=== PATIENT | female | born 1960 | race Caucasian/White ===

== ENCOUNTER → 2017-08-18 | Emergency (ER) | payer OTHER ==
[~2017-08-18] VITALS: Ht 154.9 cm; Wt 58.5 kg
[~2017-08-18] MED LIST: AMBIEN10 MG PO; CYMBALTA30 MG PO; DILAUDID4 MG PO; MIRALAX17 GM PO; NUCYNTA ER50 MG; PHENERGAN50 MG RC; PROMETHAZINE HC25 M1 PO; REQUIP0.5 MG PO; SYNTHROID100 MCG PO; SYNTHROID112 MCG PO; XANAX1 MG PO
== END ==
LOC: ED 12:41
DX: G43.909 Migraine, unspecified, not intractable, without status migrainosus (principal); Z88.5 Allergy status to narcotic agent; Z88.6 Allergy status to analgesic agent; Z88.8 Allergy status to other drugs, medicaments and biological substances; Z88.7 Allergy status to serum and vaccine; Z79.899 Other long term (current) drug therapy
CPT/HCPCS: 96361; 96374; 96375; 99282; J1170; J2550; J7030

== ENCOUNTER 2019-07-02 06:55 | Day surgery (SDC) | payer OTHER ==
[~2019-07-02] VITALS: Ht 157.5 cm; Wt 59.0 kg
[~2019-07-02 06:55] MED LIST changes: +CALCIUM600 MG PO; +CYCLOBENZAPRINE10 MG PO; +MULTI VITAMIN1 EACH PO; +OSTEO BI-FLEX1 EACH PO; +TRAZODONE HCL50 MG PO; +VITAMIN B122500 MCG PO; +VITAMIN C500 M1 PO
[2019-07-02] MEDS ORDERED: CELECOXIB200 MG PO (08:43)
[2019-07-02] MEDS ORDERED: ASPIRIN EC325 MG PO (08:43)
[2019-07-02] MEDS ORDERED: HYDROMORPHONE HC4 MG PO (08:44)
[2019-07-02] MEDS ORDERED: SENNA LAX8.6 MG PO (08:44)
[2019-07-02] MEDS ORDERED: GABAPENTIN300 MG PO (08:44)
--- NOTE | 2019-07-04 09:16 | OR ---
[facility] [address] [place], [place] [address] Signed DATE OF OPERATION: 07/02/2019 SURGEON: Ankit Cutler MD PREOPERATIVE DIAGNOSIS: Unstable right total knee. POSTOPERATIVE DIAGNOSIS: Unstable right total knee. PROCEDURE PERFORMED: Poly exchange, right total knee. SURGEON: Ankit Cutler MD SEARCH ENGINE MARKETING MANAGER: Yanira Mccloud PA-C. Yanira was present for critical for all portions of procedure. ANESTHESIA: Spinal. BLOOD LOSS: 75 mL. TOURNIQUET TIME: None. IMPLANT: 2 x 19 mm polyethylene. BRIEF HISTORY: Safia is a 59-year-old female, who had a knee replacement about four years ago. She recovered uneventfully and was doing well until the last 6-9 months when she started developing instability in her knee. It felt wobbly and loose. Infection workup was completely negative and the metal showed no evidence of loosening. Risks and benefits of operative poly exchange to tighten up the knee were discussed with her and she elected to proceed. Electronically Signed By: ANKIT CUTLER MD 07/04/19 0916 PATIENT NAME: SAFIA PORTER OPERATIVE REPORT DATE OF : 58 REPORT #: [id number] PHYSICIAN: ANKIT CUTLER MD PCP: SCOTT MARRUFO MD REPORT IS CONFIDENTIAL AND NOT TO BE RELEASED WITHOUT AUTHORIZATION [address] [address] Signed DESCRIPTION OF PROCEDURE: Once consent was obtained, she was taken to the operating room. After adequate anesthesia, she was placed on operating room table with downside pressure points well padded. The right leg was prepped and draped in a standard sterile fashion. Exam under anesthesia did show instability in all four planes. Once the leg was prepped and draped, the prior incision was marked out. She was then incised longitudinally, carried through the skin and subcutaneous tissue. A subvastus approach was then taken through the capsule up to the VMO and then taken obliquely. This was then mobilized laterally. This allowed excellent exposure. All soft tissue around the polyethylene was then removed. The polyethylene was then removed. There was just a little bit of release of the MCL to allow better position of the posteromedial corner of the polyethylene. The polyethylene was removed and all soft tissue on the tibial plate was removed. We then trialed up to a 19, the 19 was found to be quite well fitting with good stability throughout. We then removed the trial and irrigated the knee with a liter of dilute iodine solution followed by scrubbing the metal prostheses parts with hydrogen peroxide soaked sponge. We then irrigated with another liter of normal saline. The final polyethylene was then snapped into position. Knee was stable in all four planes and had range of motion from 0 to about 110 degrees of flexion. The wound was again copiously irrigated and the arthrotomy was closed using #2 Stratafix, subcutaneous tissue with #1 Stratafix, and the skin with lucy. Wound was dressed with a PEDRO wound VAC dressing. We did place an On-Q pump percutaneously into the adductor canal prior to closure. The knee was dressed with ABD, Hoang wrap, and she was taken to the recovery room in satisfactory condition. All sponge, needle, and instrument counts were correct. Ankit Cutlre MD BA/MODL /[id number] Copies: ~ Electronically Signed By: ANKIT CUTLER MD 07/04/19 0916 PATIENT NAME: SAFIA PORTER DEMARCUS OPERATIVE REPORT DATE OF : 58 REPORT #: [id number] PHYSICIAN: ANKIT CUTLER MD PCP: SCOTT MARRUFO MD REPORT IS CONFIDENTIAL AND NOT TO BE RELEASED WITHOUT AUTHORIZATION
== END 2019-07-02 15:50 | disposition home or self-care (01) ==
LOC: DS 06:55
PROVIDERS: Specialist
PROC: 0SRC0J9 Replacement of Right Knee Joint with Synthetic Substitute, Cemented, Open Approach (ICD-10-PCS; 2019-07-02)
PROC: 0SPC0JZ Removal of Synthetic Substitute from Right Knee Joint, Open Approach (ICD-10-PCS; principal; 2019-07-02 07:45)
DX: M25.361 Other instability, right knee (principal); G43.109 Migraine with aura, not intractable, without status migrainosus; G47.00 Insomnia, unspecified; G25.81 Restless legs syndrome; E55.9 Vitamin D deficiency, unspecified; E89.0 Postprocedural hypothyroidism; Z96.651 Presence of right artificial knee joint; Z88.5 Allergy status to narcotic agent; Z88.7 Allergy status to serum and vaccine; Z88.8 Allergy status to other drugs, medicaments and biological substances; Z79.899 Other long term (current) drug therapy; Z87.891 Personal history of nicotine dependence
CPT/HCPCS: 01402; 64447; 76942; 97110; 97161; C1776; J0690; J1100; J1885; J2001; J2250; J2405; J2704; J2795; J7121

== ENCOUNTER 2019-07-30 11:06 | Inpatient (IN) | payer OTHER ==
[~2019-07-30] VITALS: Ht 157.5 cm; Wt 55.3 kg
--- OUTSIDE RECORDS SUMMARY | ~2019-07-30 | XMS | Encounter Summary ---
Demographics + + + | Address | [address] | | | [place] [address] | + + + | Home Phone | | + + + | Preferred Language | Unknown | + + + | Marital Status | | + + + | Jew Affiliation | 1041 | + + + | Race | Unknown | + + + | Ethnic Group | Unknown | + + + Author + + + | Author | [facility] | | | and Jaronana | + + + | Organization | [facility] | | | and Jaronana | + + + | Address | Unknown | + + + | Phone | Unavailable | + + + Support + + + + + | Name | Relationship | Address | Phone | + + + + + | Ashley Smith | ECON | NA | | | | | [place] [address] | | + + + + + | Angel Lu | ECON | [address] | | | | | [place], [place] | | | | | [address] | | + + + + + Care Team Providers + +------+ + | Care Telephone Solicitor Supervisor Name | Role | Phone | + +------+ + PCP | Unavailable | + +------+ + Encounter Details +--------+ + + + + | Date | Type | Department | Care Team | Description | +--------+ + + + + | 12/12/ | Hospital | [facility] | An[facility] | | | 2012 | Encounter | HOSP[facility] EMERGENCY | MD [address] | | | | | CENTER [address] | [facility] | | | | | [address] [place], [place] | [place] [address] | | | | | [address] | [phone] | | | | | [phone] | | | +--------+ + + + + Social History + +-------+ +--------+------+ | Tobacco Use | Types | Packs/Day | Years | Date | | | | | Used | | + +-------+ +--------+------+ | Never Assessed | | | | | + +-------+ +--------+------+ + + + | Sex Assigned at | Date Recorded | | | | + + + | Not on file | | + + + + + + + | Job Start Date | Occupation | Industry | + + + + | Not on file | Not on file | Not on file | + + + + + + + + | Travel History | Travel Start | Travel End | + + + + + + | No recent travel history available. | + + documented as of this encounter Plan of Treatment Not on filedocumented as of this encounter Visit Diagnoses Not on filedocumented in this encounter"
--- OUTSIDE RECORDS SUMMARY | ~2019-07-30 | XMS | Encounter Summary ---
Demographics + + + | Address | [address] | | | [place] [address] | + + + | Home Phone | | + + + | Preferred Language | Unknown | + + + | Marital Status | | + + + | Muslim Affiliation | CAT | + + + | Race | White | + + + | Ethnic Group | Not or | + + + Author + + + | Author | [facility] | + + + | Organization | [facility] | + + + | Address | Unknown | + + + | Phone | Unavailable | + + + Support + + + + + | Name | Relationship | Address | Phone | + + + + + | Angel Lu | ECON | [address] | | | | | [place] | | | | | [address] | | + + + + + Care Team Providers + +------+ + | Care Damage Cutter Name | Role | Phone | + +------+ + | Matthias Blackman DO | PCP | | + +------+ + Encounter Details +--------+ + + + + | Date | Type | Department | Care Team | Description | +--------+ + + + + | 08/03/ | Outside | UNKNOWN DEPARTMENT | Other, Faculty | | | 2011 | Records | [address] [facility] | [phone] | | | | | [address] | | | | | | [place] | | | | | | [address] | | | +--------+ + + + + Social History + +-------+ +--------+------+ | Tobacco Use | Types | Packs/Day | Years | Date | | | | | Used | | + +-------+ +--------+------+ | Never Smoker | | | | | + +-------+ +--------+------+ + + +---------+ + | Alcohol Use | Drinks/Week | oz/Week | Comments | + + +---------+ + | Yes | | 0.0 | occasional | + + +---------+ + + + + | Sex Assigned at [...]
--- OUTSIDE RECORDS SUMMARY | ~2019-07-30 | XMS | Encounter Summary ---
Demographics + + + | Address | [address] | | | [place] [address] | + + + | Home Phone | | + + + | Preferred Language | Unknown | + + + | Marital Status | | + + + | Latter-Day Affiliation | CAT | + + + | Race | White | + + + | Ethnic Group | Not or | + + + Author + + + | Author | [facility] | + + + | Organization | [facility] | + + + | Address | Unknown | + + + | Phone | Unavailable | + + + Support + + + + + | Name | Relationship | Address | Phone | + + + + + | Angel Lu | ECON | [address] | | | | | [place] | | | | | [address] | | + + + + + Care Team Providers + +------+ + | Care Business Development Analyst Name | Role | Phone | + +------+ + | Matthias Blackman DO | PCP | | + +------+ + Reason for Visit +--------+ + | Reason | Comments | +--------+ + | Other | | +--------+ + Encounter Details +--------+ + + + + | Date | Type | Department | Care Team | Description | +--------+ + + + + | 06/22/ | Telephone | Otolaryngology | Laura Pelayo, | | | 2011 | | Endocrinology | [address] | | | | | [facility] at | [facility] | | | | | [address] | [place], [place] | | | | | [address] | [address] | | | | | Mailcode: [id number] | [phone] | | | | | [facility] | | | | | | [facility] [place] | | | | | | [address] | | | | | | [phone] | | | +--------+ + + + [...] Not on filedocumented as of this encounter Procedures + +--------+ + + + | Procedure Name | Priori | Date/Time | Associated Diagnosis | Comments | | | ty | | | | + +--------+ + + + | THYROGLOBULIN LEVEL | Routin | 06/22/2011 | | Results for this | | AND ANTIBODY, SERUM | e | | | procedure are in the | | | | | | results section. | + +--------+ + + + documented in this encounter Results THYROGLOBULIN, SERUM (06/22/2011) + + + + + + | Component | Value | Ref Range | Performed | Pathologist | | | | | At | Signature | + + + + + + | THYROGLOBUL | <20.0Comment: [facility] | <20.0 | NON [facility] | | | IN AB | | | LAB | | | (ANTI-TG) | | | | | + + + + + + | THYROGLOBUL | <0.1Comment: [facility] | 1.3 - 31.8 | NON [facility] | | | IN SERUM | | ng/mL | LAB | | + + + + + + + + | Specimen | + + | Blood - Blood | + + + +---------+ + + | Performing | Address | City/State/Zipcode | Phone Number | | Organization | | | | + +---------+ + + | NON [facility] | | | | + +---------+ + + documented in this encounter Visit Diagnoses Not on filedocumented in this encounter"
--- OUTSIDE RECORDS SUMMARY | ~2019-07-30 | XMS | Encounter Summary ---
Demographics + + + | Address | [address] | | | [place] [address] | + + + | Home Phone | | + + + | Preferred Language | Unknown | + + + | Marital Status | | + + + | Tenriism Affiliation | CAT | + + + | Race | White | + + + | Ethnic Group | Not or | + + + Author + + + | Author | [facility] | + + + | Organization | [facility] | + + + | Address | Unknown | + + + | Phone | Unavailable | + + + Support + + + + + | Name | Relationship | Address | Phone | + + + + + | Angel Lu | ECON | [address] | | | | | [place] | | | | | [address] | | + + + + + Care Team Providers + +------+ + | Care Wrapping Machine Tender Name | Role | Phone | + +------+ + | Matthias Blackman DO | PCP | | + +------+ + Encounter Details +--------+ + + + + | Date | Type | Department | Care Team | Description | +--------+ + + + + | 05/07/ | Telephone | Otolaryngology | Laura Pelayo, | | | 2013 | | Thyroid Services at | [address] | | | | | [address] | | | | | [address] | [place], [place] | | | | | Physician's | [address] | | | | | [address], [address] floor | [phone] | | | | | [place], [place] | | | | | | [address] | | | | | | [phone] | | | +--------+ + + + [...] filedocumented as of this encounter Visit Diagnoses + + | Diagnosis | + + | 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
--- OUTSIDE RECORDS SUMMARY | ~2019-07-30 | XMS | Encounter Summary ---
Demographics + + + | Address | [address] | | | [place] [address] | + + + | Home Phone | | + + + | Preferred Language | Unknown | + + + | Marital Status | | + + + | Rastafarian Affiliation | CAT | + + + | Race | White | + + + | Ethnic Group | Not or | + + + Author + + + | Author | [facility] | + + + | Organization | [facility] | + + + | Address | Unknown | + + + | Phone | Unavailable | + + + Support + + + + + | Name | Relationship | Address | Phone | + + + + + | Angel Lu | ECON | [address] | | | | | [place] | | | | | [address] | | + + + + + Care Team Providers + +------+ + | Care Mailing Jogger Name | Role | Phone | + +------+ + | Matthias Blackman DO | PCP | | + +------+ + Reason for Visit + + + | Reason | Comments | + + + | Appointment | | + + + Encounter Details +--------+ + + + + | Date | Type | Department | Care Team | Description | +--------+ + + + + | 05/21/ | Telephone | Otolaryngology | Laura Pelayo, | Appointment | | 2008 | | Endocrinology | MD [address] | | | | | Thyroid Services at | [facility] | | | | | [address] | [place], [place] | | | | | [address] | [address] | | | | | Mailcode: [id number] | [phone] | | | | | [facility] | | | | | | [place], [place] | | | | | | [address] | | | | | | [phone] | | | +--------+ + + + [...] Not on filedocumented as of this encounter Results THYROGLOBULIN, SERUM (07/25/2008 12:07 PM PDT) + + + + + + | Component | Value | Ref Range | Performed | Pathologist | | | | | At | Signature | + + + + + + | THYROGLOBUL | < 1.0Comment: | <14.5 IU/mL | | | | IN ANTIBODY | Test performed by: | | | | | | [facility] [id number] | | | | | | [facility] | | | | | | [place], [place] | | | | | | [address] | | | | | | Anti-Thyroglobulin Ab | | | | | | Reference Range: | | | | | | Children and Adults<1.0 | | | | | | IU/mL Low levels | | | | | | of Anti-TG Antibodies | | | | | | (<100 IU/mL) may be | | | | | | presentin | | | | | | apparently healthy | | | | | | children and adults. | | | | | | Since it is | | | | | | unclearwhether | | | | | | this is a normal immune | | | | | | response or subclinical | | | | | | thyroiditis,low | | | | | | levels of antibodies | | | | | | should be correlated | | | | | | with the | | | | | | patient'sclinical | | | | | | condition. | | | | + + + + + + | THYROGLOBUL | < 0.5Comment: | ng/mL | | | | IN | TG-ICMA Reference Range: | | | | | (TG-ICMA) | RANGE (ng/mL) | | | | | | MEAN (ng/mL) | | | | | | Prepubertal Children: | | | | | | 2.9-56 | | | | | | 17 | | | | | | Pubertal Children and | | | | | | Adults: 1.3-37 | | | | | | 8.5 | | | | + + + + + + | THYROGLOBUL | Test not indicated. | ng/mL | | | | IN (TG-STEPHANIE) | | | | | + + + + + + | % RECOVERY | Test not indicated. | | | | + + + + + + + + | Specimen | + + | Blood - Blood | + + + + + + + | Performing | Address | City/State/Zipcode | Phone Number | | Organization | | | | + + + + + | [facility] | [address] | [place] [address] | | | PATHOLOGY | [address] | | | + + + + + FREE T4, SERUM (07/25/2008 12:07 PM PDT) + +-------+ + + + | Component | Value | Ref Range | Performed | Pathologist | | | | | At | Signature | + +-------+ + + + | FREE T4, | 1.2 | 0.6 - 1.2 ng/dL | | | | SERUM | | | | | + +-------+ + + + + + | Specimen | + + | Blood - Blood | + + + + + | Narrative | Performed At | + + + | Free T4 Reference Range change effective 07/18/08 | [facility] | | [facility] [place] | DEPARTMENT OF | | [place] [address] | PATHOLOGY | | [place] [address] | | + + + + + + + + | Performing | Address | City/State/Zipcode | Phone Number | | Organization | | | | + + + + + | [facility] DEPARTMENT OF | [address] | [place] [address] | | | PATHOLOGY | [address] | | | + + + + + | [facility] DEPARTMENT OF | [facility] | [place] [address] | | | PATHOLOGY | [address] | | | + + + + + TSH (07/25/2008 12:07 PM PDT) + +-------+ + + + | Component | Value | Ref Range | Performed | Pathologist | | | | | At | Signature | + +-------+ + + + | TSH | 0.55 | 0.34 - 5.60 | | | | | | uIU/ml | | | + +-------+ + + + + + | Specimen | + + | Blood - Blood | + + + + + | Narrative | Performed At | + + + | [facility] | [facility] | | [facility] [address] [facility] | DEPARTMENT OF | | [place] [address] | PATHOLOGY | + + + + + + + + | Performing | Address | City/State/Zipcode | Phone Number | | Organization | | | | + + + + + | [facility] DEPARTMENT OF | [address] [facility] | [place] [address] | | | PATHOLOGY | [address] | | | + + + + + | [facility] DEPARTMENT OF | [address] [facility] | [place] [address] | | | PATHOLOGY | [address] | | | + + + + + US THY CLINIC, NECK THYROID (07/25/2008 12:03 PM PDT) + + + + + + | Component | Value | Ref Range | Performed | Pathologist | | | | | At | Signature | + + + + + + | US THY | Indication: Evaluate for | | | | | CLINIC, | metastatic | | | | | NECK | disease.Comparison: | | | | | THYROID | None.Technique: Real | | | | | | time karimi scale and | | | | | | color Doppler ultrasound | | | | | | wasperformed of the | | | | | | thyroid bed and | | | | | | neck.Findings: The | | | | | | patient is status post | | | | | | thyroidectomy without | | | | | | residualtissue in the | | | | | | surgical bed. Thorough | | | | | | evaluation of the | | | | | | levels Ithrough | | | | | | reveals no | | | | | | adenopathy.Impression: | | | | | | Status post | | | | | | thyroidectomy without | | | | | | evidence for recurrentor | | | | | | metastatic disease.I | | | | | | have personally viewed | | | | | | this procedure/exam and | | | | | | reviewed this | | | | | | report.Author: NATANAEL | | | | | | Santiago JOEReviewer: | | | | | | NATANAEL JOE M.D.STATUS | | | | | | FINAL / Dr. 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
--- OUTSIDE RECORDS SUMMARY | ~2019-07-30 | XMS | Encounter Summary ---
Demographics + + + | Address | [address] | | | [place] [address] | + + + | Home Phone | | + + + | Preferred Language | Unknown | + + + | Marital Status | | + + + | Faith Affiliation | CAT | + + + | Race | White | + + + | Ethnic Group | Not or | + + + Author + + + | Author | [facility] | + + + | Organization | [facility] | + + + | Address | Unknown | + + + | Phone | Unavailable | + + + Support + + + + + | Name | Relationship | Address | Phone | + + + + + | Angel Lu | ECON | [address] | | | | | [place] | | | | | [address] | | + + + + + Care Team Providers + +------+ + | Care Pill Maker Name | Role | Phone | + +------+ + | Matthias Blackman DO | PCP | | + +------+ + Encounter Details +--------+ + + + + | Date | Type | Department | Care Team | Description | +--------+ + + + + | 05/31/ | [facility] | Otolaryngology | Laura Pelayo, | | | 2013 | | Thyroid Services at | MD [address] | | | | | [facility] [address] | | | | | [address] | [place], [place] | | | | | Physician's | [address] | | | | | Steve, [address]nd floor | [phone] | | | | | [place], [place] | | | | | | [address] | | | | | | [phone] | | | +--------+ + + + [...] + +--------+ + + + | THYROGLOBULIN AB, | Routin | 05/30/2013 | | Results for this | | SERUM | e | | | procedure are in the | | | | | | results section. | + +--------+ + + + | THYROGLOBULIN LEVEL | Routin | 05/30/2013 | | Results for this | | AND ANTIBODY, SERUM | e | | | procedure are in the | | | | | | results section. | + +--------+ + + + | FREE T4 | Routin | 05/30/2013 | | Results for this | | | e | | | procedure are in the | | | | | | results section. | + +--------+ + + + | TSH | Routin | 05/30/2013 | | Results for this | | | e | | | procedure are in the | | | | | | results section. | + +--------+ + + + documented in this encounter Results THYROGLOBULIN, SERUM (05/30/2013) + +-------+ + + + | Component | Value | Ref Range | Performed | Pathologist | | | | | At | Signature | + +-------+ + + + | THYROGLOBUL | <0.2 | <55 ng/mL | [facility] | | | IN ([facility]) | | | LAB - | | | | | | [place] | | + +-------+ + + + + + | Specimen | + + | Blood - Blood | + + + + + + + | Performing | Address | City/State/Zipcode | Phone Number | | Organization | | | | + + + + + | [facility] - | [address] | [place], [place] | [phone] | | [place] | | | | + + + + + THYROGLOBULIN AB, SERUM (05/30/2013) + +-------+ + + + | Component | Value | Ref Range | Performed | Pathologist | | | | | At | Signature | + +-------+ + + + | THYROGLOBUL | <20 | <40 IU/mL | [facility] | | | IN ANTIBODY | | | LAB - | | | | | | [place] | | + +-------+ + + + + + | Specimen | + + | Blood - Blood | + + + + + + + | Performing | Address | City/State/Zipcode | Phone Number | | Organization | | | | + + + + + | [facility] - | [address] | [place] | [phone] | | [place] | | | | + + + + + FREE T4 (05/30/2013) + +-------+ + + + | Component | Value | Ref Range | Performed | Pathologist | | | | | At | Signature | + +-------+ + + + | FREE T4 | 1.5 | 0.7 - 1.7 ng/dL | [facility] | | | | | | LAB - | | | | | | [place] | | + +-------+ + + + + + | Specimen | + + | Blood - Blood | + + + + + + + | Performing | Address | City/State/Zipcode | Phone Number | | Organization | | | | + + + + + | [facility] - | [address] | [place] | [phone] | | [place] | | | | + + + + + TSH (05/30/2013) + +-------+ + + + | Component | Value | Ref Range | Performed | Pathologist | | | | | At | Signature | + +-------+ + + + | TSH | 2.69 | 0.270 - 4.20 | [facility] | | | | | uIU/ml | LAB - | | | | | | [place] | | + +-------+ + + + + + | Specimen | + + | Blood - Blood | + + + + + + + | Performing | Address | City/State/Zipcode | Phone Number | | Organization | | | | + + + + + | [facility] - | [address] | [place] | [phone] | | [place] | | | | + + + + + documented in this encounter Visit Diagnoses Not on filedocumented in this encounter"
--- OUTSIDE RECORDS SUMMARY | ~2019-07-30 | XMS | Encounter Summary ---
Demographics + + + | Address | [address] | | | [place] [address] | + + + | Home Phone | | + + + | Preferred Language | Unknown | + + + | Marital Status | | + + + | Christian Affiliation | CAT | + + + | Race | White | + + + | Ethnic Group | Not or | + + + Author + + + | Author | [facility] | + + + | Organization | [facility] | + + + | Address | Unknown | + + + | Phone | Unavailable | + + + Support + + + + + | Name | Relationship | Address | Phone | + + + + + | Angel Lu | ECON | [address] | | | | | [place] | | | | | [address] | | + + + + + Care Team Providers + +------+ + | Care Supervisor Paper Machine Name | Role | Phone | + +------+ + | Matthias Blackman DO | PCP | | + +------+ + Encounter Details +--------+------+ + + + | Date | Type | Department | Care Team | Description | +--------+------+ + + + | 08/06/ | Lab | Laboratory at [facility] | | Papillary carcinoma | | 2016 | | [address] | | of thyroid (HCC) | | | | Loop Physician's | | | | | | Steve, [address] [place] [address] | | | | | | [place], [place] | | | | | | [address] | | | | | | [phone] | | | +--------+------+ + + + Social History + +-------+ [...] + | FREE T4 | Routin | 08/07/2015 | Papillary | Results for this | | | e | 10:42 AM | carcinoma of thyroid | procedure are in the | | | | PDT | ([facility]) | results section. | + +--------+ + + + | TSH | Routin | 08/07/2015 | Papillary | Results for this | | | e | 10:42 AM | carcinoma of thyroid | procedure are in the | | | | PDT | ([facility]) | results section. | + +--------+ + + + documented in this encounter Results FREE T4 (08/07/2015 10:42 AM PDT) + +-------+ + + + | Component | Value | Ref Range | Performed | Pathologist | | | | | At | Signature | + +-------+ + + + | FREE T4 | 1.0 | 0.6 - 1.2 ng/dL | [facility] | | | | | | LABORATORY | | | | | | SERVICES, | | | | | | CORE | | + +-------+ + + + + + | Specimen | + + | Blood - Blood | | (substance) | + + + + + + + | Performing | Address | City/State/Zipcode | Phone Number | | Organization | | | | + + + + + | [facility] | [address] | [place] [address] | | | SERVICES, CORE | [address] | | | + + + + + TSH (08/07/2015 10:42 AM PDT) + +-------+ + + + | Component | Value | Ref Range | Performed | Pathologist | | | | | At | Signature | + +-------+ + + + | TSH | 3.57 | 0.50 - 5.07 | [facility] | | | | | mIU/L | LABORATORY | | | | | | SERVICES, | | | | | | CORE | | + +-------+ + + + + + | Specimen | + + | Blood - Blood | | (substance) | + + + + + | Narrative | Performed At | + + + | TSH reference ranges are influenced by a variety of environmental | [facility] | | influences, age, gender and ethnicity. The supplied reference limits | LABORATORY | | are based on published values utilizing a similar TSH assay, and | SERVICES, CORE | | should be interpreted with caution. | | + + + + + + + + | Performing | Address | City/State/Zipcode | Phone Number | | Organization | | | | + + + + + | [facility] | [address] | [place] [address] | | | [address] | [address] | | | + + + + + documented in this encounter Visit Diagnoses + + | Diagnosis | + + | 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
--- OUTSIDE RECORDS SUMMARY | ~2019-07-30 | XMS | Encounter Summary ---
Demographics + + + | Address | [address] | | | [place] [address] | + + + | Home Phone | | + + + | Preferred Language | Unknown | + + + | Marital Status | | + + + | Taoist Affiliation | CAT | + + + | Race | White | + + + | Ethnic Group | Not or | + + + Author + + + | Author | [facility] | + + + | Organization | [facility] | + + + | Address | Unknown | + + + | Phone | Unavailable | + + + Support + + + + + | Name | Relationship | Address | Phone | + + + + + | Angel Lu | ECON | [address] | | | | | [place] | | | | | [address] | | + + + + + Care Team Providers + +------+ + | Care Research Staff Member Name | Role | Phone | + +------+ + | Matthias Blackman DO | PCP | | + +------+ + Reason for Visit + + + | Reason | Comments | + + + | Follow-up visit | | + + + Office Visit - E/M Services (Routine) +--------+--------+ + + + + | Status | Reason | Specialty | Diagnoses / | Referred By | Referred To | | | | | Procedures | Contact | Contact | +--------+--------+ + + + + | Closed | | Otolaryngolog | Diagnoses | Junaid, | Ent Thyroid | | | | y | Malignant | Andrey Davalos MD | [facility] [address] | | | | | neoplasm of | [address] | | | | | thyroid | [address] | [address] | | | | | gland (HCC) | [address] | Physician's | | | | | | [place], | [address] | | | | | | [place] [address] | floor | | | | | | Phone: | [place], [place] | | | | | | [phone] | [address] | | | | | | Fax: | Phone: | | | | | | [phone] | [phone] | | | | | | | Fax: | | | | | | | [phone] | +--------+--------+ + + + + Encounter Details +--------+---------+ + + + | Date | Type | Department | Care Team | Description | +--------+---------+ + + + | 08/09/ | Office | Otolaryngology | Laura Pelayo, | Papillary carcinoma | | 2014 | Visit | Endocrinology | [address] | of thyroid (HCC) | | | | Thyroid Services at | [facility] [address] | (Primary Dx) | | | | [facility] [address] | [place], [place] | | | | | [address] | [address] | | | | | Mailcode: [id number] | [phone] | | | | | Phys[facility]'s Pavilion | | | | | | [place], [place] | | | | | | [address] | | | | | | [phone] | | | +--------+---------+ + + + Social History + +-------+ [...] + + documented as of this encounter Last Filed Vital Signs + + + + + | Vital Sign | Reading | Time Taken | Comments | + + + + + | Blood Pressure | - | - | | + + + + + | Pulse | - | - | | + + + + + | Temperature | - | - | | + + + + + | Respiratory Rate | - | - | | + + + + + | Oxygen Saturation | - | - | | + + + + + | Inhaled Oxygen | - | - | | | Concentration | | | | + + + + + | Weight | 55.8 kg (123 lb) | 08/09/2013 4:22 PM | | | | | PDT | | + + + + + | Height | 156.2 cm (5' 1.5") | 08/09/2013 4:22 PM | | | | | PDT | | + + + + + | Body Mass Index | 22.86 | 08/09/2013 4:22 PM | | | | | PDT | | + + + + + documented in this encounter Progress Notes Laura Pelayo MD - 08/09/2013 4:30 PM PDTFormatting of this note might be different fro m the original. THYROID TUMOR CLINIC - ENDOCRINOLOGY THYROID CANCER Follow-up Safia Lu is a 53 y.o. female with a history of Papillary Thyroid Carcinoma, follicula r variant here for f/u. Her disease was T3 N0 M0, Stage III who returns to clinic today for follow-up. She is s/p total thyroidectomy on 05/12/06, I-131 ablation with 121.7 mCi on with post-therapy scan showing asymmetric uptake in the thyroid bed, but no distant metast ases, neg Thyrogen-stimulated WBS and Tg evaluation 05/05, negative thyroglobulin and ultraso und evaluations since then. Her current dose of Levothyroxine is 100 mcg a day. Denies symptoms of hyper or hypothyroidism including heat intolerance, cold intolerance, co nstipation, diarrhea, excess sweating, palpitations, tremor. She does relate constipation ( chronic, not as much control with Miralax as it has in past ), and doesn't have the energy t hat she thinks she should, lethargic. She denies any neck masses, but does not occ difficulty swallowing solids. Medications: Current outpatient prescriptions:DULoxetine (CYMBALTA) 30 mg Oral capsule,delayed release(D R/EC), Take 30 mg by mouth once daily., Disp: , Rfl: HYDROmorphone 4 mg Oral Tablet, Take 1 Tab by mouth every three hours as needed for severe pain., Disp: 12 Tab, Rfl: 0 levothyroxine 100 mcg Oral tablet, Take 1 Tab by mouth once daily., Disp: 100 Tab, Rfl: 3 Promethazine HCl 25 mg Oral Tablet, prn migraine, Disp: , Rfl: ropinirole (REQUIP) 1 mg Oral Tablet, take 1 tablet (1 mg) by oral route 3 times per day, D isp: , Rfl: PE: Ht 1.562 m (5' 1.5") | Wt 55.792 kg (123 lb) | BMI 22.87 kg/(m^2) General: Pleasant woman,NAD, AOx3 HEENT: EOMs intact without lid lag, retraction or stare. Neck: supple, no adenopathy, masses or palpable thyroid tissue, no masses. Well-healed thy roidectomy scar. Neuro: No tremor. DTRs 1+ with normal relaxation phase. Strength, gait and mental status are grossly intact. Skin: Warm and of normal consistency, temperature and texture. Laboratory: Component Latest Ref Rng 05/30/2013 TSH 0.270 - 4.20 uIU/ml 2.69 FREE T4, SERUM 0.7 - 1.7 ng/dL 1.5 THYROGLOBULIN ANTIBODY <40 IU/mL <20 THYROGLOBULIN (TG-STEPHANIE) <55 ng/mL <0.2 Radiology: US THY CLINIC, NECK SOFT TISU STUDY:US THY CLINIC NECK SOFT TISSUE 08/09/13 16:14:00 COMPARISON:08/26/2011 INDICATION: Followup thyroid cancer FINDINGS: All cervical levels were evaluated sonographically. The thyroid is surgically absent. No paratracheal nodules are seen. Multiple morphologically normal lateral compartment lymph nodes are present bilaterally. None contain microcalcification or abnormal vascularity. IMPRESSION: No evidence of recurrent or metastatic disease in the neck. Assessment: This is a 53 y.o. female with Papillary Thyroid Carcinoma, follicular variant h ere for f/u. Her disease was T3 N0 M0, Stage III. No evidence of recurrent disease thyroid d isease at this time. History of negative thyrogen stimulated hole body iodine scan in 2007, persistently negative neck ultrasounds, and negative thyroglobulin with neg antithyroglobuli n antibodies. She is clinically euthyroid with a reasonable TSH. Our goal is to have her TS H in the range of 0.2-2.0 with normal Free T4 but she is close enough to that, that we will not change her dose at this time (given previous dose of 112 mcg made her hyperthyroid). Plan: 1. No change in levothyroxine based on thyroid labs in May. 2. Plan continued thryoid cancer surveillance with ultrasensitive unstimulated thyroglobuli n next year, plan next neck ultrasound in 2 years. 3. RTC 1 year for levothyroxine titration and thyroid cancer surveillance.Electronically si gned by Laura Pelayo MD at 08/09/2013 5:40 PM PDTdocumented in this encounter Plan of Treatment Not on filedocumented as of this encounter Visit Diagnoses + + | Diagnosis | + + | Papillary carcinoma of thyroid (HCC) - Primary Malignant neoplasm of thyroid gland | + + documented in this encounter
--- OUTSIDE RECORDS SUMMARY | ~2019-07-30 | XMS | Encounter Summary ---
Demographics + + + | Address | [address] | | | [place] [address] | + + + | Home Phone | | + + + | Preferred Language | Unknown | + + + | Marital Status | | + + + | Adventism Affiliation | CAT | + + + | Race | White | + + + | Ethnic Group | Not or | + + + Author + + + | Author | [facility] | + + + | Organization | [facility] | + + + | Address | Unknown | + + + | Phone | Unavailable | + + + Support + + + + + | Name | Relationship | Address | Phone | + + + + + | Angel Lu | ECON | [address] | | | | | [place] | | | | | [address] | | + + + + + Care Team Providers + +------+ + | Care Fish Smoker Name | Role | Phone | + +------+ + | Matthias Blackman DO | PCP | | + +------+ + Encounter Details +--------+------+ + + + | Date | Type | Department | Care Team | Description | +--------+------+ + + + | 09/14/ | Lab | Laboratory at [facility] | | Papillary Carcinoma | | 2007 | | [address] | | of Thyroid (HCC) | | | | Loop Physician's | | | | | | Steve, [address] [place] [address] | | | | | | [place], [place] | | | | | | [address] | | | | | | [phone] | | | +--------+------+ + + + [...] + | THYROGLOBULIN LEVEL | Routin | 09/15/2007 | Papillary | Results for this | | AND ANTIBODY, SERUM | e | 9:23 AM | Carcinoma of Thyroid | procedure are in the | | | | PDT | ([facility]) | results section. | + +--------+ + + + | TSH | Routin | 09/15/2007 | Papillary | Results for this | | | e | 9:23 AM | Carcinoma of Thyroid | procedure are in the | | | | PDT | ([facility]) | results section. | + +--------+ + + + documented in this encounter Results THYROGLOBULIN, SERUM (09/15/2007 9:23 AM PDT) + + + + + + | Component | Value | Ref Range | Performed | Pathologist | | | | | At | Signature | + + + + + + | THYROGLOBUL | < 1.0Comment: | <14.5 IU/mL | | | | IN ANTIBODY | Test performed by | | | | | | [employer] | | | | | | Anti-Thyroglobulin | | | | | | Ab Reference Range: | | | | | [...] | + + + + + | [facility] | [address] [facility] | [facility], | | | | | [place] [address] | | + + + + + TSH (09/15/2007 9:23 AM PDT) + + + + + + | Component | Value | Ref Range | Performed | Pathologist | | | | | At | Signature | + + + + + + | TSH | 15.00 (H) | 0.34 - 5.60 | | | | | | uIU/ml | | | + + + + + + + + | Specimen | + + | Blood - Blood | + + + + + | Narrative | Performed At | + + + | High TSH (suggests Hypothyroid) | | | Reference range change effective 12/19/06 | | | [facility] | | | [place] [address] [facility] | | | [place] [address] | | + + + + + + + + | Performing | Address | City/State/Zipcode | Phone Number | | Organization | | | | + + + + + | [facility] | [address] | [place] [address] | | | LABORATORY | | | | + + + + + documented in this encounter Visit Diagnoses + + | Diagnosis | + + | 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
--- OUTSIDE RECORDS SUMMARY | ~2019-07-30 | XMS | Encounter Summary ---
Demographics + + + | Address | [address] | | | [place] [address] | + + + | Home Phone | | + + + | Preferred Language | Unknown | + + + | Marital Status | | + + + | Lutheran Affiliation | CAT | + + + | Race | White | + + + | Ethnic Group | Not or | + + + Author + + + | Organization | Unknown | + + + | Address | Unknown | + + + | Phone | Unavailable | + + + Support + + + + + | Name | Relationship | Address | Phone | + + + + + | Angel Lu | ECON | [address] | | | | | [place] | | | | | [address] | | + + + + + Care Team Providers + +------+ + | Care Supervisor Road Administrator Name | Role | Phone | + +------+ + PCP | Unavailable | + +------+ + Encounter Details +--------+ + + + + | Date | Type | Department | Care Team | Description | +--------+ + + + + | 09/19/ | Office | | Note, Outpatient | Progress Note | | 2004 | Visit-Trans | | Clinic | | | | cribed | | | | +--------+ + + + [...] + + documented as of this encounter Progress Notes Interface, Pad Machine Operator In - 09/27/2004 6:38 AM [facility] Date: 09/20/2003 Clinic: CHART NOTE Subjective: Safia Lu returns to the General Neurology Clinic today for followup of migraine headaches. Safia reports that she has not had as many headaches over the past 6 months as previously. She reports a few headaches that have been relieved with Imitrex. She had a severe headache in April 2003 and had to be seen in the Emergency Room at the local hospital. She was treated with Demerol which she has received twice during her stay there that did not significantly help with the headache. She states that usually she receives Valium with the Demerol and on this occasion, apparently, they did not give her Valium. She did not get sleepy on the Demerol but did go home and eventually was able to sleep off the headache. She reports that she did take the Dilaudid 4 mg prior to going to the Emergency Room but that it was ineffective. She has had some new medical problems. 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 She was taking hydrochlorothiazide for many years. She is on potassium replacement, but it has been slow in terms of her hypokalemia subsiding. She continues on atenolol 25 mg daily and nortriptyline 50 mg daily. Physical Examination Vital Signs: Weight 128.7 pounds, blood pressure 100/60, pulse 102 per minute and regular. General Appearance: This is a well-developed, attractive female who is quite pleasant and cooperative. Neurologic: Cranial nerves 2 through 12 are intact. Funduscopic exam is normal. Motor exam: 5/5 strength. Sensory exam: Intact light touch, vibratory, temperature, and proprioception. Cerebellar exam: Excellent coordination of upper extremities. She performs tandem gait without ataxia. Deep tendon reflexes are 1 to 2+ and symmetrical. Toes signs are downgoing. Clinical Impression: Migraine headache disorder. Fairly well controlled with atenolol and nortriptyline. Recommendations: We will add Phenergan 50 mg tablets 1 p.o. q.6h. as needed for nausea to take for more severe headaches along with the Dilaudid. Hopefully, this will allow her to get the sleep, and her headache will subside without going to the Emergency Room. If this does not work, she is to call me, and we will consider other options including changing her prophylactic medication or perhaps changing her acute rescue medications to Stadol Nasal Hoskins. Return appointment in 6 months' time. Glory Quintanilla M.D. / [id number] / [id number] / [id number] / cc: Richard Dee M.D. [address] [place] [id number] signed by Interface, Pad Machine Operator In at 09/27/2004 6:38 AM PDTdocumented in this encounter Plan of Treatment Not on filedocumented as of this encounter Visit Diagnoses Not on filedocumented in this encounter"
--- OUTSIDE RECORDS SUMMARY | ~2019-07-30 | XMS | Encounter Summary ---
Demographics + + + | Address | [address] | | | [place] [address] | + + + | Home Phone | | + + + | Preferred Language | Unknown | + + + | Marital Status | | + + + | Episcopal Affiliation | CAT | + + + | Race | White | + + + | Ethnic Group | Not or | + + + Author + + + | Author | [facility] | + + + | Organization | [facility] | + + + | Address | Unknown | + + + | Phone | Unavailable | + + + Support + + + + + | Name | Relationship | Address | Phone | + + + + + | Angel Lu | ECON | [address] | | | | | [place] | | | | | [address] | | + + + + + Care Team Providers + +------+ + | Care Plastic Welder Name | Role | Phone | + +------+ + | Matthias Blackman DO | PCP | | + +------+ + Encounter Details +--------+ + + + + | Date | Type | Department | Care Team | Description | +--------+ + + + + | 08/16/ | Abstract | Otolaryngology | Laura Pelayo, | | | 2007 | | Thyroid Services at | [address] | | | | | [facility] [address] | | | | | [address] | [place], [place] | | | | | Physician's | [address] | | | | | Steve, [address] floor | [phone] | | | | | [place], [place] | | | | | | [address] | | | | | | [phone] | | | +--------+ + + + [...] | + +--------+ + + + | IODINE, URINE | Routin | 08/11/2007 | | Results for this | | | e | | | procedure are in the | | | | | | results section. | + +--------+ + + + documented in this encounter Results IODINE, URINE (08/11/2007) + +-------+ + + + | Component | Value | Ref Range | Performed | Pathologist | | | | | At | Signature | + +-------+ + + + | IODINE, | 161 | 100 - 460 | NON [facility] | | | URINE | | | LAB | | + +-------+ + + + | IODINE | 92 | 42 - 350 | NON [facility] | | | CONCENTRATI | | | LAB | | | ON | | | | | + +-------+ + + + | URINE | 1750 | mL | NON [facility] | | | VOLUME | | | LAB | | + +-------+ + + + | COLLECTION | 24 | hr | NON [facility] | | | INTERVAL | | | LAB | | + +-------+ + + + + + | Specimen | + + | Urine - Urine | + + + +---------+ + + | Performing | Address | City/State/Zipcode | Phone Number | | Organization | | | | + +---------+ + + | NON [facility] | | | | + +---------+ + + documented in this encounter Visit Diagnoses Not on filedocumented in this encounter"
--- OUTSIDE RECORDS SUMMARY | ~2019-07-30 | XMS | Encounter Summary ---
Demographics + + + | Address | [address] | | | [place] [address] | + + + | Home Phone [...] Author | [facility] | + + + | Organization | [facility] | + + + | Address | Unknown | + + + | Phone | Unavailable | + + + Support + + + + + | Name | Relationship | Address | Phone | + + + + + | Angel Lu | ECON | [address] | | | | | [place] | | | | | [address] | | + + + + + Care Team Providers + +------+ + | Care Qualification Engineer Name | Role | Phone | + +------+ + | Matthias Blackman DO | PCP | | + +------+ + Encounter Details +--------+ + + + + | Date | Type | Department | Care Team | Description | +--------+ + + + + | 09/12/ | Results | Otolaryngology | Laura Pelayo, | | | 2007 | Only | Endocrinology | [address] | | | | | Thyroid Services at | [facility] | | | | | [address] | [place], [place] | | | | | [address] | [address] | | | | | Mailcode: [id number] | [phone] | | | | | [facility] | | | | | | [place], [place] | | | | | | [address] | | | | | | [phone] | | | +--------+ + + + [...] as of this encounter Plan of Treatment + +---------+--------+ + + | Name | Type | Priori | Associated Diagnoses | Date/Time | | | | ty | | | + +---------+--------+ + + | NM ISOTOPE ADMI | Imaging | Routin | | 09/13/2007 11:00 AM | | | | e | | PDT | + +---------+--------+ + + documented as of this encounter Visit Diagnoses Not on filedocumented in this encounter"
--- OUTSIDE RECORDS SUMMARY | ~2019-07-30 | XMS | Encounter Summary ---
Demographics + + + | Address | [address] | | | [place] [address] | + + + | Home Phone | | + + + | Preferred Language | Unknown | + + + | Marital Status | | + + + | Hinduism Affiliation | CAT | + + + | Race | White | + + + | Ethnic Group | Not or | + + + Author + + + | Author | [facility] | + + + | Organization | [facility] | + + + | Address | Unknown | + + + | Phone | Unavailable | + + + Support + + + + + | Name | Relationship | Address | Phone | + + + + + | Angel uL | ECON | [address] | | | | | [place] | | | | | [address] | | + + + + + Care Team Providers + +------+ + | Care Laborer Vineyard Name | Role | Phone | + +------+ + | Matthias Blackman DO | PCP | | + +------+ + Encounter Details +--------+ + + + + | Date | Type | Department | Care Team | Description | +--------+ + + + + | 09/27/ | Telephone | Otolaryngology | Laura Pelayo, | | | 2011 | | Endocrinology | [address] [facility] | | | | | Thyroid Services at | [facility] | | | | | [address] | [place], [place] | | | | | [address] | [address] | | | | | Mailcode: [id number] | [phone] | | | | | [facility] | | | | | | [place], [place] | | | | | | [address] | | | | | | [phone] | | | +--------+ + + + [...]
--- OUTSIDE RECORDS SUMMARY | ~2019-07-30 | XMS | Encounter Summary ---
Demographics + + + | Address | [address] | | | [place] [address] | + + + | Home Phone | | + + + | Preferred Language | Unknown | + + + | Marital Status | | + + + | Buddhist Affiliation | CAT | + + + [...] + | Angel Lu | ECON | [address] | | | | | [place] | | | | | [address] | | + + + + + Care Team Providers + +------+ + | Care Suction Plate Roller Hand Name | Role | Phone | + +------+ + | Matthias Blackman DO | PCP | | + +------+ + Encounter Details +--------+ + + + + | Date | Type | Department | Care Team | Description | +--------+ + + + + | 08/25/ | Hospital | Diagnostic | | | | 2011 | Encounter | Radiology at [facility] | | | | | | [address] | | | | | | [address] [facility] | | | | | | Steve, [address] [place] [address] | | | | | | [place], [place] | | | | | | [address] | | | | | | [phone] | | | +--------+ + + + [...] + + documented as of this encounter Medications at Time of Discharge + + + +---------+ + + | Medication | Sig | Dispensed | Refills | Start | End Date | | | | | | Date | | + + + +---------+ + + | HYDROmorphone 4 mg | Take 1 Tab by mouth | 12 Tab | 0 | 08/21/19 | | | Oral Tablet | every three hours as | | | 11 | | | | needed for severe | | | | | | | pain. | | | | | + + + +---------+ + + | ropinirole | take 1 tablet (1 mg) | | 0 | | | | (REQUIP) 1 mg Oral | by oral route 3 | | | | | | Tablet | times per day | | | | | + + + +---------+ + + documented as of this encounter Plan of Treatment Not on filedocumented as of this encounter Procedures + +--------+ + + + | Procedure Name | Priori | Date/Time | Associated Diagnosis | Comments | | | ty | | | | + +--------+ + + + | US SOFT TISSUE HEAD | Routin | 08/26/2011 | Papillary | Results for this | | & NECK | e | 10:07 AM | carcinoma of thyroid | procedure are in the | | | | PDT | ([facility]) | results section. | + +--------+ + + + documented in this encounter Results US SOFT TISSUE HEAD & NECK (08/26/2011 10:07 AM PDT) + + + + + + | Component | Value | Ref Range | Performed | Pathologist | | | | | At | Signature | + + + + + + | US SOFT | Neck ultrasound | | | | | TISSUE HEAD | findings: The patient | | | | | & NECK | has papillary thyroid | | | | | | cancer. Comparison is | | | | | | made with a previous | | | | | | examination performed | | | | | | July. All | | | | | | cervical levels were | | | | | | evaluated | | | | | | sonographically. The | | | | | | thyroid is surgically | | | | | | absent. No left-sided | | | | | | paratracheal nodulesare | | | | | | seen. Two small | | | | | | morphologically normal | | | | | | appearing lymph nodes | | | | | | areidentified in the | | | | | | right paratracheal | | | | | | region. The larger | | | | | | measures 4 x3 x 4 mm. | | | | | | Neither contains | | | | | | calcification or has | | | | | | abnormalvascularity. | | | | | | Multiple morphologically | | | | | | normal appearing | | | | | | lateral compartment | | | | | | lymphnodes are present | | | | | | bilaterally. None | | | | | | contains calcifications | | | | | | or hasabnormal | | | | | | vascularity. | | | | | | IMPRESSION: 1. No | | | | | | metastatic or recurrent | | | | | | disease is identified. | | | | | | No newabnormality is | | | | | | seen. Attending | | | | | | Radiologists: Dylan Wong | | | | | | Santiago OrtizAuthor: Dylan | | | | | | Marvin Ortiz M.D. I | | | | | | have personally viewed | | | | | | this procedure/exam, | | | | | | reviewed this report,and | | | | | | made changes to it | | | | | | where appropriate. 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
--- OUTSIDE RECORDS SUMMARY | ~2019-07-30 | XMS | Encounter Summary ---
Demographics + + + | Address | [address] | | | [place] [address] | + + + | Home Phone | | + + + | Preferred Language | Unknown | + + + | Marital Status | | + + + | Bahai Affiliation | CAT | + + + | Race | White | + + + | Ethnic Group | Not or | + + + Author + + + | Author | [facility] | + + + | Organization | [facility] | + + + | Address | Unknown | + + + | Phone | Unavailable | + + + Support + + + + + | Name | Relationship | Address | Phone | + + + + + | Angel Lu | ECON | [address] | | | | | [place] | | | | | [address] | | + + + + + Care Team Providers + +------+ + | Care Propeller Engineer Name | Role | Phone | + +------+ + | Matthias Blackman DO | PCP | | + +------+ + Encounter Details +--------+------+ + + + | Date | Type | Department | Care Team | Description | +--------+------+ + + + | 08/25/ | Lab | Laboratory at [facility] | | Papillary carcinoma | | 2011 | | [address] | | of thyroid (HCC) | | | | [address] [facility] | | | | | | Steve, [address] [place] [address] | | | | | | [place], [place] | | | | | | [address] | | | | | | [phone] | | | +--------+------+ + + + [...] + | THYROGLOBULIN LEVEL | Routin | 08/26/2011 | Papillary | Results for this | | AND ANTIBODY, SERUM | e | 10:14 AM | carcinoma of thyroid | procedure are in the | | | | PDT | ([facility]) | results section. | + +--------+ + + + | FREE T4 | Routin | 08/26/2011 | Papillary | Results for this | | | e | 10:14 AM | carcinoma of thyroid | procedure are in the | | | | PDT | ([facility]) | results section. | + +--------+ + + + | TSH | Routin | 08/26/2011 | Papillary | Results for this | | | e | 10:14 AM | carcinoma of thyroid | procedure are in the | | | | PDT | ([facility]) | results section. | + +--------+ + + + documented in this encounter Results THYROGLOBULIN, SERUM (08/26/2011 10:14 AM PDT) + + + + + + | Component | Value | Ref Range | Performed | Pathologist | | | | | At | Signature | + + + + + + | THYROGLOBUL | < 2.0Comment: | <2.0 IU/mL | [facility] | | | IN AB | Test performed by: | | | | | (ANTI-TG) | [facility] [id number] | | | | | | [facility] | | | | | | [place], [place] | | | | | | [address] Low | | | | | | positive Thyroglobulin | | | | | | antibodies are seen | | | | | | in a portion of the | | | | | | asymptomatic | | | | | | populations. | | | | + + + + + + | THYROGLOBUL | < 0.1Comment: | ng/mL | [facility] | | | IN | TG-ICMA Reference [...] + + | THYROGLOBUL | Test not | ng/mL | [facility] | | | IN (TG-STEPHANIE) | indicatedComment: | | | | | | TG-STEPHANIE Reference Range: | | | | | | RANGE (ng/mL) | | | | | | MEAN (ng/mL) | | | | | | Infants (1-12 mos): | | | | | | 12-113 | | | | | | 42 | | | | | | Prepubertal | | | | | | Children/Adults: | | | | | | 5.2-72 | | | | | | 29 Pubertal | | | | | | Children/Adults: | | | | | | <3-39 | | | | | | 16 Effective | | | | | | April 05, 2011, | | | | | | Thyroglobulin (TG-STEPHANIE) | | | | | | assay Antibody | | | | | | will be changing. | | | | | | Although the newly | | | | | | validated Antibody | | | | | | assay correlates | | | | | | closely to the predicate | | | | | | assay, Individual | | | | | | sensitivity to the | | | | | | antibody change may | | | | | | exist And require | | | | | | re-establishing the | | | | | | baseline value. | | | | | | Reference | | | | | | Intervals will remain | | | | | | the same. If you have | | | | | | further, | | | | | | Questions, please | | | | | | contact [facility] | | | | | | Endocrinology | | | | | | Laboratory. | | | | + + + + + + | % RECOVERY | Test not indicated | % | [facility] | | + + + + + + + + | Specimen | + + | Blood - Blood | + + + + + + + | Performing | Address | City/State/Zipcode | Phone Number | | Organization | | | | + + + + + | [facility] | [address] | [facility], | | | | | [place] [address] | | + + + + + FREE T4, SERUM (08/26/2011 10:14 AM PDT) + +-------+ + + + | Component | Value | Ref Range | Performed | Pathologist | | | | | At | Signature | + +-------+ + + + | FREE T4, | 1.1 | 0.6 - 1.2 ng/dL | [facility] | | | SERUM | | | REGIONAL | | | | | | LABORATORY | | + +-------+ + + + + + | Specimen | + + | Blood - Blood | + + + + + | Narrative | Performed At | + + + | [facility] | [facility] | | [place] [address] | REGIONAL | | [place] [address] | LABORATORY | + + + + + + + + | Performing | Address | City/State/Zipcode | Phone Number | | Organization | | | | + + + + + | [facility] | [address] | [place] [address] | | | LABORATORY | | | | + + + + + TSH (08/26/2011 10:14 AM PDT) + + + + + + | Component | Value | Ref Range | Performed | Pathologist | | | | | At | Signature | + + + + + + | TSH | 0.05 (L) | 0.34 - 5.60 | [facility] | | | | | uIU/ml | REGIONAL | | | | | | LABORATORY | | + + + + + + + + | Specimen | + + | Blood - Blood | + + + + + | Narrative | Performed At | + + + | Low TSH (suggests Hyperthyroid) | [facility] | | [facility] [place] | [facility] | | [facility] [place] [address] [facility] | LABORATORY | | [place] [address] | | + + + + + + + + | Performing | Address | City/State/Zipcode | Phone Number | | Organization | | | | + + + + + | [facility] | [address] [facility] | [place] [address] | | | LABORATORY | | | | + + + + + documented in this encounter Visit Diagnoses + + | Diagnosis | + + | 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
--- OUTSIDE RECORDS SUMMARY | ~2019-07-30 | XMS | Encounter Summary ---
Demographics + + + | Address | [address] | | | [place] [address] | + + + | Home Phone | | + + + | Preferred Language | Unknown | + + + | Marital Status | | + + + | Church Affiliation | CAT | + + + | Race | White | + + + | Ethnic Group | Not or | + + + Author + + + | Author | [facility] | + + + | Organization | [facility] | + + + | Address | Unknown | + + + | Phone | Unavailable | + + + Support + + + + + | Name | Relationship | Address | Phone | + + + + + | Angel Lu | ECON | [address] | | | | | [place] | | | | | [address] | | + + + + + Care Team Providers + +------+ + | Care Transfer Iron Operator Name | Role | Phone | + +------+ + | Matthias Blackman DO | PCP | | + +------+ + Encounter Details +--------+ + + + + | Date | Type | Department | Care Team | Description | +--------+ + + + + | 08/07/ | Hospital | Diagnostic | | | | 2009 | Encounter | Radiology at [facility] | | | | | | [address] | | | | | | [address] [facility] | | | | | | Steve, [address] [place] [address] | | | | | | [place], [place] | | | | | | [address] | | | | | | [phone] | | | +--------+ + + + [...] at Time of Discharge + + + +---------+--------+ + | Medication | Sig | Dispensed | Refills | Start | End Date | | | | | | Date | | + + + +---------+--------+ + | ropinirole | take 1 tablet (1 mg) | | 0 | | | | (REQUIP) 1 mg Oral | by oral route 3 | | | | | | Tablet | times per day | | | | | + + + +---------+--------+ + documented as of this encounter Plan of Treatment Not on filedocumented as of this encounter Procedures + +--------+ + + + | Procedure Name | Priori | Date/Time | Associated Diagnosis | Comments | | | ty | | | | + +--------+ + + + | US THY CLINIC, NECK | Routin | 08/07/2009 | Papillary | Results for this | | THYROID | e | 4:11 PM | carcinoma of thyroid | procedure are in the | | | | PDT | (HCC) | results section. | + +--------+ + + + documented in this encounter Results US THY CLINIC, NECK THYROID (08/07/2009 4:11 PM PDT) + + + + + + | Component | Value | Ref Range | Performed | Pathologist | | | | | At | Signature | + + + + + + | US THY | STUDY: Soft tissue neck | | | | | CLINIC, | ultrasound 08/07/2009 | | | | | NECK | INDICATION: History of | | | | | THYROID | stage III capillary | | | | | | thyroid cancer status | | | | | | postsurgery and reactive | | | | | | iodine therapy. | | | | | | COMPARISON: 07/25/2008 | | | | | | FINDINGS: The thyroid is | | | | | | surgically absent. No | | | | | | recurrent/residualsoft | | | | | | tissue or mass is seen | | | | | | in the thyroid bed. | | | | | | There are noconcerning | | | | | | paratracheal nodes. | | | | | | Normal-appearing | | | | | | bilateral cervicallymph | | | | | | nodes are present. The | | | | | | largest right cervical | | | | | | node, level 3,measures | | | | | | 2.0 x 1.3 x 0.5 cm. | | | | | | The largest left node, | | | | | | level 2,measures 1.3 x | | | | | | 1.0 x 0.4 cm. | | | | | | IMPRESSION: Status post | | | | | | thyroidectomy without | | | | | | evidence of recurrent | | | | | | disease. I have | | | | | | personally viewed this | | | | | | procedure/exam and | | | | | | reviewed this report. | | | | | | Author: ROBBY NIELSEN, | | | | | | SantiagoReviewer: Dylan PHAM | | | | | | Santiago CHADWICK STATUS | | | | | | FINAL / Dr. 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
--- OUTSIDE RECORDS SUMMARY | ~2019-07-30 | XMS | Encounter Summary ---
Demographics + + + | Address | [address] | | | [place] [address] | + + + | Home Phone | | + + + | Preferred Language | Unknown | + + + | Marital Status | | + + + | Tenriism Affiliation | CAT | + + + | Race | White | + + + | Ethnic Group | Not or | + + + Author + + + | Author | [facility] | + + + | Organization | [facility] | + + + | Address | Unknown | + + + | Phone | Unavailable | + + + Support + + + + + | Name | Relationship | Address | Phone | + + + + + | Angel Lu | ECON | [address] | | | | | [place] | | | | | [address] | | + + + + + Care Team Providers + +------+ + | Care Wood Patternmaker Apprentice Name | Role | Phone | + +------+ + | Matthias Blackman DO | PCP | | + +------+ + Reason for Visit + + + | Reason | Comments | + + + | Migraine | | + + + Encounter Details +--------+ + + + + | Date | Type | Department | Care Team | Description | +--------+ + + + + | 12/15/ | Emergency | [facility] | Imer Calvin, | | | 2009 | | Department [address] | | | | | | [address] | | | | | | [facility] | | | | | | [place], [place] | | | | | | [address] | | | | | | [phone] | | | +--------+ + + + [...] + + + | Blood Pressure | 106/62 | 12/15/2009 11:30 AM | | | | | PDT | | + + + + + | Pulse | 75 | 12/15/2009 11:30 AM | | | | | PDT | | + + + + + | Temperature | 36.6 C (97.9 F) | 12/15/2009 11:30 AM | | | | | PDT | | + + + + + | Respiratory Rate | 16 | 12/15/2009 11:30 AM | | | | | PDT | | + + + + + | Oxygen Saturation | 98% | 12/15/2009 11:30 AM | | | | | PDT | | + + + + + | Inhaled Oxygen | - | - | | | Concentration | | | | + + + + + | Weight | - | - | | + + + + + | Height | - | - | | + + + + + | Body Mass Index | - | - | | + + + + + documented in this encounter Discharge Instructions Instructions Page, Shantel Dailey MD - 12/15/2009Thank you for coming to the ED today, we are g lad that we were able to relieve your headache pain. We hope your father's condition improve s soon, but if it looks like you may be staying in [place] for an extended period, it may b e worth having a friend mail you your medications from home. Please do not hesitate to retur n to the ED if you have severe pain that is uncontrollable, you lose consciousness, you deve lop any weakness, or for any other symptoms that concern you. Migraine Headache You have a migraine headache. Symptoms of migraines include a throbbing headache, made wors e by activity. Sometimes only one side of the head hurts. Nausea, vomiting and sinus pain or stuffiness is common with migraines. Visual symptoms such as light sensitivity, blind spots , or flashing lights may also occur. Loud noises may make migraine pain worse. Migraine head aches are caused by changes in the size of the blood vessels in the head and neck. Many fact ors may cause this problem including: Emotional stress, lack of sleep, and menstrual periods. Alcohol and some drugs (such as control pills). Diet factors (fasting, caffeine, food preservatives, chocolate). Environmental factors (weather changes, bright lights, odors, smoke). Jarring motions and loud noises may also bring on a migraine. Prevention of migraines in cludes dealing with the trigger factors. Treatment may require medicines for pain, inflammation, and vomiting. Injections for pain a nd IV fluids can be used if the headache is very severe, or if you are vomiting repeatedly. Get plenty of rest over the next 24 hours. Lie down in a quiet, dark place and try to sleep Medicines to prevent the blood vessel changes may be prescribed. For people with frequent migraines, other medicines such as beta blockers and antidepressants may be helpful. Please see your caregiver if you are not better in 1-2 days. seek immediate medical care if: You develop a high fever, repeated vomiting, dehydration, or extreme weakness You develop fainting, worsening headache, confusion, or seizures You develop numbness or weakness of the limbs Document Released: 03/24/2005 [facility] [place] Patient Information 2009 [employer]. documented in this encounter Medications at Time of Discharge [...] + | Diagnosis | + + | Migraine Migraine, unspecified, without mention of intractable migraine without | | mention of status migrainosus | + + documented in this encounter Administered Medications + +--------+ +------+------+------+ | Medication Order | MAR | Action | Dose | Rate | Site | | | Action | Date | | | | + +--------+ +------+------+------+ | HYDROmorphone (aka DILAUDID) | Given | 12/16/19 | 2 mg | | | | injection 2 mg 2 mg, | | 10 1:40 | | | | | intramuscular, ONCE, 1 dose, Mon | | PM PDT | | | | | 12/15/09 at 1330 | | | | | | + +--------+ +------+------+------+ +---+---+ | | | +---+---+ + +-------+ +------+---+---+ | hydromorphone (aka DILAUDID) | Given | 12/16/19 | 4 mg | | | | tablet 4 mg 4 mg, oral, ONCE, 1 | | 10 12:46 | | | | | dose, 12/15/09 at 1230 | | PM PDT | | | | + +-------+ +------+---+---+ +---+---+ | | | +---+---+ + +-------+ +---------+---+---+ | promethazine (aka PHENERGAN) | Given | 12/16/19 | 12.5 mg | | | | injection 12.5 mg 12.5 mg, | | 10 1:40 | | | | | intramuscular, ONCE, 1 dose, Mon | | PM PDT | | | | | 12/15/09 at 1330 | | | | | | + +-------+ +---------+---+---+ +---+---+ | | | +---+---+ + +-------+ +-------+---+---+ | promethazine (aka PHENERGAN) | Given | 12/16/19 | 25 mg | | | | tablet 25 mg 25 mg, oral, ONCE, | | 10 12:46 | | | | | 1 dose, 12/15/09 at 1230 | | PM PDT | | | | + +-------+ +-------+---+---+ +---+---+ | | | +---+---+ documented in this encounter"
--- OUTSIDE RECORDS SUMMARY | ~2019-07-30 | XMS | Clinical Summary ---
Demographics + + + | Address | [address] | | | [place] [address] | + + + | Home Phone | | + + + | Preferred Language | Unknown | + + + | Marital Status | | + + + | Religion Affiliation | 1041 | + + + | Race | Unknown | + + + | Ethnic Group | Unknown | + + + Author + + + | Author | [facility] | | | and Jaronana | + + + | Organization | [facility] | | | and Jaronana | + + + | Address | Unknown | + + + | Phone | Unavailable | + + + Support + + + + + | Name | Relationship | Address | Phone | + + + + + | Ashley Smith | ECON | NA | | | | | [place] [address] | | + + + + + | Angel Lu | ECON | [address] | | | | | [place], [place] | | | | | [address] | | + + + + + Care Team Providers + +------+ + | Care Booth Operator Name | Role | Phone | + +------+ + | Richard Dee | PCP | | | MD | | | + +------+ + Allergies Not on File Medications Not on file Active Problems Not on file Social History + +-------+ +--------+------+ | Tobacco [...] recent travel history available. | + + Last Filed Vital Signs Not on file Plan of Treatment + + + + + | Health Maintenance | Due Date | Last Done | Comments | + + + + + | Vaccine: | | | | | Dtap/Tdap/Td (1 - | 0 | | | | Tdap) | | | | + + + + + | Cervical Cancer | | | | | Screening (Pap) | 9 | | | + + + + + | Vaccine: Zoster (1 | | | | | of 2) | 9 | | | + + + + + | Breast Cancer | | | | | Screening | 4 | | | + + + + + | Vaccine: Influenza | | | | | (Season Ended) | 0 | | | + + + + + Results Not on filefrom Last 3 Months Insurance + +--------+ +--------+ +---------+--------+ | Payer | Benefi | Subscriber | Effect | Phone | Address | Type | | | t Plan | ID | skyla | | | | | | / | | Dates | | | | | | Group | | | | | | + +--------+ +--------+ +---------+--------+ | [employer] | MODA | [id number] | | [phone] | | Medica | | MEDICAID HMO | HEALTH | | 018-Pr | 1 | | id | | | MDCD | | esent | | | | | | [place] | | | | | | + +--------+ +--------+ +---------+--------+ + +--------+ +--------+ + + | Guarantor Name | Accoun | Relation to | Date | Phone | Billing Address | | | t Type | Patient | of | | | | | | | | | | + +--------+ +--------+ + + | Safia Lu | Person | Self [birth year] | [address] | | | al/Fam | | 1959 | [phone] | [place] | | | mathieu | | | 6 (Home) | [address] | | | | | | [phone] | | | | | | | 2 (Work) | | + +--------+ +--------+ + + Advance Directives + + + + + | Type | Date Recorded | Patient | Explanation | | | | Natural Sciences Manager | | + + + + + | Power of | | | | | Pipeline Construction Inspector | | | | + + + + +"
--- OUTSIDE RECORDS SUMMARY | ~2019-07-30 | XMS | Encounter Summary ---
Demographics + + + | Address | [address] | | | [place] [address] | + + + | Home Phone | | + + + | Preferred Language | Unknown | + + + | Marital Status | | + + + | Hinduism Affiliation | CAT | + + + | Race | White | + + + | Ethnic Group | Not or | + + + Author + + + | Author | [facility] | + + + | Organization | [facility] | + + + | Address | Unknown | + + + | Phone | Unavailable | + + + Support + + + + + | Name | Relationship | Address | Phone | + + + + + | Angel Lu | ECON | [address] | | | | | [place] | | | | | [address] | | + + + + + Care Team Providers + +------+ + | Care Medical Referral Coordinator Name | Role | Phone | + +------+ + | Matthias Blackman DO | PCP | | + +------+ + Reason for Visit Benefits Check (Routine) +--------+--------+ + + + + | Status | Reason | Specialty | Diagnoses / | Referred By | Referred To | | | | | Procedures | Contact | Contact | +--------+--------+ + + + + | Closed | | Endocrinology | Diagnoses | Junaid, | Pierce, | | | | Diabetes & | Papillary | Andrey Davalos MD | MD Laura | | | | Metabolism | carcinoma of | [address] | [address] | | | | | thyroid | [address] | [facility] | | | | | ([facility]) | [address] [place], | | | | | | [place], | [place] | | | | | | [place] [address] | [address] | | | | | | Phone: | Phone: | | | | | | [phone] | [phone] | | | | | | Fax: | Fax: | | | | | | [phone] | [phone] | +--------+--------+ + + + + Encounter Details +--------+---------+ + + + | Date | Type | Department | Care Team | Description | +--------+---------+ + + + | 08/08/ | Office | Otolaryngology | Laura Pelayo, | Papillary carcinoma | | 2015 | Visit | Endocrinology | [address] | of thyroid (HCC) | | | | Thyroid Services at | [facility] [address] | (Primary Dx) | | | | [address] | [facility] [place] | | | | | [address] | [address] | | | | | Mailcode: [id number] | [phone] | | | | | [facility] | | | | | | [place], [place] | | | | | | [address] | | | | | | [phone] | | | +--------+---------+ + + + [...] + + + | Blood Pressure | 120/71 | 08/08/2014 2:24 PM | | | | | PDT | | + + + + + | Pulse | 73 | 08/08/2014 2:24 PM | | | | | PDT [...] + + + + | Weight | 54.6 kg (120 lb 6.4 | 08/08/2014 2:24 PM | | | | oz) | PDT | | + + + + + | Height | - | - | | + + + + + | Body Mass Index | 22.38 | 08/09/2013 4:22 PM | | | | | PDT | | + + + + + documented in this encounter Progress Notes Laura Pelayo MD - 08/08/2014 2:27 PM PDTFormatting of this note might be different fro m the original. THYROID TUMOR CLINIC - ENDOCRINOLOGY THYROID CANCER Follow-up Safia Lu is a 54 y.o. female with a history of Papillary [...] heat intolerance, cold intolerance, co nstipation, diarrhea, palpitations, tremor.. Still feeling a little tired. She denies any neck masses, but does not occ difficulty swallowing solids. Medications: Current outpatient prescriptions:HYDROmorphone 4 mg Oral Tablet, Take 1 Tab by mouth every three hours as needed for severe pain., Disp: 12 Tab, Rfl: 0 levothyroxine 100 mcg oral tablet, Take 1 tablet by mouth once daily., Disp: 100 tablet, Rf l: 3 Promethazine HCl 25 mg Oral Tablet, prn migraine, Disp: , Rfl: ropinirole (REQUIP) 1 mg Oral Tablet, take 1 tablet (1 mg) by oral route 3 times per day, D isp: , Rfl: PE: BP 120/71 | Pulse 73 | Wt 54.613 kg (120 lb 6.4 oz) | BMI 22.38 kg/(m^2) General: Pleasant woman,NAD, AOx3 HEENT: EOMs intact without lid lag, retraction or stare. Neck: supple, no adenopathy, masses or palpable thyroid tissue, no masses. Well-healed thy roidectomy scar. Neuro: No tremor. DTRs 1+ with normal relaxation phase. Strength, gait and mental status are grossly intact. Skin: Warm and of normal consistency, temperature and texture. Lab Results Component Value Date FREET4 1.5 07/11/2014 TSH 5.87 07/11/2014 THYROGLOB <0.2 05/30/2013 THYROGLOBAB <20 05/30/2013 Prelim report - 07/11/2014 Tg <0.2 Radiology: US THY CLINIC, NECK SOFT TISU STUDY: THY CLINIC NECK SOFT TISSUE 08/09/13 16:14:00 COMPARISON:08/26/2011 INDICATION: Followup thyroid cancer FINDINGS: All cervical levels were evaluated sonographically. The thyroid is surgically absent. No paratracheal nodules are seen. Multiple morphologically normal lateral compartment lymph nodes are present bilaterally. None contain microcalcification or abnormal vascularity. IMPRESSION: No evidence of recurrent or metastatic disease in the neck. Assessment: This is a 54 y.o. female with Papillary Thyroid Carcinoma, follicular variant h ere for f/u. Her disease was T3 N0 M0, Stage III. No evidence of recurrent disease thyroid d isease at this time. History of negative thyrogen stimulated whole body iodine scan in 2007, persistently negative neck ultrasounds last done 2013, negative neck exam, and negative thy roglobulin with neg antithyroglobulin antibodies this year. Her TSH is elevated, likely related to some compliance issues so we will reassess those tod ay before making any adjustments to her levothyroxine. Our TSH goal is 0.2-2.0 with normal Free T4. Plan: 1. Repeat thyroid function tests today to adjust levothyroxine. 2. Plan continued thryoid cancer surveillance with ultrasensitive unstimulated thyroglobuli n and next neck ultrasound next year. 15 2:45 PM PDTdocumented in this encounter Plan of Treatment Not on filedocumented as of this encounter Results THY CLINIC, NECK SOFT TISU (08/07/2015 10:25 AM PDT) + + + + + + | Component | Value | Ref Range | Performed | Pathologist | | | | | At | Signature | + + + + + + | US THY | EXAM: US NECK SURVEY. | | | | | CLINIC, | HISTORY: Thyroid cancer. | | | | | NECK SOFT | COMPARISON: 08/09/13. | | | | | TISU | TECHNIQUE: Ultrasound | | | | | | evaluation of the neck. | | | | | | FINDINGS:THYROID BED: | | | | | | The thyroid is | | | | | | surgically absent.Right | | | | | | thyroid bed: No | | | | | | nodules.Left thyroid | | | | | | bed: No nodules. NECK: | | | | | | Bilateral cervical lymph | | | | | | nodes throughout levels | | | | | | I through | | | | | | wereevaluated.Right | | | | | | neck: No | | | | | | lymphadenopathy. Within | | | | | | the inferior right level | | | | | | there are 3adjacent | | | | | | morphologically | | | | | | normal-appearing lymph | | | | | | nodes which are similar | | | | | | [id number].Left neck: No | | | | | | lymphadenopathy. | | | | | | IMPRESSION: No evidence | | | | | | of recurrence. Attending | | | | | | Radiologists: LIDYA | | | | | | ANGIE POLOuthor: LIDYA | | | | | | MD MELANI I personally | | | | | | reviewed the images and, | | | | | | if necessary, edited | | | | | | the report. I agreewith | | | | | | the report as now | | | | | | presented. | | | | | | Final/Electronically | | | | | | signed / LIDYA POLO | | | | | | 08/07/2015 10:52 AM | | | | + + + + + + + + | Specimen | + + | | + + + +---------+ + + | Performing | Address | City/State/Zipcode | Phone Number | | Organization | | | | + +---------+ + + | [facility] | | | | | RADIOLOGY | | | | + +---------+ + + FREE T4 (08/08/2014 3:05 PM PDT) + +---------+ + + + | Component | Value | Ref Range | Performed | Pathologist | | | | | At | Signature | + +---------+ + + + | FREE T4 | 1.3 (H) | 0.6 - 1.2 ng/dL | [facility] | | | | | | LABORATORY | | | | | | SERVICES, | | | | | | CORE | | + +---------+ + + + + + | Specimen | + + | Blood - Blood | + + + + + + + | Performing | Address | City/State/Zipcode | Phone Number | | Organization | | | | + + + + + | [facility] | [address] | [place] [address] | | | SERVICES, CORE | [address] | | | + + + + + TSH (08/08/2014 3:05 PM PDT) + +-------+ + + + | Component | Value | Ref Range | Performed | Pathologist | | | | | At | Signature | + +-------+ + + + | TSH | 1.09 | 0.50 - 5.07 | [facility] | [...] | + + + + + | [facility] | [address] | [place] [address] | | | JOSEF, DOREEN | [address] | | | + + + + + documented in this encounter Visit Diagnoses + + | Diagnosis | + + | 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
--- OUTSIDE RECORDS SUMMARY | ~2019-07-30 | XMS | Encounter Summary ---
Demographics + + + | Address | [address] | | | [place] [address] | + + + | Home Phone | | + + + | Preferred Language | Unknown | + + + | Marital Status | | + + + | Mormonism Affiliation | CAT | + + + | Race | White | + + + | Ethnic Group | Not or | + + + Author + + + | Author | [facility] | + + + | Organization | [facility] | + + + | Address | Unknown | + + + | Phone | Unavailable | + + + Support + + + + + | Name | Relationship | Address | Phone | + + + + + | Angel Lu | ECON | [address] | | | | | [place] | | | | | [address] | | + + + + + Care Team Providers + +------+ + | Care Breaker Machine Operator Name | Role | Phone | + +------+ + | Matthias Blackman DO | PCP | | + +------+ + Reason for Visit + + + | Reason | Comments | + + + | Follow-up visit | | + + + Consultation (Routine) +--------+--------+ + + + + | Status | Reason | Specialty | Diagnoses / | Referred By | Referred To | | | | | Procedures | Contact | Contact | +--------+--------+ + + + + | Closed | | Endocrinology | | Junaid, | Pierce, | | | | Diabetes & | | Andrey Davalos MD | MD Laura | | | | Metabolism | | [address] | [address] | | | | | | [address] | [facility] | | | | | | [address] [place], | | | | | | [place], | [place] | | | | | | [place] [address] | [address] | | | | | | Phone: | Phone: | | | | | | [phone] | [phone] | | | | | | Fax: | Fax: | | | | | | [phone] | [phone] | +--------+--------+ + + + + Encounter Details +--------+---------+ + + + | Date | Type | Department | Care Team | Description | +--------+---------+ + + + | 08/25/ | Office | Otolaryngology | Laura Pelayo, | Papillary carcinoma | | 2011 | Visit | Endocrinology | MD [address] | of thyroid (HCC) | | | | Thyroid Services at | [facility] [address] | (Primary Dx) | | | | [address] | [place], [place] | | | | | [address] | [address] | | | | | Mailcode: [id number] | [phone] | | | | | [facility] | | | | | | [place], [place] | | | | | | [address] | | | | | | [phone] | | | +--------+---------+ + + + [...] + + + | Blood Pressure | 115/85 | 08/26/2011 1:46 PM | | | | | PDT | | + + + + + | Pulse | 72 | 08/26/2011 1:46 PM | | | | | PDT [...] + + + + | Weight | 56.9 kg (125 lb 8 | 08/26/2011 1:46 PM | | | | oz) | PDT | | + + + + + | Height | - | - | | + + + + + | Body Mass Index | 23.71 | 08/20/2010 2:41 PM | | | | | PDT | | + + + + + documented in this encounter Progress Notes Laura Pelayo MD - 08/26/2011 1:47 PM PDTTHYROID TUMOR CLINIC - ENDOCRINOLOGY THYROID CANCER Follow-up Safia Lu is a 51 y.o. female with a history of Papillary [...] then. Her current dose of Levothyroxine is 112 mcg a day. She has had particular problems recently with lots of emotional family dynamics; her father and she has been dealing with all of the family's expectations. She states it is hard to tell if she's having any symptoms related to thyroid meds because of everything e lse going on. She complains of some difficulty sleeping but otherwise denies symptoms of hy per or hypothyroidism including heat intolerance, cold intolerance, constipation, diarrhea, excess sweating, palpitations, tremor. She denies other local symptoms including difficulty swallowing, neck pain, pressure sensation in neck and neck stiffness. She denies any new m asses. Additional Medications: Current outpatient prescriptions:DILAUDID 4 MG TAB, take 1 tablet (4mg) by oral route every 4-6 hours as needed, Disp: , Rfl: HYDROmorphone 4 mg Oral Tablet, Take 1 Tab by mouth every three hours as needed for severe pain., Disp: 12 Tab, Rfl: 0 levothyroxine 112 mcg Oral Tablet, Take 1 Tab by mouth once daily., Disp: 30 Tab, Rfl: 12 Polyethylene Glycol 3350 (MIRALAX) 17 g (100%) Oral Powder in Packet, q day, Disp: , Rfl: Promethazine HCl 25 mg Oral Tablet, prn migraine, Disp: , Rfl: ropinirole (REQUIP) 1 mg Oral Tablet, take 1 tablet (1 mg) by oral route 3 times per day, D isp: , Rfl: PE: BP 115/85 | Pulse 72 | Wt 56.926 kg (125 lb 8 oz) General: Pleasant woman, in sunglasses appearing to be in discomfort. HEENT: EOMs intact without lid lag, retraction or stare. Neck: supple, no adenopathy, no palpable thyroid tissue, no masses and well-healed thyroide ctomy scar. Some tenderness to palpation in the left submandibular area. Ext: no tremor on outstretched arms. Neuro: DTRs 1+ with normal relaxation phase. Strength, gait and mental status are grossly intact. Skin: Warm and of normal consistency, temperature and texture. Laboratory: pending Radiology: Neck Ultrasound, 08/26/2011 The patient has papillary thyroid cancer. Comparison is made with a previous examination performed August 20, 2010. All cervical levels were evaluated sonographically. The thyroid is surgically absent. No left-sided paratracheal nodules are seen. Two small morphologically normal appearing lymph nodes are identified in the right paratracheal region. The larger measures 4 x 3 x 4 mm. Neither contains calcification or has abnormal vascularity. Multiple morphologically normal appearing lateral compartment lymph nodes are present bilaterally. None contains calcifications or has abnormal vascularity. IMPRESSION: 1. No metastatic or recurrent disease is identified. No new abnormality is seen. Assessment: This is a 51 y.o. female with Papillary Thyroid Carcinoma, follicular variant h ere for f/u. Her disease was T3 N0 M0, Stage III. No evidence of recurrent disease thyroid d isease at this time. History of negative thyrogen stimulated hole body iodine scan in 2007, persistently negative neck ultrasounds, and negative thyroglobulin. She was very relieved an d pleased to hear these results of BASIA at 5 years, and we can probably continue thyroglobuli n surveillance annually, but neck ultrasound every other year. Plan: *No change to levothyroxine dose at this time, refilled for a year. *Requested and given dilaudid 4 mg, #2 tablets only for tonight; patient states she is driv ing home tomorrow, staying at the [facility]. *Return to clinic in one year with thyroid function studies and unstimulated thyroglobulin, but no ultrasound unless thyroglobulin concerning. documented in this e ncounter Plan of Treatment Not on filedocumented as of this encounter Visit Diagnoses + + | Diagnosis | + + | 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
--- OUTSIDE RECORDS SUMMARY | ~2019-07-30 | XMS | Encounter Summary ---
Demographics + + + | Address | [address] | | | [place] [address] | + + + | Home Phone | | + + + | Preferred Language | Unknown | + + + | Marital Status | | + + + | Jain Affiliation | CAT | + + + | Race | White | + + + | Ethnic Group | Not or | + + + Author + + + | Author | [facility] | + + + | Organization | [facility] | + + + | Address | Unknown | + + + | Phone | Unavailable | + + + Support + + + + + | Name | Relationship | Address | Phone | + + + + + | Angel Lu | ECON | [address] | | | | | [place] | | | | | [address] | | + + + + + Care Team Providers + +------+ + | Care Manager Helpdesk Name | Role | Phone | + +------+ + | Matthias Blackman DO | PCP | | + +------+ + Reason for Visit + + + | Reason | Comments | + + + | Lab Results | | + + + Encounter Details +--------+ + + + + | Date | Type | Department | Care Team | Description | +--------+ + + + + | 07/14/ | Telephone | Otolaryngology | Laura Pelayo, | Lab Results | | 2014 | | Thyroid Services at | MD [address] | | | | | [address] | | | | | [address] | [place], [place] | | | | | Physician's | [address] | | | | | Pavilion, 2nd floor | [phone] | | | | | [place], [place] | | | | | | [address] | | | | | | [phone] | | | +--------+ + + + [...] on filedocumented as of this encounter Results FREE T4 (08/07/2015 10:42 [...] [facility] | [address] | [place] [address] | | | SERVICES, CORE | [address] [...] | + + + + + | [facility] | [address] | [place] [address] | | | SERVICES, CORE | [address] | | | + + + + + THYROGLOBULIN LEVEL AND ANTIBODY, SERUM (08/08/2014 3:05 PM PDT) + + + + + + | Component | Value | Ref Range | Performed | Pathologist | | | | | At | Signature | + + + + + + | THYROGLOBUL | <1.0 | <1.0 IU/mL | [facility] | | | IN AB | | | REFERENCE | | | (ANTI-TG) | | | LAB | | + + + + + + | THYROGLOBUL | <0.1 (L)Comment: | 1.5 - 38.5 | [facility] | | | IN | According to the | ng/mL | REFERENCE | | | (TG-ICMA) | National Academy of | | LAB | | | | Clinical | | | | | | Biochemistry,the | | | | | | reference interval for | | | | | | Thyroglobulin (TG) | | | | | | should berelated to | | | | | | euthyroid patients and | | | | | | not for patients | | | | | | whounderwent | | | | | | thyroidectomy. TG | | | | | | reference intervals for | | | | | | thesepatients depend on | | | | | | the residual mass of the | | | | | | thyroid tissueleft | | | | | | after surgery. | | | | | | Establishing a | | | | | | post-operative | | | | | | baselineis recommended. | | | | | | The assay quantitation | | | | | | limit is 0.1 ng/mL. | | | | + + + + + + + + | Specimen | + + | Blood - Blood | + + + + + | Narrative | Performed At | + + + | Test performed | [facility] | | by:[id number] [place] [address] | REFERENCE LAB | | | | |[place] [address] | | | | | + + + + + + + + | Performing | Address | City/State/Zipcode | Phone Number | | Organization | | | | + + + + + | [facility] | | | | + + + + + | [facility] | see below | | | + + + + + documented in this encounter Visit Diagnoses + + | Diagnosis | + + | 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
--- OUTSIDE RECORDS SUMMARY | ~2019-07-30 | XMS | Encounter Summary ---
Demographics + + + | Address | [address] | | | [place] [address] | + + + | Home Phone | | + + + | Preferred Language | Unknown | + + + | Marital Status | | + + + | Restoration Affiliation | CAT | + + + [...] + | Angel Lu | ECON | [address] | | | | | [place] | | | | | [address] | | + + + + + Care Team Providers + +------+ + | Care Mobile Therapist Name | Role | Phone | + +------+ + | Matthias Blackman DO | PCP | | + +------+ + Reason for Visit + + + | Reason | Comments | + + + | Follow-up encounter | | + + + Encounter Details +--------+---------+ + + + | Date | Type | Department | Care Team | Description | +--------+---------+ + + + | 05/17/ | Office | Otolaryngology | Laura Pelayo, | Papillary Carcinoma | | 2007 | Visit | Endocrinology | [address] | of Thyroid (HCC) | | | | Thyroid Services at | [facility] [address] | (Primary Dx) | | | | [address] | [place], [place] | | | | | [address] | [address] | | | | | Mailcode: [id number] | [phone] | | | | | [facility] | | | | | | [facility] [place] | | | | | | [address] | | | | | | [phone] | | | +--------+---------+ + + + [...] + + + | Blood Pressure | 118/78 | 05/18/2007 9:11 AM | | | | | PDT | | + + + + + | Pulse | 84 | 05/18/2007 9:11 AM | | | | | PDT [...] + + + + | Weight | 63.7 kg (140 lb 8 | 05/18/2007 9:11 AM | | | | oz) | PDT | | + + + + + | Height | - | - | | + + + + + | Body Mass Index | - | - | | + + + + + documented in this encounter Patient Instructions Patient Instructions Laura Pelayo - 05/18/2007 9:46 AM PDTThyroglobulin test today - ch ana for thyroid cancer and for whether you make thyroglobulin antibodies. If the antithyroglobulin antibodies are negative, we can do your 1 year f/u testing with th e Thyrogen injections - Mon and Tues injection, Wed - small dose of I-131, Tue - thyroglobul in blood test and Nuclear Medicine scan. We'll plan the 1 year testing for August and we need to test your urine for iodine - to make sure you have gotten rid of all the iodine from your contrast CT scan. documented in this encounter Progress Notes Laura Pelayo - 05/18/2007 9:43 AM PDTLast lab end February - no change Not feeling good Lump on left side of neck - painful all the time, radiating up jaw - saw , treated as stanislav loadenitis with augmentin, talked with surgeon 1 week ago, CT neck with contrast last week, pain meds Some submandibular swelling - less tenderElectronically signed by Laura Pelayo at 008 9:43 AM PDTdocumented in this encounter Plan of Treatment + +---------+--------+ + + | Name | Type | Priori | Associated Diagnoses | Order Schedule | | | | ty | | | + +---------+--------+ + + | IODINE, URINE | Lab | Routin | Papillary | Ordered: 05/18/2007 | | | | e | Carcinoma of Thyroid | | | | | | (HCC) | | + +---------+--------+ + + | NM THYROID CARCINOMA | Imaging | Routin | Papillary | Ordered: 05/18/2007 | | [facility] | | e | Carcinoma of Thyroid | | | WHOLE BODY | | | (HCC) | | + +---------+--------+ + + documented as of this encounter Procedures + +--------+ + + + | Procedure Name | Priori | Date/Time | Associated Diagnosis | Comments | | | ty | | | | + +--------+ + + + | ORDERS OTHER | | 09/15/2007 | | Results for this | | | | 12:00 AM | | procedure are in the | | | | PDT | | results section. | + +--------+ + + + | ORDERS OTHER | | 05/18/2007 | | Results for this | | | | 12:00 AM | | procedure are in the | | | | PDT | | results section. | + +--------+ + + + | PATHOLOGY | | 05/12/2006 | | Results for this | | | | 12:00 AM | | procedure are in the | | | | PDT | | results section. | + +--------+ + + + documented in this encounter Results ORDERS OTHER (09/15/2007 12:00 AM PDT) + + + | Narrative | Performed At | + + + | | | + + + + + | Procedure Note | + + | Laura Pelayo MD - 09/15/2007 12:00 AM PDT | + + THYROGLOBULIN, SERUM (05/18/2007 10:34 AM PDT) + + + + + + | Component | Value | Ref Range | Performed | Pathologist | | | | | At | Signature | + + + + + + | THYROGLOBUL | < 1.0Comment: | <14.5 IU/mL | | | | IN ANTIBODY | Test performed by | | | | | | [facility] | | | | | | Anti-Thyroglobulin [...] + + | | + + + + + + + | Performing | Address | City/State/Zipcode | Phone Number | | Organization | | | | + + + + + | [facility] | [address] | [place], | | | | | [place] [address] | | + + + + + ORDERS OTHER (05/18/2007 12:00 AM PDT) + + + | Narrative | Performed At | + + + | | | + + + + + | Procedure Note | + + | Laura Pelayo MD - 05/18/2007 12:00 AM PDT | + + PATHOLOGY (05/12/2006 12:00 AM PDT) + + + | Narrative | Performed At | + + + | | | + + + + + | Procedure Note | + + | Laura Pelayo MD - 05/12/2006 12:00 AM PDT | + + documented in this encounter Visit Diagnoses + + | Diagnosis | + + | 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
--- OUTSIDE RECORDS SUMMARY | ~2019-07-30 | XMS | Encounter Summary ---
Demographics + + + | Address | [address] | | | [place] [address] | + + + | Home Phone | | + + + | Preferred Language | Unknown | + + + | Marital Status | | + + + | Gnosticism Affiliation | CAT | + + + | Race | White | + + + | Ethnic Group | Not or | + + + Author + + + | Author | [facility] | + + + | Organization | [facility] | + + + | Address | Unknown | + + + | Phone | Unavailable | + + + Support + + + + + | Name | Relationship | Address | Phone | + + + + + | Angel Lu | ECON | [address] | | | | | [place] | | | | | [address] | | + + + + + Care Team Providers + +------+ + | Care Electrician Crane Maintenance Name | Role | Phone | + +------+ + | Matthias Blackman DO | PCP | | + +------+ + Encounter Details +--------+ + + + + | Date | Type | Department | Care Team | Description | +--------+ + + + + | 09/27/ | Non Destructive Evaluation Manager | Otolaryngology | Laura Pelayo, | | | 2008 | | Endocrinology | [address] [facility] | | | | | Thyroid Services at | [facility] | | | | | [address] | [place], [place] | | | | | [address] | [address] | | | | | Mailcode: [id number] | [phone] | | | | | [facility] | | | | | | [place], [place] | | | | | | [address] | | | | | | [phone] | | | +--------+ + + + [...] + + | TSH | Routin | 09/13/2008 | | Results for this | | | e | 10:47 AM | | procedure are in the | | | | PDT | | results section. | + +--------+ + + + | THYROGLOBULIN AB, | Routin | 09/13/2008 | | Results for this | | SERUM | e | 9:25 AM | | procedure are in the | | | | PDT | | results section. | + +--------+ + + + documented in this encounter Results TSH (09/13/2008 10:47 AM PDT) + + + + + + | Component | Value | Ref Range | Performed | Pathologist | | | | | At | Signature | + + + + + + | TSH | 24.3 (A) | 0.3 - 5.0 | NON [facility] | | | | | uIU/ml | LAB | | + + + + + + + + | Specimen | + + | Blood - Blood | + + + +---------+ + + | Performing | Address | City/State/Zipcode | Phone Number | | Organization | | | | + +---------+ + + | NON [facility] | | | | + +---------+ + + THYROGLOBULIN AB, SERUM (09/13/2008 9:25 AM PDT) + +---------+ + + + | Component | Value | Ref Range | Performed | Pathologist | | | | | At | Signature | + +---------+ + + + | THYROGLOBUL | <1.0 | IU/mL | NON [facility] | | | IN ANTIBODY | | | LAB | | + +---------+ + + + | THYROGLOBUL | 0.2 (A) | 1.0 - 37.0 | NON [facility] | | | IN | | ng/mL | LAB | | | (TG-ICMA) | | | | | + +---------+ + + + + + | Specimen | + + | Blood - Blood | + + + +---------+ + + | Performing | Address | City/State/Zipcode | Phone Number | | Organization | | | | + +---------+ + + | NON [facility] | | | | + +---------+ + + documented in this encounter Visit Diagnoses Not on filedocumented in this encounter"
--- OUTSIDE RECORDS SUMMARY | ~2019-07-30 | XMS | Encounter Summary ---
Demographics + + + | Address | [address] | | | [place] [address] | + + + | Home Phone | | + + + | Preferred Language | Unknown | + + + | Marital Status | | + + + | Baptist Affiliation | CAT | + + + | Race | White | + + + | Ethnic Group | Not or | + + + Author + + + | Author | [facility] | + + + | Organization | [facility] | + + + | Address | Unknown | + + + | Phone | Unavailable | + + + Support + + + + + | Name | Relationship | Address | Phone | + + + + + | Angel Lu | ECON | [address] | | | | | [place] | | | | | [address] | | + + + + + Care Team Providers + +------+ + | Care Antique Furniture Reproducer Name | Role | Phone | + +------+ + | Matthias Blackman DO | PCP | | + +------+ + Encounter Details +--------+------+ + + + | Date | Type | Department | Care Team | Description | +--------+------+ + + + | 07/25/ | Lab | Laboratory at [facility] | | Papillary Carcinoma | | 2008 | | [address] | | of Thyroid (HCC) | | | | [address] [facility] | | | | | | Steve, [address] [place] [address] | | | | | | [place], [place] | | | | | | [address] | | | | | | [phone] | | | +--------+------+ + + + [...] + | THYROGLOBULIN LEVEL | Routin | 07/25/2008 | Papillary | Results for this | | AND ANTIBODY, SERUM | e | 12:07 PM | Carcinoma of Thyroid | procedure are in the | | | | PDT | ([facility]) | results section. | + +--------+ + + + | FREE T4 | Routin | 07/25/2008 | Papillary | Results for this | | | e | 12:07 PM | Carcinoma of Thyroid | procedure are in the | | | | PDT | ([facility]) | results section. | + +--------+ + + + | TSH | Routin | 07/25/2008 | Papillary | Results for this | | | e | 12:07 PM | Carcinoma of Thyroid | procedure are in the | | | | PDT | ([facility]) | results section. | + +--------+ + + + documented in this encounter Results THYROGLOBULIN, SERUM (07/25/2008 12:07 [...] [address] | | | | | | [facility] | | | | | | [place], [place] | | | | | | [address] | | | | | | Anti-Thyroglobulin [...] | + + + + + | [facility] | [address] | [place] [address] | | | PATHOLOGY | [address] [...] change effective 07/18/08 | [facility] | | [facility] | DEPARTMENT OF | | [place] [address] | PATHOLOGY | | [place] [address] | | + + + + + + + + | Performing | Address | City/State/Zipcode | Phone Number | | Organization | | | | + + + + + | [facility] | [address] [facility] | [place] [address] | | | PATHOLOGY | [address] | | | + + + + + | [facility] | [address] [facility] | [place] [address] | | | PATHOLOGY | [address] [...] At | + + + | [facility]) | [facility] | | [facility] [address] | DEPARTMENT | | [place] [address] | PATHOLOGY | + + + + + + + + | Performing | Address | City/State/Zipcode | Phone Number | | Organization | | | | + + + + + | [facility] | [facility] | [place] [address] | | | PATHOLOGY | [address] | | | + + + + + | [facility] DEPARTMENT OF | [address] | [place] [address] | | | PATHOLOGY | [address] | | | + + + + + documented in this encounter Visit Diagnoses + + | Diagnosis | + + | 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
--- OUTSIDE RECORDS SUMMARY | ~2019-07-30 | XMS | Encounter Summary ---
Demographics + + + | Address | [address] | | | [place] [address] | + + + | Home Phone [address] | | | | | [place] | | | | | [address] | | + + + + + Care Team Providers + +------+ + | Care Roadside Mechanic Name | Role | Phone | + +------+ + | Matthias Blackman DO | PCP | | + +------+ + Reason for Visit + + + | Reason | Comments | + + + | Refill Request | | + + + Encounter Details +--------+--------+ + + + | Date | Type | Department | Care Team | Description | +--------+--------+ + + + | 10/24/ | Refill | Otolaryngology | Schuff, Laura, | Refill Request | | 2018 | | Endocrinology | [address] [facility] | | | | | Thyroid Services at | [facility] | | | | | [address] | [place], [place] | | | | | [address] | [address] | | | | | Mailcode: [id number] | [phone] | | | | | [facility] | | | | | | [place], [place] | | | | | | [address] | | | | | | [phone] | | | +--------+--------+ + + + Social History + +-------+ [...]
--- OUTSIDE RECORDS SUMMARY | ~2019-07-30 | XMS | Clinical Summary ---
Demographics + + + | Address | [address] | | | [place] [address] | + + + | Home Phone | | + + + | Preferred Language | Unknown | + + + | Marital Status | Unknown | + + + | Pentecostal Affiliation | Unknown | + + + | Race | Unknown | + + + | Ethnic Group | Unknown | + + + Author + + + | Author | [facility] (Historical as of | | | 10-14-18) | + + + | Organization | [facility] (Historical as of | | | 10-14-18) | + + + | Address | Unknown | + + + | Phone | Unavailable | + + + Support + + +---------+ + | Name | Relationship | Address | Phone | + + +---------+ + | No,Contact | ECON | Unknown | | + + +---------+ + Care Team Providers + +------+ + | Care Rn On Site Name | Role | Phone | + +------+ + | Mike Blackman DO | PP | | + +------+ + Allergies Not on File Current Medications Not on file Active Problems Not [...] on file | | + + + Plan of Treatment Not on file Results Not on filefrom Last 3 Months Insurance +---------+--------+ +------+-------+ + | Payer | Benefi | Subscriber | Type | Phone | Address | | | t Plan | ID | | | | | | / | | | | | | | Group | | | | | +---------+--------+ +------+-------+ + | PREMERA | PREMER | [id number] | | | [address] [address] | | | A BLUE | 2 | | | [place], [place] | | | CARD | | | | [address] | +---------+--------+ +------+-------+ + + +--------+ +--------+ + + | Guarantor Name | Accoun | Relation to | Date | Phone | Billing Address | | | t Type | Patient | of | | | | | | | | | | + +--------+ +--------+ + + | SAFIA LU | Person | Self [birth year] 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
--- OUTSIDE RECORDS SUMMARY | ~2019-07-30 | XMS | Encounter Summary ---
Demographics + + + | Address | [address] | | | [place] [address] | + + + | Home Phone | | + + + | Preferred Language | Unknown | + + + | Marital Status | | + + + | Anglican Affiliation | CAT | + + + [...] + | Angel Lu | ECON | [address] | | | | | [place] | | | | | [address] | | + + + + + Care Team Providers + +------+ + | Care Interior Plant Caretaker Name | Role | Phone | + +------+ + | Matthias lBackman DO | PCP | | + +------+ + Encounter Details +--------+ + + + + | Date | Type | Department | Care Team | Description | +--------+ + + + + | 07/26/ | Telephone | Otolaryngology | Laura Pelayo, | | | 2008 | | Endocrinology | [address] [facility] [address] | | | | | Thyroid Services at | [facility] | | | | | [address] | [place], [place] | | | | | [address] | [address] | | | | | Mailcode: [id number] | [phone] | | | | | [facility] | | | | | | [place], [place] | | | | | | [address] | | | | | | [phone] | | | +--------+ + + + [...]
--- OUTSIDE RECORDS SUMMARY | ~2019-07-30 | XMS | Encounter Summary ---
Demographics + + + | Address | [address] | | | [place] [address] | + + + | Home Phone | | + + + | Preferred Language | Unknown | + + + | Marital Status | | + + + | Jewish Affiliation | CAT | + + + | Race | White | + + + | Ethnic Group | Not or | + + + Author + + + | Author | [facility] | + + + | Organization | [facility] | + + + | Address | Unknown | + + + | Phone | Unavailable | + + + Support + + + + + | Name | Relationship | Address | Phone | + + + + + | Angel Lu | ECON | [address] | | | | | [place] | | | | | [address] | | + + + + + Care Team Providers + +------+ + | Care Radiology Aide Name | Role | Phone | + +------+ + | Matthias Blackman DO | PCP | | + +------+ + Encounter Details +--------+ + + + + | Date | Type | Department | Care Team | Description | +--------+ + + + + | 10/08/ | Gas Mask Inspector | Otolaryngology | Laura Pelayo, | | | 2010 | | Endocrinology | [address] [facility] | | | | | Thyroid Services at | [facility] | | | | | [address] | [place], [place] | | | | | [address] | [address] | | | | | Mailcode: [id number] | [phone] | | | | | [facility] | | | | | | [place], [place] | | | | | | [address] | | | | | | [phone] | | | +--------+ + + + [...] | + +--------+ + + + | VITAMIN D, | Routin | 10/08/2010 | | Results for this | | 25-HYDROXY, SERUM | e | | | procedure are in the | | | | | | results section. | + +--------+ + + + | FREE T4 | Routin | 10/08/2010 | | Results for this | | | e | | | procedure are in the | | | | | | results section. | + +--------+ + + + | PTH, SERUM | Routin | 10/08/2010 | | Results for this | | | e | | | procedure are in the | | | | | | results section. | + +--------+ + + + | TSH | Routin | 10/08/2010 | | Results for this | | | e | | | procedure are in the | | | | | | results section. | + +--------+ + + + | CALCIUM, IONIZED, | Routin | 10/08/2010 | | Results for this | | WHOLE BLOOD | e | | | procedure are in the | | | | | | results section. | + +--------+ + + + | CALCIUM, PLASMA | Routin | 10/08/2010 | | Results for this | | | e | | | procedure are in the | | | | | | results section. | + +--------+ + + + documented in this encounter Results CALCIUM, IONIZED, WHOLE BLOOD (10/08/2010) + + + + + + | Component | Value | Ref Range | Performed | Pathologist | | | | | At | Signature | + + + + + + | CALC ICA, | pendingComment: pH 7.4 | mmol/L | NON [facility] | | | WHOLE BLD | | | LAB | | + + + + + + + + | Specimen | + + | Blood - Blood | + + + +---------+ + + | Performing | Address | City/State/Zipcode | Phone Number | | Organization | | | | + +---------+ + + | NON [facility] | | | | + +---------+ + + CALCIUM, PLASMA (10/08/2010) + + + + + + | Component | Value | Ref Range | Performed | Pathologist | | | | | At | Signature | + + + + + + | CALCIUM, | 9.3Comment: [facility] | 8.4 - 10.2 | NON [facility] | | | SERUM | | mg/dL | LAB | | + + + + + + + + | Specimen | + + | Blood - Blood | + + + +---------+ + + | Performing | Address | City/State/Zipcode | Phone Number | | Organization | | | | + +---------+ + + | NON [facility] | | | | + +---------+ + + PTH, SERUM (10/08/2010) + + + + + + | Component | Value | Ref Range | Performed | Pathologist | | | | | At | Signature | + + + + + + | PTH, SERUM | 21Comment: [facility] | 12 - 65 pg/mL | NON [facility] | | | | | | LAB | | + + + + + + + + | Specimen | + + | Blood - Blood | + + + +---------+ + + | Performing | Address | City/State/Zipcode | Phone Number | | Organization | | | | + +---------+ + + | NON [facility] | | | | + +---------+ + + VITAMIN D, 25-HYDROXY, SERUM (10/08/2010) + + + + + + | Component | Value | Ref Range | Performed | Pathologist | | | | | At | Signature | + + + + + + | VITAMIN D | 38Comment: [facility] | 30 - 100 ng/mL | NON [facility] | | | 25 HYDROXY | | | LAB | | + + + + + + + + | Specimen | + + | Blood - Blood | + + + +---------+ + + | Performing | Address | City/State/Zipcode | Phone Number | | Organization | | | | + +---------+ + + | NON [facility] | | | | + +---------+ + + TSH (10/08/2010) + +---------+ + + + | Component | Value | Ref Range | Performed | Pathologist | | | | | At | Signature | + +---------+ + + + | TSH | pending | uIU/ml | NON [facility] | | | | | | LAB | | + +---------+ + + + + + | Specimen | + + | Blood - Blood | + + + +---------+ + + | Performing | Address | City/State/Zipcode | Phone Number | | Organization | | | | + +---------+ + + | NON [facility] | | | | + +---------+ + + FREE T4, SERUM (10/08/2010) + + + + + + | Component | Value | Ref Range | Performed | Pathologist | | | | | At | Signature | + + + + + + | FREE T4, | 1.63Comment: [facility] | 0.71 - 1.76 | NON [facility] | | | SERUM | | ng/dL | LAB | | + + + [...]
--- OUTSIDE RECORDS SUMMARY | ~2019-07-30 | XMS | Encounter Summary ---
Demographics + + + | Address | [address] | | | [place] [address] | + + + | Home Phone | | + + + | Preferred Language | Unknown | + + + | Marital Status | | + + + | Voodoo Affiliation | CAT | + + + [...] + | Angel Lu | ECON | [address] | | | | | [place] | | | | | [address] | | + + + + + Care Team Providers + +------+ + | Care Forensics Analyst Name | Role | Phone | + +------+ + | Matthias Blackman DO | PCP | | + +------+ + Encounter Details +--------+ + + + + | Date | Type | Department | Care Team | Description | +--------+ + + + + | 08/08/ | Documentati | Otolaryngology | Laura Pelayo, | | | 2012 | on | Endocrinology | [address] [facility] | | | | | Thyroid Services at | [facility] | | | | | [address] | [place], [place] | | | | | [address] | [address] | | | | | Mailcode: [id number] | [phone] | | | | | [facility] | | | | | | [place], [place] | | | | | | [address] | | | | | | [phone] | | | +--------+ + + + [...] + | THYROGLOBULIN AB, | Routin | 08/12/2012 | | Results for this | | SERUM | e | 7:42 AM | | procedure are in the | | | | PDT | | results section. | + +--------+ + + + | THYROGLOBULIN LEVEL | Routin | 08/12/2012 | | Results for this | | AND ANTIBODY, SERUM | e | 7:42 AM | | procedure are in the | | | | PDT | | results section. | + +--------+ + + + | TSH | Routin | 08/08/2012 | | Results for this | | | e | 7:55 AM | | procedure are in the | | | | PDT | | results section. | + +--------+ + + + | FREE T4 | Routin | 08/08/2012 | | Results for this | | | e | | | procedure are in the | | | | | | results section. | + +--------+ + + + documented in this encounter Results THYROGLOBULIN, SERUM (08/12/2012 7:42 AM PDT) + + + + + + | Component | Value | Ref Range | Performed | Pathologist | | | | | At | Signature | + + + + + + | THYROGLOBUL | <0.1Comment: [facility] | 1.5 - 38.5 | NON [facility] | | | IN | | ng/mL | LAB | | | (TG-ICMA) | | | | | + + [...] + +---------+ + + THYROGLOBULIN AB, SERUM (08/12/2012 7:42 AM PDT) + + + + + + | Component | Value | Ref Range | Performed | Pathologist | | | | | At | Signature | + + + + + + | THYROGLOBUL | <1.0Comment: [facility] | <1.0 IU/mL | NON [facility] | | | [...] | | + +---------+ + + TSH (08/08/2012 7:55 AM PDT) + + + + + + | Component | Value | Ref Range | Performed | Pathologist | | | | | At | Signature | + + + + + + | TSH | 0.018 (L) | 0.270 - 4.20 | NON [facility] | | | | [...] + +---------+ + + FREE T4, SERUM (08/08/2012) + + + + + + | Component | Value | Ref Range | Performed | Pathologist | | | | | At | Signature | + + + + + + | FREE T4, | 1.77 (H) | 0.71 - 1.7 | NON [facility] | | | SERUM [...]
--- OUTSIDE RECORDS SUMMARY | ~2019-07-30 | XMS | Encounter Summary ---
Demographics + + + | Address | [address] | | | [place] [address] | + + + | Home Phone | | + + + | Preferred Language | Unknown | + + + | Marital Status | | + + + | Hoahaoism Affiliation | [id number] | + + + | Race | Unknown | + + + | Ethnic Group | Unknown | + + + Author + + + | Author | [facility] | | | and Jaronana | + + + | Organization | [facility] | | | and Jaronana | + + + | Address | Unknown | + + + | Phone | Unavailable | + + + Support + + + + + | Name | Relationship | Address | Phone | + + + + + | Ashley Smith | ECON | NA | | | | | [place] [address] | | + + + + + | Angel Lu | ECON | [address] | | | | | [place], [place] | | | | | [address] | | + + + + + Care Team Providers + +------+ + | Care Seed Mill Superintendent Name | Role | Phone | + +------+ + PCP | Unavailable | + +------+ + Encounter Details +--------+ + + + + | Date | Type | Department | Care Team | Description | +--------+ + + + + | 08/31/ | Hospital | [facility] | Conversion | Pain | | 2013 | Encounter | CONVERSION [address] | Transaction, | | | | | [address] | Provider Unknown | | | | | [place], [place] | [phone] | | | | | [address] | | | | | | [phone] | | | +--------+ + + + [...] | + +--------+ + + + | CT HEAD WO CONTRAST | Routin | 09/14/2010 | | Results for this | | | e | 10:22 AM | | procedure are in the | | | | PDT | | results section. | + +--------+ + + + documented in this encounter Results CT Head wo Contrast (09/14/2010 10:22 AM PDT) + + | Specimen | + + | | + + + + + | Narrative | Performed At | + + + | This is a non-reportable procedure without a radiologist report and | | | is used for image storage only | | + + + + + | Procedure Note | + + | Sina Amador Conversion - 10/20/2018 6:49 PM PDT This is a non-reportable procedure | | without a radiologist report and isused for image storage only | + + documented in this encounter Visit Diagnoses + + | Diagnosis | + + | Pain Generalized pain | + + documented in this encounter"
--- OUTSIDE RECORDS SUMMARY | ~2019-07-30 | XMS | Encounter Summary ---
Demographics + + + | Address | [address] | | | [place] [address] | + + + | Home Phone | | + + + | Preferred Language | Unknown | + + + | Marital Status | | + + + | Anabaptism Affiliation | CAT | + + + | Race | White | + + + | Ethnic Group | Not or | + + + Author + + + | Author | [facility] | + + + | Organization | [facility] | + + + | Address | Unknown | + + + | Phone | Unavailable | + + + Support + + + + + | Name | Relationship | Address | Phone | + + + + + | Angel Lu | ECON | [address] | | | | | [place] | | | | | [address] | | + + + + + Care Team Providers + +------+ + | Care Blood Tester Name | Role | Phone | + +------+ + | Matthias Blackman DO | PCP | | + +------+ + Encounter Details +--------+ + + + + | Date | Type | Department | Care Team | Description | +--------+ + + + + | 08/20/ | Hospital | Diagnostic | | | | 2010 | Encounter | Radiology at [facility] | | | | | | [address] | | | | | | [address] [facility] | | | | | | [place], [address] [place] [address] | | | | | | [place], [place] | | | | | | [address] | | | | | | [phone] | | | +--------+ + + + [...] US SOFT TISSUE HEAD | Routin | 08/20/2010 | Papillary | Results for this | | & NECK | e | 12:46 PM | carcinoma of thyroid | procedure are in the | | | | PDT | (HCC) | results section. | + +--------+ + + + documented in this encounter Results US SOFT TISSUE HEAD & NECK (08/20/2010 12:46 PM PDT) + + + + + + | Component | Value | Ref Range | Performed | Pathologist | | | | | At | Signature | + + + + + + | US SOFT | Neck ultrasound | | | | | TISSUE HEAD | findings: The patient | | | | | & NECK | has thyroid cancer. | | | | | | Comparison is made with | | | | | | a previous examination | | | | | | performed July. | | | | | | All cervical levels were | | | | | | evaluated | | | | | | sonographically. The | | | | | | thyroid is again noted | | | | | | to be surgically absent. | | | | | | No | | | | | | paratrachealnodules are | | | | | | seen. Multiple | | | | | | morphologically normal | | | | | | appearing lateral | | | | | | compartment lymphnodes | | | | | | are present bilaterally. | | | | | | None contains | | | | | | calcification are | | | | | | asabnormal vascularity. 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
--- OUTSIDE RECORDS SUMMARY | ~2019-07-30 | XMS | Encounter Summary ---
Demographics + + + | Address | [address] | | | [place] [address] | + + + | Home Phone | | + + + | Preferred Language | Unknown | + + + | Marital Status | | + + + | Adventist Affiliation | CAT | + + + [...] + | Angel Lu | ECON | [address] | | | | | [place] | | | | | [address] | | + + + + + Care Team Providers + +------+ + | Care Mobile Home Technician Name | Role | Phone | + +------+ + | Matthias Blackman DO | PCP | | + +------+ + Reason for Visit +---------+ + | Reason | Comments | +---------+ + | Fatigue | During appointment yesterday Safia forgot to mention her | | | continual lack of energy and that she is falling asleep all the | | | time. Safia is quite concerned with these problems and is | | | curious if a change in her synthroid would help. Please contact. | | | She is driving home and will be available after 3pm. | +---------+ + Encounter Details +--------+ + + + + | Date | Type | Department | Care Team | Description | +--------+ + + + + | 05/18/ | Telephone | Otolaryngology | Laura Pelayo, | Fatigue (During | | 2007 | | Endocrinology | MD [address] | appointment | | | | Thyroid Services at | [facility] [address] | yesterday Safia | | | | [facility] [address] | [place], [place] | forgot to mention | | | | [address] | [address] | her continual lack | | | | Mailcode: [id number] | [phone] | of energy and that | | | | [facility] | | she is falling | | | | [place], [place] | | asleep all the time. | | | | [address] | | Safia is quite | | | | [phone] | | concerned with these | | | | | | problems and is | | | | | | curious if a change | | | | | | in her synthroid | | | | | | would help. Please | | | | | | contact. She is | | | | | | driving home and | | | | | | will be available | | | | | | after 3pm. ) | +--------+ + + + + Social [...]
--- OUTSIDE RECORDS SUMMARY | ~2019-07-30 | XMS | Encounter Summary ---
Demographics + + + | Address | [address] | | | [place] [address] | + + + | Home Phone | | + + + | Preferred Language | Unknown | + + + | Marital Status | | + + + | Scientology Affiliation | CAT | + + + | Race | White | + + + | Ethnic Group | Not or | + + + Author + + + | Author | [facility] | + + + | Organization | [facility] | + + + | Address | Unknown | + + + | Phone | Unavailable | + + + Support + + + + + | Name | Relationship | Address | Phone | + + + + + | Angel Lu | ECON | [address] | | | | | [place] | | | | | [address] | | + + + + + Care Team Providers + +------+ + | Care Triage Nurse Name | Role | Phone | + +------+ + | Matthias Blackman DO | PCP | | + +------+ + Reason for Visit +--------+ + | Reason | Comments | +--------+ + | Other | | +--------+ + Encounter Details +--------+ + + + + | Date | Type | Department | Care Team | Description | +--------+ + + + + | 09/03/ | Telephone | [facility] | Laura Pelayo, | | | 2015 | | Diabetes Health | [address] | | | | | [facility] | [facility] | | | | | [address] | [place], [place] | | | | | [address] | [address] | | | | | [facility] | [phone] | | | | | Physician's | | | | | | [facility] [place], | | | | | | [place] [address] | | | | | | [phone] | | | +--------+ + + + [...] as of this encounter Plan of Treatment +------+------+--------+ + + | Name | Type | Priori | Associated Diagnoses | Order Schedule | | | | ty | | | +------+------+--------+ + + | TSH | Lab | Routin | Papillary | Ordered: 09/04/2015 | | | | e | carcinoma of thyroid | | | | | | (HCC) | | +------+------+--------+ + + documented as of this encounter Visit Diagnoses + + | Diagnosis | + + | 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
--- OUTSIDE RECORDS SUMMARY | ~2019-07-30 | XMS | Encounter Summary ---
Demographics + + + | Address | [address] | | | [place] [address] | + + + | Home Phone | | + + + | Preferred Language | Unknown | + + + | Marital Status | | + + + | Baptist Affiliation | CAT | + + + | Race | White | + + + | Ethnic Group | Not or | + + + Author + + + | Author | [facility] | + + + | Organization | [facility] | + + + | Address | Unknown | + + + | Phone | Unavailable | + + + Support + + + + + | Name | Relationship | Address | Phone | + + + + + | Angel Lu | ECON | [address] | | | | | [place] | | | | | [address] | | + + + + + Care Team Providers + +------+ + | Care Inorganic Chemical Technician Name | Role | Phone | + +------+ + | Matthias Blackman DO | PCP | | + +------+ + Encounter Details +--------+ + + + + | Date | Type | Department | Care Team | Description | +--------+ + + + + | 08/09/ | Hospital | Diagnostic | | | | 2013 | Encounter | Radiology at [facility] | | | | | | [address] | | | | | | Loop [facility] | | | | | | [place], [address] [place] [address] | | | | | | [place], [place] | | | | | | [address] | | | | | | [phone] | | | +--------+ + + + [...] US THY CLINIC, NECK | Routin | 08/09/2013 | Papillary | Results for this | | SOFT TISU | e | 4:14 PM | carcinoma of thyroid | procedure are in the | | | | PDT | ([facility]) | results section. | + +--------+ + + + documented in this encounter Results US THY CLINIC, NECK SOFT TISU (08/09/2013 4:14 PM PDT) + + + + + + | Component | Value | Ref Range | Performed | Pathologist | | | | | At | Signature | + + + + + + | US THY | STUDY:US THY CLINIC NECK | | | | | CLINIC, | SOFT TISSUE 08/09/13 | | | | | NECK SOFT | 16:14:00 | | | | | TISU | COMPARISON:08/26/2011 | | | | | | INDICATION: Followup | | | | | | thyroid cancer | | | | | | FINDINGS:All cervical | | | | | | levels were evaluated | | | | | | sonographically. The | | | | | | thyroid is surgically | | | | | | absent. No | | | | | | paratracheal nodules are | | | | | | seen. | | | | | | Multiplemorphologicall | | | | | | y normal lateral | | | | | | compartment lymph nodes | | | | | | are present bilaterally. | | | | | | None contain | | | | | | microcalcification or | | | | | | abnormal vascularity. | | | | | | IMPRESSION: No evidence | | | | | | of recurrent or | | | | | | metastatic disease in | | | | | | the neck. Attending | | | | | | Radiologists: DANNY | | | | | | ANGIE MORRISSEYuthor: DANNY | | | | | | MD YUNI I have | | | | | | personally viewed this | | | | | | procedure/exam, reviewed | | | | | | this report, and | | | | | | madechanges to it where | | | | | | appropriate. | | | | | | Final/Electronically | | | | | | signed / DANNY MORRISSEY | | | | | | 08/09/2013 16:24 PM | | | | + + + + + + + + | Specimen | + + | | + + + +---------+ + + | Performing | Address | City/State/Zipcode | Phone Number | | Organization | | | | + +---------+ + + | [facility] DEPARTMENT OF | | | | | RADIOLOGY | | | | + +---------+ + + documented in this encounter Visit Diagnoses + + | Diagnosis | + + | 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
--- OUTSIDE RECORDS SUMMARY | ~2019-07-30 | XMS | Encounter Summary ---
Demographics + + + | Address | [address] | | | [place] [address] | + + + | Home Phone | | + + + | Preferred Language | Unknown | + + + | Marital Status | | + + + | Confucianist Affiliation | CAT | + + + [...] + | Angel Lu | ECON | [address] | | | | | [place] | | | | | [address] | | + + + + + Care Team Providers + +------+ + | Care Manager Molecular Name | Role | Phone | + [...] + + + + | 08/09/ | Telephone | Otolaryngology | Laura Pelayo, | | | 2013 | | Endocrinology | [address] | | | | | Thyroid Services at | [facility] | | | | | [facility] [address] | [place], [place] | | | | | [address] | [address] | | | | | Mailcode: [id number] | [phone] | | | | | [facility] | | | | | | [facility] [place] | | | | | | [address] | | | | | | [phone] | | | +--------+ + + + [...]
--- OUTSIDE RECORDS SUMMARY | ~2019-07-30 | XMS | Encounter Summary ---
Demographics + + + | Address | [address] | | | [place] [address] | + + + | Home Phone | | + + + | Preferred Language | Unknown | + + + | Marital Status | | + + + | Protestant Affiliation | CAT | + + + [...] + | Angel Lu | ECON | [address] | | | | | [place] | | | | | [address] | | + + + + + Care Team Providers + +------+ + | Care Line Mover Name | Role | Phone | + +------+ + | Matthias Blackman DO | PCP | | + +------+ + Reason for Visit + + + | Reason | Comments | + + + | Follow-up visit | | + + + Benefits Check (Routine) +--------+ + + + + + | Status | Reason | Specialty | Diagnoses / | Referred By | Referred To | | | | | Procedures | Contact | Contact | +--------+ + + + + + | Closed | Specialty | Endocrinology | | Junaid, | Pierce, | | | Services | Diabetes & | | Andrey Davalos MD | MD Laura | | | Required | Metabolism | | [address] | | | | | | [address] | Javier Meagan | | | | | | [address] [place], | | | | | | [place], | [place] | | | | | | [place] [address] | [address] | | | | | | Phone: | Phone: | | | | | | [phone] | [phone] | | | | | | Fax: | Fax: | | | | | | [phone] | [phone] | +--------+ + + + + + Encounter Details +--------+---------+ + + + | Date | Type | Department | Care Team | Description | +--------+---------+ + + + | 08/07/ | Office | Otolaryngology | Laura Mckenzie, | Papillary carcinoma | | 2009 | Visit | Endocrinology | [address] | of thyroid (HCC) | | | | Thyroid Services at | [facility] [address] | (Primary Dx) | | | | [facility] [address] | [place], [place] | | | | | [address] | [address] | | | | | Mailcode: [id number] | [phone] | | | | | [facility] | | | | | | [place], [place] | | | | | | [address] | | | | | | [phone] | | | +--------+---------+ + + + [...] + + + | Blood Pressure | 120/80 | 08/07/2009 12:44 PM | | | | | PDT | | + + + + + | Pulse | 79 | 08/07/2009 12:44 PM | | | | | PDT | | + + + + + | Temperature | - | - | | + + + + + | Respiratory Rate | - | - | | + + + + + | Oxygen Saturation | 98% | 08/07/2009 12:44 PM | | | | | PDT | | + + + + + | Inhaled Oxygen | - | - | | | Concentration | | | | + + + + + | Weight | 63.3 kg (139 lb 8 | 08/07/2009 12:44 PM | | | | oz) | PDT | | + + + + + | Height | - | - | | + + + + + | Body Mass Index | - | - | | + + + + + documented in this encounter Progress Notes Laura Mckenzie MD - 09/06/2009 7:48 AM PDTTeaching Services Documentation I saw and evaluated the patient in conjunction with Endocrinology Fellow, Dr. Richard fernandez. Please see note below for the full details of the visit. I agree with history, exam, a ssessment and management plan as detailed there. Safia is doing well and in the middle of h er annual evaluation. She is clinically euthyroid and we will confirm with labs, and NCED. Her evaluation this year is limited to an unstimulated thyroglobulin and neck u/s, and as l goyo as both of those exams are nonconcerning, I will just see her in a year. LAURA MCKENZIE MD, [facility] Medical Safety Director, Endocrinology toeRichard fernandez M D - 08/07/2009 1:36 PM PDT THYROID TUMOR CLINIC - ENDOCRINOLOGY Fellow: Dr. Richard Landeros Attending: Dr. Laura Mckenzie Follow up visit CC: Papillary Thyroid Carcinoma. INTERVAL HISTORY: Safia Lu is a 49 y/o female returning to clinic for follow-up of S tage III papillary thyroid CA. Pt reports interval development of insomnia (initiation and maintenance) and increased appetite / weight (10# over desired). She denies palpitations, t remor, jitteriness, anxiety. She denies skin changes but reports some thinning hair. No co nstipation or frequent stools, no heat or cold intolerance. She is currently taking Levothyroxine 125 mcg daily for thyroid hormone suppression. No rec ent TFTs are resulted. She has not noticed any local symptoms including difficulty swallowing, neck pain, shortne ss of breath, voice changes, pressure sensation in neck, neurologic symptoms and neck stiffn ess. She denies dry mouth and salivary gland tenderness. THYROID CANCER HISTORY: History of Papillary Thyroid Carcinoma, follicular variant here for f/u. Her disease was T3 N0 M0, Stage III s/p total thyroidectomy on 05/12/06, I-131 ablati on with 121.7 mCi on 07/04 with post-therapy scan showing asymmetric uptake in the thyroid be d, but no distant metastases, neg Thyrogen-stimulated WBS and Tg evaluation 05/05. Thyrogen -stimulated Tg level was 0.2 in August 2008. Last imaging was neck u/s in June 2008: negative. ROS: As noted above. A full 13 system ROS was reviewed and is otherwise negative Medication Sig DILAUDID 4 MG TAB take 1 tablet (4mg) by oral route every 4-6 hours as needed ESTRADIOL OR 2.5mg once per day levothyroxine 125 mcg Oral Tablet tablet Take 1 Tab by mouth once daily. Polyethylene Glycol 3350 (MIRALAX) 17 g (100%) Oral Powder in Packet q day Promethazine HCl 25 mg Oral Tablet prn migraine ropinirole (REQUIP) 1 mg Oral Tablet take 1 tablet (1 mg) by oral route 3 times per day ALL: Codeine, Darvocet a500, Demerol and Percodan EXAM: VITALS: BP 120/80 | Pulse 79 | Wt 63.277 kg (139 lb 8 oz) | SpO2 98% GEN: alert and in no acute distress. Pleasant lean female in no acute distress, alert and o riented x 3. HEENT: PERRL, EOMs intact without lid lag, retraction or stare. No scleral icterus. Orophar ynx is clear, mucous membranes are moist, no ulcers noted. NECK: supple and no adenopathy. THYROID: Visual inspection shows no apparent residual thyroid tissue. On palpation, no res idual thyroid tissue, and thyroid region is not tender. No nodules were palpated. LUNGS: Clear to auscultation bilaterally CV: Heart with regular rate and rhythm and Abnormal findings of faint I/ EDSON at base with out radiation. EXT: no tremor on outstretched arms, no long bone tenderness. NEURO: DTRs 2+ with normal relaxation phase. Strength, gait and mental status are grossly intact. SKIN: warm and of normal consistency, temperature and texture. No rashes. LAB DATA: Lab Results Component Value Date TSH 24.3* 09/13/2008 FREE T4 Date Value Range Status 07/25/2008 1.2 0.6-1.2 (ng/dL) Final RADIOLOGY: US THY CLINIC, NECK THYROID 07/25/2008: Findings: The patient is status post thyroidectomy without residual tissue in the surgical bed. Thorough evaluation of the levels I through reveals no adenopathy. Impression: Status post thyroidectomy without evidence for recurrent or metastatic disease. PATHOLOGY: N/A IMPRESSION: This is a 49 y/o female with a history of Papillary Thyroid Carcinoma, Stage III T3 N0 M0. PLAN: > Recheck unstimulated Tg level. > Neck ultrasound this year. > Follow-up in 1 year if above are reassuring. > We will check TFTs and adjust LTx dose as needed. Richard Landeros MD PhD Fellow, Endocrinology Diabetes & Metabolism Pager [phone] signed by Richard Landeros MD at 08/07/2009 1:40 PM PDTdocumen tawnya in this encounter Plan of Treatment Not on filedocumented as of this encounter Results US THY CLINIC, NECK [...] | | | + +---------+ + + THYROGLOBULIN, SERUM (08/07/2009 1:58 PM PDT) + + + + + + | Component | Value | Ref Range | Performed | Pathologist | | | | | At | Signature | + + + + + + | THYROGLOBUL | < 1.0Comment: | <1.0 IU/mL | | | | IN AB | Test performed by: | | | | | (ANTI-TG) | [facility] [id number] | | | | | | [facility] | | | | | | [place], [place] | | | | | | [address] Low | | | | | | positive Thyroglobulin | | | | | | antibodies are seen | | | | | | in a portion of the | | | | | | asymptomatic | | | | | | populations. | | | | + + + + + + | THYROGLOBUL | < 0.1Comment: | ng/mL | | | | IN [...] + + + | [facility] | [address] [facility] | [facility], | | | | | [place] [address] | | + + + + + FREE T4, SERUM (08/07/2009 1:58 PM PDT) + +-------+ + + + | Component | Value | Ref Range | Performed | Pathologist | | | | | At | Signature | + +-------+ + + + | FREE T4, | 1.2 | 0.6 - 1.2 ng/dL | [facility] | | | [facility] | | | REGIONAL | | | | | | LABORATORY | | + +-------+ + + + + + | Specimen | + + | Blood - Blood | + + + + + | Narrative | Performed At | + + + | Free T4 Reference Range change effective 07/16/08 | [facility] | | [facility] | REGIONAL | | [facility] [place] [address] | LABORATORY | | [place] [address] | | + + + + + + + + | Performing | Address | City/State/Zipcode | Phone Number | | Organization | | | | + + + + + | [facility] | [address] | [place] [address] | | | LABORATORY | | | | + + + + + TSH (08/07/2009 1:58 PM PDT) + + + + + + | Component | Value | Ref Range | Performed | Pathologist | | | | | At | Signature | + + + + + + | TSH | 0.06 (L) | 0.34 - 5.60 | [facility] [...] [facility] | | [facility] | REGIONAL | | [place] [address] [facility] | LABORATORY | | [place] [address] | | + + + + + + + + | Performing | Address | City/State/Zipcode | Phone Number | | Organization | | | | + + + + + | [facility] | [address] | [place] [address] | | | LABORATORY | | | | + + + + + documented in this encounter Visit Diagnoses + + | Diagnosis | + + | 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
--- OUTSIDE RECORDS SUMMARY | ~2019-07-30 | XMS | Encounter Summary ---
Demographics + + + | Address | [address] | | | [place] [address] | + + + | Home Phone | | + + + | Preferred Language | Unknown | + + + | Marital Status | | + + + | Jainism Affiliation | CAT | + + + | Race | White | + + + | Ethnic Group | Not or | + + + Author + + + | Author | [facility] | + + + | Organization | [facility] | + + + | Address | Unknown | + + + | Phone | Unavailable | + + + Support + + + + + | Name | Relationship | Address | Phone | + + + + + | Angel Lu | ECON | [address] | | | | | [place] | | | | | [address] | | + + + + + Care Team Providers + +------+ + | Care Mine Manager Name | Role | Phone | + +------+ + | Matthias Blackman DO | PCP | | + +------+ + Encounter Details +--------+ + + + + | Date | Type | Department | Care Team | Description | +--------+ + + + + | 09/12/ | Abstract | Otolaryngology | Laura Pelayo, | | | 2007 | | Thyroid Services at | [address] | | | | | [address] | | | | | [address] | [place], [place] | | | | | Physician's | [address] | | | | | Steve, 2nd floor | [phone] | | | | | [place], [place] | | | | | | [address] | | | | | | [phone] | | | +--------+ + + + [...] documented as of this encounter Progress Notes Lay Cloud Lpn - 09/13/2007 1:[address] [facility] Extra serum will be sent to [facility] for evaluation of Tg w/antibody screen. Patient is having post injection labs done at [facility] signed by Lay Cloud Lpn at 09/13/2007 1:13 PM PDTdocumented in this encounter Plan of Treatment Not on filedocumented as of this encounter Procedures + +--------+ + + + | Procedure Name | Priori | Date/Time | Associated Diagnosis | Comments | | | ty | | | | + +--------+ + + + | THYROGLOBULIN LEVEL | Routin | 09/11/2007 | | Results for this | | AND ANTIBODY, SERUM | e | | | procedure are in the | | | | | | results section. | + +--------+ + + + | FREE T4 | Routin | 09/11/2007 | | Results for this | | | e | | | procedure are in the | | | | | | results section. | + +--------+ + + + | TSH | Routin | 09/11/2007 | | Results for this | | | e | | | procedure are in the | | | | | | results section. | + +--------+ + + + documented in this encounter Results TSH (09/11/2007) + + + + + + | Component | Value | Ref Range | Performed | Pathologist | | | | | At | Signature | + + + + + + | TSH | 0.277 (A) | 0.3 - 5.0 | NON [...] + +---------+ + + FREE T4, SERUM (09/11/2007) + +-------+ + + + | Component | Value | Ref Range | Performed | Pathologist | | | | | At | Signature | + +-------+ + + + | FREE T4, | 1.99 | 0.6 - 2.0 ng/dL | NON [facility] | | | SERUM | | | LAB | | + +-------+ + + + + + | Specimen | + + | Blood - Blood | + + + +---------+ + + | Performing | Address | City/State/Zipcode | Phone Number | | Organization | | | | + +---------+ + + | NON [facility] | | | | + +---------+ + + THYROGLOBULIN, SERUM (09/11/2007) + +-------+ + + + | Component | Value | Ref Range | Performed | Pathologist | | | | | At | Signature | + +-------+ + + + | THYROGLOBUL | <0.9 | <55 ng/mL | NON [facility] | | | IN SERUM | | | LAB | | + +-------+ + + + | THYROGLOBUL | <20 | <40 IU/mL | NON [facility] | | | [...]
--- OUTSIDE RECORDS SUMMARY | ~2019-07-30 | XMS | Encounter Summary ---
Demographics + + + | Address | [address] | | | [place] [address] | + + + | Home Phone [...] + + + | Author | [facility] | + + + | Organization | [facility] | + + + | Address | Unknown | + + + | Phone | Unavailable | + + + Support + + + + + | Name | Relationship | Address | Phone | + + + + + | Angel Lu | ECON | [address] | | | | | [place] | | | | | [address] | | + + + + + Care Team Providers + +------+ + | Care Home Maker Name | Role | Phone | + +------+ + | Matthias Blackman DO | PCP | | + +------+ + Reason for Visit + + + | Reason | Comments | + + + | Follow-up encounter | | + + + Benefits Check (Routine) +--------+--------+ + + + + | Status | Reason | Specialty | Diagnoses / | Referred By | Referred To | | | | | Procedures | Contact | Contact | +--------+--------+ + + + + | Closed | | Endocrinology | Procedures | Junaid, | [place], | | | | Diabetes & | [place] | Andrey Davalos MD | MD Laura | | | | Metabolism | OFFICE/OUTPT | [address] | | | | | | [address] | [address] | | | | | VISIT,[address] | [address] [place], | | | | | [address] | [place], | [place] | | | | | | [place] [address] | [address] | | | | | | Phone: | Phone: | | | | | | [phone] | [phone] | | | | | | Fax: | Fax: | | | | | | [phone] | [phone] | +--------+--------+ + + + + Encounter Details +--------+---------+ + + + | Date | Type | Department | Care Team | Description | +--------+---------+ + + + | 08/19/ | Office | Otolaryngology | Laura Pelayo, | Papillary carcinoma | | 2017 | Visit | Endocrinology | [address] | of thyroid (HCC) | | | | Thyroid Services at | [facility] [address] | (Primary Dx) | | | | [facility] [address] | [place], [place] | | | | | [address] | [address] | | | | | Mailcode: [id number] | [phone] | | | | | Phys[facility]ilion | | | | | | [place], [place] | | | | | | [address] | | | | | | [phone] | | | +--------+---------+ + + + [...] + + + | Blood Pressure | 92/58 | 08/19/2016 1:15 PM | | | | | PDT | | + + + + + | Pulse | 64 | 08/19/2016 1:15 PM | | | | | PDT [...] + + + + | Weight | 60.4 kg (133 lb 1.6 | 08/19/2016 1:15 PM | | | | oz) | PDT | | + + + + + | Height | - | - | | + + + + + | Body Mass Index | 24.74 | 08/09/2013 4:22 PM | | | | | PDT | | + + + + + documented in this encounter Patient Instructions Patient Instructions Laura Pelayo MD - 08/19/2016 1:30 PM PDTEndocrinologists in [facility] ne: Stephany Gaoer documented in this encounter Progress Notes Laura Pelayo MD - 08/19/2016 1:30 PM PDTFormatting of this note might be different fro m the original. THYROID TUMOR CLINIC - ENDOCRINOLOGY THYROID CANCER Follow-up Safia Lu is a 56 y.o. female with a history of Papillary [...] dose of Levothyroxine is 112 mcg a day, increased after a TSH of 3.57 but she d idn't get a repeat TSH level after that. She denies symptoms of hyper or hypothyroidism incl uding heat or cold intolerance, constipation or diarrhea except her usual variability, palpi tations or tremor. She is struggling a bit with weight gain of 15 # over the last year, rep orts is very active during the day and walks, feels like she doesn't eat anything. She denies any neck masses, any difficulty swallowing, or voice changes. She is requesting to change her thyroid cancer care from [place] to [place] because of con cerns with traveling here to [place]. Medications: Current Outpatient Prescriptions: HYDROmorphone 4 mg Oral Tablet, Take 1 Tab by mouth every three hours as needed for severe pain. (Patient taking differently: Take 8 mg by mouth ever y three hours as needed for severe pain.), Disp: 12 Tab, Rfl: 0 levothyroxine 112 mcg oral tablet, Take 1 tablet by mouth once daily., Disp: 90 tablet, Rfl : 3 promethazine 25 mg oral tablet, Take 1 tablet by mouth four times daily as needed for nause a/vomiting., Disp: 4 tablet, Rfl: 0 ropinirole (REQUIP) 1 mg Oral Tablet, take 1 tablet (1 mg) by oral route 3 times per day, D isp: , Rfl: PE: BP 92/58 | Pulse 64 | Wt 60.4 kg (133 lb 1.6 oz) | BMI 24.74 kg/(m^2) General: Pleasant woman, no acute distress, alert and oriented x3 HEENT: EOMs intact, no lid lag, retraction or stare. Neck: Supple, no palpable LAD or masses, no palpable thyroid tissue. Neuro: No tremor, DTRs 1+, normal relaxation phase. Gait and mental status are grossly int act. Skin: Warm, normal consistency, temperature and texture. MSK: Strength grossly normal Lab Results Component Value Date FREET4 1.0 08/07/2015 TSH 3.57 08/07/2015 THYROGLOB <0.1 08/07/2015 THYROGLOBAB <1.0 08/07/2015 Radiology: EXAM: US NECK SURVEY 08/19/2016 HISTORY: Thyroid cancer. COMPARISON: None available. TECHNIQUE: Ultrasound evaluation of the neck. FINDINGS: THYROID BED: The thyroid is surgically absent. Right thyroid bed: Within the inferior aspect of right level , 3 small adjacent morpholog ically normal appearing lymph nodes are identified, similar in appearance to examinations da ting back to 2011. Left thyroid bed: No nodules. NECK: Bilateral cervical lymph nodes throughout levels I through were evaluated. Right neck: No lymphadenopathy. Left neck: No lymphadenopathy. IMPRESSION: No evidence of recurrence Assessment: This is a 56 y.o. female with Papillary Thyroid Carcinoma, follicular variant, T3 N0 M0, Stage III in 2006, now with NCED based on negative neck exam, negative neck ultras ound today and negative thyroglobulin with neg antithyroglobulin antibodies as of last year , pending this visit. We will get a TSH level today to to assess her levothyroxine dose, with TSH goal 0.3-2.0. Plan: 1. Thyroid function tests today to adjust levothyroxine. 2. Thyroglobulin today for thyroid cancer surveillance. 3. Recommend continued thryoid cancer surveillance with ultrasensitive unstimulated thyrogl obulin next year and next neck ultrasound in 2-3 years. 4. I have given Safia some information about endocrinologists in [place] and will facilitat e records transfer there. documented in this encounter Plan of Treatment Not on filedocumented as of this encounter Visit Diagnoses + + | Diagnosis | + + | 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
--- OUTSIDE RECORDS SUMMARY | ~2019-07-30 | XMS | Encounter Summary ---
Demographics + + + | Address | [address] | | | [place] [address] | + + + | Home Phone | | + + + | Preferred Language | Unknown | + + + | Marital Status | | + + + | Anabaptism Affiliation | CAT | + + + | Race | White | + + + | Ethnic Group | Not or | + + + Author + + + | Author | [facility] | + + + | Organization | [facility] | + + + | Address | Unknown | + + + | Phone | Unavailable | + + + Support + + + + + | Name | Relationship | Address | Phone | + + + + + | Angel Lu | ECON | [address] | | | | | [place] | | | | | [address] | | + + + + + Care Team Providers + +------+ + | Care Smoking Pipe Liner Name | Role | Phone | + +------+ + | Matthias Blackman DO | PCP | | + +------+ + Reason for Visit + + + | Reason | Comments | + + + | Lab Results | Tg | + + + Encounter Details +--------+ + + + + | Date | Type | Department | Care Team | Description | +--------+ + + + + | 08/13/ | Telephone | M[facility] | Laura Pelayo, | Lab Results (Tg) | | 2015 | | [facility] | [address] | | | | | [facility] | [address] | | | | | [address] | [place], [place] | | | | | [address] | [address] | | | | | Phys[facility] | [phone] | | | | | Physician's | | | | | | Pavilion [place], | | | | | | [place] [address] | | | | | | [phone] | | | +--------+ + + + [...]
--- OUTSIDE RECORDS SUMMARY | ~2019-07-30 | XMS | Encounter Summary ---
Demographics + + + | Address | [address] | | | [place] [address] | + + + | Home Phone | | + + + | Preferred Language | Unknown | + + + | Marital Status | | + + + | Islam Affiliation | CAT | + + + [...] + | Angel Lu | ECON | [address] | | | | | [place] | | | | | [address] | | + + + + + Care Team Providers + +------+ + | Care Heavy Machinery Assembler Name | Role | Phone | + +------+ + | Matthias Blackman DO | PCP | | + +------+ + Encounter Details +--------+ + + + + | Date | Type | Department | Care Team | Description | +--------+ + + + + | 05/15/ | Supervisor Felting | Otolaryngology | Laura Pelayo, | Papillary carcinoma | | 2013 | | Thyroid Services at | [address] | of thyroid (HCC) | | | | [facility] [address] | [address] | (Primary Dx) | | | | [address] | [place], [place] | | | | | Physician's | [address] | | | | | Pav[address], [address] [place] [address] | [phone] | | | | | [place], [place] | | | | | | [address] | | | | | | [phone] | | | +--------+ + + + [...] of this encounter Plan of Treatment + +------+--------+ + + | Name | Type | Priori | Associated Diagnoses | Order Schedule | | | | ty | | | + +------+--------+ + + | TSH | Lab | Routin | Papillary | Ordered: 05/15/2013 | | | | e | carcinoma of thyroid | | | | | | (HCC) | | + +------+--------+ + + | FREE T4 | Lab | Routin | Papillary | Ordered: 05/15/2013 | | | | e | carcinoma of thyroid | | | | | | (HCC) | | + +------+--------+ + + | THYROGLOBULIN, SERUM | Lab | Routin | Papillary | Ordered: 05/15/2013 | | | | e | carcinoma of thyroid | | | | | | (HCC) | | + +------+--------+ + + documented as of this encounter Visit Diagnoses + + | Diagnosis | + + | 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
--- OUTSIDE RECORDS SUMMARY | ~2019-07-30 | XMS | Encounter Summary ---
Demographics + + + | Address | [address] | | | [place] [address] | + + + | Home Phone | | + + + | Preferred Language | Unknown | + + + | Marital Status | | + + + | Holiness Affiliation | CAT | + + + [...] + | Angel Lu | ECON | [address] | | | | | [place] | | | | | [address] | | + + + + + Care Team Providers + +------+ + | Care Skein Bleacher Name | Role | Phone | + +------+ + | Matthias Blackman DO | PCP | | + +------+ + Encounter Details +--------+ + + + + | Date | Type | Department | Care Team | Description | +--------+ + + + + | 07/25/ | Hospital | Diagnostic | | | | 2008 | Encounter | Radiology at [facility] | | | | | | [address] | | | | | | [address] Physician's | | | | | | Steve, [address] [place] [address] | | | | | | [place], [place] | | | | | | [address] | | | | | | [phone] | | | +--------+ + + + [...] US THY CLINIC, NECK | Routin | 07/25/2008 | Papillary | Results for this | | THYROID | e | 12:03 PM | Carcinoma of Thyroid | procedure are in the | | | | PDT | (HCC) | results section. | + +--------+ + + + documented in this encounter Results US THY CLINIC, NECK THYROID (07/25/2008 12:03 [...] | | + +---------+ + + | [facility]PART[facility] OF | | | | | RADIOLOGY | | | | + +---------+ + + documented in this encounter Visit Diagnoses + + | Diagnosis | + + | 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
--- OUTSIDE RECORDS SUMMARY | ~2019-07-30 | XMS | Encounter Summary ---
Demographics + + + | Address | [address] | | | [place] [address] | + + + | Home Phone | | + + + | Preferred Language | Unknown | + + + | Marital Status | | + + + | Oriental Orthodox Affiliation | CAT | + + + | Race | White | + + + | Ethnic Group | Not or | + + + Author + + + | Author | [facility] | + + + | Organization | [facility] | + + + | Address | Unknown | + + + | Phone | Unavailable | + + + Support + + + + + | Name | Relationship | Address | Phone | + + + + + | Angel Lu | ECON | [address] | | | | | [place] | | | | | [address] | | + + + + + Care Team Providers + +------+ + | Care House Furnishings Supervisor Name | Role | Phone | + +------+ + | Matthias Blackman DO | PCP | | + +------+ + Encounter Details +--------+ + + + + | Date | Type | Department | Care Team | Description | +--------+ + + + + | 08/08/ | Documentati | LAB CORE [address] | Laura Pelayo, | | | 2014 | on | [address] | [address] | | | | | [place], [place] | [address] | | | | | [address] | [place], [place] | | | | | [phone] | [address] | | | | | | [phone] | | | | | | | | +--------+ + + [...]
--- OUTSIDE RECORDS SUMMARY | ~2019-07-30 | XMS | Encounter Summary ---
Demographics + + + | Address | [address] | | | [place] [address] | + + + | Home Phone | | + + + | Preferred Language | Unknown | + + + | Marital Status | | + + + | Orthodox Affiliation | CAT | + + + | Race | White | + + + | Ethnic Group | Not or | + + + Author + + + | Author | [facility] | + + + | Organization | [facility] | + + + | Address | Unknown | + + + | Phone | Unavailable | + + + Support + + + + + | Name | Relationship | Address | Phone | + + + + + | Angel Lu | ECON | [address] | | | | | [place] | | | | | [address] | | + + + + + Care Team Providers + +------+ + | Care Carton Waxing Machine Operator Name | Role | Phone | + +------+ + | Matthias Blackman DO | PCP | | + +------+ + Encounter Details +--------+ + + + + | Date | Type | Department | Care Team | Description | +--------+ + + + + | 09/26/ | Telephone | Otolaryngology | Laura Pelayo, | | | 2007 | | Endocrinology | [address] [facility] | | | | | Thyroid Services at | [facility] | | | | | [address] | [place], [place] | | | | | [address] | [address] | | | | | Mailcode: [id number] | [phone] | | | | | [facility] | | | | | | [place], [place] | | | | | | [address] | | | | | | [phone] | | | +--------+ + + + [...]
--- OUTSIDE RECORDS SUMMARY | ~2019-07-30 | XMS | Encounter Summary ---
Demographics + + + | Address | [address] | | | [place] [address] | + + + | Home Phone | | + + + | Preferred Language | Unknown | + + + | Marital Status | | + + + | Mormonism Affiliation | CAT | + + + | Race | White | + + + | Ethnic Group | Not or | + + + Author + + + | Author | [facility] | + + + | Organization | [facility] | + + + | Address | Unknown | + + + | Phone | Unavailable | + + + Support + + + + + | Name | Relationship | Address | Phone | + + + + + | Angel Lu | ECON | [address] | | | | | [place] | | | | | [address] | | + + + + + Care Team Providers + +------+ + | Care Internet Manager Name | Role | Phone | [...] + + + + | 08/20/ | Emergency | [facility] | Mady George MD | | | 2010 | | Department [address] | | | | | | [address] | | | | | | [facility] | | | | | | [place], [place] | | | | | | [address] | | | | | | [phone] | | | +--------+ + + + [...] + + + | Blood Pressure | 112/67 | 08/20/2010 8:03 PM | | | | | PDT | | + + + + + | Pulse | 92 | 08/20/2010 8:03 PM | | | | | PDT | | + + + + + | Temperature | 36.4 C (97.6 F) | 08/20/2010 3:17 PM | | | | | PDT | | + + + + + | Respiratory Rate | 16 | 08/20/2010 8:03 PM | | | | | PDT | | + + + + + | Oxygen Saturation | 96% | 08/20/2010 8:03 PM | | | | | PDT | | + + + + + | Inhaled Oxygen | - | - | | | Concentration | | | | + + + + + | Weight | 56.7 kg (125 lb) | 08/20/2010 3:17 PM | | | | | PDT | | + + + + + | Height | - | - | | + + + + + | Body Mass Index | 23.62 | 08/20/2010 2:41 PM | | | | | PDT | | + + + + + documented in this encounter Discharge Instructions Instructions Mady George MD - 08/20/2010Migraine Headache, Recurrent A migraine is the most common headache. Recurring migraine headaches usually have at least two of the following symptoms: They occur on one side of the head. They throb or pound (pulsate). They are bad enough to stop you from doing daily activities. You may have one or more of the following symptoms: Feel sick to your stomach. Throw up (vomit). Pain when you hear loud noises or bright lights. HOME CARE Your doctor can help you with medicine and a plan to take your medicine. GET HELP IF: Your medicine does not help. The pain comes back. This migraine is different from past migraines. Get help right away if: You start losing your balance or have trouble walking. You have numbness or weakness in your face, arms or legs. You have trouble talking. Your eyesight changes. You feel lightheaded or pass out. Your muscles are weak. You lose control of your muscles. You get a stiff neck. You develop worse symptoms that are different from your first symptoms. You have an unexplained temperature above 102 F (38.9 C). Make sure you: Understand these instructions. Will watch your condition. Will get help right away if you are not doing well or get worse. Narcotic Pain Medicine You have been prescribed a narcotic for pain relief. These drugs are usually combined with acetaminophen (Tylenol#3, Percocet, Darvocet, Anexsia, Vicodin) or aspirin (Empirin#3, Perc odan, Synalogs-DC) for increased effect. Narcotics act on the central nervous system to red uce pain; they also impair mental alertness and physical abilities. We advise you not to dr ink alcohol, drive a car, or operate dangerous equipment when you are taking theses drugs. You can lessen stomach irritation from your medicine by taking it with meals or a full glas s of water. Common side effects of narcotics are: Nausea and vomiting, heartburn, consitpa tion, dizziness, sleepiness, and mood changes. If you have bothersome side effects or sympt oms of an allergic reaction (itching, hives, rash), stop taking your medicine and call your doctor or the emergency room right away. Please keep your narcotic medicine well out of the reach of children. Document Released: 11/23/2008 Document Re-Released: 03/08/2010 [facility] Patient Information 2011 [email or web address]. documented in this encounter Medications at Time [...] | HYDROmorphone (aka DILAUDID) | Given | 08/21/19 | 1 mg | | | | injection 1 mg 1 mg, | | 11 8:00 | | | | | intravenous, EVERY 10 MINUTES | | PM PDT | | | | | NEEDED, 5 doses, Starting Sue | | | | | | | 08/20/10 at 1944, Until Fri | | | | | | | 08/21/10 at 0333, moderate pain | | | | | | + +--------+ +------+------+------+ +---+---+ | | | +---+---+ + +-------+ +------+---+---+ | HYDROmorphone (aka DILAUDID) | Given | 08/21/19 | 2 mg | | | | injection 2 mg 2 mg, | | 11 7:40 | | | | | intravenous, ONCE, 1 dose, Sue | | PM PDT | | | | | 08/20/10 at 1900 | | | | | | + +-------+ +------+---+---+ +---+---+ | | | +---+---+ + +-------+ + +---+---+ | NaCl 0.9 % IV 1,000 mL, | Given | 08/21/19 | 1,000 mL | | | | intravenous, ONCE, 1 dose, Sue | | 11 7:54 | | | | | 08/20/10 at 2000 | | PM PDT | | | | + +-------+ + +---+---+ +---+---+ | | | +---+---+ + +-------+ +---------+---+---+ | promethazine (aka PHENERGAN) | Given | 08/21/19 | 12.5 mg | | | | injection 12.5 mg 12.5 mg, | | 11 7:40 | | | | | intravenous, ONCE, 1 dose, Sue | | PM PDT | | | | | 08/20/10 at 1900 | | | | | | + +-------+ +---------+---+---+ +---+---+ | | | +---+---+ documented in this encounter"
--- OUTSIDE RECORDS SUMMARY | ~2019-07-30 | XMS | Encounter Summary ---
Demographics + + + | Address | [address] | | | [place] [address] | + + + | Home Phone | | + + + | Preferred Language | Unknown | + + + | Marital Status | | + + + | Restorationist Affiliation | CAT | + + + [...] + | Angel Lu | ECON | [address] | | | | | [place] | | | | | [address] | | + + + + + Care Team Providers + +------+ + | Care Butcher'S Assistant Name | Role | Phone | + +------+ + | Matthias Blackman DO | PCP | | + +------+ + Reason for Visit + + + | Reason | Comments | + + + | Discussion | Pt is out of medication and needs more called in today, she would | | | like the results to her labs and us also. | + + + Encounter Details +--------+ + + + + | Date | Type | Department | Care Team | Description | +--------+ + + + + | 08/25/ | Telephone | Otolaryngology | Laura Pelayo, | Discussion (Pt is | | 2009 | | Thyroid Services at | [address] | out of medication | | | | [facility] [address] | and needs more | | | | [address] | [place], [place] | called in today, she | | | | Physician's | [address] | would like the | | | | [address], [address] floor | [phone] | results to her labs | | | | [place], [place] | | and us also.) | | | | [address] | | | | | | [phone] | | | +--------+ + + + [...]
--- OUTSIDE RECORDS SUMMARY | ~2019-07-30 | XMS | Encounter Summary ---
Demographics + + + | Address | [address] | | | [place] [address] | + + + | Home Phone | | + + + | Preferred Language | Unknown | + + + | Marital Status | | + + + | Christian Affiliation | 1041 | + + + | Race | Unknown | + + + | Ethnic Group | Unknown | + + + Author + + + | Author | [facility] | | | and Jaronana | + + + | Organization | [facility] | | | and Jaronana | + + + | Address | Unknown | + + + | Phone | Unavailable | + + + Support + + + + + | Name | Relationship | Address | Phone | + + + + + | Ashley Smith | ECON | NA | | | | | [place] [address] | | + + + + + | Angel Lu | ECON | [address] | | | | | [place], [place] | | | | | [address] | | + + + + + Care Team Providers + +------+ + | Care Investment Advisor Name | Role | Phone | + +------+ + PCP | Unavailable | + +------+ + Encounter Details +--------+ + + + + | Date | Type | Department | Care Team | Description | +--------+ + + + + | 10/07/ | Hospital | [facility] | | | | 1991 | Encounter | MED CTR XRAY [address] | | | | | | [address] | | | | | | [place] [address] | | | | | | [phone] | | | +--------+ + + + [...]
--- OUTSIDE RECORDS SUMMARY | ~2019-07-30 | XMS | Encounter Summary ---
Demographics + + + | Address | [address] | | | [place] [address] | + + + | Home Phone | | + + + | Preferred Language | Unknown | + + + | Marital Status | | + + + | Pentecostal Affiliation | 1041 | + + + | Race | Unknown | + + + | Ethnic Group | Unknown | + + + Author + + + | Author | [facility] | | | and Jaronana | + + + | Organization | [facility] | | | and Jaronana | + + + | Address | Unknown | + + + | Phone | Unavailable | + + + Support + + + + + | Name | Relationship | Address | Phone | + + + + + | Ashley Smith | ECON | NA | | | | | [place] [address] | | + + + + + | Angel Lu | ECON | [address] | | | | | [place], [place] | | | | | [address] | | + + + + + Care Team Providers + +------+ + | Care Gluing Machine Operator Automatic Name | Role | Phone | + +------+ + PCP | Unavailable | + +------+ + Encounter Details +--------+ + + + + | Date | Type | Department | Care Team | Description | +--------+ + + + + | 07/19/ | Hospital | [facility] | | | | 2006 - | Encounter | MED CTR CANCER | | | | | | CENTER [address] | | | | 07/28/ | | [place] | | | | 2006 | | [address] | | | | | | [phone] | | | +--------+ + + + [...]
--- OUTSIDE RECORDS SUMMARY | ~2019-07-30 | XMS | Encounter Summary ---
Demographics + + + | Address | [address] | | | [place] [address] | + + + | Home Phone | | + + + | Preferred Language | Unknown | + + + | Marital Status | | + + + | Episcopalian Affiliation | CAT | + + + [...] + | Angel Lu | ECON | [address] | | | | | [place] | | | | | [address] | | + + + + + Care Team Providers + +------+ + | Care Agricultural And Forestry Supervisor Name | Role | Phone | + +------+ + | Matthias Blackman DO | PCP | | + +------+ + Encounter Details +--------+ + + + + | Date | Type | Department | Care Team | Description | +--------+ + + + + | 08/09/ | Office | [facility] | Clinic, Neurology | Progress Note | | 2006 | Visit-Trans | | | | | | cribed | | [...] as of this encounter Progress Notes Interface, Early Education Teacher In - 08/14/2005 2:05 AM PDT [id number] [place] [id number] Clinic Date: 08/09/2005 Clinic: Neurology This 45-year-old female was last seen on March 20, 2004, for counseling concerning headache treatment. At that time, she was taking 50 mg of nortriptyline at bedtime, Imitrex injection p.r.n., 4 mg of Dilaudid by mouth for treatment of the acute headache, Phenergan 50 mg every 6 hours as needed for nausea during headache, and Atacand was started as a preventative. Headaches: Headache frequency has increased since last seen. Headaches are occurring multiple times a week, usually, the headache will come on directly after awakening in the morning and within the 15 minutes, she can tell if it is going to be a mild headache, or headaches severe enough to cause her to use her Dilaudid. With the severe headache, she will take a tablet of Flexeril and Dilaudid to go to bed. She was last seen in the ER for treatment of headache in April 2005 where she received an injection of morphine and Vistaril. She has noticed an interesting correlation between working and her headaches, and that she was on a leave of absence in December 2004 and January 2005, and had 1 headache each month, and was away from work for a week recently because of a in the family, and had no headache but will have headaches multiple times a week when she works. In reviewing her headache history, we find that headaches started in the Summer of 1998, she was first seen at [facility] in November 2001, and she has started work in 1999. There are fluorescent lights where she works. She is having sleep difficulties but is taking no medication for it. She believes that she is using 6 to 7 tablets of Dilaudid per week at the most and twice a week at the least, a tablet of Flexeril about once a week and the Phenergan p.r.n. for nausea. She is also taking Lexapro besides the bedtime nortriptyline. She does not smoke. She does take estradiol, estrogen-containing hormones sometimes enhance migraines, so if she needs the estradiol for control of menopausal symptoms, it would be best to give her as pure an estrogen as possible and the least amount necessary to keep the symptoms under control. Episodes of impairment of awareness: Recently, when entertaining visitors in her home, in the evening, she lost awareness 3 times. Her believes it is 1 or 2 times. She had amnesias of 60 to 120 seconds, and became aware of her surroundings when verbally addressed. She had inadequate sleep. Her says that there was no warning to any of these episodes and the patient evidently had no aura. It was noticed that she was having this impairment of consciousness because she did not respond to conversation. She had sunglasses on, so he could not see her eyes but facial expression was not unusual and facial color did not change. No abnormality of breathing and she responded quite quickly. On one occasion, she "muttered" unintelligible 1 or 2 words. Her would have interpreted this as falling asleep. Physical Examination: The patient is alert, rather anxious and tense, appropriately dressed, and behavior was not unusual except for the anxiety, with the weight of 137 pounds, 110/70, and temperature 96. A rather cursory neurological examination was performed and we find that the pupils are equal, no nystagmus, no impairment of eye movement, no gross temporal visual field defect, and no papilledema. No facial asymmetry. No speech defect. No impairment of neck mobility. No hand tremor or nbiidw-ts-uxum unsteadiness. Rebekah's negative. Leg muscle stretch reflexes symmetrical. Plantar responses flexor. Romberg negative. Opinion: Headaches: She has the diagnosis of migraine, and there seems to be some element of correlation between frequency of headaches and her working. Fluorescent lights may play a part, I suppose even viewing of the computer screen may play a part. Continued use of the Dilaudid would be unacceptable at a frequency of 6 to 7 dosages per week as we could get into a medication-rebound headache syndrome, and certainly the Dilaudid could be habituating. One strategy would be to use as little estrogen as is possible to keep her comfortable from the standpoint of menopause symptoms. Another strategy would be to attempt to improve the sleep difficulty. Episodes of impaired awareness: This could be interpreted as complex partial seizures, although there is no behavior of that nature. It would be worthwhile obtaining an EEG and an enhanced MRI. 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 I have asked her not to drive until we can clarify the situation. Use of the headache preventative topiramate may function as an effective preventative and one would start at 25 mg per day for 1 week and increase by 25 mg every 7 days until a dosage of 100 mg a day is attained or until there are unacceptable side effects. Most common side effect is decreased mental capability. I have asked her to keep a diary of her headaches, and marking down when each headache start each day, how long it lasts, and medication used so that we have a better measure of frequency and medication intake. Juan Camacho M.D. BENIGNO / [id number] / [id number] / [id number] / [id number] documented i n this encounter Plan of Treatment Not on filedocumented as of this encounter Visit Diagnoses Not on filedocumented in this encounter
--- OUTSIDE RECORDS SUMMARY | ~2019-07-30 | XMS | Encounter Summary ---
Demographics + + + | Address | [address] | | | [place] [address] | + + + | Home Phone | | + + + | Preferred Language | Unknown | + + + | Marital Status | | + + + | Restorationism Affiliation | CAT | + + + | Race | White | + + + | Ethnic Group | Not or | + + + Author + + + | Author | [facility] | + + + | Organization | [facility] | + + + | Address | Unknown | + + + | Phone | Unavailable | + + + Support + + + + + | Name | Relationship | Address | Phone | + + + + + | Angel Lu | ECON | [address] | | | | | [place] | | | | | [address] | | + + + + + Care Team Providers + +------+ + | Care Cartridge Feeder Name | Role | Phone | + +------+ + | Matthias Blackman DO | PCP | | + +------+ + Encounter Details +--------+------+ + + + | Date | Type | Department | Care Team | Description | +--------+------+ + + + | 08/19/ | Lab | Laboratory at [facility] | | Papillary carcinoma | | 2017 | | [address] | | of thyroid (HCC) | | | | [address] [facility] | | | | | | Steve, [address] [place] [address] | | | | | | [place], [place] | | | | | | [address] | | | | | | [phone] | | | +--------+------+ + + + [...] + | THYROGLOBULIN LEVEL | Routin | 08/19/2016 | Papillary | Results for this | | AND ANTIBODY, SERUM | e | 2:11 PM | carcinoma of thyroid | procedure are in the | | | | PDT | ([facility]) | results section. | + +--------+ + + + | FREE T4 | Routin | 08/19/2016 | Papillary | Results for this | | | e | 2:11 PM | carcinoma of thyroid | procedure are in the | | | | PDT | ([facility]) | results section. | + +--------+ + + + | TSH | Routin | 08/19/2016 | Papillary | Results for this | | | e | 2:11 PM | carcinoma of thyroid | procedure are in the | | | | PDT | ([facility]) | results section. | + +--------+ + + + documented in this encounter Results THYROGLOBULIN LEVEL AND ANTIBODY, SERUM (08/19/2016 2:11 PM PDT) + + + + + [...] At | + + + | | [facility] | | Test performed by: | REFERENCE LAB | | [facility] | | | [address] | | | [place] [address] | | | | | + + [...] + + + + + FREE T4 (08/19/2016 2:11 PM PDT) + +---------+ + + + [...] [facility] | [address] | [place] [address] | | | SERVICES, CORE | [address] | | | + + + + + TSH (08/19/2016 2:11 PM PDT) + +-------+ + + + | Component | Value | Ref Range | Performed | Pathologist | | | | | At | Signature | + +-------+ + + + | TSH | 1.50 | 0.50 - 5.07 | [facility] | [...] | + + + + + | [facility] | [address] | [place] [address] | | | DOREEN BAHENA | [address] | | | + + + + + documented in this encounter Visit Diagnoses + + | Diagnosis | + + | 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
--- OUTSIDE RECORDS SUMMARY | ~2019-07-30 | XMS | Encounter Summary ---
Demographics + + + | Address | [address] | | | [place] [address] | + + + | Home Phone | | + + + | Preferred Language | Unknown | + + + | Marital Status | | + + + | Latter Day Affiliation | CAT | + + + [...] + | Angel Lu | ECON | [address] | | | | | [place] | | | | | [address] | | + + + + + Care Team Providers + +------+ + | Care Office Aide Name | Role | Phone | + +------+ + | Matthias Blackman DO | PCP | | + +------+ + Encounter Details +--------+ + + + + | Date | Type | Department | Care Team | Description | +--------+ + + + + | 08/06/ | Telephone | Otolaryngology | Laura Pelayo, | | | 2008 | | Endocrinology | [address] [facility] | | | | | Thyroid Services at | [facility] | | | | | [facility] [address] | [place], [place] | | | | | [address] | [address] | | | | | Mailcode: [id number] | [phone] | | | | | [facility] | | | | | | [place], [place] | | | | | | [address] | | | | | | [phone] | | | +--------+ + + + [...]
--- OUTSIDE RECORDS SUMMARY | ~2019-07-30 | XMS | Encounter Summary ---
Demographics + + + | Address | [address] | | | [place] [address] | + + + | Home Phone | | + + + | Preferred Language | Unknown | + + + | Marital Status | | + + + | Evangelical Affiliation | CAT | + + + [...] + | Angel Lu | ECON | [address] | | | | | [place] | | | | | [address] | | + + + + + Care Team Providers + +------+ + | Care Marine Photographer Name | Role | Phone | + +------+ + | Matthias Blackman DO | PCP | | + +------+ + Encounter Details +--------+ + + + + | Date | Type | Department | Care Team | Description | +--------+ + + + + | 04/27/ | Floor Inspector | Otolaryngology | Laura Pelayo, | Papillary carcinoma | | 2011 | | Endocrinology | [address] | of thyroid (HCC) | | | | Thyroid Services at | [address] | (Primary Dx) | | | | [facility] [address] | [place], [place] | | | | | [address] | [address] | | | | | Mailcode: [id number] | [phone] | | | | | [facility] [address] | | | | | | [place], [place] | | | | | | [address] | | | | | | [phone] | | | +--------+ + + + [...] as of this encounter Results THYROGLOBULIN, SERUM (08/26/2011 10:14 [...] [address] | | | | | | [facility] | | | | | | [place], [place] | | | | | | [address] [address] | | | | | | [...] + + + | [facility] | [address] [facility], | | | | | [place] [address] | | + + + + + [...] + + | [facility] | [facility] | | [place] [address] [facility] | REGIONAL | | [place] [address] | LABORATORY | + + + + + + + + | Performing | Address | City/State/Zipcode | Phone Number | | Organization | | | | + + + + + | [facility] | [address] | [place] [address] | | | LABORATORY | | | [...] | [facility] | [facility] | | [facility] [place] [address] [facility] | LABORATORY | | [place] [address] | | + + + + + + + + | Performing | Address | City/State/Zipcode | Phone Number | | Organization | | | | + + + + + | [facility] | [address] [facility] [address] | [place] [address] | | | LABORATORY | | | | + + + + + US SOFT TISSUE HEAD & NECK (08/26/2011 [...] | | + +---------+ + + | [facility] | | | | | RADIOLOGY | | | | + +---------+ + + documented in this encounter Visit Diagnoses + + | Diagnosis | + + | 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
--- OUTSIDE RECORDS SUMMARY | ~2019-07-30 | XMS | Encounter Summary ---
Demographics + + + | Address | [address] | | | [place] [address] | + + + | Home Phone | | + + + | Preferred Language | Unknown | + + + | Marital Status | | + + + | Samaritan Affiliation | CAT | + + + [...] [place] | | | | | [address] | | + + + + + Care Team Providers + +------+ + | Care Aircraft Mechanic Electrical And Radio Name | Role | Phone | + +------+ + | Miguel AMatthias abreu DO | PCP | | + +------+ + Encounter Details +--------+ + + + + | Date | Type | Department | Care Team | Description | +--------+ + + + + | 05/11/ | Office | | Note, Outpatient | Progress Note | | 2002 | Visit-Trans | | Clinic | | [...] as of this encounter Progress Notes Interface, Trademark Attorney In - 09/10/2005 1:01 AM PDTCLINIC DATE: 05/11/2002 REFERRING PHYSICIAN: Parra M.D. [address] [place] [address] SUBJECTIVE: Safia Lu returns to the General Neurology Clinic for followup of migraine headache disorder. When last seen in January 2002, she seemed to be doing relatively well taking nortriptyline 25 mg at bedtime daily and utilizing injectable Imitrex for management of her headaches which were occurring about twice a month. In February 2002, she reports that she had 3 headache episodes, one of them requiring a treatment in the Emergency Room setting. She has not specifically reported any headaches in March 2002 or this month. She continues on nortriptyline but only 25 mg at bedtime daily. If she takes more than that, she notes that she will be unable to sleep. She has had no other changes in her general medical condition. She has recently returned from a vacation in [place] and is feeling quite rested, but does note increased stress with returning to her job. PHYSICAL EXAMINATION VITAL SIGNS: Blood pressure is 112/70, pulse is 96 per minute and regular, and weight is 126 pounds. GENERAL APPEARANCE: This is a well-developed, attractive middle-aged female who is quite pleasant and cooperative. NEUROLOGIC: Cranial nerves 2 through 12 are intact. Motor exam: Strength is 5/5. Normal fine motor movements. Deep tendon reflexes are trace to 1+. CLINICAL IMPRESSION: Migraine headache disorder. RECOMMENDATIONS: A trial of atenolol 50 mg tablets, 1-1/2 tablet p.o. daily. Continue nortriptyline 25 mg at bedtime daily. Continue to utilize Imitrex injectable 6 mg for recurring migraine episodes. Follow up appointment in 2 months' time. Glory Quintanilla M.D. / SHANON [id number] / [id number] / [id number] / Tdocumented in this encounter Plan of Treatment Not on filedocumented as of this encounter Visit Diagnoses Not on filedocumented in this encounter"
--- OUTSIDE RECORDS SUMMARY | ~2019-07-30 | XMS | Encounter Summary ---
Demographics + + + | Address | [address] | | | [place] [address] | + + + | Home Phone [...] + | Angel Lu | ECON | [address] | | | | | [place] | | | | | [address] | | + + + + + Care Team Providers + +------+ + | Care Stevedore Dock Name | Role | Phone | + +------+ + | Matthias Blackman DO | PCP | | + +------+ + Encounter Details +--------+ + + + + | Date | Type | Department | Care Team | Description | +--------+ + + + + | 08/20/ | [facility] | Otolaryngology | Laura Pelayo, | | | 2017 | | Endocrinology | [address] [facility] | | | | | Thyroid Services at | [facility] | | | | | [facility] [address] | [place], [place] | | | | | [address] | [address] | | | | | Mailcode: [id number] | [phone] | | | | | [facility] | | | | | | [place], [place] | | | | | | [address] | | | | | | [phone] | | | +--------+ + + + [...]
--- OUTSIDE RECORDS SUMMARY | ~2019-07-30 | XMS | Encounter Summary ---
Demographics + + + | Address | [address] | | | [place] [address] | + + + | Home Phone [...] + | Angel Lu | ECON | [address] | | | | | [place] | | | | | [address] | | + + + + + Care Team Providers + +------+ + | Care Wire Photo Operator News Name | Role | Phone | + +------+ + | Matthias Blackman DO | PCP | | + +------+ + Encounter Details +--------+ + + + + | Date | Type | Department | Care Team | Description | +--------+ + + + + | 08/01/ | Telephone | Otolaryngology | Laura Pelayo, | | | 2008 | | Endocrinology | [address] [facility] | | | | | Thyroid Services at | [facility] | | | | | [facility] [address] | [place], [place] | | | | | [address] | [address] | | | | | Mailcode: [id number] | [phone] | | | | | [facility] | | | | | | [place], [place] | | | | | | [address] | | | | | | [phone] | | | +--------+ + + + [...]
--- OUTSIDE RECORDS SUMMARY | ~2019-07-30 | XMS | Encounter Summary ---
Demographics + + + | Address | [address] | | | [place] [address] | + + + | Home Phone | | + + + | Preferred Language | Unknown | + + + | Marital Status | | + + + | Pentecostal Affiliation | CAT | + + + | Race | White | + + + | Ethnic Group | Not or | + + + Author + + + | Author | [facility] | + + + | Organization | [facility] | + + + | Address | Unknown | + + + | Phone | Unavailable | + + + Support + + + + + | Name | Relationship | Address | Phone | + + + + + | Angel Lu | ECON | [address] | | | | | [place] | | | | | [address] | | + + + + + Care Team Providers + +------+ + | Care Plate Finisher Name | Role | Phone | + +------+ + | Matthias Blackman DO | PCP | | + +------+ + Encounter Details +--------+ + + + + | Date | Type | Department | Care Team | Description | +--------+ + + + + | 09/03/ | Telephone | Otolaryngology | Laura Pelayo, | | | 2010 | | Endocrinology | [address] [facility] | | | | | Thyroid Services at | [facility] | | | | | [facility] [address] | [place], [place] | | | | | [address] | [address] | | | | | Mailcode: [id number] | [phone] | | | | | [facility] | | | | | | [place], [place] | | | | | | [address] | | | | | | [phone] | | | +--------+ + + + [...]
--- OUTSIDE RECORDS SUMMARY | ~2019-07-30 | XMS | Encounter Summary ---
Demographics + + + | Address | [address] | | | [place] [address] | + + + | Home Phone | | + + + | Preferred Language | Unknown | + + + | Marital Status | | + + + | Orthodox Affiliation | 1041 | + + + | Race | Unknown | + + + | Ethnic Group | Unknown | + + + Author + + + | Author | [facility] | | | and Jaronana | + + + | Organization | [facility] | | | and [place] | + + + | Address | Unknown | + + + | Phone | Unavailable | + + + Support + + + + + | Name | Relationship | Address | Phone | + + + + + | Ashley Smith | ECON | NA | | | | | [place] [address] | | + + + + + | Angel Lu | ECON | [address] | | | | | [place], [place] | | | | | [address] | | + + + + + Care Team Providers + +------+ + | Care Chief Operating Officer Name | Role | Phone | + +------+ + PCP | Unavailable | + +------+ + Encounter Details +--------+ + + + + | Date | Type | Department | Care Team | Description | +--------+ + + + + | 09/23/ | Hospital | [facility] | CarlosAdrián | | | 2012 | Encounter | [facility] | [address] | | | | | CENTER [address] [place], [place] | | | | | [place] | [address] | | | | | [address] | | | | | | [phone] | | | +--------+ + + + [...]
--- OUTSIDE RECORDS SUMMARY | ~2019-07-30 | XMS | Encounter Summary ---
Demographics + + + | Address | [address] | | | [place] [address] | + + + | Home Phone | | + + + | Preferred Language | Unknown | + + + | Marital Status | | + + + | Mu-Ism Affiliation | CAT | + + + | Race | White | + + + | Ethnic Group | Not or | + + + Author + + + | Author | [facility] | + + + | Organization | [facility] | + + + | Address | Unknown | + + + | Phone | Unavailable | + + + Support + + + + + | Name | Relationship | Address | Phone | + + + + + | Angel Lu | ECON | [address] | | | | | [place] | | | | | [address] | | + + + + + Care Team Providers + +------+ + | Care Awning Craftsman Name | Role | Phone | + +------+ + | Matthias Blackman DO | PCP | | + +------+ + Encounter Details +--------+ + + + + | Date | Type | Department | Care Team | Description | +--------+ + + + + | 08/04/ | Abstract | Neurology Aging & | Brad Camacho | | | 2005 | [facility] | MD Juan [address] | | | | | [address] | [address] | | | | | Loop Mailcode: | [place] [address] | | | | | [id number] Outpatient | [phone] | | | | | Clinic Building | | | | | | [place], [place] | | | | | | [address] | | | | | | [phone] | | | +--------+ + + + [...]
--- OUTSIDE RECORDS SUMMARY | ~2019-07-30 | XMS | Encounter Summary ---
Demographics + + + | Address | [address] | | | [place] [address] | + + + | Home Phone [...] + | Angel Lu | ECON | [address] | | | | | [place] | | | | | [address] | | + + + + + Care Team Providers + +------+ + | Care Hydrate Thickener Operator Name | Role | Phone | + +------+ + | Matthias Blackman DO | PCP | | + +------+ + Encounter Details +--------+------+ + + + | Date | Type | Department | Care Team | Description | +--------+------+ + + + | 08/21/ | Lab | Laboratory at [facility] | | Papillary carcinoma | | 2010 | | [address] | | of thyroid (HCC) | | | | Loop [facility] | | | | | | Steve, [address] [place] [address] | | | | | | [place], [place] | | | | | | [address] | | | | | | [phone] | | | +--------+------+ + + + [...] + | THYROGLOBULIN LEVEL | Routin | 08/21/2010 | Papillary | Results for this | | AND ANTIBODY, SERUM | e | 11:44 AM | carcinoma of thyroid | procedure are in the | | | | PDT | ([facility]) | results section. | + +--------+ + + + | FREE T4 | Routin | 08/21/2010 | Papillary | Results for this | | | e | 11:44 AM | carcinoma of thyroid | procedure are in the | | | | PDT | ([facility]) | results section. | + +--------+ + + + | TSH | Routin | 08/21/2010 | Papillary | Results for this | | | e | 11:44 AM | carcinoma of thyroid | procedure are in the | | | | PDT | ([facility]) | results section. | + +--------+ + + + | CALCIUM, IONIZED, | Routin | 08/21/2010 | Papillary | Results for this | | WHOLE BLOOD | e | 11:44 AM | carcinoma of thyroid | procedure are in the | | | | PDT | (HCC) | results section. | + +--------+ + + + documented in this encounter Results TSH (08/21/2010 11:44 AM PDT) + + + + + + | Component | Value | Ref Range | Performed | Pathologist | | | | | At | Signature | + + + + + + | TSH | 0.02 (L) | 0.34 - 5.60 | [facility] [...] [facility]) [facility] | REGIONAL | | [place] [address] [facility] | LABORATORY | | [place] [address] | | + + + + + + + + | Performing | Address | City/State/Zipcode | Phone Number | | Organization | | | | + + + + + | [facility] | [address] | [place] [address] | | | LABORATORY | | | | + + + + + CALCIUM, IONIZED, WHOLE BLOOD (08/21/2010 11:44 AM PDT) + + + + + + | Component | Value | Ref Range | Performed | Pathologist | | | | | At | Signature | + + + + + + | FAHEEM ICA, | 1.15 | 1.14 - 1.32 | [facility] | | | WHOLE BLD | | mmol/L | DEPARTMENT | | | | | | OF | | | | | | PATHOLOGY | | + + + + + + | PH, WHOLE | 7.34 | | [facility] | | | BLOOD | | | DEPARTMENT | | | | | | OF | | | | | | PATHOLOGY | | + + + + + + | CALC ICA, | 1.11 (L) | 1.14 - 1.28 | [facility] | | | WHOLE BLD | | mmol/L | DEPARTMENT | | | | | | OF | | | | | | PATHOLOGY | | + + + + + + + + | Specimen | + + | Blood - Blood | + + + + + | Narrative | Performed At | + + + | Ionized Calcium, Whole Blood | [facility] | | | DEPARTMENT OF | | | PATHOLOGY | + + + + + + + + | Performing | Address | City/State/Zipcode | Phone Number | | Organization | | | | + + + + + | [facility] | [address] | [place] [address] | | | PATHOLOGY | [address] | | | + + + + + THYROGLOBULIN, SERUM (08/21/2010 11:44 AM PDT) + + + + + [...] [id number] | | | | | | [facility] | | | | | | [place], [place] | | | | | | [address] Low | | | | | | [...] | Test not indicated. | ng/mL | [facility] | | | IN ([facility]PHANIE) | | | | | + + + + + + | % RECOVERY | Test not indicated. | % | [facility] | | + + + + + + + + | Specimen | + + | Blood - Blood | + + + + + + + | Performing | Address | City/State/Zipcode | Phone Number | | Organization | | | | + + + + + | [facility] | [address] [facility] | [facility], | | | | | [place] [address] | | + + + + + FREE T4, SERUM (08/21/2010 11:44 AM PDT) + +---------+ + + + | Component | Value | Ref Range | Performed | Pathologist | | | | | At | Signature | + +---------+ + + + | FREE T4, | 1.5 (H) | 0.6 - 1.2 ng/dL | [facility] | | | SERUM | | | REGIONAL | | | | | | LABORATORY | | + +---------+ + + + + + | Specimen | + + | Blood - Blood | + + + + + | Narrative | Performed At | + + + | [facility] | [facility] | | [facility] [place] [address] | REGIONAL | | [place] [address] | LABORATORY | + + + + + + + + | Performing | Address | City/State/Zipcode | Phone Number | | Organization | | | | + + + + + | [facility] | [address] | [place] [address] | | | LABORATORY | | | | + + + + + documented in this encounter Visit Diagnoses + + | Diagnosis | + + | 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
--- OUTSIDE RECORDS SUMMARY | ~2019-07-30 | XMS | Encounter Summary ---
Demographics + + + | Address | [address] | | | [place] [address] | + + + | Home Phone | | + + + | Preferred Language | Unknown | + + + | Marital Status | | + + + | Congregation Affiliation | CAT | + + + [...] + | Angel Lu | ECON | [address] | | | | | [place] | | | | | [address] | | + + + + + Care Team Providers + +------+ + | Care Title Coordinator Name | Role | Phone | [...] | +--------+ + + + + | 08/15/ | Telephone | Otolaryngology | Laura Pelayo, | Lab Results | | 2012 | | Endocrinology | MD [address] [facility] | | | | | Thyroid Services at | [facility] | | | | | [facility] [address] | [place], [place] | | | | | [address] | [address] | | | | | Mailcode: [id number] | [phone] | | | | | [facility] | | | | | | [place], [place] | | | | | | [address] | | | | | | [phone] | | | +--------+ + + + [...]
--- OUTSIDE RECORDS SUMMARY | ~2019-07-30 | XMS | Encounter Summary ---
Demographics + + + | Address | [address] | | | [place] [address] | + + + | Home Phone [...] + | Angel Lu | ECON | [address] | | | | | [place] | | | | | [address] | | + + + + + Care Team Providers + +------+ + | Care Image Scientist Name | Role | Phone | + +------+ + | Matthias Blackman DO | PCP | | + +------+ + Encounter Details +--------+ + + + + | Date | Type | Department | Care Team | Description | +--------+ + + + + | 05/20/ | Documentati | Otolaryngology | Laura Pelayo, | | | 2017 | on | Endocrinology | [address] [facility] | | | | | Thyroid Services at | [facility] | | | | | [facility] [address] | [place], [place] | | | | | [address] | [address] | | | | | Mailcode: [id number] | [phone] | | | | | [facility] | | | | | | [place], [place] | | | | | | [address] | | | | | | [phone] | | | +--------+ + + + [...] on filedocumented as of this encounter Results SOFT TISSUE HEAD & NECK (08/19/2016 12:04 PM PDT) + + | Specimen | + + | | + + + + + | Narrative | Performed At | + + + | EXAM: US NECK SURVEY. HISTORY: Thyroid cancer. COMPARISON: | [facility] | | None available. TECHNIQUE: Ultrasound evaluation of the neck. | RADIOLOGY VOICE | | FINDINGS: THYROID BED: The thyroid is surgically absent. Right | RECOGNITION | | thyroid bed: Within the inferior aspect of right level , 3 small | | | adjacent morphologically normal appearing lymph nodes are identified, | | | similar in appearance to examinations dating back to 2011. Left | | | thyroid bed: No nodules. NECK: Bilateral cervical lymph nodes | | | throughout levels I through were evaluated. Right neck: No | | | lymphadenopathy. Left neck: No lymphadenopathy. IMPRESSION: | | | No evidence of recurrence I have personally reviewed the | | | images and, if necessary, edited the report. I agree with the report | | | as now presented. | | + + + + + | Procedure Note | + + | Service Account, Radiant Res In Interface - 08/19/2016 12:14 PM PDT EXAM: US NECK | | SURVEY.HISTORY: Thyroid cancer.COMPARISON: None available.TECHNIQUE: Ultrasound | | evaluation of the neck.FINDINGS:THYROID BED: The thyroid is surgically absent. Right | | thyroid bed: Within the inferior aspect of right level , 3 small adjacent | | morphologically normal appearing lymph nodes are identified, similar in appearance to | | examinations dating back to 2011.Left thyroid bed: No nodules.NECK: Bilateral cervical | | lymph nodes throughout levels I through were evaluated.Right neck: No | | lymphadenopathy. Left neck: No lymphadenopathy. IMPRESSION:No evidence of recurrenceI | | have personally reviewed the images and, if necessary, edited the report. I agree with | | the report as now presented. | |Right thyroid bed: Within the inferior aspect of right level , 3 small adjacent morpholog ically normal appearing lymph nodes are identified, similar in appearance to examinations da ting back to 2011. | |Left thyroid bed: No nodules. | | | |NECK: Bilateral cervical lymph nodes throughout levels I through were evaluated. | |Right neck: No lymphadenopathy. | |Left neck: No lymphadenopathy. | | | |IMPRESSION: | | | |No evidence of recurrence | | | | | |I have personally reviewed the images and, if necessary, edited the report. I agree with t he report as now presented. 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
--- OUTSIDE RECORDS SUMMARY | ~2019-07-30 | XMS | Encounter Summary ---
Demographics + + + | Address | [address] | | | [place] [address] | + + + | Home Phone | | + + + | Preferred Language | Unknown | + + + | Marital Status | | + + + | Baptism Affiliation | CAT | + + + [...] [place] | | | | | [address] | | + + + + + Care Team Providers + +------+ + | Care Bingo Floater Name | Role | Phone | + +------+ + | Miguel AMatthias abreu DO | PCP | | + +------+ + Encounter Details +--------+ + + + + | Date | Type | Department | Care Team | Description | +--------+ + + + + | 09/07/ | Office | | Note, Outpatient | [...] as of this encounter Progress Notes Interface, Bulk Driver In - 08/27/2005 3:04 AM PDTCLINIC DATE: 09/07/2002 SUBJECTIVE: Safia Lu returns today for followup of migraine headache disorder. She is quite sad and tearful today, having lost her sister in a drowning incident when a boat overturned in [facility] last month. She reports that she has not had any headaches over the past five weeks since the of her sister but prior to that time has been having a migraine headache occurring about every 4 to 6 weeks. Her headaches are quite responsive to injectable Imitrex. She has not had to go to the Emergency Room for any additional treatment. She continues on atenolol but is taking only 12.5 mg daily. She reports that she has felt quite fatigued on this medication. She also continues on nortriptyline 25 mg at bedtime which she thought at one point helped her with sleep, but now she is experiencing increasing sleeping difficulties. She occasionally takes a Fiorinal for management of her headaches when they appear to be mild. PHYSICAL EXAMINATION VITAL SIGNS: Weight 124.1 pounds, blood pressure 90/58, and pulse 76 per minute. GENERAL APPEARANCE: This is a well-developed and well-nourished female who appears quite sad and tearful. HEENT: PERRLA: Funduscopic exam reveals well-demarcated discs and normal-appearing vessels. NECK: Supple. NEUROLOGIC: Cranial nerves 2 through 12 are intact. Motor: She demonstrates good symmetric strength. Sensory: Intact to light touch. Deep tendon reflexes 1+ to 2+ and symmetrical. CLINICAL IMPRESSION 1. Migraine headache disorder. 2. Situational depression in that she is grieving for the loss of her sister. RECOMMENDATIONS: I have asked her to stop atenolol and the nortriptyline. She was prescribed some Ativan by me several weeks ago and can utilize one-half to one full tablet of a 1-mg tablet at bedtime as needed for sleep. I suggested that she initiate antidepressant therapy with Lexapro 10 mg daily. Return appointment in 1 month's time for followup. She is to continue to utilize Fiorinal or injectable Imitrex for reoccurring headaches. Glory Quintanilla M.D. / [id number] / [id number] / [id number] / C: 09/19/2002 HALIMA cc: Richard Dee M.D. P[address]ar[address] [place], [place] [id number] signed by Interface, Bulk Driver In at 08/27/2005 3:0 4 AM PDTdocumented in this encounter Plan of Treatment Not on filedocumented as of this encounter Visit Diagnoses Not on filedocumented in this encounter"
--- OUTSIDE RECORDS SUMMARY | ~2019-07-30 | XMS | Encounter Summary ---
Demographics + + + | Address | [address] | | | [place] [address] | + + + | Home Phone | | + + + | Preferred Language | Unknown | + + + | Marital Status | | + + + | Judaism Affiliation | CAT | + + + | Race | White | + + + | Ethnic Group | Not or | + + + Author + + + | Author | [facility] | + + + | Organization | [facility] | + + + | Address | Unknown | + + + | Phone | Unavailable | + + + Support + + + + + | Name | Relationship | Address | Phone | + + + + + | Angel Lu | ECON | [address] | | | | | [place] | | | | | [address] | | + + + + + Care Team Providers + +------+ + | Care Hand Turner Name | Role | Phone | + +------+ + | Matthias Blackman DO | PCP | | + +------+ + Encounter Details +--------+ + + + + | Date | Type | Department | Care Team | Description | +--------+ + + + + | 08/06/ | Hospital | Diagnostic | | | | 2015 | Encounter | Radiology at [facility] | | | | | | [address] | | | | | | Loop Physician[address] | | | | | | Steve, [address] [place] [address] | | | | | | [place], [place] | | | | | | [address] | | | | | | [phone] | | | +--------+ + + + [...] + + + +---------+ + + | promethazine 25 mg | Take 1 tablet by | 4 | 0 | 08/07/19 | | | oral tablet | mouth four times | tablet | | 16 | | | | daily as needed for | | | | | | | nausea/vomiting. | | | | | + + [...] | + +--------+ + + + | THY CLINIC, NECK | Routin | 08/07/2015 | Papillary | Results for this | | SOFT TISU | e | 10:25 AM | carcinoma of thyroid | procedure are in the | | | | PDT | ([facility]) | results section. 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
--- OUTSIDE RECORDS SUMMARY | ~2019-07-30 | XMS | Encounter Summary ---
Demographics + + + | Address | [address] | | | [place] [address] | + + + | Home Phone [...] [place] | | | | | [address] | | + + + + + Care Team Providers + +------+ + | Care Center Hole Reamer Name | Role | Phone | + +------+ + | Matthias Blackman DO | PCP | | + +------+ + Reason for Visit +--------+ + | Reason | Comments | +--------+ + | Other | there was a note stating that pt is was going to have nuclear | | | injection at the location, wanted to know if pt was to have it | | | done there. | +--------+ + Encounter Details +--------+ + + + + | Date | Type | Department | Care Team | Description | +--------+ + + + + | 09/03/ | Telephone | Otolaryngology | Laura Pelayo, | Other (there was a | | 2007 | | Thyroid Services at | [address] | note stating that pt | | | | [facility] [address] | is was going to | | | | [address] | [place], [place] | have nuclear | | | | Physician's | [address] | injection at the | | | | [place], [facility] floor | [phone] | location, wanted to | | | | [facility] [place] | | know if pt was to | | | | [address] | | have it done there.) | | | | [phone] | | | +--------+ + + + [...]
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
--- OUTSIDE RECORDS SUMMARY | ~2019-07-30 | XMS | Encounter Summary ---
Demographics + + + | Address | [address] | | | [place] [address] | + + + | Home Phone | | + + + | Preferred Language | Unknown | + + + | Marital Status | | + + + | Jehovah'S Witness Affiliation | CAT | + + + [...] + | Angel Lu | ECON | [address] | | | | | [place] | | | | | [address] | | + + + + + Care Team Providers + +------+ + | Care Sword Swallower Name | Role | Phone | + [...] Description | +--------+--------+ + + + | 08/26/ | Refill | Otolaryngology | Schuff, Laura, | Refill Request | | 2010 | | Endocrinology | MD [address] [facility] | | | | | Thyroid Services at | [facility] | | | | | [address] | [place], [place] | | | | | [address] | [address] | | | | | Mailcode: [id number] | [phone] | | | | | [facility] | | | | | | [place], [place] | | | | | | [address] | | | | | | [phone] | | | +--------+--------+ + + + [...]
--- OUTSIDE RECORDS SUMMARY | ~2019-07-30 | XMS | Encounter Summary ---
Demographics + + + | Address | [address] | | | [place] [address] | + + + | Home Phone [...] + | Angel Lu | ECON | [address] | | | | | [place] | | | | | [address] | | + + + + + Care Team Providers + +------+ + | Care Dock Guard Name | Role | Phone | + +------+ + | Matthias Blackman DO | PCP | | + +------+ + Reason for Visit + + + | Reason | Comments | + + + | Lab Results | LT4 no change | + + + Encounter Details +--------+ + + + + | Date | Type | Department | Care Team | Description | +--------+ + + + + | 05/31/ | Telephone | Otolaryngology | Laura Pelayo, | Lab Results (LT4 no | | 2013 | | Endocrinology | MD [address] | change) | | | | Thyroid Services at | [facility] | | | | | [address] | [place], [place] | | | | | [address] | [address] | | | | | Mailcode: [id number] | [phone] | | | | | [facility] | | | | | | [place], [place] | | | | | | [address] | | | | | | [phone] | | | +--------+ + + + [...]
--- OUTSIDE RECORDS SUMMARY | ~2019-07-30 | XMS | Encounter Summary ---
Demographics + + + | Address | [address] | | | [place] [address] | + + + | Home Phone | | + + + | Preferred Language | Unknown | + + + | Marital Status | | + + + | Congregation Affiliation | CAT | + + + | Race | White | + + + | Ethnic Group | Not or | + + + Author + + + | Author | [facility] | + + + | Organization | [facility] | + + + | Address | Unknown | + + + | Phone | Unavailable | + + + Support + + + + + | Name | Relationship | Address | Phone | + + + + + | Angel Lu | ECON | [address] | | | | | [place] | | | | | [address] | | + + + + + Care Team Providers + +------+ + | Care Net Applications Developer Name | Role | Phone | + [...] Description | +--------+--------+ + + + | 08/22/ | Refill | [facility] | Laura Pelayo, | Refill Request | | 2009 | | [facility] | [address] [facility] | | | | | [facility] | [facility] | | | | | [address] | [place], [place] | | | | | [address] | [address] | | | | | [facility] | [phone] | | | | | [address], | | | | | | [place] [address] | | | | | | [phone] | | | +--------+--------+ + + + [...]
--- OUTSIDE RECORDS SUMMARY | ~2019-07-30 | XMS | Encounter Summary ---
Demographics + + + | Address | [address] | | | [place] [address] | + + + | Home Phone | | + + + | Preferred Language | Unknown | + + + | Marital Status | | + + + | Christianity Affiliation | CAT | + + + | Race | White | + + + | Ethnic Group | Not or | + + + Author + + + | Author | [facility] | + + + | Organization | [facility] | + + + | Address | Unknown | + + + | Phone | Unavailable | + + + Support + + + + + | Name | Relationship | Address | Phone | + + + + + | Angel Lu | ECON | [address] | | | | | [place] | | | | | [address] | | + + + + + Care Team Providers + +------+ + | Care Recovery Assistant Name | Role | Phone | [...] | | | | [address] [place], | | | | | | [place], | [place] | | | | | | [place] [address] | [address] | | | | | | Phone: | Phone: | | | | | | [phone] | [phone] | | | | | | Fax: | Fax: | | | | | | [phone] | [phone] | +--------+ + + + + + Encounter Details +--------+---------+ + + + | Date | Type | Department | Care Team | Description | +--------+---------+ + + + | 07/25/ | Office | Otolaryngology | Laura Pelayo, | Papillary Carcinoma | | 2009 | Visit | Endocrinology | [address] | of Thyroid (HCC) | | | | Thyroid Services at | [facility] [address] | (Primary Dx) | | | | [address] | [place], [place] | | | | | [address] | [address] | | | | | Mailcode: [id number] | [phone] | | | | | [facility] | | | | | | [place], [place] | | | | | | [address] | | | | | | [phone] | | | +--------+---------+ + + + [...] + + + | Blood Pressure | 118/66 | 07/25/2008 1:13 PM | | | | | PDT | | + + + + + | Pulse | 71 | 07/25/2008 1:13 PM | | | | | PDT | | + + + + + | Temperature | - | - | | + + + + + | Respiratory Rate | - | - | | + + + + + | Oxygen Saturation | 98% | 07/25/2008 1:13 PM | | | | | PDT | | + + + + + | Inhaled Oxygen | - | - | | | Concentration | | | | + + + + + | Weight | 57.6 kg (127 lb) | 07/25/2008 1:13 PM | | | | | PDT | | + + + + + | Height | - | - | | + + + + + | Body Mass Index | - | - | | + + + + + documented in this encounter Progress Notes Mariza Daniels Rn - 08/07/2008 4:14 PM PDTAddended by: MARIZA DANIELS RN on: 08/07/2008 4:14 PM Modules accepted: Laura Gr MD - 07/25/2008 1:31 PM PDTFormattin g of this note might be different from the original. THYROID TUMOR CLINIC - ENDOCRINOLOGY THYROID CANCER New Patient Safia Lu is a 48 y.o. female with a history of Papillary Thyroid Carcinoma, follicula r variant here for f/u. Her disease was T3 N0 M0, Stage III s/p total thyroidectomy on 05/12, I-131 ablation with 121.7 mCi on 07/04 with post-therapy scan showing asymmetric uptake in the thyroid bed, but no distant metastases, neg Thyrogen-stimulated WBS and Tg evaluation 05/05. Her current dose of levothyroxine is 125 mcg. She is doing better on this and feels like h er energy is about up to normal for her. She denies symptoms of hyper or hypothyroidism inc luding no palpitataions difficulty sleeping, heat or cold intolerance. She denies any local neck symptoms, though had some tenderness during her u/s evaluation today. Current outpatient prescriptions: DILAUDID 4 MG TAB, take 1 tablet (4mg) by oral route ever y 4-6 hours as needed, Disp: , Rfl: ESTRADIOL OR, 2.5mg once per day, Disp: , Rfl: levothyroxine 125 mcg Oral Tablet tablet, Take 1 Tab by mouth once daily., Disp: 90, Rfl: 3 Polyethylene Glycol 3350 (MIRALAX) 17 g (100%) Oral Powder in Packet, q day, Disp: , Rfl: Promethazine HCl 25 mg Oral Tablet, prn migraine, Disp: , Rfl: ropinirole (REQUIP) 1 mg Oral Tablet, take 1 tablet (1 mg) by oral route 3 times per day, D isp: , Rfl: Allergies Allergen Reactions Codeine Faintness/Dizzy and Nausea/Vomiting Darvocet A500 (propoxyphene N-acetaminophen) Faintness/Dizzy, Hives and Nausea/Vomiting Demerol (meperidine (pf)) Percodan (oxycodone-aspirin) PE: BP 118/66 | Pulse 71 | Wt 57.607 kg (127 lb) | SpO2 98% General: alert and in no acute distress. HEENT: EOMs intact without lid lag, retraction or stare. Neck: supple, no adenopathy, no palpable thyroid tissue, no masses and well-healed thyroide ctomy scar. Ext: no tremor on outstretched arms. Neuro: DTRs 2+ with normal relaxation phase. Strength, gait and mental status are grossly intact. Skin: warm and of normal consistency, temperature and texture. Laboratory: Thyroid function tests pending, Tg pending Neck u/s: 07/25/2008 12:[address] [facility] DEPARTMENT OF RADIOLOGY US THY CLINIC, NECK THYROID: Indication: Evaluate for metastatic disease. Comparison: None. Technique: Real time karimi scale and color Doppler ultrasound was performed of the thyroid bed and neck. Findings: The patient is status post thyroidectomy without residual tissue in the surgical bed. Thorough evaluation of the levels I through reveals no adenopathy. Impression: Status post thyroidectomy without evidence for recurrent or metastatic disease. Assessment: This is a 48 y.o. female with Papillary Thyroid Carcinoma, T3 N0 M0, Stage III, s/p thyroidectomy 05/12/06, I-131 ablation with 121.7 mCi 07/04 with post-therapy scan showin g asymmetric uptake in the thyroid bed, but no distant metastases, f/u evaluation last year reassuring. I discussed this with her as well as her current u/s result from today. I recc another Thyrogen-stimulated thyroglobulin this year, then discussed with her that if that i s also reassuring, we can switch to just an unstimulated thyroglobulin next year. She was a greeable with this plan. Plan: TFTs today - to titrate levothyroxine if needed. Refilled levothyroxine 125 mcg. Arrange thyrogen-stimulated thyroglobulin. Pt has requested this be done in [place] at Diann Quiroga's office (nurse: Mouna) and we will see about arranging a Thyrogen injection on day s 1 and 2 and thyroglobulin lab on day 5. Schedule reviewed with pt and importance of the d ay 5 thyroglobulin emphasized. She does not need special diet or to discontinue her levothy roxine for this evaluation. RTC 1 year. documented in this encounter Plan of Treatment Not on filedocumented as of this encounter Procedures + +--------+ + + + | Procedure Name | Priori | Date/Time | Associated Diagnosis | Comments | | | ty | | | | + +--------+ + + + | LAB REPORTS | | 09/13/2008 | | Results for this | | | | 12:00 AM | | procedure are in the | | | | PDT | | results section. | + +--------+ + + + | RADIOLOGY | | 09/13/2008 | | Results for this | | | | 12:00 AM | | procedure are in the | | | | PDT | | results section. | + +--------+ + + + documented in this encounter Results LAB REPORTS (09/13/2008 12:00 AM PDT) + + + | Narrative | Performed At | + + + | | | + + + + + | Procedure Note | + + | Other, Faculty - 09/13/2008 12:00 AM PDT | | | + + RADIOLOGY (09/13/2008 12:00 AM PDT) + + + | Narrative | Performed At | + + + | | | + + + + + | Procedure Note | + + | Blanca Munoz - 09/13/2008 12:00 AM PDT | | | + + documented in this encounter Visit Diagnoses + + | Diagnosis | + + | 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
--- OUTSIDE RECORDS SUMMARY | ~2019-07-30 | XMS | Encounter Summary ---
Demographics + + + | Address | [address] | | | [place] [address] | + + + | Home Phone | | + + + | Preferred Language | Unknown | + + + | Marital Status | | + + + | Voodoo Affiliation | CAT | + + + | Race | White | + + + | Ethnic Group | Not or | + + + Author + + + | Author | [facility] | + + + | Organization | [facility] | + + + | Address | Unknown | + + + | Phone | Unavailable | + + + Support + + + + + | Name | Relationship | Address | Phone | + + + + + | Angel Lu | ECON | [address] | | | | | [place] | | | | | [address] | | + + + + + Care Team Providers + +------+ + | Care Psychology Technician Name | Role | Phone | + +------+ + | Matthias Blackman DO | PCP | | + +------+ + Encounter Details +--------+ + + + + | Date | Type | Department | Care Team | Description | +--------+ + + + + | 09/11/ | Telephone | Otolaryngology | Laura Pelayo, | | | 2007 | | Endocrinology | [address] [facility] | | | | | Thyroid Services at | [facility] | | | | | [address] | [place], [place] | | | | | [address] | [address] | | | | | Mailcode: [id number] | [phone] | | | | | [facility] | | | | | | [place], [place] | | | | | | [address] | | | | | | [phone] | | | +--------+ + + + [...]
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
--- OUTSIDE RECORDS SUMMARY | ~2019-07-30 | XMS | Encounter Summary ---
Demographics + + + | Address | [address] | | | [place] [address] | + + + | Home Phone | | + + + | Preferred Language | Unknown | + + + | Marital Status | | + + + | Mandaen Affiliation | CAT | + + + [...] + | Angel Lu | ECON | [address] | | | | | [place] | | | | | [address] | | + + + + + Care Team Providers + +------+ + | Care Scaler Name | Role | Phone | + [...] | Metabolism | | [address] | | | | | | [address] | Javier Meagan | | | | | | [address] [place], | | | | | | [place], | [place] | | | | | | [place] [address] | [address] | | | | | | Phone: | Phone: | | | | | | [phone] | [phone] | | | | | | Fax: | Fax: | | | | | | [phone] | [phone] | +--------+ + + + + + Encounter Details +--------+---------+ + + + | Date | Type | Department | Care Team | Description | +--------+---------+ + + + | 08/20/ | Office | Otolaryngology | Laura Mckenzie, | Papillary carcinoma | | 2010 | Visit | Endocrinology | [address] | of thyroid (HCC) | | | | Thyroid Services at | [facility] [address] | (Primary Dx) | | | | [address] | [place], [place] | | | | | [address] | [address] | | | | | Mailcode: [id number] | [phone] | | | | | [facility] | | | | | | [place], [place] | | | | | | [address] | | | | | | [phone] | | | +--------+---------+ + + + Social History + +-------+ +--------+------+ | Tobacco Use | Types | Packs/Day | Years | Date | | | | | Used | | + +-------+ +--------+------+ | Never Smoker | | | | | + +-------+ +--------+------+ + + | Tobacco Cessation: Counseling Given: No | + + + + +---------+ + | Alcohol Use [...] + + + | Blood Pressure | 113/75 | 08/20/2010 2:41 PM | | | | | PDT | | + + + + + | Pulse | 74 | 08/20/2010 2:41 PM | | | [...] + + + + | Weight | 57.2 kg (126 lb) | 08/20/2010 2:41 PM | | | | | PDT | | + + + + + | Height | 154.9 cm (5' 1") | 08/20/2010 2:41 PM | | | | | PDT | | + + + + + | Body Mass Index | 23.81 | 08/20/2010 2:41 PM | | | | | PDT | | + + + + + documented in this encounter Progress Notes Laura Mckenzie MD - 09/03/2010 4:11 PM PDTEndocrinology Attending Teaching Services Documentation I saw and evaluated the patient in conjunction with Endocrinology Fellow, Dr. Zoey whittaker. Please see note below for the full details of the visit. I agree with history, exam, as sessment and management plan as detailed there. Safia overall is doing well (although very symptomatic from a headache right now). Her neck ultrasound for thyroid cancer surveillance is unremarkable and her thyroglobulin is negative as well. Her thyroid function tests show her dose is just a little high and we will be making some adjustment to this. We will see her in a year. LAURA MCKENZIE MD, [facility] Ribbon Cleaner, Endocrinology Zoey Hoover MD - 08/20/2010 2:57 PM PDT THYROID TUMOR CLINIC - ENDOCRINOLOGY THYROID CANCER Follow-up Safia Lu is a 50 y.o. female with a history of Papillary [...] ases, neg Thyrogen-stimulated WBS and Tg evaluation 05/05. She presents today with a migrain e headache which she has had since yesterday. It is consistent with prior migraine headaches and did not respond to oral pain therapy. Usually in this situation she has required ED randall luation and IV therapy. She has been doing well, with the exception of today and yesterday since our last visit 12 months ago. Her current dose of Levothyroxine is 125 mcg a day. Additional Medications: DILAUDID 4 MG TAB, take 1 tablet (4mg) by oral route every 4-6 hours as needed HYDROmorphone 4 mg Oral Tablet, Take 1 Tab by mouth every three hours as needed for severe pain. Polyethylene Glycol 3350 (MIRALAX) 17 g (100%) Oral Powder in Packet, q day Promethazine HCl 25 mg Oral Tablet, prn migraine ropinirole (REQUIP) 1 mg Oral Tablet, take 1 tablet (1 mg) by oral route 3 times per day She complains of fatigue and difficulty sleeping but otherwise denies symptoms of hyper or hypothyroidism including heat intolerance, cold intolerance, constipation, diarrhea, excess sweating, palpitations, tremor and frequent BM's. Fatigue and poor sleep related to non-med ical stresses. She reports numbness in fingers on right hand and feet but denies tingling and muscle cramp ing. She denies other local symptoms including difficulty swallowing, neck pain, shortness of b reath, voice changes, pressure sensation in neck and neck stiffness. PE: BP 113/75 | Pulse 74 | Ht 1.549 m (5' 1") | Wt 57.153 kg (126 lb) | BMI 23.81 kg/(m^2) General: tearful. HEENT: EOMs intact without lid lag, retraction or stare. Neck: supple, no adenopathy, no palpable thyroid tissue, no masses and well-healed thyroide ctomy scar. She noted some tenderness to palpation in the left submandibular area. Lungs: Clear to auscultation, bilaterally. CV: RRR no murmur, gallops or rubs Ext: no tremor on outstretched arms, no long bone tenderness. Neuro: DTRs 1+ with normal relaxation phase. Strength, gait and mental status are grossly intact. Skin: warm and of normal consistency, temperature and texture. Laboratory: Component Latest Ref Rng 08/07/2009 1:58 PM THYROGLOBULIN AB (ANTI-TG) <1.0 < 1.0 THYROGLOBULIN (TG-ICMA) ng/mL < 0.1 TSH 0.34 - 5.60 uIU/ml 0.06 (L) FREE T4, SERUM 0.6 - 1.2 ng/dL 1.2 Radiology: 08/20/10 The thyroid is again noted to be surgically absent. No paratracheal nodules are seen. Multiple morphologically normal appearing lateral compartment lymph nodes are present bilaterally. None contains calcification are as abnormal vascularity. IMPRESSION: 1. No metastatic or recurrent disease is identified. No new abnormality is seen. Assessment: This is a 50 y.o. female with Papillary Thyroid Carcinoma, follicular variant h ere for f/u. Her disease was T3 N0 M0, Stage III. No evidence of recurrent disease thyroid d isease at this time. History of negative thyrogen stimulated hole body iodine scan in 2007, persistently negative neck ultrasounds, and negative thyroglobulin. Plan: *No change to levothyroxine dose at this time, however will reassess when she is able to ge t repeat labs. Due to presence of severe migraine, patient will go to the ED after this appo intment. She can get her labs done either in the ED or she can come back tomorrow once she i s feeling better. *Return to clinic in one year with repeat US neck, repeat thyroid function studies and repe at unstimulated thyroglobulin . This patient was seen and discussed with Dr. Mckenzie who agreed with the assessment and plan . documented in this e ncounter Plan of Treatment Not on filedocumented as of this encounter Results CALCIUM, IONIZED, WHOLE BLOOD (08/21/2010 11:44 AM [...] + + + + + | [facility] DEPARTMENT OF | [address] | [place] [address] | | | PATHOLOGY | [address] | | | + + + + + documented in this encounter Visit Diagnoses + + | Diagnosis | + + | Papillary carcinoma of thyroid (HCC) - Primary Malignant neoplasm of thyroid gland | + + documented in this encounter
--- OUTSIDE RECORDS SUMMARY | ~2019-07-30 | XMS | Encounter Summary ---
Demographics + + + | Address | [address] | | | [place] [address] | + + + | Home Phone | | + + + | Preferred Language | Unknown | + + + | Marital Status | | + + + | Nondenominational Affiliation | CAT | + + + [...] + | Angel Lu | ECON | [address] | | | | | [place] | | | | | [address] | | + + + + + Care Team Providers + +------+ + | Care Pet Handler Name | Role | Phone | + +------+ + | Matthias Blackman DO | PCP | | + +------+ + Reason for Visit + + + | Reason | Comments | + + + | Lab Results | Request Tg results. Also ask for a copy and Dr. Pelayo's note to | | | be faxed to Dr. Quiroga, fax number [phone]. | + + + Encounter Details +--------+ + + + + | Date | Type | Department | Care Team | Description | +--------+ + + + + | 06/05/ | Telephone | Otolaryngology | Laura Pelayo, | Lab Results (Request | | 2007 | | Endocrinology | MD [address] | Tg results. Also | | | | Thyroid Services at | [facility] | ask for a copy and | | | | [address] | [place], [place] | Dr. Pelayo's note to | | | | [address] | [address] | be faxed to | | | | Mailcode: [id number] | [phone] | Junaid, fax number | | | | [facility] | | [phone].) | | | | [place], [place] | | | | | | [address] | | | | | | [phone] | | | +--------+ + + + [...]
--- OUTSIDE RECORDS SUMMARY | ~2019-07-30 | XMS | Encounter Summary ---
Demographics + + + | Address | [address] | | | [place] [address] | + + + | Home Phone [...] + | Angel Lu | ECON | [address] | | | | | [place] | | | | | [address] | | + + + + + Care Team Providers + +------+ + | Care Histotechnologist Name | Role | Phone | + +------+ + | Matthias Blackman DO | PCP | | + +------+ + Encounter Details +--------+ + + + + | Date | Type | Department | Care Team | Description | +--------+ + + + + | 09/16/ | Bobbin Cleaner | Otolaryngology | Laura Pelayo, | | | 2008 | | Endocrinology | [address] [facility] | | | | | Thyroid Services at | [facility] | | | | | [address] | [place], [place] | | | | | [address] | [address] | | | | | Mailcode: [id number] | [phone] | | | | | [facility] | | | | | | [place], [place] | | | | | | [address] | | | | | | [phone] | | | +--------+ + + + [...] for this | | | e | 9:25 AM | | procedure are in the | | | | PDT | | results section. | + +--------+ + + + documented in this encounter Results TSH (09/13/2008 9:25 AM PDT) + + + + + [...]
--- OUTSIDE RECORDS SUMMARY | ~2019-07-30 | XMS | Encounter Summary ---
Demographics + + + | Address | [address] | | | [place] [address] | + + + | Home Phone [...] + + + | Author | [facility] | + + + | Organization | [facility] | + + + | Address | Unknown | + + + | Phone | Unavailable | + + + Support + + + + + | Name | Relationship | Address | Phone | + + + + + | Angel Lu | ECON | [address] | | | | | [place] | | | | | [address] | | + + + + + Care Team Providers + +------+ + | Care Crtt Name | Role | Phone | + +------+ + | Matthias Blackman DO | PCP | | + +------+ + Encounter Details +--------+------+ + + + | Date | Type | Department | Care Team | Description | +--------+------+ + + + | 08/07/ | Lab | Laboratory at [facility] | | Papillary carcinoma | | 2009 | | [address] | | of thyroid (HCC) | | | | [address] [facility] | | | | | | [address], [address] [place] [address] | | | | | | [place], [place] | | | | | | [address] | | | | | | [phone] | | | +--------+------+ + + + [...] + | THYROGLOBULIN LEVEL | Routin | 08/07/2009 | Papillary | Results for this | | AND ANTIBODY, SERUM | e | 1:58 PM | carcinoma of thyroid | procedure are in the | | | | PDT | ([facility]) | results section. | + +--------+ + + + | FREE T4 | Routin | 08/07/2009 | Papillary | Results for this | | | e | 1:58 PM | carcinoma of thyroid | procedure are in the | | | | PDT | ([facility]) | results section. | + +--------+ + + + | TSH | Routin | 08/07/2009 | Papillary | Results for this | | | e | 1:58 PM | carcinoma of thyroid | procedure are in the | | | | PDT | ([facility]) | results section. | + +--------+ + + + documented in this encounter Results THYROGLOBULIN, SERUM (08/07/2009 1:58 PM PDT) + [...] [address] | | | | | | [facility] | | | | | | [place], [place] | | | | | | [address] [address] | | | | | | [...] + + + | [facility] | [address] | [facility], | | | | | [place] [address] | | + + + + + [...] effective 07/16/08 | [facility] | | [facility] | REGIONAL | | [place] [address] | LABORATORY | | [place] [address] | | + + + + + + + + | Performing | Address | City/State/Zipcode | Phone Number | | Organization | | | | + + + + + | [facility] | [address] | [place] [address] | | | LABORATORY | | | [...] Mae | REGIONAL | | [place] [address] | LABORATORY | | [place] [address] | | + + + + + + + + | Performing | Address | City/State/Zipcode | Phone Number | | Organization | | | | + + + + + | [facility] | [address] | [place] [address] | | | LABORATORY | | | | + + + + + documented in this encounter Visit Diagnoses + + | Diagnosis | + + | 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
--- OUTSIDE RECORDS SUMMARY | ~2019-07-30 | XMS | Encounter Summary ---
Demographics + + + | Address | [address] | | | [place] [address] | + + + | Home Phone | | + + + | Preferred Language | Unknown | + + + | Marital Status | | + + + | Temple Affiliation | CAT | + + + [...] + | Angel Lu | ECON | [address] | | | | | [place] | | | | | [address] | | + + + + + Care Team Providers + +------+ + | Care Woodwinds Teacher Name | Role | Phone | + +------+ + | Matthias Blackman DO | PCP | | + +------+ + Reason for Visit +--------+ + | Reason | Comments | +--------+ + | Other | | +--------+ + Encounter Details +--------+ + + + + | Date | Type | Department | Care Team | Description | +--------+ + + + + | 05/16/ | Telephone | Otolaryngology | Laura Pelayo, | | | 2012 | | Endocrinology | [address] | | | | | Thyroid Services at | [facility] | | | | | [address] | [place], [place] | | | | | [address] | [address] | | | | | Mailcode: [id number] | [phone] | | | | | [facility] | | | | | | [facility] [place] | | | | | | [address] | | | | | | [phone] | | | +--------+ + + + [...] + | Diagnosis | + + | Malignant neoplasm of thyroid gland (HCC) - Primary Malignant neoplasm of thyroid | | gland | + + documented in this encounter"
--- OUTSIDE RECORDS SUMMARY | ~2019-07-30 | XMS | Encounter Summary ---
Demographics + + + | Address | [address] | | | [place] [address] | + + + | Home Phone | | + + + | Preferred Language | Unknown | + + + | Marital Status | | + + + | Religion Affiliation | CAT | + + + [...] + | Angel Lu | ECON | [address] | | | | | [place] | | | | | [address] | | + + + + + Care Team Providers + +------+ + | Care Baster Hand Name | Role | Phone | + +------+ + | Matthias Blackman DO | PCP | | + +------+ + Encounter Details +--------+ + + + + | Date | Type | Department | Care Team | Description | +--------+ + + + + | 07/27/ | Documentati | Otolaryngology | Laura Pelayo, | | | 2007 | on | Thyroid Services at | MD [address] | | | | | [address] | [address] | | | | | [address] | [place], [place] | | | | | [facility]ician[facility] | [address] | | | | | [address], [address] floor | [phone] | | | | | [place], [place] | | | | | | [address] | | | | | | [phone] | | | +--------+ + + + [...]
--- OUTSIDE RECORDS SUMMARY | ~2019-07-30 | XMS | Encounter Summary ---
Demographics + + + | Address | [address] | | | [place] [address] | + + + | Home Phone | | + + + | Preferred Language | Unknown | + + + | Marital Status | | + + + | Uatsdin Affiliation | CAT | + + + [...] + | Angel Lu | ECON | [address] | | | | | [place] | | | | | [address] | | + + + + + Care Team Providers + +------+ + | Care Scientific Editor Name | Role | Phone | + +------+ + | Matthias Blackman DO | PCP | | + +------+ + Encounter Details +--------+ + + + + | Date | Type | Department | Care Team | Description | +--------+ + + + + | 06/22/ | Retail Sales Associate Bilingual | Otolaryngology | Laura Pelayo, | | | 2011 | | Endocrinology | [address] [facility] | | | | | Thyroid Services at | [facility] | | | | | [address] | [place], [place] | | | | | [address] | [address] | | | | | Mailcode: [id number] | [phone] | | | | | [facility] | | | | | | [place], [place] | | | | | | [address] | | | | | | [phone] | | | +--------+ + + + [...] + | FREE T4 | Routin | 06/22/2011 | | Results for this | | | e | | | procedure are in the | | | | | | results section. | + +--------+ + + + | TSH | Routin | 06/22/2011 | | Results for this | | | e | | | procedure are in the | | | | | | results section. | + +--------+ + + + documented in this encounter Results FREE T4, SERUM (06/22/2011) + + + + + + | Component | Value | Ref Range | Performed | Pathologist | | | | | At | Signature | + + + + + + | FREE T4, | 1.69Comment: [facility] | 0.71 - 1.70 | NON [facility] | | | SERUM [...] | | + +---------+ + + TSH (06/22/2011) + + + + + + | Component | Value | Ref Range | Performed | Pathologist | | | | | At | Signature | + + + + + + | TSH | 0.083 (A)Comment: | 0.270 - 4.20 | NON [facility] | | | | [facility] | uIU/ml | LAB | | + + + + + + + + | Specimen | + + | Blood - Blood | + + + +---------+ + + | Performing | Address | City/State/Zipcode | Phone Number | | Organization | | | | + +---------+ + + | [facility] | | | | + +---------+ + + documented in this encounter Visit Diagnoses Not on filedocumented in this encounter"
--- OUTSIDE RECORDS SUMMARY | ~2019-07-30 | XMS | Encounter Summary ---
Demographics + + + | Address | [address] | | | [place] [address] | + + + | Home Phone | | + + + | Preferred Language | Unknown | + + + | Marital Status | | + + + | Cheondoism Affiliation | CAT | + + + [...] [place] | | | | | [address] | | + + + + + Care Team Providers + +------+ + | Care Assistant Floor Covering Printer Name | Role | Phone | + +------+ + | Matthias Blackman DO | PCP | | + +------+ + Encounter Details +--------+ + + + + | Date | Type | Department | Care Team | Description | +--------+ + + + + | 08/16/ | Telephone | Otolaryngology | Laura Pelayo, | | | 2007 | | Endocrinology | [address] [facility] | | | | | Thyroid Services at | [facility] | | | | | [address] | [place], [place] | | | | | [address] | [address] | | | | | Mailcode: [id number] | [phone] | | | | | [facility] | | | | | | [place], [place] | | | | | | [address] | | | | | | [phone] | | | +--------+ + + + [...]
--- OUTSIDE RECORDS SUMMARY | ~2019-07-30 | XMS | Encounter Summary ---
Demographics + + + | Address | [address] | | | [place] [address] | + + + | Home Phone | | + + + | Preferred Language | Unknown | + + + | Marital Status | | + + + | Druze Affiliation | CAT | + + + [...] + | Angel Lu | ECON | [address] | | | | | [place] | | | | | [address] | | + + + + + Care Team Providers + +------+ + | Care Hogshead Wrecker Name | Role | Phone | + +------+ + | Matthias Blackman DO | PCP | | + +------+ + Encounter Details +--------+ + + + + | Date | Type | Department | Care Team | Description | +--------+ + + + + | 10/16/ | Floor Tiling Professional | Otolaryngology | Laura Pelayo, | | | 2010 | | Endocrinology | [address] [facility] | | | | | Thyroid Services at | [facility] | | | | | [address] | [place], [place] | | | | | [address] | [address] | | | | | Mailcode: [id number] | [phone] | | | | | [facility] | | | | | | [place], [place] | | | | | | [address] | | | | | | [phone] | | | +--------+ + + + [...] + + + | CALC ICA, | 1.32 (A)Comment: | 1.11 - 1.30 | NON [facility] | | | WHOLE BLD | [facility] | mmol/L | LAB | | + + + + + + + + | Specimen | + + | Blood - Blood | + + + +---------+ + + | Performing | Address | City/State/Zipcode | Phone Number | | Organization | | | | + +---------+ + + | NON [facility] LAB | | | | + +---------+ + + TSH (10/08/2010) + + + + + + | Component | Value | Ref Range | Performed | Pathologist | | | | | At | Signature | + + + + + + | TSH | 0.011 (A)Comment: | 0.3 - 5.0 | NON [facility] | | | | [facility] | uIU/ml | LAB | | + [...]
--- OUTSIDE RECORDS SUMMARY | ~2019-07-30 | XMS | Encounter Summary ---
Demographics + + + | Address | [address] | | | [place] [address] | + + + | Home Phone | | + + + | Preferred Language | Unknown | + + + | Marital Status | | + + + | Samaritan Affiliation | CAT | + + + | Race | White | + + + | Ethnic Group | Not or | + + + Author + + + | Author | [facility] | + + + | Organization | [facility] | + + + | Address | Unknown | + + + | Phone | Unavailable | + + + Support + + + + + | Name | Relationship | Address | Phone | + + + + + | Angel Lu | ECON | [address] | | | | | [place] | | | | | [address] | | + + + + + Care Team Providers + +------+ + | Care Chro Name | Role | Phone | + +------+ + | Matthias Blackman DO | PCP | | + +------+ + Reason for Visit +--------+ + | Reason | Comments | +--------+ + | Other | Ext lab orders | +--------+ + Encounter Details +--------+ + + + + | Date | Type | Department | Care Team | Description | +--------+ + + + + | 06/24/ | Telephone | Otolaryngology | Pierce Laura, | Other (Ext lab | | 2015 | | Thyroid Services at | MD [address] | orders) | | | | [address] [address] | | | | | [address] | [place], [place] | | | | | Physician's | [address] | | | | | Pavilion, 2nd floor | [phone] | | | | | [place], [place] | | | | | | [address] | | | | | | [phone] | | | +--------+ + + + [...] Lab | Routin | Papillary | Ordered: 06/25/2014 | | | | e | carcinoma of thyroid | | | | | | (HCC) | | + +------+--------+ + + | FREE T4 | Lab | Routin | Papillary | Ordered: 06/25/2014 | | | | e | carcinoma of thyroid | | | | | | (HCC) | | + +------+--------+ + + | THYROGLOBULIN LEVEL | Lab | Routin | Papillary | Ordered: 06/25/2014 | | AND ANTIBODY, SERUM | | e | carcinoma of thyroid | | | | | | (HCC) | | + +------+--------+ + + documented as of this encounter Visit Diagnoses + + | Diagnosis | + + | 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
--- OUTSIDE RECORDS SUMMARY | ~2019-07-30 | XMS | Encounter Summary ---
Demographics + + + | Address | [address] | | | [place] [address] | + + + | Home Phone | | + + + | Preferred Language | Unknown | + + + | Marital Status | | + + + | Yazidi Affiliation | CAT | + + + [...] + | Angel Lu | ECON | [address] | | | | | [place] | | | | | [address] | | + + + + + Care Team Providers + +------+ + | Care Collet Maker Name | Role | Phone | + +------+ + | Matthias Blackman DO | PCP | | + +------+ + Encounter Details +--------+ + + + + | Date | Type | Department | Care Team | Description | +--------+ + + + + | 07/15/ | Documentati | Otolaryngology | Laura Pelayo, | | | 2016 | on | Thyroid Services at | MD [address] | | | | | [address] [address] | | | | | [address] | [place], [place] | | | | | Physician's | [address] | | | | | Steve, 2nd floor | [phone] | | | | | [place], [place] | | | | | | [address] | | | | | | [phone] | | | +--------+ + + + [...]
--- OUTSIDE RECORDS SUMMARY | ~2019-07-30 | XMS | Encounter Summary ---
Demographics + + + | Address | [address] | | | [place] [address] | + + + | Home Phone | | + + + | Preferred Language | Unknown | + + + | Marital Status | | + + + | Druze Affiliation | [id number] | + + + | Race | Unknown | + + + | Ethnic Group | Unknown | + + + Author + + + | Author | [facility] | | | and [place] | + + + | Organization | [facility] | | | and [place] | + + + | Address | Unknown | + + + | Phone | Unavailable | + + + Support + + + + + | Name | Relationship | Address | Phone | + + + + + | Ashley Smith | ECON | NA | | | | | [place] [address] | | + + + + + | Angel Lu | ECON | [address] | | | | | [place], [place] | | | | | [address] | | + + + + + Care Team Providers + +------+ + | Care Board Worker Name | Role | Phone | + +------+ + PCP | Unavailable | + +------+ + Encounter Details +--------+ + + + + | Date | Type | Department | Care Team | Description | +--------+ + + + + | 06/22/ | Hospital | [facility] | Myrna Miller | | | 2012 | Encounter | [facility] | MD [address] | | | | | CENTER [address] | [facility], | | | | | [place] | [place] [address] | | | | | [address] | [phone] | | | | | [phone] | | | +--------+ + + + [...] | + +--------+ + + + | CBC WITH | Routin | 06/22/2012 | | Results for this | | DIFFERENTIAL | e | 2:49 PM | | procedure are in the | | | | PDT | | results section. | + +--------+ + + + | MAGNESIUM | Routin | 06/22/2012 | | Results for this | | | e | 2:49 PM | | procedure are in the | | | | PDT | | results section. | + +--------+ + + + | COMPREHENSIVE | Routin | 06/22/2012 | | Results for this | | METABOLIC PANEL | e | 2:49 PM | | procedure are in the | | | | PDT | | results section. | + +--------+ + + + documented in this encounter Results CBC with Differential (06/22/2012 2:49 PM PDT) + + + + + + | Component | Value | Ref Range | Performed | Pathologist | | | | | At | Signature | + + + + + + | MANUAL | NO | | [facility] | | [facility] | [facility] | [facility] | | | [facility] ? | | | [facility] | | | | | | C[facility] - | | | | | | LABORATORY | | + + + + + + | WBC | 8.5 | 4.0 - 11.0 K/uL | [facility] | | | | | | [facility] | | | | | | MEDICAL | | | | | | CENTER - | | | | | | LABORATORY | | + + + + + + | RBC | 4.17 | 3.70 - 5.20 | [facility] | | | | | M/uL | [facility] | | | | | | MEDICAL | | | | | | CENTER - | | | | | | LABORATORY | | + + + + + + | Hemoglobin | 12.0 | 11.5 - 16.0 | [facility] | | | | | gm/dL | [facility] | | | | | | MEDICAL | | | | | | CENTER - | | | | | | LABORATORY | | + + + + + + | Hematocrit | 38.0 | 34.0 - 47.0 % | [facility] | | | | | | [facility] | | | | | | MEDICAL | | | | | | CENTER - | | | | | | LABORATORY | | + + + + + + | MCV | 91.1 | 83.0 - 101.0 fL | [facility] | | | | | | [facility] | | | | | | MEDICAL | | | | | | CENTER - | | | | | | LABORATORY | | + + + + + + | MCH | 28.9 | 28.0 - 35.0 pg | [facility] | | | | | | [facility] | | | | | | MEDICAL | | | | | | CENTER - | | | | | | LABORATORY | | + + + + + + | MCHC | 31.7 (L) | 32.0 - 36.0 | [facility] | | | | | g/dL | [facility] | | | | | | MEDICAL | | | | | | CENTER - | | | | | | LABORATORY | | + + + + + + | RDW-CV | 14.0 | <15.0 % | [facility] | | | | | | [facility] | | | | | | MEDICAL | | | | | | CENTER - | | | | | | LABORATORY | | + + + + + + | Platelet | 315 | 140 - 440 K/uL | [facility] | | | Count | | | [facility] | | | | | | MEDICAL | | | | | | CENTER - | | | | | | LABORATORY | | + + + + + + | % | 55.8 | 45 - 75 % | [facility] | | | Neutrophils | | | [facility] | | | | | | MEDICAL | | | | | | CENTER - | | | | | | LABORATORY | | + + + + + + | % | 30.9 | 20 - 45 % | [facility] | | | Lymphocytes | | | [facility] | | | | | | MEDICAL | | | | | | CENTER - | | | | | | LABORATORY | | + + + + + + | % Monocytes | 8.1 | 4 - 12 % | [facility] | | | | | | [facility] | | | | | | MEDICAL | | | | | | CENTER - | | | | | | LABORATORY | | + + + + + + | % | 4.6 | 0 - 5 % | [facility] | | | Eosinophils | | | [facility] | | | | | | MEDICAL | | | | | | CENTER - | | | | | | LABORATORY | | + + + + + + | % Basophils | 0.6 | 0 - 1 % | [facility] | | | | | | [facility] | | | | | | MEDICAL | | | | | | CENTER - | | | | | | LABORATORY | | + + + + + + | Absolute | 4.8 | 1.5 - 6.6 K/uL | [facility] | | | Neutrophils | | | [facility] | | | | | | MEDICAL | | | | | | CENTER - | | | | | | LABORATORY | | + + + + + + | Absolute | 2.6 | 0.6 - 3.2 K/uL | [facility] | | | Lymphocytes | | | [facility] | | | | | | MEDICAL | | | | | | CENTER - | | | | | | LABORATORY | | + + + + + + | Absolute | 0.7 | 0.0 - 1.0 K/uL | [facility] | | | Monocytes | | | [facility] | | | | | | MEDICAL | | | | | | CENTER - | | | | | | LABORATORY | | + + + + + + | Absolute | 0.4 | 0.0 - 0.4 K/uL | [facility] | | | Eosinophils | | | [facility] | | | | | | MEDICAL | | | | | | CENTER - | | | | | | LABORATORY | | + + + + + + | Absolute | 0.0 | 0.0 - 0.1 K/uL | [facility] | | | Tanya | | | [facility] | | | | | | MEDICAL | | | | | | CENTER - | | | | | | LABORATORY | | + + + + + + + + | Specimen | + + | | + + + + + + + | Performing | Address | City/State/Zipcode | Phone Number | | Organization | | | | + + + + + | [facility] | [address] | [place] | [phone] | | [facility] | | [address] | | | - LABORATORY | | | | + + + + + | [facility] | [address] | [place] | | | [facility] | | [address], [facility] | | | - LABORATORY | | | | + + + + + Comprehensive Metabolic Panel (06/22/2012 2:49 PM PDT) + + + + + + | Component | Value | Ref Range | Performed | Pathologist | | | | | At | Signature | + + + + + + | Glucose | 95 | 70 - 109 mg/dL | [facility] | | | | | | [facility] | | | | | | MEDICAL | | | | | | CENTER - | | | | | | LABORATORY | | + + + + + + | Calcium | 8.8 | 8.3 - 10.5 | [facility] | | | | | mg/dL | [facility] | | | | | | MEDICAL | | | | | | CENTER - | | | | | | LABORATORY | | + + + + + + | Alkaline | 64 | 40 - 110 IU/L | [facility] | | | Phosphatase | | | [facility] | | | | | | MEDICAL | | | | | | CENTER - | | | | | | LABORATORY | | + + + + + + | AST | 19 | 10 - 42 IU/L | [facility] | | | | | | [facility] | | | | | | MEDICAL | | | | | | CENTER - | | | | | | LABORATORY | | + + + + + + | ALT | 14 | 6 - 45 IU/L | [facility] | | | | | | [facility] | | | | | | MEDICAL | | | | | | CENTER - | | | | | | LABORATORY | | + + + + + + | Bilirubin | 0.6 | 0.2 - 1.0 mg/dL | [facility] | | | Total | | | [facility] | | | | | | MEDICAL | | | | | | CENTER - | | | | | | LABORATORY | | + + + + + + | Total | 5.7 (L) | 6.0 - 7.8 gm/dL | [facility] | | | Protein | | | [facility] | | | | | | MEDICAL | | | | | | CENTER - | | | | | | LABORATORY | | + + + + + + | Albumin | 3.2 | 3.2 - 5.0 gm/dL | [facility] | | | | | | [facility] | | | | | | MEDICAL | | | | | | CENTER - | | | | | | LABORATORY | | + + + + + + | BUN | 12 | 7 - 18 mg/dL | [facility] | | | | | | [facility] | | | | | | MEDICAL | | | | | | CENTER - | | | | | | LABORATORY | | + + + + + + | Creatinine | 0.69 | 0.60 - 1.30 | [facility] | | | | | mg/dL | [facility] | | | | | | MEDICAL | | | | | | CENTER - | | | | | | LABORATORY | | + + + + + + | Estimated | >60Comment: For | >60 mL/min/A | [facility] | | | GFR | -Americans, | | [facility] | | | | please multiply the | | MEDICAL | | | | result by 1.210 | | CENTER - | | | | This is an estimated | | LABORATORY | | | | GFR and is based on a | | | | | | standard adult | | | | | | body mass (A=1.73m2) and | | | | | | serum creatinine | | | | + + + + + + | BUN/Creatin | 17.4 | 12 - 20 | [facility] | | | ine Ratio | | | [facility] | | | | | | MEDICAL | | | | | | CENTER - | | | | | | LABORATORY | | + + + + + + | Na | 140 | 136 - 149 mEq/L | [facility] | | | | | | [facility] | | | | | | MEDICAL | | | | | | CENTER - | | | | | | LABORATORY | | + + + + + + | K | 3.3 (L) | 3.5 - 5.1 mEq/l | [facility] | | | | | | [facility] | | | | | | MEDICAL | | | | | | CENTER - | | | | | | LABORATORY | | + + + + + + | Cl | 105 | 98 - 109 mEq/l | [facility] | | | | | | [facility] | | | | | | MEDICAL | | | | | | CENTER - | | | | | | LABORATORY | | + + + + + + | CO2 | 28 | 24 - 31 mEq/L | [facility] | | | | | | [facility] | | | | | | MEDICAL | | | | | | CENTER - | | | | | | LABORATORY | | + + + + + + | Anion Gap | 10.3 | 6.0 - 17.0 | [facility] | | | | | | [facility] | | | | | | MEDICAL | | | | | | CENTER - | | | | | | LABORATORY | | + + + + + + + + | Specimen | + + | | + + + + + + + | Performing | Address | City/State/Zipcode | Phone Number | | Organization | | | | + + + + + | [facility] | [address] | [place] | [phone] | | [facility] | | [address] | | | - LABORATORY | | | | + + + + + | [facility] | [address] | [place], [place] | | | [facility] | | [address], [facility] | | | - LABORATORY | | | | + + + + + Magnesium (06/22/2012 2:49 PM PDT) + +-------+ + + + | Component | Value | Ref Range | Performed | Pathologist | | | | | At | Signature | + +-------+ + + + | Magnesium | 1.8 | 1.8 - 2.5 mg/dL | [facility] | | | | | | [facility] | | | | | | MEDICAL | | | | | | CENTER - | | | | | | LABORATORY | | + +-------+ + + + + + | Specimen | + + | | + + + + + + + | Performing | Address | City/State/Zipcode | Phone Number | | Organization | | | | + + + + + | [facility] | [address] | [place] | [phone] | | [facility] | | [address] | | | - LABORATORY | | | | + + + + + | [facility] | [address] | [place] | | | [facility] | | [address], [facility] | | | - LABORATORY | | | | + + + + + documented in this encounter Visit Diagnoses Not on filedocumented in this encounter"
--- OUTSIDE RECORDS SUMMARY | ~2019-07-30 | XMS | Encounter Summary ---
Demographics + + + | Address | [address] | | | [place] [address] | + + + | Home Phone [...] + + + | Author | [facility] | + + + | Organization | [facility] | + + + | Address | Unknown | + + + | Phone | Unavailable | + + + Support + + + + + | Name | Relationship | Address | Phone | + + + + + | Angel Lu | ECON | [address] | | | | | [place] | | | | | [address] | | + + + + + Care Team Providers + +------+ + | Care Melter Clerk Name | Role | Phone | + +------+ + | Matthias Blackman DO | PCP | | + +------+ + Encounter Details +--------+ + + + + | Date | Type | Department | Care Team | Description | +--------+ + + + + | 03/20/ | Ancillary | Registration [id number] | Brad Camacho | | | 2004 | Registratio | [address] | [address] | | | | n | Kaveh Mailcode: [id number] | [address], | | | | | [place], [place] | [place] [address] | | | | | [address] | | | | | | [phone] | | | +--------+ + + + [...] | + +--------+ + + + | DIFFERENTIAL | Routin | 03/20/2004 | | Results for this | | | e | 2:07 PM | | procedure are in the | | | | PST | | results section. | + +--------+ + + + | CBC, WITH | Routin | 03/20/2004 | | Results for this | | DIFFERENTIAL | e | 2:07 PM | | procedure are in the | | | | PST | | results section. | + +--------+ + + + | COMPLETE METABOLIC | Routin | 03/20/2004 | | Results for this | | SET | e | 2:07 PM | | procedure are in the | | (NA,K,CL,CO2,BUN,CRE | | PST | | results section. | | AT,GLUC,CA,AST,ALT,B | | | | | | FLORIN TOTAL,ALK | | | | | | PHOS,ALB,PROT TOTAL) | | | | | + +--------+ + + + | SEDIMENTATION RATE | Routin | 03/20/2004 | | Results for this | | | e | 2:07 PM | | procedure are in the | | | | PST | | results section. | + +--------+ + + + documented in this encounter Results DIFFERENTIAL (03/20/2004 2:07 PM PST) + +---------+ + + + | Component | Value | Ref Range | Performed | Pathologist | | | | | At | Signature | + +---------+ + + + | NEUTROPHIL | 50 | 50 - 70 % | [facility] | | | % | | | DEPARTMENT | | | | | | OF | | | | | | PATHOLOGY | | + +---------+ + + + | LYMPHOCYTE | 35 | 18 - 42 % | [facility] | | | % | | | DEPARTMENT | | | | | | OF | | | | | | PATHOLOGY | | + +---------+ + + + | MONOCYTE % | 9 (H) | 2 - 8 % | [facility] | | | | | | DEPARTMENT | | | | | | OF | | | | | | PATHOLOGY | | + +---------+ + + + | EOS % | 5 (H) | 1 - 3 % | [facility] | | | | | | DEPARTMENT | | | | | | OF | | | | | | PATHOLOGY | | + +---------+ + + + | BASO % | 1 | <3 % | [facility] | | | | | | DEPARTMENT | | | | | | OF | | | | | | PATHOLOGY | | + +---------+ + + + | NEUTROPHIL | 4.3 | 1.8 - 7.7 K/cu | [facility] | | | # | | mm | DEPARTMENT | | | | | | OF | | | | | | PATHOLOGY | | + +---------+ + + + | LYMPHOCYTE | 3.0 | 1.0 - 4.8 K/cu | [facility] | | | # | | mm | DEPARTMENT | | | | | | OF | | | | | | PATHOLOGY | | + +---------+ + + + | MONOCYTE # | 0.8 (H) | 0.1 - 0.6 K/cu | [facility] | | | | | mm | DEPARTMENT | | | | | | OF | | | | | | PATHOLOGY | | + +---------+ + + + | EOS # | 0.4 | <0.6 K/cu mm | [facility] | | | | | | DEPARTMENT | | | | | | OF | | | | | | PATHOLOGY | | + +---------+ + + + | BASO # | 0.1 | <0.3 | [facility] | | | | | | DEPARTMENT | | | | | | OF | | | | | | PATHOLOGY | | + +---------+ + + + + + | Specimen | + + | | + + + + + + + | Performing | Address | City/State/Zipcode | Phone Number | | Organization | | | | + + + + + | [facility] | [address] | [place] [address] | | | PATHOLOGY | [address] | | | + + + + + | [facility] | [address] | [place] [address] | | | PATHOLOGY | [address] | | | + + + + + CBC, WITH DIFFERENTIAL (03/20/2004 2:07 PM PST) + +-------+ + + + | Component | Value | Ref Range | Performed | Pathologist | | | | | At | Signature | + +-------+ + + + | WHITE CELL | 8.5 | 4.4 - 11.0 K/cu | [facility] | | | COUNT | | mm | DEPARTMENT | | | | | | OF | | | | | | PATHOLOGY | | + +-------+ + + + | RED CELL | 4.58 | 3.65 - 5.10 | [facility] | | | COUNT | | M/cu mm | DEPARTMENT | | | | | | OF | | | | | | PATHOLOGY | | + +-------+ + + + | HEMOGLOBIN | 14.2 | 11.4 - 15.0 | [facility] | | | | | g/dL | DEPARTMENT | | | | | | OF | | | | | | PATHOLOGY | | + +-------+ + + + | HEMATOCRIT | 42.1 | 33.0 - 44.6 % | [facility] | | | | | | DEPARTMENT | | | | | | OF | | | | | | PATHOLOGY | | + +-------+ + + + | MCV | 91.9 | 80.0 - 96.0 fL | [facility] | | | | | | DEPARTMENT | | | | | | OF | | | | | | PATHOLOGY | | + +-------+ + + + | MCHC | 33.7 | 33.4 - 35.5 | [facility] | | | | | g/dL | DEPARTMENT | | | | | | OF | | | | | | PATHOLOGY | | + +-------+ + + + | PLATELET | 304 | 150 - 400 K/cu | [facility] | | | COUNT | | mm | DEPARTMENT | | | | | | OF | | | | | | PATHOLOGY | | + +-------+ + + + + + | Specimen | + + | | + + + + + + + | Performing | Address | City/State/Zipcode | Phone Number | | Organization | | | | + + + + + | [facility] | [address] | [place] [address] | | | PATHOLOGY | [address] | | | + + + + + | [facility] DE[facility]MENT [facility] | [address] | [place] [address] | | | PATHOLOGY | [address] | | | + + + + + SEDIMENTATION RATE (03/20/2004 2:07 PM PST) + +-------+ + + + | Component | Value | Ref Range | Performed | Pathologist | | | | | At | Signature | + +-------+ + + + | SEDIMENTATI | 3 | <21 mm/hr | [facility] | | | ON RATE | | | DEPARTMENT | | | | | | OF | | | | | | PATHOLOGY | | + +-------+ + + + + + | Specimen | + + | | + + + + + + + | Performing | Address | City/State/Zipcode | Phone Number | | Organization | | | | + + + + + | [facility] | [address] | [place] [address] | | | PATHOLOGY | [address] | | | + + + + + | [facility] | [address] | [place] [address] | | | PATHOLOGY | [address] | | | + + + + + COMP METABOLIC SET (03/20/2004 2:07 PM PST) + +---------+ + + + | Component | Value | Ref Range | Performed | Pathologist | | | | | At | Signature | + +---------+ + + + | GLUCOSE, | 100 | 65 - 110 mg/dL | [facility] | | | PLASMA | | | DEPARTMENT | | | (LAB) | | | OF | | | | | | PATHOLOGY | | + +---------+ + + + | BUN, PLASMA | 13 | 6 - 20 mg/dL | [facility] | | | (LAB) | | | DEPARTMENT | | | | | | OF | | | | | | PATHOLOGY | | + +---------+ + + + | CREATININE | 0.7 | 0.6 - 1.1 mg/dL | [facility] | | | PLASMA | | | DEPARTMENT | | | (LAB) | | | OF | | | | | | PATHOLOGY | | + +---------+ + + + | TOTAL | 6.8 | 6.1 - 7.9 g/dL | [facility] | | | PROTEIN, | | | DEPARTMENT | | | PLASMA | | | OF | | | (LAB) | | | PATHOLOGY | | + +---------+ + + + | ALBUMIN, | 3.8 | 3.5 - 4.7 g/dL | [facility] | | | PLASMA | | | DEPARTMENT | | | (LAB) | | | OF | | | | | | PATHOLOGY | | + +---------+ + + + | CALCIUM, | 10.2 | 8.5 - 10.5 | [facility] | | | PLASMA | | mg/dL | DEPARTMENT | | | (LAB) | | | OF | | | | | | PATHOLOGY | | + +---------+ + + + | BILIRUBIN | 0.5 | 0.3 - 1.2 mg/dL | [facility] | | | TOTAL | | | DEPARTMENT | | | | | | OF | | | | | | PATHOLOGY | | + +---------+ + + + | ALK PHOS | 51 | 42 - 98 U/L | [facility] | | | | | | DEPARTMENT | | | | | | OF | | | | | | PATHOLOGY | | + +---------+ + + + | AST(SGOT) | 26 | 15 - 41 U/L | [facility] | | | | | | DEPARTMENT | | | | | | OF | | | | | | PATHOLOGY | | + +---------+ + + + | SODIUM, | 139 | 136 - 145 | [facility] | | | PLASMA | | mmol/L | DEPARTMENT | | | (LAB) | | | OF | | | | | | PATHOLOGY | | + +---------+ + + + | POTASSIUM, | 2.5 (*) | 3.5 - 5.1 | [facility] | | | PLASMA | | mmol/L | DEPARTMENT | | | (LAB) | | | OF | | | | | | PATHOLOGY | | + +---------+ + + + | CHLORIDE, | 94 (L) | 98 - 107 mmol/L | [facility] | | | PLASMA | | | DEPARTMENT | | | (LAB) | | | OF | | | | | | PATHOLOGY | | + +---------+ + + + | TOTAL CO2, | 35 (H) | 23 - 29 mmol/L | [facility] | | | PLASMA | | | DEPARTMENT | | | (LAB) | | | OF | | | | | | PATHOLOGY | | + +---------+ + + + | ALT (SGPT) | 22 | 13 - 48 U/L | [facility] | | | | | | DEPARTMENT | | | | | | OF | | | | | | PATHOLOGY | | + +---------+ + + + + + | Specimen | + + | | + + + + + | Narrative | Performed At | + + + | potassium phoned Readback. Free Text changed 03/22/04 01:10: | [facility] | | previously reported as: potassium [email or web address] | DEPARTMENT OF | | | PATHOLOGY | + + + + + + + + | Performing | Address | City/State/Zipcode | Phone Number | | Organization | | | | + + + + + | [facility] DEPARTMENT OF | [address] | [place] [address] | | | PATHOLOGY | [address] | | | + + + + + | [facility] DEPARTMENT [facility] | [address] | [place] [address] | | | PATHOLOGY | [address] | | | + + + + + documented in this encounter Visit Diagnoses Not on filedocumented in this encounter"
--- OUTSIDE RECORDS SUMMARY | ~2019-07-30 | XMS | Encounter Summary ---
Demographics + + + | Address | [address] | | | [place] [address] | + + + | Home Phone | | + + + | Preferred Language | Unknown | + + + | Marital Status | | + + + | Denominational Affiliation | CAT | + + + | Race | White | + + + | Ethnic Group | Not or | + + + Author + + + | Author | [facility] | + + + | Organization | [facility] | + + + | Address | Unknown | + + + | Phone | Unavailable | + + + Support + + + + + | Name | Relationship | Address | Phone | + + + + + | Angel Lu | ECON | [address] | | | | | [place] | | | | | [address] | | + + + + + Care Team Providers + +------+ + | Care Milker Machine Name | Role | Phone | + +------+ + | Matthias Blackman DO | PCP | | + +------+ + Encounter Details +--------+ + + + + | Date | Type | Department | Care Team | Description | +--------+ + + + + | 08/21/ | Telephone | Otolaryngology | Laura Pelayo, | | | 2008 | | Adult General | [address] | | | | | Services at [facility] | [address] | | | | | [address] | [place], [place] | | | | | [facility] | [address] | | | | | [address], [address] floor | [phone] | | | | | [place], [place] | | | | | | [address] | | | | | | [phone] | | | +--------+ + + + [...]
--- OUTSIDE RECORDS SUMMARY | ~2019-07-30 | XMS | Encounter Summary ---
Demographics + + + | Address | [address] | | | [place] [address] | + + + | Home Phone [...] + | Angel Lu | ECON | [address] | | | | | [place] | | | | | [address] | | + + + + + Care Team Providers + +------+ + | Care Linen Clerk Name | Role | Phone | [...] 2017 | on | Endocrinology | [address] [facility] | | | | | Thyroid Services at | [facility] | | | | | [address] | [place], [place] | | | | | [address] | [address] | | | | | Mailcode: [id number] | [phone] | | | | | [facility] | | | | | | [place], [place] | | | | | | [address] | | | | | | [phone] | | | +--------+ + + + [...] on filedocumented as of this encounter Results THYROGLOBULIN LEVEL AND ANTIBODY, [...] | | [facility] | | | [address] [facility] | | | [place] [address] | | | | | + + [...] [facility] | [address] | [place] [address] | | | SERVICES, CORE | PARK [...] | + + + + + | [facility] | [address] | [place] [address] | | | [address] | [address] | | | + + + + + documented in this encounter Visit Diagnoses + + | Diagnosis | + + | 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
--- OUTSIDE RECORDS SUMMARY | ~2019-07-30 | XMS | Encounter Summary ---
Demographics + + + | Address | [address] | | | [place] [address] | + + + | Home Phone | | + + + | Preferred Language | Unknown | + + + | Marital Status | | + + + | Taoism Affiliation | CAT | + + + [...] + | Angel Lu | ECON | [address] | | | | | [place] | | | | | [address] | | + + + + + Care Team Providers + +------+ + | Care Chair Frame Builder Name | Role | Phone | + +------+ + | Matthias Blackman DO | PCP | | + +------+ + Encounter Details +--------+ + + + + | Date | Type | Department | Care Team | Description | +--------+ + + + + | 10/20/ | Office | Otolaryngology | Laura Pelayo, | | | 2006 | Visit-Scann | Endocrinology | [address] [facility] | | | | ed | Thyroid Services at | [facility] | | | | | [address] | [place], [place] | | | | | [address] | [address] | | | | | Mailcode: [id number] | [phone] | | | | | [facility] | | | | | | [place], [place] | | | | | | [address] | | | | | | [phone] | | | +--------+ + + + [...]
--- OUTSIDE RECORDS SUMMARY | ~2019-07-30 | XMS | Encounter Summary ---
Demographics + + + | Address | [address] | | | [place] [address] | + + + | Home Phone [...] + | Angel Lu | ECON | [address] | | | | | [place] | | | | | [address] | | + + + + + Care Team Providers + +------+ + | Care Terrazzo Layer Helper Name | Role | Phone | + +------+ + | Matthias Blackman DO | PCP | | + +------+ + Encounter Details +--------+ + + + + | Date | Type | Department | Care Team | Description | +--------+ + + + + | 09/20/ | Car Ferry Master | Otolaryngology | Donna Neff MD | | | 2008 | | Thyroid Services at | [address] | | | | | [address] | [place], | | | | | [address] | [place] [address] | | | | | Physician's | [phone] | | | | | Steve, [address]nd floor | | | | | | [place], [place] | | | | | | [address] | | | | | | [phone] | | | +--------+ + + + [...] for this | | | e | 9:46 AM | | procedure are in the | | | | PDT | | results section. | + +--------+ + + + documented in this encounter Results TSH (09/13/2008 9:46 AM PDT) + + + + + [...]
--- OUTSIDE RECORDS SUMMARY | ~2019-07-30 | XMS | Encounter Summary ---
Demographics + + + | Address | [address] | | | [place] [address] | + + + | Home Phone | | + + + | Preferred Language | Unknown | + + + | Marital Status | | + + + | Zoroastrianism Affiliation | CAT | + + + | Race | White | + + + | Ethnic Group | Not or | + + + Author + + + | Author | [facility] | + + + | Organization | [facility] | + + + | Address | Unknown | + + + | Phone | Unavailable | + + + Support + + + + + | Name | Relationship | Address | Phone | + + + + + | Angel Lu | ECON | [address] | | | | | [place] | | | | | [address] | | + + + + + Care Team Providers + +------+ + | Care Forest Management Teacher Name | Role | Phone | [...] | | | | Diabetes & | Malignant | Andrey Davalos MD | MD Laura | | | | Metabolism | neoplasm of | [address] | [address] | | | | | thyroid | [address] | [facility] | | | | | gland | [address] [place], | | | | | Procedures | [place], | [place] | | | | | [place] | [place] [address] | [address] | | | | | OFFICE/OUTPT | Phone: | Phone: | | | | | | [phone] | [phone] | | | | | VISIT,RAMONITA SANDOVAL | Fax: | Fax: | | | | | VL IV | [phone] | [phone] | +--------+--------+ + + + + Encounter Details +--------+---------+ + + + | Date | Type | Department | Care Team | Description | +--------+---------+ + + + | 08/06/ | Office | Otolaryngology | Laura Pelayo, | Papillary carcinoma | | 2016 | Visit | Endocrinology | [address] | of thyroid (HCC) | | | | Thyroid Services at | [facility] [address] | (Primary Dx) | | | | [address] | [place], [place] | | | | | [address] | [address] | | | | | Mailcode: [id number] | [phone] | | | | | [facility] | | | | | | [place], [place] | | | | | | [address] | | | | | | [phone] | | | +--------+---------+ + + + [...] + + + | Blood Pressure | 122/80 | 08/07/2015 10:56 AM | | | | | PDT | | + + + + + | Pulse | 80 | 08/07/2015 10:56 AM | | | | | PDT [...] + + + + | Weight | 54 kg (119 lb) | 08/07/2015 10:56 AM | | | | | PDT | | + + + + + | Height | - | - | | + + + + + | Body Mass Index | 22.12 | 08/09/2013 4:22 PM | | | | | PDT | | + + + + + documented in this encounter Progress Notes Laura Pelayo MD - 08/07/2015 10:59 AM PDTFormatting of this note might be different fro m the original. THYROID TUMOR CLINIC - ENDOCRINOLOGY THYROID CANCER Follow-up Safia Lu is a 55 y.o. female with a history of Papillary Thyroid Carcinoma, follicula r variant here for f/u. Her disease was T3 N0 M0, Stage III who returns to clinic today for follow-up. She is s/p total thyroidectomy on 05/12/06, I-131 ablation with 121.7 mCi on 7 with post-therapy scan showing asymmetric uptake in the thyroid bed, but no distant metast ases, neg Thyrogen-stimulated WBS and Tg evaluation 05/05, negative thyroglobulin and ultraso und evaluations since then. Her current dose of Levothyroxine is 100 mcg a day. She denies symptoms of hyper or hypothy roidism including heat or cold intolerance, constipation or diarrhea, palpitations or tremor . She feels like she is generally doing well, but has an 8/10 headache now and forgot her m edications. Having those headaches about once a week. She denies any neck masses or difficulty swallowing. Medications: Current outpatient prescriptions: HYDROmorphone 4 mg Oral Tablet, Take 1 Tab by mouth every three hours as needed for severe pain. (Patient taking differently: Take 8 mg by mouth ever y three hours as needed for severe pain.), Disp: 12 Tab, Rfl: 0 levothyroxine 100 mcg oral tablet, Take 1 tablet by mouth once daily., Disp: 100 tablet, Rf l: 3 Promethazine HCl 25 mg Oral Tablet, prn migraine, Disp: , Rfl: ropinirole (REQUIP) 1 mg Oral Tablet, take 1 tablet (1 mg) by oral route 3 times per day, D isp: , Rfl: PE: BP 122/80 | Pulse 80 | Wt 53.978 kg (119 lb) | BMI 22.12 kg/(m^2) General: Pleasant woman, no acute distress, alert and oriented x3 HEENT: EOMs intact, no lid lag, retraction or stare. Neck: supple, no LAD/masses, no palpable thyroid tissue. Neuro: No tremor, DTRs 1+, normal relaxation phase. Gait and mental status grossly intact. Skin: Warm and of normal consistency, temperature and texture. MSK: Strength grossly normal Lab Results Component Value Date FREET4 1.0 08/07/2015 TSH 3.57 08/07/2015 THYROGLOB <0.1 08/08/2014 THYROGLOBAB <1.0 08/08/2014 Radiology: Lab Results Component Value Date USTHY 08/07/2015 EXAM: US NECK SURVEY. HISTORY: Thyroid cancer. COMPARISON: 08/09/13. TECHNIQUE: Ultrasound evaluation of the neck. FINDINGS: THYROID BED: The thyroid is surgically absent. Right thyroid bed: No nodules. Left thyroid bed: No nodules. NECK: Bilateral cervical lymph nodes throughout levels I through were evaluated. Right neck: No lymphadenopathy. Within the inferior right level there are 3 adjacent morphologically normal-appearing lymph nodes which are similar to 2012. Left neck: No lymphadenopathy. IMPRESSION: No evidence of recurrence. Attending Radiologists: LIDYA POLO MD Author: LIDYA POLO MD I personally reviewed the images and, if necessary, edited the report. I agree with the report as now presented. Final/Electronically signed / LIDYA POLO 08/07/2015 10:52 AM Assessment: This is a 55 y.o. female with Papillary Thyroid Carcinoma, follicular variant, T3 N0 M0, Stage III in 2006, now with NCED based on negative neck exam, and negative thyrogl obulin with neg antithyroglobulin antibodies as of last year, pending this visit. Her TSH is elevated, without any compliance issues, so we will increase her levothyroxine t o 112 mcg, with TSH goal 0.2-2.0 with normal Free T4. Plan: 1. Thyroid function tests today to adjust levothyroxine; increase levothyroxine to 112 mcg daily. 2. Thyroglobulin today for thyroid cancer surveillance. 3. Plan continued thryoid cancer surveillance with ultrasensitive unstimulated thyroglobuli n next year and next neck ultrasound in 2-3 years. Laura Painting MD - 08/07/2015 10:59 AM PDT THYROID TUMOR CLINIC - ENDOCRINOLOGY THYROID CANCER Follow-up Safia Lu is a 55 y.o. female with a history of Papillary [...] intolerance, cold intolerance, co nstipation, diarrhea, palpitations, tremor. She feels like she is generally doing well, but has an 8/10 headache now and forgot her medications. She denies any neck masses or difficulty swallowing. Medications: Current outpatient prescriptions: HYDROmorphone 4 mg Oral Tablet, Take 1 Tab by mouth every three hours as needed for severe pain. (Patient taking differently: Take 8 mg by mouth ever y three hours as needed for severe pain.), Disp: 12 Tab, Rfl: 0 levothyroxine 100 mcg oral tablet, Take 1 tablet by mouth once daily., Disp: 100 tablet, Rf l: 3 Promethazine HCl 25 mg Oral Tablet, prn migraine, Disp: , Rfl: ropinirole (REQUIP) 1 mg Oral Tablet, take 1 tablet (1 mg) by oral route 3 times per day, D isp: , Rfl: PE: BP 122/80 | Pulse 80 | Wt 53.978 kg (119 lb) | BMI 22.12 kg/(m^2) General: Pleasant woman,NAD, AOx3 HEENT: EOMs intact without lid lag, retraction or stare. Neck: supple, no adenopathy, masses or palpable thyroid tissue, no masses. Well-healed thy roidectomy scar. Neuro: No tremor. DTRs 1+ with normal relaxation phase. Strength, gait and mental status are grossly intact. Skin: Warm and of normal consistency, temperature and texture. Lab Results Component Value Date FREET4 1.0 08/07/2015 TSH 3.57 08/07/2015 THYROGLOB <0.1 08/08/2014 THYROGLOBAB <1.0 08/08/2014 Prelim report - 07/11/2014 Tg <0.2 Radiology: [...] in the neck. Assessment: This is a 55 y.o. female with Papillary Thyroid Carcinoma, follicular [...] n and next neck ultrasound next year. 16 11:58 PM PDTdocumented in this encounter Plan of Treatment Not on filedocumented as of this encounter Results THYROGLOBULIN LEVEL AND ANTIBODY, SERUM (08/07/2015 11:38 AM PDT) + + + + + [...] | Test performed | [facility] | | by:[id number] [place] [address] | REFERENCE LAB | | | | |[place] [address] | | | | | + + [...]
--- OUTSIDE RECORDS SUMMARY | ~2019-07-30 | XMS | Encounter Summary ---
Demographics + + + | Address | [address] | | | [place] [address] | + + + | Home Phone | | + + + | Preferred Language | Unknown | + + + | Marital Status | | + + + | Sikh Affiliation | CAT | + + + | Race | White | + + + | Ethnic Group | Not or | + + + Author + + + | Author | [facility] | + + + | Organization | [facility] | + + + | Address | Unknown | + + + | Phone | Unavailable | + + + Support + + + + + | Name | Relationship | Address | Phone | + + + + + | Angel Lu | ECON | [address] | | | | | [place] | | | | | [address] | | + + + + + Care Team Providers + +------+ + | Care Director Talent Name | Role | Phone | + [...] | | | | | | Steve, [address] [place] [address] | | | | | | [place], [place] | | | | | | [address] | | | | | | [phone] | | | +--------+------+ + + + [...] + | THYROGLOBULIN LEVEL | Routin | 08/07/2015 | Papillary | Results for this | | AND ANTIBODY, SERUM | e | 11:38 AM | carcinoma of thyroid | procedure [...] | Test performed | [facility] | | by:[id number] [place] [address] | REFERENCE LAB | | | | |[place] [address] | | | | | + + [...]
--- OUTSIDE RECORDS SUMMARY | ~2019-07-30 | XMS | Encounter Summary ---
Demographics + + + | Address | [address] | | | [place] [address] | + + + | Home Phone | | + + + | Preferred Language | Unknown | + + + | Marital Status | | + + + | Cheondoism Affiliation | CAT | + + + | Race | White | + + + | Ethnic Group | Not or | + + + Author + + + | Author | [facility] | + + + | Organization | [facility] | + + + | Address | Unknown | + + + | Phone | Unavailable | + + + Support + + + + + | Name | Relationship | Address | Phone | + + + + + | Angel Lu | ECON | [address] | | | | | [place] | | | | | [address] | | + + + + + Care Team Providers + +------+ + | Care Fabricating Machine Operator Name | Role | Phone | + +------+ + | Matthias Blackman DO | PCP | | + +------+ + Encounter Details +--------+ + + + + | Date | Type | Department | Care Team | Description | +--------+ + + + + | 08/06/ | Pharmacy | Outpatient Retail | | | | 2015 | Visit | [facility] | | | | | | [address] | | | | | | [place], [place] | | | | | | [address] | | | | | | [phone] | | | +--------+ + + + [...]
--- OUTSIDE RECORDS SUMMARY | ~2019-07-30 | XMS | Encounter Summary ---
Demographics + + + | Address | [address] | | | [place] [address] | + + + | Home Phone | | + + + | Preferred Language | Unknown | + + + | Marital Status | | + + + | Uatsdin Affiliation | 1041 | + + + | Race | Unknown | + + + | Ethnic Group | Unknown | + + + Author + + + | Author | [facility] | | | and [place] | + + + | Organization | [facility] | | | and [place] | + + + | Address | Unknown | + + + | Phone | Unavailable | + + + Support + + + + + | Name | Relationship | Address | Phone | + + + + + | Ashley Smith | ECON | [place] | | | | | [place] [address] | | + + + + + | Angel Lu | ECON | [address] | | | | | [place], [place] | | | | | [address] | | + + + + + Care Team Providers + +------+ + | Care Etl Analyst Name | Role | Phone | + +------+ + PCP | Unavailable | + +------+ + Encounter Details +--------+ + + + + | Date | Type | Department | Care Team | Description | +--------+ + + + + | 06/23/ | Hospital | [facility] | | | | 2006 - | Encounter | [facility] | | | | | CENTER [address] | | | | 06/27/ | | [place] | | | | 2006 | | [address] | | | | | | [phone] | | | +--------+ + + + [...]
--- OUTSIDE RECORDS SUMMARY | ~2019-07-30 | XMS | Encounter Summary ---
Demographics + + + | Address | [address] | | | [place] [address] | + + + | Home Phone [...] + + + | Author | [facility] | + + + | Organization | [facility] | + + + | Address | Unknown | + + + | Phone | Unavailable | + + + Support + + + + + | Name | Relationship | Address | Phone | + + + + + | Angel Lu | ECON | [address] | | | | | [place] | | | | | [address] | | + + + + + Care Team Providers + +------+ + | Care Skiver Machine Name | Role | Phone | + +------+ + | Matthias Blackman DO | PCP | | + +------+ + Encounter Details +--------+ + + + + | Date | Type | Department | Care Team | Description | +--------+ + + + + | 04/26/ | Telephone | Otolaryngology | Laura Pelayo, | | | 2017 | | Thyroid Services at | [address] | | | | | [address] | | | | | [address] | [place], [place] | | | | | Physician's | [address] | | | | | Steve, 2nd floor | [phone] | | | | | [place], [place] | | | | | | [address] | | | | | | [phone] | | | +--------+ + + + [...]
--- OUTSIDE RECORDS SUMMARY | ~2019-07-30 | XMS | Encounter Summary ---
Demographics + + + | Address | [address] | | | [place] [address] | + + + | Home Phone [...] [place] | | | | | [address] | | + + + + + Care Team Providers + +------+ + | Care Automotive Buyer Name | Role | Phone | + +------+ + | Matthias Blackman DO | PCP | | + +------+ + Encounter Details +--------+ + + + + | Date | Type | Department | Care Team | Description | +--------+ + + + + | 09/10/ | Telephone | Otolaryngology | Laura Pelayo, | | | 2015 | | Thyroid Services at | [address] | | | | | [address] | | | | | [address] | [place], [place] | | | | | Physician's | [address] | | | | | Steve, [address]nd floor | [phone] | | | | | [place], [place] | | | | | | [address] | | | | | | [phone] | | | +--------+ + + + [...]
--- OUTSIDE RECORDS SUMMARY | ~2019-07-30 | XMS | Encounter Summary ---
Demographics + + + | Address | [address] | | | [place] [address] | + + + | Home Phone | | + + + | Preferred Language | Unknown | + + + | Marital Status | | + + + | Episcopalian Affiliation | CAT | + + + | Race | White | + + + | Ethnic Group | Not or | + + + Author + + + | Author | [facility] | + + + | Organization | [facility] | + + + | Address | Unknown | + + + | Phone | Unavailable | + + + Support + + + + + | Name | Relationship | Address | Phone | + + + + + | Angel Lu | ECON | [address] | | | | | [place] | | | | | [address] | | + + + + + Care Team Providers + +------+ + | Care Human Resource Manager Name | Role | Phone | + +------+ + | Matthias Blackman DO | PCP | | + +------+ + Encounter Details +--------+ + + + + | Date | Type | Department | Care Team | Description | +--------+ + + + + | 05/19/ | Foiling Machine Adjuster | Otolaryngology | Laura Pelayo, | Papillary carcinoma | | 2010 | | Endocrinology | [address] | of thyroid (HCC) | | | | Thyroid Services at | [facility] [address] | (Primary Dx) | | | | [address] | [place], [place] | | | | | [address] | [address] | | | | | Mailcode: [id number] | [phone] | | | | | Physician's Steve | | | | | | [place], [place] | | | | | | [address] | | | | | | [phone] | | | +--------+ + + + [...] as of this encounter Results THYROGLOBULIN, SERUM (08/21/2010 11:44 AM PDT) + [...] [address] | | | | | | [facility] | | | | | | [place], [place] | | | | | | [address] [address] | | | | | | [...] + + + | [facility] | [address] | [facility], | | | | | [place] [address] | | + + + + + [...] Mae | [facility] | | [place] [address] | REGIONAL | | [place] [address] | LABORATORY | + + + + + + + + | Performing | Address | City/State/Zipcode | Phone Number | | Organization | | | | + + + + + | [facility] | [address] | [place] [address] | | | LABORATORY | | | | + + + + + TSH (08/21/2010 11:44 AM PDT) + + [...] (suggests Hyperthyroid) | [facility] | | [facility] | REGIONAL | | [place] [address] | LABORATORY | | [place] [address] | | + + + + + + + + | Performing | Address | City/State/Zipcode | Phone Number | | Organization | | | | + + + + + | [facility] | [address] | [place] [address] | | | LABORATORY | | | | + + + + + US SOFT TISSUE HEAD & NECK (08/20/2010 [...]
--- OUTSIDE RECORDS SUMMARY | ~2019-07-30 | XMS | Encounter Summary ---
Demographics + + + | Address | [address] | | | [place] [address] | + + + | Home Phone [...] + | Angel Lu | ECON | [address] | | | | | [place] | | | | | [address] | | + + + + + Care Team Providers + +------+ + | Care Air Crew Member Name | Role | Phone | [...] | +--------+ + + + + | 10/22/ | Telephone | Otolaryngology | Laura Pelayo, | | | 2010 | | Endocrinology | [address] | | | | | Thyroid Services at | [facility] | | | | | [address] | [place], [place] | | | | | [address] | [address] | | | | | Mailcode: [id number] | [phone] | | | | | [facility] | | | | | | [facility] [place] | | | | | | [address] | | | | | | [phone] | | | +--------+ + + + [...]
--- OUTSIDE RECORDS SUMMARY | ~2019-07-30 | XMS | Encounter Summary ---
Demographics + + + | Address | [address] | | | [place] [address] | + + + | Home Phone | | + + + | Preferred Language | Unknown | + + + | Marital Status | | + + + | Hindu Affiliation | CAT | + + + [...] + | Angel Lu | ECON | [address] | | | | | [place] | | | | | [address] | | + + + + + Care Team Providers + +------+ + | Care Adobe Maker Name | Role | Phone | + +------+ + PCP | Unavailable | + +------+ + Encounter Details +--------+ + + + + | Date | Type | Department | Care Team | Description | +--------+ + + + + | 03/29/ | Office | | Note, Outpatient | [...] as of this encounter Progress Notes Interface, Conciliator In - 09/26/2004 6:32 PM PDTClinic Date: 03/29/2003 Clinic: Neurology Subjective: Safia Lu returns today for followup of migraine headache disorder. She was last seen in early November 2002 reporting that she was having migraine headaches every 4 to 6 weeks that were usually responsive to injectable Imitrex or Fioricet. However, on 2 occasions, she had had to seek Emergency Room treatment for parenteral narcotics and antiemetics. Since she was last seen, she continues to have headaches. The headaches occur about every 3 to 4 weeks and since she stopped eating red meat, the headaches are less severe both in intensity and duration. On one occasion in December 2002, however she developed a severe headache that was not responsive either to injectable Imitrex or her Fiorinal. She had to be seen in the Emergency Room setting. Another severe headache episode occurred, and she contacted her primary care physician, Dr. Dee, trying to avoid going to the Emergency Room and was prescribed Dilaudid 4-mg tablet which she took. The Dilaudid allowed her to sleep and the headaches subsided. Physical Examination Vital Signs: Weight 126.2 pounds, blood pressure 114/64, and pulse 72 per minute and regular. General Appearance: This is a well-developed, attractive, 43-year-old female who is quite pleasant and cooperative. Neurologic: Cranial nerves 2 through 12 are intact. Motor: Strength 5/5. Sensory: Intact appreciation of light touch and proprioceptive sensations. Cerebellar: Excellent coordination of upper extremities. Deep tendon reflexes are 2+ and symmetrical. Toe signs are downgoing. Clinical Impression: Migraine headache disorder occurring approximately once a month, usually alleviated by Imitrex injectable and Fioricet but at times requiring Emergency Room treatment. Recommendations: Continue nortriptyline 50 mg at bedtime daily and atenolol 50-mg tablets one-half tablet daily. Continue Imitrex injectable 6 mg at the onset of migraine. If the migraine is not relieved by the Imitrex injection, she may try her Fioricet or take one 4-mg Dilaudid tablet to avoid going into the Emergency Room. Return appointment in 6 months' time. Glory Quintanilla M.D. / SHANON [id number] / [id number] / [id number] / cc: Richard Dee M.D. [address] [place] [id number] signed by Interface, Conciliator In at 09/26/2004 6:3 2 PM PDTdocumented in this encounter Plan of Treatment Not on filedocumented as of this encounter Visit Diagnoses Not on filedocumented in this encounter"
--- OUTSIDE RECORDS SUMMARY | ~2019-07-30 | XMS | Encounter Summary ---
Demographics + + + | Address | [address] | | | [place] [address] | + + + | Home Phone [...] + | Angel Lu | ECON | [address] | | | | | [place] | | | | | [address] | | + + + + + Care Team Providers + +------+ + | Care Microfiche Camera Operator Name | Role | Phone | + +------+ + | Matthias Blackman DO | PCP | | + +------+ + Reason for Visit + + + | Reason | Comments | + + + | New patient | | | consultation | | + + + | Migraine | | + + + Encounter Details +--------+---------+ + + + | Date | Type | Department | Care Team | Description | +--------+---------+ + + + | 12/14/ | Office | Comprehensive | Mouna Perry, | Migraine (Primary | | 2005 | Visit | Neurology [address] | MD | Dx) | | | | [address] | | | | | | Mailcode: [id number] | | | | | | Outpatient Clinic | | | | | | Building [place], | | | | | | [place] [address] | | | | | | [phone] | | | +--------+---------+ + + + [...] + + + | Blood Pressure | 80/50 | 12/14/2005 8:36 AM | | | | | PDT | | + + + + + | Pulse | 76 | 12/14/2005 8:36 AM | | | | | PDT [...] + + + + | Weight | 64.4 kg (142 lb) | 12/14/2005 8:36 AM | | | | | PDT | | + + + + + | Height | - | - | | + + + + + | Body Mass Index | - | - | | + + + + + documented in this encounter Patient Instructions Patient Instructions 12/14/2005 9:00 AM PDT 1. Taper off of the Lexapro, to 1 tablet every other day for 2 weeks then stop. 2. Taper off Topamax to 25 mg per day for 1 week then stop. 3. Start Neurontin 100 mg at night for 3 days, then increase to 200 mg at night for 3 days then up to 300 mg at night. After 1 month, increase to 300 mg morning and night. 4. Stop the Nortriptiline. 5. Follow up in 6 weeks. Can email me before then if needed. documented in this encounter Progress Notes Mouna Perry - 12/14/2005 9:50 AM PDTFormatting of this note might be different from t myles original. Clinic Date: 12/14/2005 Clinic: General Neurology Clinic Safia Lu is a 45 y.o. female who was last seen by Dr. Camacho August 17 for migraines . She is new to me, so her history is reviewed in detail. She started having headaches 6 years ago when she started a new job. 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 She describes her headaches as oc curing 1-2 times per week and lasting 1 day to a day and a half. They consist of burning at the crown of the head and then there is a vice like pain at the crown. The head feels hot inside and outside to the touch. There is photo and phono phobia and nausea. When they sta rt, she takes Flexeril, Dilaudid and Promethazine. If the headache is still there after a da y and a half, she will go to the ER. She is typically taking 4-8 Dilaudids per week. She has tried Imitrex and Maxalt abortively which haven't helped. She was on low doses of Atacand and Atenolol at different times which were stopped for reasons she cannot recall. S he was put on Topamax a month ago and is on 50 mg in the a.m. with no obvious change. She h as been on low dose Nortriptyline (25 mg) for a long time with no obvious benefit. When she increased it to 50 mg, her restless legs got worse. She has never been on Neurontin or a C alcium endy. On review of systems, she has depression and fatigue. Past Medical History: HYPOKALEMIA MIGRAINE Current outpatient prescriptions: ESTRADIOL OR 2.5mg once per day LEXAPRO 10 MG TAB take 1 tablet (10mg) by oral route once daily NORTRIPTYLINE 25 MG CAP 1 tab per day FLEXERIL OR prn for migraines, unsure of how many mgs DILAUDID 4 MG TAB take 1 tablet (4mg) by oral route every 4-6 hours as needed NEURONTIN 100 MG CAP take 1-2 capsules (100-200mg) by oral route at night NEURONTIN 300 MG CAP take 1 capsule (300mg) by oral route 1-2 times per day as directed Allergies: Codeine, Darvocet A500 Family History: no headaches in her parents or sibs. 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 She is no apparent physical stress. She has no s peech or language problems. Cardiac: Regular rate and rhythm. Lungs: Clear. Skin: Normal. Neurologic: Cranial Nerve 2: Pupils are equally reactive to light. Visual rodriguez are intact . Cranial nerves 3, 4, and 6: Extraocular muscles are normal. Cranial nerve 5: Sensation is intact to V1 through V3. Cranial nerve 7: Face is symmetric. Cranial nerve 10: Normal palate movement. Cranial nerve 12: Normal tongue movement. On motor examination,she has 5/5 strength bilaterally in the deltoid, interossei, iliopsoa s, dorsiflexion. Reflexes are 2+ symmetrically throughout except the ankles, which are 1+. Sensory exam is intact throughout to light touch, temperature, vibration. Cerebellar testing shows normal qxmssm-ge-lpye. On gait testing, she has a normal casual gait, but has decreased right arm swing. She is ab le to walk on her heels and toes in tandem. She has a negative Romberg. Ancillary Studies: Basename Value Date/Time ESR 3 03/20/2004 per records, outside MRI showed venous angioma, but otherwise normal. Impression: Safia is a 45 y.o. female with a 6 year history of migraines. they appear to b e related to stress, and there may be an element of rebound, given her frequent Dilaudid use . She is currently underdosed on all of ehr medicines. Plan: She will taper off of the Topamax, Nortriptyline and Lexapro as they are not doing a nything for her. I have started her on a low dose of Neurontin 100 mg which she will taper up to 300 mg po B ID over the next 6 weeks. This will hopefully help her migraines and restless legs, but reagan l not help with depression. At this point, I recommend counseling for the depression, and her PCP can arrange this. I will see her again in 6 weeks, but she can email me before then if needed. 45 mintues were spent with the patient, and more than half of that time was spent in [place]. documented in this e ncounter Plan of Treatment Not on filedocumented as of this encounter Visit Diagnoses + + | Diagnosis | + + | Migraine - Primary Migraine, unspecified, without mention of intractable migraine | | without mention of status migrainosus | + + documented in this encounter"
--- OUTSIDE RECORDS SUMMARY | ~2019-07-30 | XMS | Encounter Summary ---
Demographics + + + | Address | [address] | | | [place] [address] | + + + | Home Phone | | + + + | Preferred Language | Unknown | + + + | Marital Status | | + + + | Caodaism Affiliation | CAT | + + + [...] + | Angel Lu | ECON | [address] | | | | | [place] | | | | | [address] | | + + + + + Care Team Providers + +------+ + | Care Health Information Director Name | Role | Phone | + +------+ + PCP | Unavailable | + +------+ + Encounter Details +--------+ + + + + | Date | Type | Department | Care Team | Description | +--------+ + + + + | 03/20/ | Office | [facility] | Clinic, Neurology | Progress Note | | 2005 | Visit-Trans | | | | | [...] as of this encounter Progress Notes Interface, Senior Infrastructure Engineer In - 09/27/2004 12:40 AM PDT [id number] [facility] Date: 03/20/2004 Clinic: Neurology The patient was last seen last summer because of headache situation. At that time, she was using nortriptyline 50 mg at bedtime and 25 mg of atenolol daily as headache prophylactics, 4 mg of Dilaudid as "bail-out" medications. She discontinued the atenolol after that because of morning drowsiness, and about one month later, she noticed an increase in frequency of headaches, during the last 2 months, there has been a marked increase. Headache frequency has been between 15 and 20 days, but in the last 4 weeks, she has had 5 headaches. Aches will come on at any time of day without predisposing cause, first symptom is a sensation of heat and dull pain in the very top of the cranium, the scalp tends to hurt, and moving hair on the scalp is unpleasant, and in one hour or less she will develop a pounding in the head, which reaches greatest severity in 2 hours, without lateralization, and when this happens she tries to "write it out," continues with her work, and usually ends up leaving her work and going home cold and lying down in the bedroom with an ice pack over her head with lights off and the least noise possible. She would use Imitrex at work, and this may be effective within 45 to 60 minutes, but if the headache is still present, within an hour after the Imitrex, she takes a Dilaudid and oral Phenergan (50 mg?). She has also started having visual aura, "stars in all visual field," lasting about 2 minutes, but the headache starts first. She has not used the emergency room since August 2003. She has not menstruated since 1986 and takes 2.5 mg of estradiol daily. She says her serum potassium is alright now. Besides the increased frequency of headaches, she has over the last 1 or 2 months "not felt good," meaning that she has energy and neck pain. Physical Examination: A cursory exam was performed today, and we find her weight of 131 pounds, blood pressure of 100/70, pulse 88 (regular). There is some tenderness at the origin of the sternocleidomastoid muscles at the origin on the skull, left greater than the right, no nystagmus or papilledema, no impairment of neck mobility, no cervical chain lymphadenopathy, no pronator "drift," converter operator equal, muscle stretch reflexes in the arms and legs are symmetrical, plantar responses reflexive, Romberg is negative, tandem gait is normal. Opinion: It appears as if the discontinuation of the atenolol may have been somewhat responsible for increased frequency of the migraine. We are not at all sure why she "has not been feeling well." To this end, we will obtain a CBC, chem screen, today to see if such might show an alternate cause to her "not feeling well." In place of atenolol, discontinued because of drowsiness, we will start Atacand, at 8 mg per day, and this can gradually be increased to 24 mg per day, depending upon possible side effects, and response of the headaches. In the meantime, we will have her keep a calendar of her headache situation so that we get a very definite idea as to frequency. A few hours after the above, it became evident that serum potassium level was 2.5, the patient was not at home, so her physician was called and assessed of the situation, and a voice mail was left to notify the patient that she should communicate with her attending physician as soon as she receives the voice mail, phone call. The Atacand is somewhat of a different chemical family than the atenolol, and we would want to take in the consideration of its possible effects on persistent potassium in conjunction with the any other antihypertensive medications she is taking that might be responsible for her current hypokalemia, and I plan to assess the patient of this consideration. Juan Camacho M.D. CC / [id number] / [id number] / [id number] / [id number] cc: Mike Blackman M.D. [address] [place] [address] documented i n this encounter Plan of Treatment Not on filedocumented as of this encounter Visit Diagnoses Not on filedocumented in this encounter
--- OUTSIDE RECORDS SUMMARY | ~2019-07-30 | XMS | Encounter Summary ---
Demographics + + + | Address | [address] | | | [place] [address] | + + + | Home Phone | | + + + | Preferred Language | Unknown | + + + | Marital Status | | + + + | Rastafari Affiliation | CAT | + + + [...] [place] | | | | | [address] | | + + + + + Care Team Providers + +------+ + | Care Type Casting Machine Operator Name | Role | Phone | + +------+ + | Matthias Blackman DO | PCP | | + +------+ + Encounter Details +--------+ + + + + | Date | Type | Department | Care Team | Description | +--------+ + + + + | 05/17/ | Orders Only | Otolaryngology | Laura Pelayo, | Papillary Carcinoma | | 2007 | | Endocrinology | [address] | of Thyroid (HCC) | | | | Thyroid Services at | [facility] [address] | (Primary Dx) | | | | [facility] [address] | [place], [place] | | | | | [address] | [address] | | | | | Mailcode: [id number] | [phone] | | | | | Physician's Steve | | | | | | [place], [place] | | | | | | [address] | | | | | | [phone] | | | +--------+ + + + [...] | | + +------+--------+ + + | [facility] | Lab | Routin | Papillary | Ordered: 05/18/2007 | | VPUNCT | | e | Carcinoma of Thyroid | | | | | | (HCC) | | + +------+--------+ + + documented as of this encounter Procedures + +--------+ + + + | Procedure Name | Priori | Date/Time | Associated Diagnosis | Comments | | | ty | | | | + +--------+ + + + | THYROGLOBULIN LEVEL | Routin | 05/18/2007 | Papillary | Results for this | | AND ANTIBODY, SERUM | e | 10:34 AM | Carcinoma of Thyroid | procedure are in the | | | | PDT | (HCC) | results section. | + +--------+ + + + documented in this encounter Results THYROGLOBULIN, SERUM (05/18/2007 10:34 AM PDT) + + + + + + | Component | Value | Ref Range | Performed | Pathologist | | | | | At | Signature | + + + + + + | THYROGLOBUL | < 1.0Comment: | <14.5 IU/mL | | | | IN ANTIBODY | Test performed by | | | | | | [facility]. | | | | | | Anti-Thyroglobulin [...] + + + | [facility] | [address] | [facility], | | | | | [place] [address] | | + + + + + documented in this encounter Visit Diagnoses + + | Diagnosis | + + | 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
--- OUTSIDE RECORDS SUMMARY | ~2019-07-30 | XMS | Encounter Summary ---
Demographics + + + | Address | [address] | | | [place] [address] | + + + | Home Phone | | + + + | Preferred Language | Unknown | + + + | Marital Status | | + + + | Orthodoxy Affiliation | CAT | + + + [...] [place] | | | | | [address] | | + + + + + Care Team Providers + +------+ + | Care Battery Builder Name | Role | Phone | + +------+ + | Miguel AMatthias abreu DO | PCP | | + +------+ + Encounter Details +--------+ + + + + | Date | Type | Department | Care Team | Description | +--------+ + + + + | 02/02/ | Office | | Note, Outpatient | Progress Note | | 2001 | Visit-Trans | | Clinic | | [...] as of this encounter Progress Notes Interface, Field Services Manager In - 09/01/2005 1:09 AM PDTCLINIC DATE: 02/02/2002 SUBJECTIVE: Safia Lu returns today for followup of migraine headache disorder. Since being seen in the latter part of November 2001, Mrs. Lu reports that she has had 2 episodes of migraines. One of the headaches was relieved rather promptly with the use of the Maxalt, the other headache occurring this week did not respond to the Maxalt, and she had to be treated in the Emergency Room with narcotic analgesics and antiemetics. When she was seen in consultation in November 2001, it was recommended that she initiate prophylactic treatment with nortriptyline increasing up to 50 mg at bedtime daily. She started on a 25 mg tablet and noted definite improvement in her sleep pattern but was unable to increase it up to 50 mg at bedtime daily as the medication seemed to keep her awake. She has continued on 25 mg of nortriptyline at bedtime daily. PHYSICAL EXAMINATION VITAL SIGNS: Weight is 126 pounds, blood pressure is 108/74, and pulse 68 per minute and regular. GENERAL APPEARANCE: This is a well-developed, well-nourished female who is pleasant and cooperative. NEUROLOGIC: Within normal limits including cranial nerves 2 through 12, motor examination, sensation, and deep tendon reflexes. NECK: Supple. CLINICAL IMPRESSION: Migraine headache disorder. RECOMMENDATIONS: Will attempt to increase nortriptyline prescription to 50 mg at bedtime daily over the next several months. She is provided with 10-mg tablet prescription and will increase to 35 mg at bedtime and eventually try to get it up to 50 mg at bedtime daily. Will place on Imitrex injectable 6 mg for treatment of her current migraine episodes and discontinue Maxalt. Return appointment in 3 months' time. Glory Quintanilla M.D. CHRISTOPHER / SHANON [id number] / [id number] / [id number] / C: 02/16/2002 [facility] C: 02/28/2002 AM cc: Richard Dee M.D. [address] [facility], [place] [id number] signed by Interface, Field Services Manager In at 09/01/2005 1:0 9 AM PDTdocumented in this encounter Plan of Treatment Not on filedocumented as of this encounter Visit Diagnoses Not on filedocumented in this encounter"
--- OUTSIDE RECORDS SUMMARY | ~2019-07-30 | XMS | Encounter Summary ---
Demographics + + + | Address | [address] | | | [place] [address] | + + + | Home Phone [...] | + + + + + | Agnel Lu | ECON | [address] | | | | | [place] | | | | | [address] | | + + + + + Care Team Providers + +------+ + | Care Lining Folder Name | Role | Phone | + [...] | thyroid | [address] | [facility] | | | | | gland (HCC) | [address] [place], | | | | | | [place], | [place] | | | | | | [place] [address] | [address] | | | | | | Phone: | Phone: | | | | | | [phone] | [phone] | | | | | | Fax: | Fax: | | | | | | [phone] | [phone] | +--------+--------+ + + + + Encounter Details +--------+---------+ + + + | Date | Type | Department | Care Team | Description | +--------+---------+ + + + | 09/07/ | Office | Otolaryngology | Laura Mckenzie, | Papillary carcinoma | | 2012 | Visit | Endocrinology | MD Riki Wheat | of thyroid (HCC) | | | | Thyroid Services at | [facility] [address] | (Primary Dx) | | | | [address] | [place], [place] | | | | | [address] | [address] | | | | | Mailcode: [id number] | [phone] | | | | | Physician's [facility] | | | | | | [place], [place] | | | | | | [address] | | | | | | [phone] | | | +--------+---------+ + + + [...] + + + | Blood Pressure | 120/74 | 09/07/2012 2:08 PM | | | | | PDT | | + + + + + | Pulse | 84 | 09/07/2012 2:08 PM | | | | | PDT [...] + + + + | Weight | 58.1 kg (128 lb) | 09/07/2012 2:08 PM | | | | | PDT | | + + + + + | Height | - | - | | + + + + + | Body Mass Index | 24.19 | 08/20/2010 2:41 PM | | | | | PDT | | + + + + + documented in this encounter Progress Notes Laura Mckenzie MD - 09/07/2012 2:33 PM PDTEndocrinology Attending Teaching Services Documentation I saw and evaluated the patient in conjunction with Endocrinology Fellow, Dr. Dotson. Ple ase see note below for the full details of the visit. I agree with history, exam, assessmen t and management plan as detailed there. Safia is doing well; her thyroid function tests sh ow her dose of levothyroxine is a bit too high despite not having any hyperthyroid symptoms and we suggest reducing her dose of levothyroxine to 100 mcg daily and repeat thyroid functi on tests in 6 weeks. Her thyroid cancer surveillance showed a neg neck ultrasound a year ag o and neg ultrasensitive thyroglobulin last month; we will repeat a neck ultrasound again in a year and thyroglobulin at that time as well. LAURA MCKENZIE MD, [facility] Optometric Aide, Endocrinology Hernandez Ji M D - 09/07/2012 2:26 PM PDTTHYROID TUMOR CLINIC - ENDOCRINOLOGY THYROID CANCER Follow-up Safia Lu is a 52 y.o. female with a history of Papillary [...] of Levothyroxine is 112 mcg a day. Denies symptoms of hyper or hypothyroidism including heat intolerance, cold intolerance, co nstipation, diarrhea, excess sweating, palpitations, tremor. She denies other local symptom s including difficulty swallowing, neck pain, pressure sensation in neck and neck stiffness. She denies any new masses. Her headaches are better controlled and is now on cymbalta. Additional Medications: Current outpatient prescriptions:DULoxetine (CYMBALTA) 30 mg Oral capsule,delayed release(D R/EC), Take 30 mg by mouth once daily., Disp: , Rfl: HYDROmorphone 4 mg Oral Tablet, Take 1 Tab by mouth every three hours as needed for severe pain., Disp: 12 Tab, Rfl: 0 levothyroxine 112 mcg Oral Tablet, Take 1 Tab by mouth once daily., Disp: 30 Tab, Rfl: 12 Promethazine HCl 25 mg Oral Tablet, prn migraine, Disp: , Rfl: ropinirole (REQUIP) 1 mg Oral Tablet, take 1 tablet (1 mg) by oral route 3 times per day, D isp: , Rfl: PE: BP 120/74 | Pulse 84 | Wt 58.06 kg (128 lb) | BMI 24.2 kg/(m^2) General: Pleasant woman, in sunglasses appearing to [...] of normal consistency, temperature and texture. Laboratory: 07/2011 tsh : 0.018 Free t4: 1.7 h thyroglobulin <0.1 thyroglobulin ab<1.0 Radiology: Neck Ultrasound, 08/26/2011 The patient has [...] abnormality is seen. Assessment: This is a 52 y.o. female with Papillary Thyroid Carcinoma, follicular variant h ere for f/u. Her disease was T3 N0 M0, Stage III. No evidence of recurrent disease thyroid d isease at this time. History of negative thyrogen stimulated hole body iodine scan in 2007, persistently negative neck ultrasounds, and negative thyroglobulin. She is clinically euthyr oid however her tsh is suppressed with an elevated free t4. Our goal is to have her tsh in the range of 0.2-2.0 with normal free t4. We explained this to the patient and she agreed to lower her levothyroxine level. Plan: -Decrease levothyroxine to 100mcg daily, refilled for a year. -Will check ultrasound of neck prior to visit in . *Return to clinic in one year with thyroid function studies and unstimulated thyroglobulin The patient was seen and discussed with Dr Mckenzie who agrees with the assessment and plan. documented in this encounter Plan of Treatment + +------+--------+ + + | Name | Type | Priori | Associated Diagnoses | Order Schedule | | | | ty | | | + +------+--------+ + + | TSH | Lab | Routin | Papillary | Ordered: 09/07/2012 | | | | e | carcinoma of thyroid | | | | | | (HCC) | | + +------+--------+ + + | FREE T4, SERUM | Lab | Routin | Papillary | Ordered: 09/07/2012 | | | | e | carcinoma of thyroid | | | | | | (HCC) | | + +------+--------+ + + documented as of this encounter Results US THY [...]
--- OUTSIDE RECORDS SUMMARY | ~2019-07-30 | XMS | Encounter Summary ---
Demographics + + + | Address | [address] | | | [place] [address] | + + + | Home Phone [...] + | Angel Lu | ECON | [address] | | | | | [place] | | | | | [address] | | + + + + + Care Team Providers + +------+ + | Care Four Slide Machine Setter Name | Role | Phone | + +------+ + | Matthias Blackman DO | PCP | | + +------+ + Reason for Visit + + + | Reason | Comments | + + + | Nausea and vomiting | | + + + Encounter Details +--------+ + + + + | Date | Type | Department | Care Team | Description | +--------+ + + + + | 12/27/ | Telephone | Comprehensive | Mouna Perry, | Nausea and vomiting | | 2005 | | Neurology [address] | | | | | | [place] | | | | | | Mailcode: [id number] | | | | | | Outpatient Clinic | | | | | | Building [place], | | | | | | [place] [address] | | | | | | [phone] | | | +--------+ + + + [...]
--- OUTSIDE RECORDS SUMMARY | ~2019-07-30 | XMS | Encounter Summary ---
Demographics + + + | Address | [address] | | | [place] [address] | + + + | Home Phone | | + + + | Preferred Language | Unknown | + + + | Marital Status | | + + + | [employer] Affiliation | CAT | + + + [...] + | Angel Lu | ECON | [address] | | | | | [place] | | | | | [address] | | + + + + + Care Team Providers + +------+ + | Care Bioinformatics Engineer Name | Role | Phone | + +------+ + | Matthias Blackman DO | PCP | | + +------+ + Encounter Details +--------+ + + + + | Date | Type | Department | Care Team | Description | +--------+ + + + + | 09/13/ | Telephone | Otolaryngology | Laura Pelayo, | | | 2007 | | Endocrinology | [address] [facility] | | | | | Thyroid Services at | [facility] | | | | | [address] | [place], [place] | | | | | [address] | [address] | | | | | Mailcode: [id number] | [phone] | | | | | [facility] | | | | | | [place], [place] | | | | | | [address] | | | | | | [phone] | | | +--------+ + + + [...]
--- OUTSIDE RECORDS SUMMARY | ~2019-07-30 | XMS | Clinical Summary ---
Demographics + + + | Address | [address] | | | [place] [address] | + + + | Home Phone | | + + + | Preferred Language | Unknown | + + + | Marital Status | | + + + | Islam Affiliation | CAT | + + + | Race | White | + + + | Ethnic Group | Not or | + + + Author + + + | Author | [facility] | + + + | Organization | [facility] | + + + | Address | Unknown | + + + | Phone | Unavailable | + + + Support + + + + + | Name | Relationship | Address | Phone | + + + + + | Angel Lu | ECON | [address] | | | | | [place] | | | | | [address] | | + + + + + Care Team Providers + +------+ + | Care Bowling Ball Patcher Name | Role | Phone | + +------+ + | Matthias Blackman DO | PCP | | + +------+ + Source Comments VAISHNAVI is fully live on both [facility] and [facility] Allergies + + + + + + | Active Allergy | Reactions | Severity | Noted | Comments | | | | | Date | | + + + + + + | Acetaminophen | | | 12/16/19 | | | | | | 10 | | + + + + + + | Antihistamines - | | Medium | 08/26/19 | Pt states | | Alkylamine | | | 12 | inability to sleep | | | | | | for days on med | + + + + + + | Codeine | Faintness/Dizzy, | | 12/15/19 | | | | Nausea/Vomiting | | 06 | | + + + + + + | Propoxyphene | Faintness/Dizzy, | | 12/15/19 | | | N-Acetaminophen | Hives, | | 06 | | | | Nausea/Vomiting | | | | + + + + + + | Meperidine (Pf) | | | 10/21/19 | | | | | | 07 | | + + + + + + | Oxycodone-Aspirin | | | 10/21/19 | | | | | | 07 | | + + + + + + Medications + + + +---------+------+------+-------+ | Medication | Sig | Dispensed | Refills | Star | End | Statu | | | | | | t | Date | s | | | | | | Date | | | + + + +---------+------+------+-------+ | ropinirole | take 1 tablet (1 mg) | | 0 | | | Activ | | (REQUIP) 1 mg Oral | by oral route 3 | | | | | e | | Tablet | times per day | | | | | | + + + +---------+------+------+-------+ | HYDROmorphone 4 mg | Take 1 Tab by mouth | 12 Tab | 0 | 06/2 | | Activ | | Oral Tablet | every three hours as | | | 3/20 | | e | | | needed for severe | | | 11 | | | | | pain. | | | | | | + + + +---------+------+------+-------+ +---+ + | | Additional | | | InformationPatient | | | taking differently: | | | 8 mg oral EVERY 3 | | | HOURS NEEDED, | | | severe pain, | | | Reported on 08/07/2015 | | | 10:57 AM | +---+ + + + +--------+---+------+---+-------+ | promethazine 25 mg | Take 1 tablet by | 4 | 0 | 06/0 | | Activ | | oral tablet | mouth four times | tablet | | 11/17 | | e | | | daily as needed for | | | 16 | | | | | nausea/vomiting. | | | | | | + + +--------+---+------+---+-------+ | LEVOTHYROXINE 112 | TAKE ONE TABLET BY | 90 | 0 | 08/2 | | Activ | | mcg oral tablet | MOUTH EVERY DAY | tablet | | 20 | | e | | | | | | 18 | | | + + +--------+---+------+---+-------+ Active Problems + + + | Problem | Noted Date | + + + | Papillary carcinoma of thyroid | 10/20/2006 | + + + | Hypokalemia 276.8 | | + + + + + | Overview: <PROVIDER>C C KIMBERLEY | + + Family History + + +------+ + | Medical History | Relation | Name | Comments | + + +------+ + | Hypertension | Brother | | | + + +------+ + + +------+ + + | Relation | Name | Status | Comments | + +------+ + + | Brother | | | | + +------+ + + | Sister | | | | + +------+ + + Social History + +-------+ +--------+------+ [...] | + + Last Filed Vital Signs + + + [...] | | + + + + + Plan of Treatment + + + + + | Health Maintenance | Due Date | Last Done | Comments | + + + + + | Influenza (Flu) | | | | | vaccination (#1) | 9 | | | + + + + + | Pneumococcal | Aged Out | | No longer eligible | | vaccination | | | based on patient's | | | | | age to complete this | | | | | topic | + + + + + Results Not on filefrom Last 3 Months Insurance + +--------+ +--------+ + +------+ | Payer | Benefi | Subscriber | Effect | Phone | Address | Type | | | t Plan | ID | skyla | | | | | | / | | Dates | | | | | | Group | | | | | | + +--------+ +--------+ + +------+ | [employer] | BRIDGE | [phone] | Effect | [phone] | [address] | PPO | | | SPAN | | skyla | [address] | [address] | | | | EXCHAN | | for | | [place], | | | | [place] | | all | | [place] | | | | | | dates | | [address] | | + +--------+ +--------+ + +------+ + +--------+ +--------+ + + | Guarantor [...] | | al/Fam | | 1959 | [phone] | [place] | | | mathieu | | | 5 (Home) | [phone] | + +--------+ +--------+ + + Advance Directives + + + + + | Type | Date Recorded | Patient | Explanation | | | | Internal Grinder Set Up Operator | | + + + + + | Advance | | | | | Directives and | | | | | Living Will | | | | + + + + + | Power of | | | | | Foreclosure Clerk | | | | + + + + +
--- OUTSIDE RECORDS SUMMARY | ~2019-07-30 | XMS | Encounter Summary ---
Demographics + + + | Address | [address] | | | [place] [address] | + + + | Home Phone [...] [place] | | | | | [address] | | + + + + + Care Team Providers + +------+ + | Care Cage Cashier Name | Role | Phone | + +------+ + | Matthias Blackman DO | PCP | | + +------+ + Encounter Details +--------+ + + + + | Date | Type | Department | Care Team | Description | +--------+ + + + + | 08/24/ | Telephone | Otolaryngology | Laura Pelayo, | | | 2010 | | Endocrinology | [address] [facility] | | | | | Thyroid Services at | [facility] | | | | | [address] | [place], [place] | | | | | [address] | [address] | | | | | Mailcode: [id number] | [phone] | | | | | [facility] | | | | | | [place], [place] | | | | | | [address] | | | | | | [phone] | | | +--------+ + + + [...] Lab | Routin | Papillary | Ordered: 08/24/2010 | | | | e | carcinoma of thyroid | | | | | | (HCC) | | + +------+--------+ + + | FREE T4, SERUM | Lab | Routin | Papillary | Ordered: 08/24/2010 | | | | e | carcinoma of thyroid | | | | | | (HCC) | | + +------+--------+ + + documented as of this encounter Visit Diagnoses + + | Diagnosis | + + | 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
--- OUTSIDE RECORDS SUMMARY | ~2019-07-30 | XMS | Encounter Summary ---
Demographics + + + | Address | [address] | | | [place] [address] | + + + | Home Phone | | + + + | Preferred Language | Unknown | + + + | Marital Status | | + + + | Alevism Affiliation | CAT | + + + [...] + | Angel Lu | ECON | [address] | | | | | [place] | | | | | [address] | | + + + + + Care Team Providers + +------+ + | Care Home Attendant Name | Role | Phone | + +------+ + | Matthias Blackman DO | PCP | | + +------+ + Reason for Visit + + + | Reason | Comments | + + + | New patient | | | consultation | | + + + Benefits Check [...] | | [address] | [address] | | | | | | [address] | [address] | | | | | | [address] [place], | | | | | | [place], | [place] | | | | | | [place] [address] | [address] | | | | | | Phone: | Phone: | | | | | | [phone] | [phone] | | | | | | Fax: | Fax: | | | | | | [phone] | [phone] | +--------+ + + + + + Encounter Details +--------+---------+ + + + | Date | Type | Department | Care Team | Description | +--------+---------+ + + + | 10/20/ | Office | Otolaryngology | Laura Pelayo, | Papillary Carcinoma | | 2006 | Visit | Endocrinology | [address] | of Thyroid (HCC) | | | | Thyroid Services at | [facility] [address] | (Primary Dx) | | | | [address] | [place], [place] | | | | | [address] | [address] | | | | | Mailcode: [id number] | [phone] | | | | | [facility] | | | | | | [place], [place] | | | | | | [address] | | | | | | [phone] | | | +--------+---------+ + + + [...] + + + | Blood Pressure | 104/68 | 10/20/2006 2:50 PM | | | | | PDT | | + + + + + | Pulse | 88 | 10/20/2006 2:50 PM | | | | | PDT [...] + + + + | Weight | 59 kg (130 lb) | 10/20/2006 2:50 PM | | | | | PDT | | + + + + + | Height | - | - | | + + + + + | Body Mass Index | - | - | | + + + + + documented in this encounter Patient Instructions Patient Instructions Schuff, Laura - 10/20/2006 3:32 PM PDTCytomel 25 mcg 1 tablet twice a day for 2 weeks, then 1 tablet in Am, 1/2 tablet in PM for 1 week, then 1 tablet in AM for 1 week, then stop Labs in 6 weeks: Free T4, TSH documented in this encounter Progress Notes Laura Pelayo - 10/21/2006 12:19 AM PDTFormatting of this note might be different from th e original. THYROID TUMOR CLINIC - ENDOCRINOLOGY THYROID CANCER New Patient Safia Lu is a 46 y.o. female with a history of Papillary Thyroid Carcinoma, follicula r variant who is referred by Dr. Matthias Blackman for evaluation and management of papillary thyroid cancer. Pt was diagnosed with Papillary Thyroid Carcinoma, T3 N0 M0, Stage III in 2006. She underwent total thyroidectomy on 05/12/06. She had I-131 ablation with 121.7 mCi on 07/04 with post-therapy scan showing asymmetric uptake in the thyroid bed, but no dis tant metastases. There is no history of radiation exposure and no family history of thyroid cancer. Her current dose of Cytomel is 25 mcg twice a day. She complains of trouble getting back t o normal after her surgery and I-131 treatment. She has lost 20# in the last month, has not had return of her appetite and trouble with her energy, cindy in the evenings. She has had w orse migraine headaches and aching all over. She denies palpitations or tremors, constipati on but has had some diarrhea. She has noted a hard lump under her left jaw, but denies dry mouth or eye complaints. She denies any local neck symptoms. Current outpatient prescriptions : Promethazine HCl 25 mg Oral Tablet, prn migraine, Disp: , Rfl: Polyethylene Glycol 3350 (MIRALAX) 17 g (100%) Oral Powder in Packet, q day, Disp: , Rfl: Liothyronine Sodium (CYTOMEL) 50 mcg Oral Tablet, take 1 tablet (50 mcg) by oral route once daily, Disp: , Rfl: CALCIUM + D OR, 3 tabs q day, Disp: , Rfl: Levothyroxine Sodium 137 mcg Oral Tablet, 1 po once daily, Disp: 100, Rfl: 3 ESTRADIOL OR, 2.5mg once per day, Disp: , Rfl: FLEXERIL OR, prn for migraines, unsure of how many mgs, Disp: , Rfl: DILAUDID 4 MG TAB, take 1 tablet (4mg) by oral route every 4-6 hours as needed, Disp: , Rfl : Allergies Allergen Reactions Codeine Faintness/Dizzy and Nausea/Vomiting Darvocet A500 (propoxyphene N-acetaminophen) Faintness/Dizzy, Hives and Nausea/Vomiting Demerol (meperidine (pf)) Percodan (oxycodone-aspirin) Past Medical History Diagnosis Date Hypokalemia Migraine Restless Leg Syndrome Depressed Irritable Bowel Syndrome Closed Fracture of Sacrum and Coccyx without Spinal Cord Injury Closed Fracture Nose History Social History Marital Status: Occupational History Works at [employer] Tobacco Use: Never Alcohol Use: Ccasional Review of systems: per questionnaire in scanned chart PE: BP 104/68 | Pulse 88 | Wt 58.968 kg (130 lbs) General: alert and in no acute distress. HEENT: EOMs intact without lid lag, retraction or stare. Moderate 1.5 cm tender left subma ndibular gland. No parotid enlargement or tenderness bilaterally Neck: supple, no adenopathy, no palpable thyroid tissue, no masses and well-healed thyroide ctomy scar. Ext: no tremor on outstretched arms. Neuro: DTRs 2+ with normal relaxation phase. Strength, gait and mental status are grossly intact. Skin: warm and of normal consistency, temperature and texture. Laboratory: 09/14/06: Free T4 <0.3 Total T3 423 (nl - 215) TSH 0.026 TgAB neg Assessment: This is a 46 y.o. female with Papillary Thyroid Carcinoma, T3 N0 M0, Stage III, s/p thyroidectomy 05/12/06, I-131 ablation with 121.7 mCi 07/04 with post-therapy scan showin g asymmetric uptake in the thyroid bed, but no distant metastases. She is currently on cyto stephie rather than levothyroxine for thyroid hormone replacement and this may be contributing t o some of her symptoms, in particular, her weight loss and her poor appetite, and possibly e vening fatigue. In addition, hyperthyroid patients often have worse headaches, so this may be contributing to her increased migraines, although I cautioned her that the only way to de termine this is to normalize her thyroid function with levothyroxine and see what happens to the pattern of her headaches. To achieve this, I have recommended that she start levothyro xine 137 mcg and taper her cytomel over the next 4 weeks. She will need thyroid function te sts done in 6 weeks to assure this is the correct dose for her and I have given her a lab sl ip to have this done. With regard to f/u on her thyroid cancer, I recommended to her that at one year after her i nitial I-131 scan we repeat an I-131 scan and thyroglobulin. We discussed doing this with t hyroid hormone withdrawal vs. Thyrogen injections and I think she would be a candidate for t he latter given her negative antithyroglobulin antibodies and relatively limited disease. I will see her in 6 mos for continued levothyroxine titration, clinical evaluation and to sudhakar n this 1 year f/u evaluation. Plan: Start levothyroxine 137 mcg once daily Taper cytomel over the next 4 weeks RTC 6 mos. documented in this encoun ter Plan of Treatment + +------+--------+ + + | Name | Type | Priori | Associated Diagnoses | Order Schedule | | | | ty | | | + +------+--------+ + + | FREE T4, SERUM | Lab | Routin | Papillary | Ordered: 10/20/2006 | | | | e | Carcinoma of Thyroid | | | | | | (HCC) | | + +------+--------+ + + | TSH-THYROID STIM | Lab | Routin | Papillary | Ordered: 10/20/2006 | | HORMONE | | e | Carcinoma of Thyroid | | | | | | (HCC) | | + +------+--------+ + + documented as of this encounter Visit Diagnoses + + | Diagnosis | + + | 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
--- OUTSIDE RECORDS SUMMARY | ~2019-07-30 | XMS | Encounter Summary ---
Demographics + + + | Address | [address] | | | [place] [address] | + + + | Home Phone | | + + + | Preferred Language | Unknown | + + + | Marital Status | | + + + | Shinto Affiliation | CAT | + + + | Race | White | + + + | Ethnic Group | Not or | + + + Author + + + | Author | [facility] | + + + | Organization | [facility] | + + + | Address | Unknown | + + + | Phone | Unavailable | + + + Support + + + + + | Name | Relationship | Address | Phone | + + + + + | Angel Lu | ECON | [address] | | | | | [place] | | | | | [address] | | + + + + + Care Team Providers + +------+ + | Care Financial Administrative Assistant Name | Role | Phone | + +------+ + | Matthias Blackman DO | PCP | | + +------+ + Encounter Details +--------+------+ + + + | Date | Type | Department | Care Team | Description | +--------+------+ + + + | 08/08/ | Lab | Laboratory at [facility] | | Papillary carcinoma | | 2015 | | [address] | | of thyroid (HCC) | | | | [address] [facility] | | | | | | [place], [address] [place] [address] | | | | | | [place], [place] | | | | | | [address] | | | | | | [phone] | | | +--------+------+ + + + [...] + | THYROGLOBULIN LEVEL | Routin | 08/08/2014 | Papillary | Results for this | | AND ANTIBODY, SERUM | e | 3:05 PM | carcinoma of thyroid | procedure are in the | | | | PDT | ([facility]) | results section. | + +--------+ + + + | FREE T4 | Routin | 08/08/2014 | Papillary | Results for this | | | e | 3:05 PM | carcinoma of thyroid | procedure are in the | | | | PDT | ([facility]) | results section. | + +--------+ + + + | TSH | Routin | 08/08/2014 | Papillary | Results for this | | | e | 3:05 PM | carcinoma of thyroid | procedure are in the | | | | PDT | ([facility]) | results section. | + +--------+ + + + documented in this encounter Results FREE T4 (08/08/2014 3:05 PM PDT) + [...] + + | [facility] | [address] | [place] [address] | | | SERVICES, CORE | PARK [...] [facility] | [address] | [place] [address] | | | SERVICES, CORE | PARK [...] | Test performed | [facility] | | by:[id number] [place] [address] | REFERENCE LAB | | | | |[place] [address] | | | | | + + [...]
--- OUTSIDE RECORDS SUMMARY | ~2019-07-30 | XMS | Encounter Summary ---
Demographics + + + | Address | [address] | | | [place] [address] | + + + | Home Phone [...] + | Angel Lu | ECON | [address] | | | | | [place] | | | | | [address] | | + + + + + Care Team Providers + +------+ + | Care Filter Tip Catcher Name | Role | Phone | + +------+ + | Matthias Blackman DO | PCP | | + +------+ + Reason for Visit +--------+ + | Reason | Comments | +--------+ + | Other | Pt received letter a couple weeks ago about scheduling tests. She | | | wants to know if the tests will be in August and if she can have | | | them done at [facility] in [place]? She can be reached at | | | [phone] [facility] or [phone] home. Thank you. | +--------+ + Encounter Details +--------+ + + + + | Date | Type | Department | Care Team | Description | +--------+ + + + + | 07/09/ | Telephone | Otolaryngology | Laura Pelayo, | Other (Pt received | | 2007 | | Thyroid Services at | [facility] [address] | letter a couple | | | | [facility] [address] | weeks ago about | | | | [address] | [place], [place] | scheduling tests. | | | | Physician's | [address] | She wants to know if | | | | [address], [address] floor | [phone] | the tests will be | | | | [place], [place] | | in August and if she | | | | [address] | | can have them done | | | | [phone] | | at [facility] in | | | | | | [place]? She can | | | | | | be reached at | | | | | | [phone] [facility] or | | | | | | [phone] [place]. | | | | | | Thank you. ) | +--------+ + + + + [...] | + +--------+ + + + | NM THYROID CARCINOMA | Routin | 09/15/2007 | Papillary | Results for this | | METASTASES IMAGING | e | 9:52 AM | Carcinoma of Thyroid | procedure are in the | | WHOLE BODY | | PDT | (HCC) | results section. | + +--------+ + + + documented in this encounter Results NM THYROID CARCINOMA METASTASES IMAGING WHOLE BODY (09/15/2007 9:52 AM PDT) + + + + + + | Component | Value | Ref Range | Performed | Pathologist | | | | | At | Signature | + + + + + + | NM THYROID | Clinical history:History | | | | | CA METS IMG | of papillary thyroid | | | | | WH BDY | carcinoma, surgery and | | | | | | treatment outsidein | | | | | | 2006, please | | | | | | evaluateComparison:NoneS | | | | | | tudy:Thyrogen stimulated | | | | | | pole body iodine scan | | | | | | of 09/15/07Findings:The | | | | | | patient received | | | | | | Thyrogen injections on | | | | | | 09/10 and 09/11 at | | | | | | [facility] , and | | | | | | received a dose | | | | | | reported as 4 mCi on | | | | | | 09/12.Anterior and | | | | | | posterior imaging of the | | | | | | head neck chest abdomen | | | | | | pelvisand proximal | | | | | | thighs shows no uptake | | | | | | in the neck, | | | | | | questionable faintuptake | | | | | | in the mediastinum, | | | | | | and usual physiologic | | | | | | uptake seen in | | | | | | thestomach along the | | | | | | course of the bowel and | | | | | | in the | | | | | | bladder.IMPRESSION:1. | | | | | | Faint and questionable | | | | | | uptake in the | | | | | | mediastinum, not | | | | | | convincing.2. | | | | | | Otherwise no candidate | | | | | | for unusual iodine | | | | | | localization.END OF | | | | | | IMPRESSION:I have | | | | | | personally viewed this | | | | | | procedure/exam and | | | | | | reviewed this | | | | | | report.STATUS FINAL / | | | | | | Dr. LUIS Reyez | | | | + + + [...] | + +---------+ + + THYROGLOBULIN, SERUM (09/15/2007 9:23 AM PDT) + + + + + + | Component | Value | Ref Range | Performed | Pathologist | | | | | At | Signature | + + + + + + | THYROGLOBUL | < 1.0Comment: | <14.5 IU/mL | | | | IN ANTIBODY | Test performed by | | | | | | [facility]. | | | | | | Anti-Thyroglobulin [...] + + + | [facility] | [address] | [facility], | | | | | [place] [address] | | + + + + + [...] change effective 12/19/06 | | | [facility] | | | [place] [address] | | | [place] [address] | | + + + + + + + + | Performing | Address | City/State/Zipcode | Phone Number | | Organization | | | | + + + + + | [facility] | [address] | [place] [address] | | | LABORATORY | | | | + + + + + documented in this encounter Visit Diagnoses + + | Diagnosis | + + | 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
--- OUTSIDE RECORDS SUMMARY | ~2019-07-30 | XMS | Encounter Summary ---
Demographics + + + | Address | [address] | | | [place] [address] | + + + | Home Phone | | + + + | Preferred Language | Unknown | + + + | Marital Status | | + + + | Gnosticism Affiliation | CAT | + + + | Race | White | + + + | Ethnic Group | Not or | + + + Author + + + | Author | [facility] | + + + | Organization | [facility] | + + + | Address | Unknown | + + + | Phone | Unavailable | + + + Support + + + + + | Name | Relationship | Address | Phone | + + + + + | Angel Lu | ECON | [address] | | | | | [place] | | | | | [address] | | + + + + + Care Team Providers + +------+ + | Care Barytes Grinder Name | Role | Phone | + +------+ + | Matthias Blackman DO | PCP | | + +------+ + Encounter Details +--------+ + + + + | Date | Type | Department | Care Team | Description | +--------+ + + + + | 10/10/ | Telephone | Otolaryngology | Laura Pelayo, | | | 2008 | | Endocrinology | [address] [facility] | | | | | Thyroid Services at | [facility] | | | | | [address] [address] | [place], [place] | | | | | [address] | [address] | | | | | Mailcode: [id number] | [phone] | | | | | [facility] | | | | | | [place], [place] | | | | | | [address] | | | | | | [phone] | | | +--------+ + + + [...]
--- OUTSIDE RECORDS SUMMARY | ~2019-07-30 | XMS | Encounter Summary ---
Demographics + + + | Address | [address] | | | [place] [address] | + + + | Home Phone | | + + + | Preferred Language | Unknown | + + + | Marital Status | | + + + | Mosque Affiliation | CAT | + + + | Race | White | + + + | Ethnic Group | Not or | + + + Author + + + | Author | [facility] | + + + | Organization | [facility] | + + + | Address | Unknown | + + + | Phone | Unavailable | + + + Support + + + + + | Name | Relationship | Address | Phone | + + + + + | Angel Lu | ECON | [address] | | | | | [place] | | | | | [address] | | + + + + + Care Team Providers + +------+ + | Care Brown Sourer Name | Role | Phone | + +------+ + | Matthias Blackman DO | PCP | | + +------+ + Encounter Details +--------+ + + + + | Date | Type | Department | Care Team | Description | +--------+ + + + + | 07/12/ | Merchandising Assistant | Otolaryngology | Laura Pelayo, | | | 2014 | | Thyroid Services at | MD [address] | | | | | [facility] [address] | | | | | [address] | [place], [place] | | | | | Physician's | [phone] | | | | | [address], [address]nd floor | [phone] | | | | | [place], [place] | | | | | | [address] | | | | | | [phone] | | | +--------+ + + + [...] + | FREE T4 | Routin | 07/11/2014 | | Results for this | | | e | | | procedure are in the | | | | | | results section. | + +--------+ + + + | TSH | Routin | 07/11/2014 | | Results for this | | | e | | | procedure are in the | | | | | | results section. | + +--------+ + + + documented in this encounter Results FREE T4 (07/11/2014) + +-------+ + + + | Component | Value | Ref Range | Performed | Pathologist | | | | | At | Signature | + +-------+ + + + | FREE T4 | 1.5 | 0.7 - 1.7 ng/dL | [facility] | | | | | | [facility] | | | | | | [place] | | + +-------+ + + + + + | Specimen | + + | Blood - Blood | + + + + + + + | Performing | Address | City/State/Zipcode | Phone Number | | Organization | | | | + + + + + | [facility] | [address] | [place] [address] | [phone] | | [facility] | | | | + + + + + TSH (07/11/2014) + + + + + + | Component | Value | Ref Range | Performed | Pathologist | | | | | At | Signature | + + + + + + | TSH | 5.87 (A) | 0.270 - 4.20 | [facility] | | | | | uIU/ml | [facility] | | | | | | [place] | | + + + + + + + + | Specimen | + + | Blood - Blood | + + + + + + + | Performing | Address | City/State/Zipcode | Phone Number | | Organization | | | | + + + + + | [facility] | [address] | [place] [address] | [phone] | | [facility] | | | | + + + + + documented in this encounter Visit Diagnoses Not on filedocumented in this encounter"
--- OUTSIDE RECORDS SUMMARY | ~2019-07-30 | XMS | Encounter Summary ---
Demographics + + + | Address | [address] | | | [place] [address] | + + + | Home Phone [...] + + + | Author | [facility] | + + + | Organization | [facility] | + + + | Address | Unknown | + + + | Phone | Unavailable | + + + Support + + + + + | Name | Relationship | Address | Phone | + + + + + | Angel Lu | ECON | [address] | | | | | [place] | | | | | [address] | | + + + + + Care Team Providers + +------+ + | Care General Office Worker Name | Role | Phone | + +------+ + | Matthias Blackman DO | PCP | | + +------+ + Encounter Details +--------+ + + + + | Date | Type | Department | Care Team | Description | +--------+ + + + + | 08/19/ | Hospital | Diagnostic | Laura Pelayo, | | | 2017 | Encounter | Radiology at [facility] | [address] | | | | | [address] | [address] | | | | | Loop Physician's | [place], [place] | | | | | [address], [address] Floor | [address] | | | | | [place], [place] | [phone] | | | | | [address] | | | | | | [phone] | | | +--------+ + + + [...] US SOFT TISSUE HEAD | Routin | 08/19/2016 | Papillary thyroid | Results for this | | & NECK | e | 12:04 PM | carcinoma (HCC) | procedure are in the | | | | PDT | | results section. | + +--------+ + + + documented in this encounter Results US SOFT TISSUE HEAD & NECK (08/19/2016 12:04 [...] identified, similar in appearance to examinations da addieg back to 2011. | |Left thyroid bed: [...] + + | Papillary thyroid carcinoma (HCC) Malignant neoplasm of thyroid gland | + + documented in this encounter"
--- OUTSIDE RECORDS SUMMARY | ~2019-07-30 | XMS | Encounter Summary ---
Demographics + + + | Address | [address] | | | [place] [address] | + + + | Home Phone | | + + + | Preferred Language | Unknown | + + + | Marital Status | | + + + | Restorationism Affiliation | CAT | + + + | Race | White | + + + | Ethnic Group | Not or | + + + Author + + + | Author | [facility] | + + + | Organization | [facility] | + + + | Address | Unknown | + + + | Phone | Unavailable | + + + Support + + + + + | Name | Relationship | Address | Phone | + + + + + | Angel Lu | ECON | [address] | | | | | [place] | | | | | [address] | | + + + + + Care Team Providers + +------+ + | Care Carpenter Bridge Name | Role | Phone | + [...] + + + + | 08/07/ | Telephone | Otolaryngology | Laura Pelayo, | Other | | 2007 | | Thyroid Services at | [address] | | | | | [facility] [address] | | | | | [address] | [facility] [place] | | | | | Physician's | [phone] | | | | | Pavilion, 2nd floor | [phone] | | | | | [place], [place] | | | | | | [address] | | | | | | [phone] | | | +--------+ + + + [...]
[~2019-07-30 11:06] MED LIST changes: +ASPIRIN EC325 MG PO; +CELECOXIB200 MG PO; -CYCLOBENZAPRINE10 MG PO; +CYCLOBENZAPRINE5 MG PO; +GABAPENTIN300 MG PO; +HYDROMORPHONE HC4 MG PO; -REQUIP0.5 MG PO; +REQUIP3 MG PO; +SENNA LAX8.6 MG PO; +VITAMIN C1000 MG PO; -VITAMIN C500 M1 PO
[2019-07-30] MEDS ORDERED: VITAMIN D350 MC3 PO (11:51)
--- NOTE | 2019-07-30 18:56 | NUR ---
07/30/191855 Hannah Chan 184: PT BROUGHT TO PACU, DROWSY. SHE QUCIKLY WAKES UP AND IS CONVERSATIONAL. SHE REPORTS NO PAIN, BUT IS COLD.
--- NOTE | 2019-07-30 19:30 | NUR ---
pt ARRIVES TO MEDICAL FLOOR VIA STRETCHER WITH CRYSTAL FLYNN. REPORT RECEIVED. CALL TO ADMITTING TO TRANSFER pt TO MEDICAL FLOOR. ORIENTATION TO ROOM PROVIDED. pt ON RA, DENIES NAUSEA. REQUESTING TO EAT.
--- NOTE | 2019-07-30 19:51 | NUR ---
07/30/191950 Hannah Chan 184: PT BROUGHT TO PACU DROWSY. HE QUICKLY WAKES UP AND IS CONVERSTATIONAL. SHE REPORTS NO PAIN, BUT IS COLD. RAMONITA 1855: DR. FABIAN IS AT THE BEDSIDE TO TALK WITH PATIENT. RAMONITA 1858: PT IS SIPPING ON WATER RAMONITA 1914: PT STILL DENYING PAIN. HAVING DIFFICULTY OBTAINING AN ACCURATE O2 SAT, HER EXTREMITIES ARE COLD. SWITCHED TO EAR PROBE WITHOUT MUCH IMPROVEMENT. MED/SURG CALLED AND NOTIFIED WILL BE BRINGING THE PATIENT DOWN.
--- NOTE | 2019-07-30 20:03 | NUR ---
SPOKE WITH TELEPHARMACY AND THEN THE PT REGARDING IBUPROFEN LISTED AN ALLERGY\ADVERSE REACTION. PT STATED THAT SHE HAS HAD ASA AND CELEBREX BEFORE AND DID NOT HAVE A PROBLEM BUT WOULD REFUSE TO TAKE TORADOL AT ALL. IBUPROFEN APPERENTLY GIVES HER RESTLESS LEGS AND TORADOL DOES THE SAME THING. SUPERVISOR MENDINGCRYSTAL PUENTES STATED SHE WOULD DC THE TORADOL.
--- NOTE | 2019-07-30 20:12 | NUR ---
pt ASSESSMENT COMPLETE. RESTING IN BED AWAKE, EATING FRUIT, CHEESE. pt DENIES NAUSEA. DENIES ANY PAIN. CAP REFILL < 3 BLE, DULL SENSATION IN RIGHT LOWER EXTREMITY. PEDRO DRESSING FLASHING GREEN LIGHT, AMARJIT WRAP IN PLACE, NO DRAINAGE NOTED ON DRESSING. CALL LIGHT IN REACH.
--- NOTE | 2019-07-30 20:52 | NUR ---
PHONE CALL TO , NOTIFIED OF pt REPORTED ALLERGIES TO KETOROLAC, TELEPHONE ORDER TO DC MEDICATION REPEATED BACK. OKAY TO USE ICE PACKS TONIGHT, TO BRING IN CRYO CUFF FOR MORNING. POST OP VSS. pt RATES PAIN 7/10 IN RIGHT KNEE, REQUESTING PRN MEDICATION "ITS STARTING TO FEEL PAINFUL". CRYSTAL PUENTES IN ROOM.
--- NOTE | 2019-07-30 21:20 | NUR ---
POST OP VSS. pt RESTING IN BED, PRN PAIN MEDICATION ADMINISTERED FOR 7/10 PAIN IN RIGHT KNEE. ICE PACKS IN PLACE. PRN NAUSEA MEDICATION ADMINISTERED REQUESTED. PICC LINE WITH GOOD BLOOD RETURN. CALL LIGHT IN REACH.
--- NOTE | 2019-07-30 22:05 | NUR ---
IN ROOM TO REASSESS PAIN, pt REPORTS PAIN "ABOUT THE SAME" RESTING IN BED, DROWSY. ICE PACKS IN PLACE. ICE WATER PROVIDED.
--- NOTE | 2019-07-30 22:36 | NUR ---
PT POST VS COMPLETED. PT MOSTLY SLEEPY. PICC R HEP LOCKED. DENIES FURTHER NEEDS,
--- NOTE | 2019-07-30 23:35 | NUR ---
CALL LIGHT ANSWERED. pt ASSISTED TO BEDPAN WITH ELIZABETH HOLGUIN, 400 ML VOID. ATT[address]DS IN PLACE. pt STATES "NOW I SHOULD BE ABLE TO GET SOME REAL SLEEP". NO C/O PAIN. FRESH ICE PACKS IN PLACE. CALL LIGHT IN REACH. SCD ON LEFT LEG.
--- NOTE | 2019-07-31 02:15 | NUR ---
pt ASSESSMENT COMPLETE. pt UP TO RESTROOM, SBA WITH FWW. CSM INTACT BUE, BLE. NO DRAINAGE NOTED ON AMARJIT WRAP. PEDRO FLASHING GREEN LIGHT. RATES PAIN 8/10 IN RIGHT KNEE, PRN PO MEDICATION ADMINISTERED. pt AMBULATING IN HALLWAY, SBA, TOLERATED WELL. RESTING IN BED, SCD ON, ICE PACKS IN PLACE. CALL LIGHT IN REACH.
--- NOTE | 2019-07-31 06:21 | NUR ---
pt AWAKENS TO RN ENTERING ROOM. SBA WITH FWW TO RESTROOM FOR 1000 ML VOID, GAIT STEADY. ORAL CARE COMPLETE. BREAKFAST ORDER TAKEN BY RN. VSS. pt C/O 10/07 PAIN, 8 MG PO DILAUDID ADMINISTERED REQUESTED, pt STATES "I DON'T THINK THE ONE PILL IS GOING TO CUT IT". NEW ICE PACKS IN PLACE ON RIGHT KNEE. SCD ON. CALL LIGHT IN REACH. ICE WATER PROVIDED.
--- NOTE | 2019-07-31 06:31 | NUR ---
pt RESTED WELL THIS SHIFT. CSM INTACT BLE. PAIN CONTROLLED WITH SCHEDULED AND PRN PAIN MEDICATIONS. PEDRO DRESSING IN PLACE, CDI, FLASHING GREEN LIGHT, ON Q PUMP IN PLACE. SCD ON LEFT LEG. VSS. TOLERATING REGULAR DIET. VOIDING QS. UP AMBULATING IN HALLWAY SBA WITH FWW, GAIT STEADY. PICC LINE SL WNL.
--- NOTE | 2019-07-31 07:15 | NUR ---
REPORT RECEIVED FROM CRYSTAL MORRELL. PT RESTING IN BED. PT REPORTS 09/06 PAIN AND REQUESTS MEDICAITON. NO ADDITIONAL REQUESTS OR COMPLAINTS. CALL MARISSA RICO.
--- NOTE | 2019-07-31 07:50 | NUR ---
PATIENT RESTING IN BED. RN AND STUDENT RN IN ROOM. CALL LIGHT WITHIN REACH.
--- NOTE | 2019-07-31 08:08 | NUR ---
MORNING ASSESSMENT AND MEDICATION DUE. PT RESTING IN BED. NO JUANITO HOSE IN PLACE SCD'S NOT ON. PAIN MEDICATION GIVEN. ASSESSMENT DONE. DRESSING C/D/I WITH GREEN LIGHT FLASHING ON PEDRO CANISTER. ON-Q PUNMP NOTED TO BE SET AT 8. PT REPORTS SHE TURNED UP HER ON-Q PUMP FROM 6 TO 8 "BECAUSE IT HURTS." ON-Q PUMP RETURNED TO SETTING OF 6 PER MD ORDER. EDUCATION DONE WITH PT. CMS INTACT. PT AMUBULATES TO CHAIR WITH SBA. JUANITO HOSE APPLIED, PT REPORTS INCREASED PAIN WITH AMBULATION AND JUANITO HOSE APPLICATION. PICC LINE SHOWS GOOD BLOOD RETURN. SALINE LOCKED AT THIS TIME. PT EATING BREAKFAST, NO ADDITIOANL REQUESTS OR COMPLAINTS AT THIS TIME. CALL LIGHT WITHIN REACH.
--- NOTE | 2019-07-31 08:30 | NUR ---
NOTIFIED OF CULTURE GROWTH FEW GRAM POSITIVE BACILLI
--- NOTE | 2019-07-31 10:12 | NUR ---
PATIENT USING THE BATHROOM. STUDENT RN IN ROOM. PATIENT BACKS TO CHAIR. PATIENT USES WALKER. VITAL SIGNS OBTAINED BY STUDENT RN. VITAL SIGNS AND I&O DONE. CALL LIGHT WITHIN REACH. NO OTHER NEEDS AT THIS TIME
--- NOTE | 2019-07-31 10:42 | NUR ---
MEDICATION DUE. THIS RN TO ROOM TO CHECK ON PT. EDUCATION DONE REGARDING VANCOMYCIN AND PICC LINES. PT VERVALIZES UNDERSTANDING AND STATES HER QUESTIONS HAVE BEEN ANSWERED. MEDICATION STARTED. PT REPORTS 9/10 PAIN IN RIGHT KNEE AFTER WALK (1 LAP IN ZHONG). PT BACK TO BED TO REST. SEE MAR FOR MEDICATION GIVEN. CRYO CUFF FILLED WITH ICE AND STARTED. SCD'S IN PLACE. JUANITO HOSE IN PLACE. NO ADDITIONAL REQUESTS OR COMPLAINTS. CALL LIGHT WITHIN REACH.
--- NOTE | 2019-07-31 11:14 | OR ---
[facility] [address], [place] [address] Signed DATE OF OPERATION: 07/30/2019 SURGEON: Ankit Cutler MD PREOPERATIVE DIAGNOSIS: Infected total knee arthroplasty, right. POSTOPERATIVE DIAGNOSIS: Subcutaneous infection, right knee. PROCEDURE PERFORMED: Irrigation and debridement of skin and subcutaneous tissue and deep muscle with polyethylene exchange, right total knee. SWITCHBOARD INSTALLER: Yanira Mccloud PA-C, Yanira was present and critical for all portions of procedure. ANESTHESIA: Spinal. ESTIMATED BLOOD LOSS: 100 mL. TOURNIQUET: No tourniquet. IMPLANTS: A 19 mm #2 poly was exchanged. BRIEF HISTORY: Safia is a 59-year-old female, who started feeling sick and having acute knee pain this weekend. She presented to PT today with a swollen sore knee and was sent to my office. We were in surgery all day, however, my nurse looked at her and called me, and we had her come over here for examination. Her knee did show marked swelling and soft tissue edema with redness. Her white blood cell count was 19,000 on serum check. We then admitted her directly to the hospital for I and D and poly exchange immediately. Risks, benefits, and alternatives were discussed with her. Preoperatively, we did place a PICC line for long-term IV antibiotics. Electronically Signed By: ANKIT CUTLER MD 07/31/19 0801 Electronically Signed By: ANKIT CUTLER MD 08/01/19 0754 PATIENT NAME: SAFIA PORTER DEMARCUS OPERATIVE REPORT DATE OF : 58 REPORT #: [id number] PHYSICIAN: ANKIT CUTLER MD PCP: SCOTT MARRUFO MD REPORT IS CONFIDENTIAL AND NOT TO BE RELEASED WITHOUT AUTHORIZATION [facility] [address], [place] [address] Signed DESCRIPTION OF PROCEDURE: Once consent was obtained, she was taken to the operating room. After adequate anesthesia, the leg was prepped and draped in a standard sterile fashion. The knee was aspirated, however, the knee had no significant fluid in it. Subcutaneous tissue showed about 40 mL of turbid purulent material. This was aspirated, sent for synovial fluid sample and cultures. The incision was then incised longitudinally, carried through the subcutaneous tissue. Again, more fluid was encountered in the subcutaneous space. No holes or rents were noted in the closure of the fascia. It was completely watertight. We did wash out the subcutaneous tissue quite well and then made a subvastus approach to the knee, opening it up all the way. It was completely dry inside. We did release the medial side a little bit and flexed her knee and removed the polyethylene. Her knee and the subcutaneous tissue were then washed out with 3 L of antibiotic irrigation followed by 2 L of normal saline. The metal components in the posterior aspect of the knee were then scrubbed using hydrogen peroxide soaked sponges. The soft tissue was then debrided sharply throughout the inside of the knee as well as the subcutaneous tissue to create a good bleeding bed. Once this was accomplished, the new polyethylene was selected and was snapped into position. The knee was stable at the end of this. On-Q pump was then placed percutaneously into the adductor canal. The arthrotomy was then closed using 0 PDS in interrupted fashion. Subcutaneous tissue was closed in interrupted fashion with 2-0 Monocryl. Skin was closed with lucy. The wound was dressed with a PEDRO wound VAC dressing and Hoang wrap. She tolerated the procedure well. All sponge, needle, and instrument counts were correct. Ankit Cutler MD BA/ARIANNEL /[id number] Copies: ~ Electronically Signed By: ANKIT CUTLER MD 07/31/19 0801 Electronically Signed By: ANKIT CUTLER MD 08/01/19 0754 PATIENT NAME: SAFIA PORTER DEMARCUS OPERATIVE REPORT DATE OF : 58 REPORT #: [id number] PHYSICIAN: ANKIT CUTLER MD PCP: SCOTT MARRUFO MD REPORT IS CONFIDENTIAL AND NOT TO BE RELEASED WITHOUT AUTHORIZATION
--- NOTE | 2019-07-31 11:29 | NUR ---
DR FABIAN REQUESTED PS' BE ALLOWED TO COME FOR VISIT. HE BELIEVES THIS IS IN THE BEST INTEREST OF PT.DIRECT ADMIT FROM HIS OFFICE, CONNECTED WITH CRYSTAL MCCLENDON, BOILER INSPECTOR BECKY AND DR JOHNSON. ALL AGREED UNDER CIRCUMSTANCES THAT PTS' COULD COME FOR A VISIT WITH PROPER SCREENING AND MASKING. I WILL CONTINUE TO FOLLOW
[2019-07-31] MEDS ORDERED: RESTORIL15 MG PO (11:32)
[2019-07-31] MEDS ORDERED: PROMETHAZINE HC25 M1 PO (11:36)
[2019-07-31] MEDS ORDERED: GERI-KOT8.6 MG PO (11:37)
--- NOTE | 2019-07-31 11:45 | NUR ---
Spoke with Carmen. She lives in [place] with her spouse. Discussed Dr. Cutler would like her to have IV therapy when culture established with . Discussed HH. Pt states she does not want IV therapy through HH as she will not be homebound. She also does not want any PT as she wishes to contintue with her OP therapy. Informed I will let Dr. Cutler know. Discussed other options of OP IV therapy and PT OP therapy at the [facility]. Discussed she may need to come to the hospital bid, depending on antibiotic. She states she doesn't care.
--- NOTE | 2019-07-31 12:19 | NUR ---
NOON ASSESSMENT DUE. PT RESTING IN BED TALKING TO PHARAMCIST FOR MEDICATION REVEIW. ASSESSMENT DONE. PT REPORTS 8/10 PAIN AND DOES NOT FEEL PAIN IS WELL CONTROL. EXTENSIVE EDUCATION DONE WITH PT REGARDING PAIN CONTROL MEASURES AND OPTIONS, WILL CALL DR. FABIAN FOR FOLLOW UP. DRESSING C/D/I WITH NO DRAINAGE NOTED. GREEN LIGHT FLASHING ON PERDO CANISTER. ON-Q PUMP SET AT 6. CMS INTACT. LUNG SOUNDS CLEAR. CRYO CUFF, SCD'S, JUANITO HOSE ALL IN PLACE. LUNCH ORDER PLACED FOR PATIENT. NO ADDTIONAL REQUESTS OR COMPLAINTS AT THIS TIME. CALL LIGHT WITHIN REACH.
--- NOTE | 2019-07-31 12:47 | NUR ---
DR. FABIAN CALLED AND UPDATED REGARDING PTS PAIN, SHOWER, ON-Q PUMP AND GENERAL CONDITION. NEW ORDERS GIVE, REPEAT BACK USED OVER PHONE TO CONFIRM ORDERS. PT UPDATED ON PLAN OF CARE. PT STATES HER QUESTIONS HAVE BEEN ANSWERED.
--- NOTE | 2019-07-31 12:52 | NUR ---
MED REC COMPLETE
--- NOTE | 2019-07-31 13:20 | NUR ---
THIS RN TO ROOM TO CHECK ON PT AND UPDATE PT REGARDING PLAN OF CARE. PT TEARFUL. PT STATES "I'VE KNOW SO MANY PEOPLE WHO HAVE OF THIS. IT'S JUST THE LACK OF CONTROL." PT REPORTS USING 2-4 TABLETS OF DILAUDID AND "SOME PHENEGRAN" FOR MIGRAN HEADACHES. PT CONTINUES TO REPORT 8/10 PAIN. NEW MEDICATION GIVEN. PT UPDATED ON PLAN OF CARE. THERAPUTIC COMMUNICATION DONE. PT UPDATED REGARDING SHOWER AND NEW MEDICATIONS. PT CALMS, TEA ORDERED PER PT PREFERENCE. PT UP TO RESTROOM WITH SBA, VOIDS WITHOUT ISSUE, BACK TO BED. SCD'S AND CRYO CUFF IN PLACE. CALL LIGHT WITHIN REACH.
--- NOTE | 2019-07-31 16:40 | NUR ---
AFTERNOON ASSESSMENT DUE. THIS RN TO BESIDE. PT TALKING ON PHONE WITH WHO STATES "YOU SHOULD TELL THEM YOUR THOUGHTS. THEY HAVE LIABILITY UP TO THEIR NECKS AND IF THEY DON'T LISTEN TO YOU WE'LL GET THEM." PT HANGS UP PHONE AND TELLS THIS RN THAT SHE IS CONCERNED ABOUT THE INFECTION AND DOES NOT WANT HOME HEALTH INVOLVED. PT WOULD PREFERE TO COME INTO HOSPITAL FOR ABX TREATMENTS. PT REPORTS 7/10 PAIN, SEE MAR FOR MEDICATION GIVEN. ASSESSMENT DONE. DRESSING SHOWS SMALL PINPOINT SPOT OF SHADOWING, OTHERWISE C/D/I. GREEN LIGHT FLASHING ON PEDRO CANISTER. ON-Q PUMP REMAINS SET AT 8. CMS INTACT. PT UP TO AMBULTE X3 LAPS IN ZHONG. PT REQUESTS TO SHOWER. PICC LINE COVERED. SHOWER SUPPLIES PROVIDED. ON-Q AND PEDRO CANISTER COVERED. PT SHOWERING, WHILE SITTING IN SHOWER CHAIR. PT. DEMONSTRATES USE OF CALL LIGHT. CALL LIGHT WITHIN REACH.
--- NOTE | 2019-07-31 18:09 | NUR ---
PATIENT SITTING UP ON THE EDGE OF THE BED TAKING HER DINNER. VITAL SIGNS AND I&O DONE. CALL LIGHT WITHIN REACH. ICE WATER GIVEN. NO OTHER NEEDS AT THIS TIME
--- NOTE | 2019-07-31 18:32 | NUR ---
THIS RN TO ROOM TO CHECK ON PT. PT FINISHED WITH SHOWER AND WITH DINNER. PT UP AND AMBULATING IN ROOM TALKING ON PHONE. PT BACK TO BED. SCD'S, JUANITO HOSE AND CRYO CUFF REAPPLIED. DRESSING C/D/I. GREEN LIGHT FLASHING ON PEDRO CANISTER. PT STATES "I NEED THAT ZOFRAN BECAUSE I'VE BEEN TAKING THE PAIN MEDICATION." PT STATES "THE PAIN IS SO MUCH BETTER" AND THEN RATES PAIN OF 7/10. EDUCATION REGARDING PAIN SCORE DONE WITH PT. PT STATES "WELL I GUESS IT'S NOT BETTER" AND CONTINUES TO RATE PAIN OF 7/10. PT ASSISTED WITH ORAL CARE PER PREFERENCE. NO ADDITIONAL REQUESTS OR COMPLAINTS. CALL LIGHT WITHIN REACH. BED RAILS UP.
--- NOTE | 2019-07-31 18:53 | NUR ---
PT HERE POST OP DAY 1 AFTER RIGHT KNEE REPAIR AND FOR IV ABX. PICC LINE IN PLACE WITH GOOD BLOOD RETURN, HEPARIN LOCKED AT THIS TIME. PT UP TO AMBULATE X2 WITH SBA, FWW. PT STEADY ON FEET. PHYSICAL THERAPY THIS SHIFT. PT TOELRATING REGULAR DIET WITH GOOD APPTITIE. REQUESTS PO ZOFRAN WITH PAIN MEDICATION. PRN PAIN MEDICAITON DOSAGE INCREASED FOR 7-9/10 PAIN, GIVEN FREQUENTLY. PEDRO DRESSING TO RIGHT KNEE C/D/I WITH SMALL PIN POINT DRAINGE. GREEN LIGHT FLASHING ON CANISTER. ON-Q PUMP INCREASED TO 8. CRYO CUFF, JUANITO HOSE, AND SDC'D PLACED. SHOWER THIS SHIFT. PT VOIDING QUANTITY SUFFICENT. PT USES CALL LIGHT APPROPRIATLY.
--- NOTE | 2019-07-31 19:30 | NUR ---
BEDSIDE REPORT RECEIVED FROM CRYSTAL PEREZ. pt AWAKE, EMBROIDERING. PICC LINE HEPP LOCKED. pt HAS NO C/O PAIN AT THIS TIME. CALL LIGHT IN REACH. NO REQUESTS AT THIS TIME.
--- NOTE | 2019-07-31 21:30 | NUR ---
pt ASSESSMENT COMPLETE. AMARJIT WRAP AND GAUZE DAMP, REPLACED pt STATES WET FROM SHOWER. pt SLEEPING WHEN RN ENTERS ROOM AND AWAKENS EASILY, RATES PAIN 8/10. PRN PAIN MEDICATION ADMINISTERED. PEDRO DRESSING WITH SCANT SS DRAINAGE IN PLACE, FLASHING GREEN LIGHT, ON Q PUMP TO 8 ML/HR. DENIES TOILETING NEEDS. CRYO CUFF REFILLED WITH ICE IN PLACE, JUANITO NESS, SCDS ON. PICC LINE W GOOD BLOOD RETURN, IV ANTIBIOTIC INFUSING WNL. CALL LIGHT IN REACH.
--- NOTE | 2019-07-31 23:00 | NUR ---
PICC LINE HL BY AIRCRAFT TIME CLERKCRYSTAL HERR, IV ANTIBIOTIC COMPLETE. CALL LIGHT IN REACH.
--- NOTE | 2019-08-01 02:05 | NUR ---
pt SLEEPING, AWAKENS TO VOICE. RATES PAIN 8/10 IN RIGHT KNEE. PRN PAIN AND NAUSEA MEDICATION ADMINISTERED. CSM INTACT. DRAINAGE UNCHANGED ON DRESSING FROM START OF SHIFT. CRYO CUFF REFILLED WITH ICE. SBA TO RESTROOM FOR VOID AND BACK TO BED. SCDS ON. CALL LIGHT IN REACH.
--- NOTE | 2019-08-01 02:20 | NUR ---
CALL LIGHT ANSWERED, pt ASKING RN TO ASSESS KNEE pt TOUCHED A PART AND HAD A LOT OF PAIN. NO REDNESS, SWELLING, OR CHANGE IN DRAINAGE NOTED FROM KNEE. CRYO CUFF ADJUSTED. pt RESTING IN BED, NO ADDITIONAL REQUESTS. CALL LIGHT IN REACH.
--- NOTE | 2019-08-01 05:34 | NUR ---
pt CONTINUES TO RATE PAIN 8/10 THROUGHOUT SHIFT WHEN ASSESSED, PRN DILAUDID PO ADMINSITERED THROUGHOUT SHIFT. pt STATING SHE WAS ABLE TO GET GOOD REST THIS SHIFT, APPEARED TO SLEEP WELL. SCANT AMT SS DRAINAGE ON PEDRO DRESSING UNCHANGED THROUGHOUT SHIFT, FLASHING GREEN LIGHT, ON-Q PUMP TO 8 ML/HR. CRYO CUFF WITH ICE IN PLACE, SCDS ON. AMBULATING WELL W FWW, SBA. VOIDING QS.
--- NOTE | 2019-08-01 06:04 | NUR ---
pt SLEEPING, SNORING, AWAKENS TO VOICE. RATES PAIN 8/10 UPON WAKENING "IT'S BETTER THAN IT WAS AT 2 AM." PRN PAIN MEDICATION ADMINISTERED. pt OUT OF BED, AMBULATING INDEPENDENTLY IN HALLWAY WITH FWW.
--- NOTE | 2019-08-01 07:39 | NUR ---
REPORT RECIEVED FROM CRYSTAL MORRELL. PT RESTING IN BED WORKING ON [employer] WORK. PT REPORTS "SEVERE PAIN" LAST NIGHT AT 0200. PT NOW REPORTS 8/10 PAIN AND "FEELING REALLY WORRIED." PT TEARFUL. THERAPUTIC COMMUNICATION DONE. NO ADDITIONAL REQUESTS OR COMPLAINTS AT THIS TIME. CALL LIGHT WITHIN REACH.
--- NOTE | 2019-08-01 08:32 | NUR ---
MORNING ASSESSMENT AND MEDICATION DUE. PT RESTING IN BED. PT REPORTS 7/10 PAIN, MEDICATION GIVEN RECENTLY. ASSESSMENT DONE. CMS INTACT, DRESSING SHOWS QUARTER SIZE AMOUNT OF DRAINAGE ON PROXIMAL AND DISTAL END OF DRESSING. GREEN LIGHT FLASHING ON PEDRO CANISTER. ON-Q PUMP SET AT 8. PT VERBALIZES AGAIN 10/10 PAIN EPISODE LAST NIGTH AT 0200 WHEN "I COULDN'T MOVE MY KNEE." PT REPORTS AT THIS TIME THAT PARTICULAR PAIN HAS RESOLVED. PT CONTINUES TO BE EMOTIONAL AND TEARFUL AT TIME. 1PA UP TO CHAIR. CRYO CUFF IN PLACE, ICE REFILLED. MEDICATION GIVEN. MD TO BEDSIDE FOR ROUNDS. BREAKFAST ARRIVED. PICC LINE ASSESSED, WNL BRISK BLOOD RETURN NOTED. SALINE LOCKED AT THIS TIME. NO ADDITIONAL REQUESTS OR COMPLAINTS. CALL LIGHT WITHIN REACH.
--- NOTE | 2019-08-01 10:07 | NUR ---
ABX DUE. PT VISITING WITH AND PREPARING FOR PHYSICAL THERAPY. PICC LINE ASSESED, WNL BRISK BLOOD RETURN NOTED. ABX STARTED (SEE MAR). PT UP TO AMBULATE WITH PHYSICAL THERAPY. REPORTS 8/10 PAIN AND REQUESTS ZOFRAN WITH HER PAIN MEDICATIONS. SEE MAR FOR MEDICATION GIVEN. NO ADDTIONAL REQUESTS OR COMPLAINTS. PT TELLING STORIES TO PHYSICAL THERAPIST AND LAUGHING WITH JOKES. PT UP TO AMBULATE IN HALLS WITH PHYSICAL THERAPIST.
--- NOTE | 2019-08-01 10:52 | NUR ---
Pt Status to IP as continues awaiting cultures and results for IV antibiotics.
--- NOTE | 2019-08-01 11:33 | NUR ---
PUMP ALARMING, INFUSION AND FLUSH COMPLETE. PICC LINE ASSESSED, WNL. BRISK BLOOD RETURN NOTED. EMAR STATES TO GIVE 5MG HEPARIN FOR FLUSH, THIS RN NOTES THAT THIS IS NOT PROTOCOL. PHARMACY CALLED. ORDER FIXED. PICC LINE FLUSHED AND HEPARIN LOCKED PER PROTOCOL. PT UP TO SHOWER. PICC LINE COVERED. PT STEADY ON FEET AND SITTING IN SHOWER CHAIR. NO ADDITIONAL REQUESTS OR COMLAINTS. STUDENT RN AT BEDSIDE FOR SHOWER.CALL LIGHT WITHIN REACH.
--- NOTE | 2019-08-01 12:34 | NUR ---
NOON ASSESSMENT DUE. PT FINISHED WITH SHOWER. PT WALKING AROUND IN ROOM. STEADY ON FEET. PT REPORTS 8/10 PAIN. PT BACK TO CHAIR TO REST. ASSESSMENT DONE. CMS INTACT. PEDRO DRESSING SHOWS NO NEW DRAINGE, SAME QUARTER SIZE DRAINGES AT PROXIMAL AND DISTAL ENDS OF DRESSING REAMIN. GREEN LIGHT FLASHING ON PEDRO CANISTER. ON-Q PUMP REMAINS SET AT 8. ABD PADS AND AMARJIT WRAP REAPPLIED OVER DRESSING. CRYO CUFF AND SCD'A APPLIED. LUNG SOUNDS CLEAR. PT ATTEMPTS TO HAVE BOWEL MOVEMENT SMALL BOWEL MOVEMENT NOTED. . LUNCH ORDERED. NO ADDITIONAL REQUESTS OR COMPLAINTS. PT REMAINS UP TO CHAIR AT THIS TIME. CALL LIGHT WITHIN REACH.
--- NOTE | 2019-08-01 13:00 | NUR ---
Spoke with Safia, she is sitting up in chair. States she is ok, fair pain control. She again states understanding and wants to dc to home with OP therapy and OP IV antibiotics, even if she has to return to the hospital multiple times per day. She again is stating she has to be able to see her mom and set up her meds. She states she is just very concerned about her mom with covid regulations. She denies any further needs. States will take good care of her.
--- NOTE | 2019-08-01 14:30 | NUR ---
THIS RN TO ROOM TO CHECK ON PT. PT RESTING IN CHAIR WITH EYES CLOSED. RESPIRATIONS EVEN AND UNLABORED. CRYO CUFF IN PLACE. PT ALLOWED TO REST. CALL LIGHT WITHIN REACH.
--- NOTE | 2019-08-01 15:42 | NUR ---
PT CALL LIGHT ON. PT REPORTS 7/10 PAIN IN RIGHT KNEE AND WOULD LIKE PAIN MEICATION. SEE MAR FOR MEDICATION GIVEN. PT REQUESTS TO GET BACK TO BED. ASSESSMENT DONE. CMS INTACT. DRESSING SHOWS NO NEW DRAINGE, QUARTER SIZE RED SHADOWING REMAINS AT DISTAL AND PROXIMAL ENDS OF DRESSING. GREEN LIGHT FLASHING ON PEDRO CANISTER. ON-Q PUMP REMAINS SET AT 8. LUNG SOUNDS CLEAR. PT TRANSFERES SELF BACK TO BED WITH SBA. CYRO CUFF, SCD'S, JUANITO HOSE IN PLACE. WARM BLANKET PROVIDED. WATER REFILLED. ICE TO CRYO CUFF REFILLED. PT WATCHING TV AND WORKING ON CROSS [employer]. NO ADDITIONAL REQUESTS OR COMPLAINTS AT THIS TIME. CALL LIGHT WITHIN REACH.
--- NOTE | 2019-08-01 17:15 | NUR ---
THIS RN TO ROOM TO CHECK ON PT. PT TALKING ON PHONE AND EATING DINNER. PT REPORST PAIN IS "MUCH BETTER." RATES PAIN AT 7/10. CRYO CUFF, SCD'S IN PLACE. NO ADDITIONAL REQUESTS OR COMPLAINTS AT THIS TIME.
--- NOTE | 2019-08-01 17:39 | NUR ---
PT HERE FOR INFECTED RIGHT TKA. UP TO AMBULATE WITH PHYSICAL THERAPY AND THIS RN THIS SHIFT. TOLERATING REGULAR DIET WITH GOOD APPITITE. NO NAUSEA THIS SHIFT. PRN ZOFRAN GIVEN PER PT REQUST RELATED TO DILAUDID. PRN DILAUDID GIVEN FOR 7/10 PAIN. IV ABX GIVEN THROUGH PICC LINE. PICC LINE WNL WITH BRISK BLOOD RETURN NOTED. LEFT KNEE PEDRO DRESSING SHOWS QUARTER SIZED SHADOWING TO DISTAL AND PROXIMAL ENDS. GREEN LIGHT FLASHING ON PEDRO DRESSING THIS SHIFT. ON-Q PUMP SET AT 8. SHOWER THIS SHIFT. SCD'S, JUANITO HOSE, AND CRYO CUFF IN PLACE. PT VOIDING QUANTITIY SUFFICIENT. PT USES CALL LIGHT APPROPRIATLY.
--- NOTE | 2019-08-01 18:10 | NUR ---
THIS RN TO ROOM TO CHECK ON PT. 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 PT DENIES REQUESTS OR COMPLAINTS. CALL LIGHT WITHIN REACH.
--- NOTE | 2019-08-01 18:10 | NUR ---
PATIENT RESTING IN BED, EYES CLOSED. VITALS AND I&OS DONE AND CHARTED. PATIENT IND INTO BATHROOM AND BACK, CALL LIGHT IN REACH. NO OTHER NEEDS AT THIS TIME.
--- NOTE | 2019-08-01 19:20 | NUR ---
SHIFT REPORT RECEIVED FROM DEMETRIORHUMA PEREZ AT BEDSIDE. PT AWAKE AND RESTING IN BED, CYRO CUFF IN PLACE TO RIGHT KNEE. PEDRO DRESSING INTACT, GREEN LIGHT FLASHING, ONQ PUMP TO 8MLS/HR. TWO QUARTER SIZED SHADOWING NOTED. WILL MONITOR. PT REQUESTING PAIN AND NAUSEA MEDS WITH EVENING MEDS. SCD'S AND JUANITO HOSE IN PLACE. BOARD UPDATED, NO FURTHER NEEDS OR CONCERNS. CALL LIGHT IN REACH.
--- NOTE | 2019-08-01 20:16 | NUR ---
VITALS AND I&OS DONE AND CHARTED. CRYO REFILLED. FRESH ICE WATER GIVEN. BEDSIDE TABLE AND CALL LIGHT IN REACH.
--- NOTE | 2019-08-01 20:30 | NUR ---
ASSESSMENT COMPLETE, SCHEDULED MEDS GIVEN (SEE MAR) ALONG WITH PRN PO DILAUDID. PT REPORTING 8 TO 8 1/2 OUT OF TEN PAIN IN RIGHT KNEE. NO CAHNGE TO PEDRO DRESSING, GREEN OKAY LIGHT FLASHING, ONQ PUMP REMAINS AT 8MLS/HR. CYRO CUFF TO RIGHT KNEE AND BILATERAL JUANITO HOSE AND SCD'S ALSO IN PLACE. PT UP SBA WITH FWW AND COMPLETING NIGHTTIME ROUTINE. NO FURTHER NEEDS.
--- NOTE | 2019-08-01 21:09 | NUR ---
IV VANCO INFUSING, BLOOD RETURN NOTED TO PICC LINE. DRESSING INTACT. PT AMBULATED IN HALLWAY SBA WITH USE OF IV POLE WITH THIS RN, TOLERATED WELL. REPORTS PAIN HAS IMPROVED AND RATES PAIN 7 TO 7.5 OUT OF TEN. RESTING IN BED WITH CYRO CUFF AND SCD'S AND JUANITO HOSE IN PLACE. CALL LIGHT IN REACH.
--- NOTE | 2019-08-01 21:41 | NUR ---
PT REQUESTED SHE BE WEIGHED. I HELPED HER TO DO THAT. SHE THEN ASKED IF I COULD GET HER SOME CHAMOMILE TEA WITH HONEY. WE HAVE NONE STOCKED HERE ON THE FLOOR OR IN CCU. CALLED B2B SALES MANAGER AND ASKED IF SHE COULD FIND ANY IN THE KITCHEN.
--- NOTE | 2019-08-01 21:51 | NUR ---
GOT HER A CUP OF HOT WATER, HER TEA AND THREE PACKS OF HONEY. PT NEEDS NOTHING MORE AT THIS TIME.
--- NOTE | 2019-08-01 22:29 | NUR ---
VITALS AND I&OS DONE AND CHARTED. HELPED PT FROM HER CHAIR INTO HER BED WITH HER FWW. BEDSIDE TABLE AND CALL LIGHT IN REACH.
--- NOTE | 2019-08-01 22:30 | NUR ---
BED ALARM SET.
--- NOTE | 2019-08-02 00:30 | NUR ---
PT RESTING IN BED WITH EYES CLOSED. RR EVEN AND UNLABORED, NO DISTRESS OR SIGNS OF PAIN NOTED. CALL LIGHT IN REACH.
--- NOTE | 2019-08-02 01:29 | NUR ---
HELPED PT GET UP TO GO TO THE BATHROOM. JUST STOOD BY SHE WENT BACK TO BED. FILLED CRYO WITH ICE. SCD'S PUT BACK ON. BEDSIDE TABLE AND CALL LIGHT IN REACH. PT NEEDS NOTHING MORE AT THIS TIME.
--- NOTE | 2019-08-02 02:06 | NUR ---
PT UP TO VOID, REPORTING RESTLESS LEGS, PT AMBULATED IN HALLWAY AND TOLERATED WELL. PT THEN REPORTING 9/10 PAIN, PRN DILDAUDID ADMINISTERED (SEE EMAR). NO NEW SHADOWING NOTED TO DRESSING, GREEN OKAY LIGHT FLSHING AND 8MLS/HR REMAINS TO ON Q PUMP. PT DENIES FURTHER NEEDS, CALL LIGHT IN REACH.
--- NOTE | 2019-08-02 03:54 | NUR ---
PT RESTING QUIETLY IN BED, RESPIRATIONS EVEN AND UNLABORED. NO DISTRESS OR SIGNS OF PAIN NOTED. PT APPEARS COMFORTABLE AT THIS TIME, WILL MONITOR. CALL LIGHT IN REACH.
--- NOTE | 2019-08-02 05:45 | NUR ---
PT HAD A GOOD NIGHT, PAIN CONTROLLED WITH PRN PAIN MEDICATION. VSS, SBP TRENDING IN 90S. PT AMBULATED X2 IN HALLWAY THIS SHIFT, USES CALL LIGHT APPROPERIATELY. NO CHANGES TO PEDRO DRESSING , GREEN OKAY LIGHT FLASHING, ON Q PUMP SET TO 8MLS/HR. PICC LINE DRESSING INTACT, BLOOD RETURN AND FLUSHED AND HEP LOCKED PER POLICY.
--- NOTE | 2019-08-02 06:45 | NUR ---
VITALS AND I&OS DONE AND CHARTED. EMPTIED GARBAGES. FILLED CRYO . BEDSIDE TABLE AND CALL LIGHT IN REACH. PT NEEDS NOTHING MORE AT THIS TIME.
--- NOTE | 2019-08-02 06:49 | NUR ---
SCHEDULED THYROID GIVEN (SEE EMAR). PT ASSISTED UP TO BATHROOM FOR POSSIBLE BM. FWW OFFERED, PT DECLINED AND STATES, "I'M FINE". PT INSTRUCTED TO PULL CORD WHEN READY, PT VERBALIZED UNDERSTANDING. NO ADDITIOANL NEEDS, CALL LIGHT IN REACH.
--- NOTE | 2019-08-02 07:00 | NUR ---
STOOD BY PT WENT BACK TO BED WITH NO PROBLEMS. CRYO PUT BACK ON AND TURNED ON.
--- NOTE | 2019-08-02 07:21 | NUR ---
REPORT RECEIVED FROM CRYSTAL JACINTO. PT DOING CROSS STITCH IN BED. JUANITO HOSE OFF PER PT REQUEST. PT AGREES TO REPLACE JUANITO HOSE "AFTER MY SHOWER." PT REPORTS 8/10 PAIN IN RIGHT KNEE THAT IS "REALLY ACHING ON THE INSIDE." PAIN CONTROL EDUCATION DONE WITH PT. SEE MAR FOR MEDICATION GIVEN. NO ADDITIONAL REQUESTS OR COMPLAINTS AT THIS TIME. CALL LIGHT WITHIN REACH.
--- NOTE | 2019-08-02 07:30 | NUR ---
Spoke with Dr. Cutler. He plans to dc pt home today. Would like her to fu with OP IV therapy x 6 weeks and resume OP PT therapy at the [facility]. Orders completed by Dr. Cutler.
--- NOTE | 2019-08-02 08:03 | NUR ---
PATIENT AWAKE IN BED. TRANSFERRED TO CHAIR SBA TO EAT BREAKFAST. PATIENT WANTS TO SHOWER AFTER BREAKFAST. I WILL CHECK BACK SOON. CALL LIGHT IN REACH.
--- NOTE | 2019-08-02 08:17 | NUR ---
MORNING ASSESSMENT AND MEDICATIONS DUE. SBA FWW UP TO CHAIR. PT REPORTS 8/10 PAIN AND STATES "MY PAIN HAS ONLY BEEN DOWN TO A 7 A FEW TIMES." PT DECLINES CRYO CUFF, JUANITO HOSE AND SCD'S AT THIS TIME. CMS INTACT. NO NEW SHADOWING NOTED ON DRESSING. GREEN LIGHT FLASHING ON PEDRO CANISTER. ON-Q PUMP SET AT 8. LUNG SOUNDS CLEAR. BOWEL TONES HEARD. PT REPORTS BOWEL MOVEMENT THIS MORNING. PT EATING BREAKFAST AND REPORTS SHE WOULD LIKE TO SHOWER BEFORE GOING HOME. SUPPLIES PROVIDED. PICC LINE ASSESSED, WNL. BRISK BLOOD RETURN NOTED. ABX INFUSION STARTED. CALL LIGHT WITHIN REACH. NO ADDITIONAL REQUESTS OR COMPLAINTS AT THIS TIME.
--- NOTE | 2019-08-02 08:40 | NUR ---
Spoke with Safia. She plans on dc today. Discussed IV therapy through [facility] OP. Let her know I will set up appt for tomorrow and also send her chart to OP PT to resume PT. She states she doesn't need an appt with DS as she will go in when she wants. Informed they will need to have her on a schedule, so I will go ahead and schedule for tomorrow and she can work out a schedule after tomorrow. She agrees.
[2019-08-02] MEDS ORDERED: CEFTRIAXONE2 G1 IV (09:12)
[2019-08-02] MEDS ORDERED: BACTRIM DS TAB1 EACH PO (09:35)
--- NOTE | 2019-08-02 09:37 | NUR ---
PUMP ALARMING, INFUSION AND FLUSH COMPLETE. PICC LINE ASSESSED, WNL, BRISK BLOOD RETURN NOTED. PICC LINE FLUSHED AND HEPARIN LOCKED PER PROTOCOL. ALCOHOL CAP APPLIED. PHARMACIST TO BEDSIDE TO REVIEW MEDICATIONS WITH PT. PT VERBALIZES UNDERSTANDING OF MEDICATIONS AND STATES HER QUESTIONS HAVE BEEN ANSWERED. PICC LINE COVERED FOR PT TO SHOWER. PT UP TO SHOWER WITH SBA. PT INDEPENDANT WITH SHOWER, STEADY ON FEET. CALL LIGHT WITHIN REACH. NO ADDITIONAL REQUESTS OR COMPLAINTS AT THIS TIME.
--- NOTE | 2019-08-02 10:00 | NUR ---
Called and spoke with Gris at for OP IV therapy. Pt scheduled for tomorrow at 9 am. Chart faxed with H&P, progress notes, orders, PT/OT notes, and face sheet. Chart was then faxed to OP PT with note to inform, pt will have IV therapy daily at 9 am for 6 weeks.
--- NOTE | 2019-08-02 10:30 | NUR ---
PT FINISHED WITH SHOWER. BELONGINS PACKED IN BAGS. CRYO CUFF EMPTIED, TAPE AND DRESSING SUPPLIED SENT WITH PT. FRESH SLEVES PROVIDED FOR PICC LINE SECURMENT. VITALS TAKEN. DISCHARGE INSTRUCTIONS REVEIWED WITH PT. PT VERBALIZES UNDERSTANDING OF INSTRUCTIONS, MEDICATIONS AND FOLLOW UP APPOINTMENTS. PT CONTINUES TO REPORTS 8/10 PAIN. EDUCATION FOR PAIN CONTROL PROVIDED. DRESSING C/D/I WITH NO CHANGES TO SHADOWING NOTED. ABD PADS AND AMARJIT WARP IN PLACE. PT DECLINES JUANITO HOSE, JUANITO HOSE SENT HOME WITH PT. PT TRANSFERES SELF TO WHEELCHAIR. NO ADDITIONAL REQUESTS OR CONCERNS. PT WHEELED FROM MED/SURG WITH BELONGS. PICC LINE SECURED WITH SLEVE, DRESSING C/D/I, ALCOHOL CAP IN PLACE.
== END 2019-08-02 10:35 | disposition home or self-care (01) | DRG 487 ==
LOC: OPS 11:06 → OPV-DS 11:06 → DS 11:07 → EDSTATUS 14:15 → MS 20:25 → OPS 20:26 → MS 20:27
PROVIDERS: ADMIT Specialist
PROC: 0SUV09Z Supplement Right Knee Joint, Tibial Surface with Liner, Open Approach (ICD-10-PCS; 2019-07-30)
PROC: 0SPC09Z Removal of Liner from Right Knee Joint, Open Approach (ICD-10-PCS; principal; 2019-07-30 12:00)
DX: T84.53XA Infection and inflammatory reaction due to internal right knee prosthesis, initial encounter (principal); I10 Essential (primary) hypertension; F41.9 Anxiety disorder, unspecified; B96.20 Unspecified Escherichia coli [E. coli] as the cause of diseases classified elsewhere; Z20.828 Contact with and (suspected) exposure to other viral communicable diseases; Z96.652 Presence of left artificial knee joint; Z88.6 Allergy status to analgesic agent; Z88.5 Allergy status to narcotic agent; Z88.7 Allergy status to serum and vaccine; Z88.8 Allergy status to other drugs, medicaments and biological substances
CPT/HCPCS: 01402; 36415; 36569; 71045; 80053; 82945; 83605; 85025; 85651; 85810; 86140; 86431; 89051; 89060; 96365; 96366; 96375; 96376; 97110; 97161; C1751; C1776; G0378; J0690; J0696; J1100; J2001; J2250; J2405; J2704; J3010; J3370; J7060; J7121; U0002

== ENCOUNTER 2019-09-17 09:45 | Day surgery (SDC) | payer OTHER ==
[~2019-09-17] VITALS: Ht 154.9 cm; Wt 55.2 kg
--- NOTE | ~2019-09-17 | OR ---
[facility] [address] [place] [place] [address] Draft DATE OF OPERATION: 09/17/2019 SURGEON: Ankit Cutler MD PREOPERATIVE DIAGNOSIS: Wound dehiscence, right knee. POSTOPERATIVE DIAGNOSIS: Wound dehiscence, right knee. PROCEDURE PERFORMED: Wound revision of right knee. BALL MACHINE OPERATOR: DIXON ANESTHESIA: General. BLOOD LOSS: Minimal. BRIEF HISTORY: Safia is a 59-year-old female, had a revision of her knee replacement with subsequent wound infection. The wound healed uneventfully with the exception of a 1 cm area in the midportion, which opened up. Risks and benefits of operative treatment were discussed with her. She elected to proceed. DESCRIPTION OF PROCEDURE: Once consent was obtained, she was taken to the operating room after adequate anesthesia. She was placed on operating room table, all downside pressure points were well padded. The right leg was prepped and draped in a standard sterile fashion. The little area of wound opening was not infected and the underlying bursa was completely normal. The open area was then marked out with an ellipse and using a sharp 15 blade knife, we were able to elipse a small skin portion with good bleeding. The wound was then copiously irrigated with antibiotic solution and closed using 2-0 nylon in a horizontal mattress . The wound was then cleansed and dressed with Acticoat dressing and an Hoang wrap. She tolerated the procedure well. All sponge, needle, and instrument counts were correct. PATIENT NAME: SAFIA PORTER OPERATIVE REPORT DATE OF : 58 REPORT #: [id number] PHYSICIAN: ANKIT CUTLER MD PCP: SCOTT MARRUFO MD REPORT IS CONFIDENTIAL AND NOT TO BE RELEASED WITHOUT AUTHORIZATION [address] [place], [place] [address] Draft Ankit Cutler MD BA/GUILLE /[id number] Copies: ~ PATIENT NAME: SAFIA PORTER OPERATIVE REPORT DATE OF : 58 REPORT #: [id number] PHYSICIAN: ANKIT CUTLER MD PCP: SCOTT MARRUFO MD REPORT IS CONFIDENTIAL AND NOT TO BE RELEASED WITHOUT AUTHORIZATION
[~2019-09-17 09:45] MED LIST changes: +BACTRIM DS TAB1 EACH PO; +CEFTRIAXONE2 G1 IV; +GERI-KOT8.6 MG PO; +RESTORIL15 MG PO; +VITAMIN D350 MC3 PO
--- NOTE | 2019-09-17 11:37 | NUR ---
09/17/19 1137 Nella Cortés 1041 PT ARRIVED IN PACU WIDE AWAKE C/O OXYGEN MASK HURTING FACE. O2 REMOVED. 1050 R KNEE ELEVATED AND ICE PLACED. C/O 8/10 R KNEE PAIN. 1101 FENTANYL 50MCG GIVEN IVP. 1105 SIPPING ON WATER. 1111 PAIN DOWN TO 6/10. FENTANYL 50MCG GIVEN IVP. 1125 TO DS. PT TALKING ON CELL PHONE TO SPOUSE. NO C/O'S.
--- NOTE | 2019-09-17 11:39 | NUR ---
1125- PT RETURNS FROM PACU TO ROOM 4 IN DS. PT AWAKE AN ORIENTED. PT VERBALIZES BURNING PAIN AT INCISION SITE AND DISCUSSED LOCAL ANESTHESIA EFFECTS. PT AGREEABLE AND DISCUSSES GETTING PAIN PRESCRIPTION FROM PHARMACY. PT PROVIDED WITH WATER AND PUDDING AND DENIES NAUSEA. CALL LIGHT WITHIN REACH
--- NOTE | 2019-09-17 12:20 | NUR ---
PATIENT UP AMBULATING IN ROOM, PATIENT REPORTS PAIN 4/10 ON PAIN SCALE. PLANS TO TAKE PAIN MEDICATION WHEN GETS HOME. REPORTS READY TO DISCHARGE, VSS. DRESSING HAS NO NEW SHADOWING. PROVIDED DISCHARGE INSTRUCTION, ANSWERED QUESTIONS AND CONCERNS. PATIENT HAS ESTABLISHED FOLLOWUP APPOINTMENT. PROVIDED WHEEL CHAIR RIDE TO FRONT, PATIENT TRANSFERED INTO TRUCK, TOLERATED ACTIVITY WELL.
== END 2019-09-17 12:20 | disposition home or self-care (01) ==
LOC: DS 09:45
PROVIDERS: Specialist
PROC: 3E10X8Z Irrigation of Skin and Mucous Membranes using Irrigating Substance (ICD-10-PCS; principal; 2019-09-17 11:45)
DX: T81.32XA Disruption of internal operation (surgical) wound, not elsewhere classified, initial encounter (principal); E03.9 Hypothyroidism, unspecified; F41.9 Anxiety disorder, unspecified; Z79.899 Other long term (current) drug therapy; Z88.5 Allergy status to narcotic agent; Z88.6 Allergy status to analgesic agent; Z88.8 Allergy status to other drugs, medicaments and biological substances; Z96.651 Presence of right artificial knee joint
CPT/HCPCS: 00400; J0690; J2001; J2405; J2704; J3010; J7121

== ENCOUNTER 2019-12-24 06:20 | Emergency (ER) | payer OTHER ==
[~2019-12-24] VITALS: Ht 154.9 cm; Wt 56.7 kg
--- OUTSIDE RECORDS SUMMARY | 2019-12-24 06:22 | XMS ---
PreManage Notification: JD PORTER Security Medical Insurance Biller Events No recent Security Events currently on file CRITERIA MET - Group Notification CARE PROVIDERS There are no care providers on record at this time. Allen has no Care Guidelines for this patient. Care History Substance Use/Overdose 04/27/2017 [facility] Pain/Opioid Agreement: *USE CAUTION WHEN PRESCRIBING NARCOTICS. *AVOID NARCOTICS AT DISCHARGE. PATIENT IS UNDER A PAIN CONTRACT WITH PCP DR CARL HAWK . These are guidelines and the provider should exercise clinical judgment when providing care. E.D. VISIT COUNT (12 MO.) 1 [facility] TOTAL 1 NOTE: Visits indicate total known visits. ED/C VISIT TRACKING (12 MO.) 12/24/2019 06:21 [facility] TYPE: Emergency COMPLAINT: - RIGHT KNEE PAIN INPATIENT VISIT TRACKING (12 MO.) 08/01/2019 10:51 [facility] TYPE: Medical Surgical COMPLAINT: - ABSCESS LEFT KNEE DIAGNOSES: - Allergy status to serum and vaccine status - Infection and inflammatory reaction due to internal left knee - Presence of left artificial knee joint - Infection and inflammatory reaction due to internal right kne - Presence of left artificial knee joint - Anxiety disorder, unspecified - Allergy status to analgesic agent status - Allergy status to other drugs, medicaments and biological sub - Unspecified Escherichia coli [E. coli] as the cause of diseas - Allergy status to narcotic agent status - Contact with and (suspected) exposure to other viral communic - Allergy status to other drugs, medicaments and biological sub - Essential (primary) hypertension - Allergy status to analgesic agent status - Unspecified Escherichia coli [E. coli] as the cause of diseas - Allergy status to narcotic agent status - Anxiety disorder, unspecified - Allergy status to serum and vaccine status - Contact with and (suspected) exposure to other viral communic - Essential (primary) hypertension [email or web address]
[2019-12-24] MEDS ORDERED: ZINC30 MG PO (06:43)
[2019-12-24] MEDS ORDERED: BACTRIM DS TAB1 EACH PO ×2 (07:19→07:30)
[2019-12-24] MEDS ORDERED: DILAUDID4 MG PO (08:43)
== END 2019-12-24 08:51 | disposition home or self-care (01) ==
LOC: ED 06:20
DX: M70.41 Prepatellar bursitis, right knee (principal); G43.909 Migraine, unspecified, not intractable, without status migrainosus; Z88.8 Allergy status to other drugs, medicaments and biological substances; Z88.5 Allergy status to narcotic agent; Z79.899 Other long term (current) drug therapy
CPT/HCPCS: 80053; 85025; 96365; 99283-25; J0696

== ENCOUNTER 2020-08-28 11:48 | Day surgery (SDC) | payer OTHER ==
[~2020-08-28] VITALS: Ht 154.9 cm; Wt 56.8 kg
[~2020-08-28 11:48] MED LIST changes: +ZINC30 MG PO
[2020-08-28] MEDS ORDERED: MIRAPEX0.25 MG PO (12:05)
--- NOTE | 2020-08-28 12:55 | NUR ---
THIS RN TO ROOM TO UPDATE PT ON PLAN OF CARE. PT REPORTS 10/[address] RUST CONSULTED. ORDERS GIVEN FOR 0.5-1.0 IV DILAUDID Q30PRN FOR HEADACHE PAIN. REPEAT BACK PERFORMED. ORDERS ENTERED. MEDICAITON GIVEN. PT DENIES ADDITIONAL REQUESTS OR COMPLAINTS. BED RAILS UP. CALL LIGHT WITHIN REACH.
--- NOTE | 2020-08-28 14:08 | NUR ---
THIS RN TO ROOM TO CHECK ON PT. PT REPORTS 7/10 HEADACHE PAIN. PT REQUESTS ADDITIONAL PAIN MEDICATION (SEE MAR FOR MEDICAITON GIVEN). PT RESTING ON RIGHT SIDE. NO ADDITIONAL REQUESTS OR COMPLAINTS. CALL LIGHT WITHIN REACH. BED RAILS UP.
--- NOTE | 2020-08-28 14:30 | NUR ---
SONIYA INK GRINDER TO ROOM TO TAKE PT BACK FOR PROCEEDURE. REPORT GIVEN. PT REPRTS 08/07 HEADACHE AT THIS TIME. PT DENIES ADDITIONAL QUESTIONS OR REQUESTS. PT TAKE TO PROCEEDURE BY CRYSTAL BYRNES.
--- NOTE | 2020-08-28 15:19 | NUR ---
08/28/20 1519 Lisa Bloom 1514 PATIENT ARRIVES TO PACU AWAKE AND TALKING WITH STAFF. PATIENT ASLEEP WHEN NOT STIMULATED. RESP EVEN AND UNLABORED, OXYGEN TURNED OFF ON ARRIVAL TO PACU. ROOM AIR SATS >92%.
--- NOTE | 2020-08-29 09:44 | OR ---
[facility] [address] [place], [place] [address] Signed DATE OF OPERATION: 08/28/2020 SURGEON: Van Rust MD PREOPERATIVE DIAGNOSIS: Surveillance colonoscopy. POSTOPERATIVE DIAGNOSIS: Normal colon to cecum. PROCEDURE: Total colonoscopy to cecum. ANESTHESIA: Intravenous sedation; fentanyl 150 mcg, Versed 6 mg. PREOPERATIVE MEDICATION: Ancef. INDICATION: This 60-year-old white woman is a patient Dr. Dee and is here for surveillance colonoscopy. Her last colonoscopy was in 2012. She has no family history of colon cancer and no symptoms of bleeding diarrhea or constipation. She is admitted at this time to undergo colonoscopy. She understands the risks of bleeding, infection, perforation, and other unforeseen complications. Notably, she has had right knee replacement with subsequent infection, now resolved. Preoperative antibiotic Ancef was given on that basis. FINDINGS: The prep was excellent. Complete colonoscopy was undertaken of the cecum. Good visualization of the appendiceal orifice and ileocecal valve was noted. The entire colon was free of polyps, diverticular formation, colitis, or cancer. DESCRIPTION OF PROCEDURE: The patient was brought to the endoscopy suite and placed in lateral decubitus position, given intravenous sedation to the point of slurred speech and nystagmus. Preoperative antibiotic Ancef was given based on prior history of right total knee replacement. After satisfactory intravenous sedation with full cardiopulmonary monitoring, digital rectal examination was performed, which was normal. Electronically Signed By: VAN RUST MD 08/29/20 0944 PATIENT NAME: JD PORTER OPERATIVE REPORT DATE OF : 58 REPORT #: [id number] PHYSICIAN: VAN RUST MD PCP: SCOTT DEE MD REPORT IS CONFIDENTIAL AND NOT TO BE RELEASED WITHOUT AUTHORIZATION [facility] [address] [place] [id number] Signed An Olympus video colonoscope was passed in the rectum and manipulated throughout the colon ultimately intubating the cecum itself. The ileocecal valve and appendiceal orifice were normal. Scope was withdrawn from that point and examination throughout showed no sign of polyps, diverticular formation, colitis, or cancer. Retroflex view was normal as well. The scope was removed and the patient was taken to the recovery room in good condition. CONCLUDING DIAGNOSIS: Normal colon to cecum. PLAN: Recommend repeat colonoscopy in 10 years sooner if clinically indicated. She will return to the ongoing care of Dr. Dee. MD INDERJIT Cyr/ARIANNEL /[id number] Copies: ~ Electronically Signed By: VAN RUST MD 08/29/20 0944 PATIENT NAME: JD PORTER OPERATIVE REPORT DATE OF : 58 REPORT #: [id number] PHYSICIAN: VAN RUST MD PCP: SCOTT DEE MD REPORT IS CONFIDENTIAL AND NOT TO BE RELEASED WITHOUT AUTHORIZATION
== END 2020-08-28 15:45 | disposition home or self-care (01) ==
LOC: OPS 11:48 → DS 11:48 → OPS 13:00
PROVIDERS: ATTEND Surgery
PROC: 0DJD8ZZ Inspection of Lower Intestinal Tract, Via Natural or Artificial Opening Endoscopic (ICD-10-PCS; principal; 2020-08-28 13:00)
DX: Z12.11 Encounter for screening for malignant neoplasm of colon (principal); Z85.850 Personal history of malignant neoplasm of thyroid; Z96.659 Presence of unspecified artificial knee joint; Z96.651 Presence of right artificial knee joint; Z90.711 Acquired absence of uterus with remaining cervical stump
CPT/HCPCS: 99153; G0500; J0690; J1170; J2250; J3010; J7121

== ENCOUNTER 2022-02-02 15:38 | Emergency (ER) | payer OTHER ==
[~2022-02-02] VITALS: Ht 154.9 cm; Wt 52.4 kg
[~2022-02-02 15:38] MED LIST changes: +MIRAPEX0.25 MG PO
--- OUTSIDE RECORDS SUMMARY | 2022-02-02 15:40 | XMS ---
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 Care History Substance Use/Overdose 04/27/2017 [facility] Pain/Opioid Agreement: *USE CAUTION WHEN PRESCRIBING NARCOTICS. *AVOID NARCOTICS AT DISCHARGE. PATIENT IS UNDER A PAIN CONTRACT WITH PCP DR CARL HAWK . These are guidelines and the provider should exercise clinical judgment when providing care. E.D. VISIT COUNT (12 MO.) 1 [facility] TOTAL 1 NOTE: Visits indicate total known visits. ED/UCC VISIT TRACKING (12 MO.) 02/02/2022 15:38 [facility] TYPE: Emergency COMPLAINT: - LT KNEE PAIN INPATIENT VISIT TRACKING (12 MO.) No inpatient visits to display in this time frame [email or web address]
[2022-02-02] MEDS ORDERED: LEVOTHYROXINE137 MCG PO (19:19)
[2022-02-02] MEDS ORDERED: CEFADROXIL500 MG PO (19:19)
[2022-02-02] MEDS ORDERED: PRAMIPEXOLE DI0.5 MG PO (19:19)
[2022-02-02] MEDS ORDERED: HYDROMORPHONE HC4 MG PO (19:19)
[2022-02-02] MEDS ORDERED: PROBIOTIC1 EAC3 PO (19:20)
[2022-02-02] MEDS ORDERED: TRAZODONE HCL50 MG PO (19:21)
[2022-02-02] MEDS ORDERED: MELOXICAM15 MG PO (20:48)
== END 2022-02-02 21:16 | disposition home or self-care (01) ==
LOC: ED 15:38
DX: M25.462 Effusion, left knee (principal); Z88.8 Allergy status to other drugs, medicaments and biological substances; Z88.5 Allergy status to narcotic agent; Z88.2 Allergy status to sulfonamides; Z79.899 Other long term (current) drug therapy
CPT/HCPCS: 36415; 73560; 80053; 85025; 93971; 99284-25

== ENCOUNTER 2022-04-21 11:10 | Emergency (ER) | payer OTHER ==
[~2022-04-21] VITALS: Ht 154.9 cm; Wt 50.2 kg
[~2022-04-21 11:10] MED LIST changes: +CEFADROXIL500 MG PO; +LEVOTHYROXINE137 MCG PO; +MELOXICAM15 MG PO; +PRAMIPEXOLE DI0.5 MG PO; +PROBIOTIC1 EAC3 PO
--- OUTSIDE RECORDS SUMMARY | 2022-04-21 11:13 | XMS ---
PreManage Notification: JD PORTER Security Tester Food Products Events No recent Security Events currently on file CRITERIA MET - [facility] SCOTT MARRUFO [facility] 12/24/2019-Current PHONE: Unknown JOCELINE EMERSON [facility] Current PHONE: Unknown Allen has no Care Guidelines for this patient. Care History Substance Use/Overdose 04/27/2017 [facility] Pain/Opioid Agreement: *USE CAUTION WHEN PRESCRIBING NARCOTICS. *AVOID NARCOTICS AT DISCHARGE. PATIENT IS UNDER A PAIN CONTRACT WITH PCP DR CARL HAWK . These are guidelines and the provider should exercise clinical judgment when providing care. E.D. VISIT COUNT (12 MO.) [address] [facility] TOTAL 2 NOTE: Visits indicate total known visits. ED/UCC VISIT TRACKING (12 MO.) 04/21/2022 11:11 [facility] TYPE: Emergency COMPLAINT: - R KNEE WOUND/PAIN 02/02/2022 15:38 [facility] TYPE: Emergency COMPLAINT: - LT KNEE PAIN DIAGNOSES: - Effusion, left knee - Allergy status to narcotic agent - Allergy status to sulfonamides - Pain in left knee - Allergy status to other drugs, medicaments and biological substances - Other intermodal dispatcher (current) drug therapy INPATIENT VISIT TRACKING (12 MO.) No inpatient visits to display in this time frame [email or web address]
[2022-04-21] MEDS ORDERED: CEPHALEXIN500 M1 PO (12:55)
[2022-04-21] MEDS ORDERED: DILAUDID2 MG PO (12:55)
[2022-04-21] MEDS ORDERED: PROMETHAZINE HC25 M1 PO (12:55)
== END 2022-04-21 15:38 | disposition home or self-care (01) ==
LOC: ED 11:10
DX: L03.115 Cellulitis of right lower limb (principal); G43.909 Migraine, unspecified, not intractable, without status migrainosus; Z88.6 Allergy status to analgesic agent; Z88.5 Allergy status to narcotic agent; Z88.8 Allergy status to other drugs, medicaments and biological substances; Z88.2 Allergy status to sulfonamides; Z79.899 Other long term (current) drug therapy
CPT/HCPCS: 36415; 73560; 85025; 85651; 86140; 96374; 96375; 99283-25; J0690; J1170; J2550

== ENCOUNTER 2025-01-01 09:50 | Day surgery (SDC) | payer MEDICARE, OTHER ==
[~2025-01-01] VITALS: Ht 154.9 cm; Wt 58.0 kg
[~2025-01-01 09:50] MED LIST changes: +BUPRENORPHINE HC8 MG SL; +CEFAZOLIN SODIUM 2 GM in SODIUM CHLORIDE 0.9% 100 ML IV SCH; +CEPHALEXIN500 M1 PO; +DILAUDID2 MG PO; +IBLOOD GLUCOSE TEST STRIP 1 EA TEST VI PRN; +LACTATED RINGER'S 1,000 ML IV SCH; +LEXAPRO10 MG PO; +LIDOCAINE HCL 1% 5 ML SDV INJ ONE
[2025-01-01 10:11] VITALS: BP 104/63
[2025-01-01] MEDS ORDERED: MIDAZOLAM HCL 2 MG/2 ML VIAL ONE (11:00)
[2025-01-01] MEDS ORDERED: KETOROLAC TROMETHAMINE 30 MG/ML VIAL ONE (11:04)
[2025-01-01] MEDS ORDERED: DEXAMETHASONE SOD PHOS 4 MG/ML VIAL ONE (11:05)
--- NOTE | 2025-01-01 11:42 | NUR ---
01/01/25 1142 Hannah Chan 1139: PT ARRIVES TO PACU NON AROUSAL. REPORT RECEIVED FROM INDUSTRIAL SAFETY ENGINEER AND RETIREMENT [employer].
[2025-01-01] MEDS ORDERED: NAPROXEN500 MG PO (11:59)
[2025-01-01] MEDS ORDERED: NAPROXEN 500 MG TAB PO PRN (12:00)
[2025-01-01] MEDS ORDERED: IBUPROFEN 600 MG TAB PO PRN (12:00)
[2025-01-01] MEDS ORDERED: LACTATED RINGER'S 1,000 ML IV SCH (12:00)
[2025-01-01] MEDS ORDERED: NALOXONE HCL 0.4 MG SYR IV PRN (12:00)
[2025-01-01] MEDS ORDERED: DILAUDID4 MG PO (12:01)
[2025-01-01 12:24] VITALS: BP 119/87
--- NOTE | 2025-01-02 11:15 | OR ---
[facility] [address], [place] [address] Signed DATE OF OPERATION: 01/01/2025 SURGEON: Van Rust MD PREOPERATIVE DIAGNOSIS: Right carpal tunnel syndrome. POSTOPERATIVE DIAGNOSIS: Right carpal tunnel syndrome. PROCEDURE: Right carpal tunnel release. ANESTHESIA: [place] block with local anesthetic, Efra Gipson [employer]. INDICATION: This 64-year-old woman is a patient of Dr. Emerson. She was referred for diarrhea and known right carpal tunnel syndrome. As regards to diarrhea, colonoscopy has been undertaken showing no specific cause of the problem. It is quite notable that she previously had progressive constipation. She is now on buprenorphine for opiate abstinence management, which may account for bowel issue. Additionally, she does have right-sided numbness and tingling in the distribution of the median nerve including index finger, middle finger, and radial side of the 4th finger. This has awakened her at night many times. She underwent neurologic testing by Dr. Che confirming moderate degree motor axon degeneration bilaterally, more symptomatic on the right, consistent with bilateral nerve entrapment across the wrist. She is admitted at this time to undergo right carpal tunnel release. She understands as does her the risk of bleeding, infection, nerve injury, failure to cure her symptoms, recurrent disease and other unforeseen complications. Understanding this, she wished to proceed. FINDINGS: Good exsanguination of the arm with the tourniquet and excellent analgesia with the [place] block was noted. The transverse carpal ligament was transected under direct visualization with no injury to surrounding tissue or underlying nerve. The nerve itself was chronically inflamed, but did not have an hourglass deformity or anything of that nature. There were no complications. DESCRIPTION OF PROCEDURE: Electronically Signed By: VAN RUST MD 01/02/25 1115 PATIENT NAME: JD PORTER OPERATIVE REPORT DATE OF : 58 REPORT #: [id number] PHYSICIAN: VAN RUST MD PCP: JOCELINE EMERSON MD REPORT IS CONFIDENTIAL AND NOT TO BE RELEASED WITHOUT AUTHORIZATION [facility] [address], [place] [address] Signed The patient was brought to the operating room, given intravenous sedation and [place] block was then placed in the right side. The tourniquet was inflated to 250 mmHg and the tourniquet was below the elbow to diminish local anesthetic burden. The right hand was prepared with a chlorhexidine solution and draped sterilely. A rolled blue towel was placed behind the wrist and using the lead finger exposure device, good wrist extension was noted. Ulnar to the hypothenar skin crease at the distal transverse wrist crease, a small incision was made with a 15 blade, which was carried through the subcutaneous tissue. Good hemostasis was noted thanks to good tourniquet effect. Dissection was carried through longitudinally at the palmaris longus, encountering the transverse carpal ligament. This was incised with a 15 blade and direct visualization with loupe magnification. A hemostat was placed beneath the transverse carpal ligament and was divided proximally first up to the transverse distal wrist crease with a 15 blade and subsequently tenotomy scissors. Care was taken to avoid injury to the underlying nerve. The incision was then taken over the transverse carpal ligament distalward onto the palm to the fatty tissue. Inspection of the nerve shows no sign of neoplasm or other abnormality. 5 mL total of 0.25% Marcaine with epinephrine was injected locally. The skin was then closed with interrupted 2-0 nylon. Xeroform dressing and gauze was applied as was a Flexicon wrap and ultimately an Hoang wrap. A splint was applied externally to the wrap securing it in a neutral position. The tourniquet had been removed. The tourniquet time was noted in chart, but less than 22 minutes. Pressure was applied to the operative site and she was ultimately taken to recovery room in good condition. Blood loss was minimal. Complications none. MD INDERJIT Cyr/ARIANNEL /[id number] cc: MD Dr. Chinedu Rees [place] Electronically Signed By: VAN RUST MD 01/02/25 1115 PATIENT NAME: JD PORTER OPERATIVE REPORT DATE OF : 58 REPORT #: [id number] PHYSICIAN: VAN RUST MD PCP: JOCELINE EMERSON MD REPORT IS CONFIDENTIAL AND NOT TO BE RELEASED WITHOUT AUTHORIZATION [address] [address] Signed Copies: ~ Electronically Signed By: VAN RUST MD 01/02/25 1115 PATIENT NAME: JD PORTER DEMARCUS OPERATIVE REPORT DATE OF : 58 REPORT #: [id number] PHYSICIAN: VAN RUST MD PCP: JOCELINE EMERSON MD REPORT IS CONFIDENTIAL AND NOT TO BE RELEASED WITHOUT AUTHORIZATION
== END 2025-01-01 12:38 | disposition home or self-care (01) ==
LOC: OPS 09:50 → DS 09:50 → OPS 11:30
PROVIDERS: ATTEND Surgery
PROC: 01N50ZZ Release Median Nerve, Open Approach (ICD-10-PCS; principal; 2025-01-01 11:30)
DX: G56.01 Carpal tunnel syndrome, right upper limb (principal); E89.0 Postprocedural hypothyroidism; K52.9 Noninfective gastroenteritis and colitis, unspecified; Z88.5 Allergy status to narcotic agent; Z88.8 Allergy status to other drugs, medicaments and biological substances; Z79.890 Hormone replacement therapy
CPT/HCPCS: 01810; J0688; J1100; J1885; J2250; J2405; J2704

== ENCOUNTER 2025-01-30 06:22 | Emergency (ER) | payer MEDICARE ==
[~2025-01-30] VITALS: Ht 154.9 cm; Wt 57.2 kg
--- OUTSIDE RECORDS SUMMARY | ~2025-01-30 | XMS | Continuity of Care Document ---
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 | Phone | + + + + Unavailable | Unavailable | + + + + Unavailable | Unavailable | + + + + Unavailable | Unavailable | + + + + Allergies and Intolerances + + + + + + | date | description | facility | reaction | severity | + + + + + + | 2024-12-20 | | [facility] - | (no reaction) | Moderate | | 00:00 | Cyclobenzaprine | [facility] | | | + + + + + + | 2024-12-20 | | [facility] - | (no reaction) | (no severity) | | 00:00 | cyclobenzaprine | [facility] | | | + + + + + + | 2024-12-20 | | [facility] - | (no reaction) | Moderate | | 00:00 | Cyclobenzaprine | [facility] | | | + + + + + + | 2024-12-20 | | [facility] - | (no reaction) | Moderate | | 00:00 | Cyclobenzaprine | [facility] | | | + + + + + + Encounters No information. Functional Status No information. Immunizations + + + + | date | description | facility | + + + + | (no date) | No vaccine administered | [facility] | | | | [facility] | + + + + Medications + + + + | date | description | facility | + + + + | (no date) | 12 HR tapentadol 50 MG | [facility] | | | Extended Release Oral | [facility] | | | Tablet [Nucynta | | + + + + | (no date) | TAPENTADOL HCL | [facility] | | | | [facility] | + + + + | (no date) | CEFTRIAXONE SODIUM | [facility] | | | | [facility] | + + + + | (no date) | ceftriaxone 2000 MG | [facility] | | | Injection | [facility] | + + + + | 2025-01-01 00:00 | NAPROXEN | [facility] | | | | [facility] | + + + + | 2025-01-01 00:00 | naproxen 500 MG Oral | [facility] | | | Tablet | [facility] | + + + + | (no date) | ASCORBIC ACID | [facility] | | | | [facility] | + + + + | (no date) | ascorbic acid 1000 MG Oral | [facility] | | | Tablet | [facility] | + + + + | (no date) | ZINC GLUCONATE | [facility] | | | | [facility] | + + + + | (no date) | zinc gluconate 30 MG Oral | [facility] | | | Tablet | [facility] | + + + + | (no date) | GLUCOSAMINE HCL/CHONDR LO | [facility] | | | A NA | [facility] | + + + + | (no date) | chondroitin sulfates 200 | [facility] | | | MG / glucosamine | [facility] | | | hydrochloride 250 | | + + + + | (no date) | TEMAZEPAM | [facility] | | | | [facility] | + + + + | (no date) | temazepam 15 MG Oral | [facility] | | | Capsule [Restoril] | [facility] | + + + + | (no date) | CALCIUM CARBONATE | [facility] | | | | [facility] | + + + + | (no ) | calcium carbonate 1500 MG | [facility] | | | Oral Tablet | [facility] | + + + + | (no date) | SENNOSIDES | [facility] | | | | [facility] | + + + + | (no date) | sennosides, INTERMEDIATE 8.6 MG | [facility] | | | Oral Tablet | [facility] | + + + + | (no date) | BUPRENORPHINE HCL | [facility] | | | | [facility] | + + + + | (no date) | buprenorphine 8 MG | [facility] | | | Sublingual Tablet | [facility] | + + + + | (no date) | ESCITALOPRAM OXALATE | [facility] | | | | [facility] | + + + + | (no ) | escitalopram 10 MG Oral | [facility] | | | Tablet [Lexapro] | [facility] | + + + + | (no ) | DULOXETINE HCL | [facility] | | | | [facility] | + + + + | (no date) | duloxetine 30 MG Delayed | [facility] | | | Release Oral Capsule | [facility] | | | [Cymbalta] | | + + + + | (no date) | Cholecalciferol (Vitamin | [facility] | | | D3) | [facility] | + + + + | (no date) | cholecalciferol 0.05 MG | [facility] | | | Oral Tablet | [facility] | + + + + | (no date) | CYCLOBENZAPRINE HCL | [facility] | | | | [facility] | + + + + | (no date) | cyclobenzaprine | [facility] | | | hydrochloride 5 MG Oral | [facility] | | | Tablet | | + + + + | (no date) | | [facility] | | | SULFAMETHOXAZOLE/TRIMETHOPR | [facility] | | | IM DS | | + + + + | (no date) | sulfamethoxazole 800 MG / | [facility] | | | trimethoprim 160 MG Oral | [facility] | | | Tablet [B | | + + + + | (no date) | ZOLPIDEM TARTRATE | [facility] | | | | [facility] | + + + + | (no date) | zolpidem tartrate 10 MG | [facility] | | | Oral Tablet [Ambien] | [facility] | + + + + | (no date) | TRAZODONE HCL | [facility] | | | | [facility] | + + + + | (no date) | trazodone hydrochloride 50 | [facility] | | | MG Oral Tablet | [facility] | + + + + | (no date) | PRAMIPEXOLE DI-HCL | [facility] | | | | [facility] | + + + + | (no ) | pramipexole | [facility] | | | dihydrochloride 0.25 MG | [facility] | | | Oral Tablet [Mirapex] | | + + + + | (no ) | PRAMIPEXOLE DI-HCL | [facility] | | | | [facility] | + + + + | (no date) | pramipexole | [facility] | | | dihydrochloride 0.5 MG Oral | [facility] | | | Tablet | | + + + + | (no date) | POLYETHYLENE GLYCOL 3350 | [facility] | | | | [facility] | + + + + | (no date) | polyethylene glycol 3350 | [facility] | | | [address] MG Powder for Oral | [facility] | | | Solution [ | | + + + + | (no date) | HYDROMORPHONE HCL | [facility] | | | | [facility] | + + + + | (no date) | hydromorphone | [facility] | | | hydrochloride 4 MG Oral | [facility] | | | Tablet | | + + + + | (no date) | HYDROMORPHONE HCL | [facility] | | | | [facility] | + + + + | 2025-01-01 00:00 | HYDROMORPHONE HCL | [facility] | | | [facility] | + + + + | (no date) | hydromorphone | [facility] | | | hydrochloride 4 MG Oral | [facility] | | | Tablet [Dilaudid] | | + + + + | 2025-01-01 00:00 | hydromorphone | [facility] | | | hydrochloride 4 MG Oral | [facility] | | | Tablet [Dilaudid] | | + + + + | (no date) | LEVOTHYROXINE SODIUM | [facility] | | | | [facility] | + + + + | (no date) | levothyroxine sodium 0.112 | [facility] | | | MG Oral Tablet [Synthroid] | [facility] | | | | | + + + + | (no date) | LEVOTHYROXINE SODIUM | [facility] | | | | [facility] | + + + + | (no date) | levothyroxine sodium 0.1 | [facility] | | | MG Oral Tablet [Synthroid] | [facility] | + + + + | (no date) | LEVOTHYROXINE SODIUM | [facility] | | | | [facility] | + + + + | (no date) | levothyroxine sodium 0.137 | [facility] | | | MG Oral Tablet | [facility] | + + + + | (no date) | PROMETHAZINE HCL | [facility] | | | | [facility] | + + + + | (no date) | promethazine hydrochloride | [facility] | | | 25 MG Oral Tablet | [facility] | + + + + Problems No information. Procedures + + + + | date | description | facility | + + + + | 2024-12-24 00:00 | EXCISION OF RECTUM, ENDO, | [facility] | | | DIAGN | [facility] | + + + + | 2024-12-24 00:00 | EXCISION OF RECTUM, ENDO, | [facility] | | | DIAGN | [facility] | + + + + | 2024-12-24 00:00 | Colonoscopy with biopsy of | [facility] | | | colon | [facility] | + + + + | 2024-12-24 00:00 | COLONOSCOPY AND BIOPSY | [facility] | | | | [facility] | + + + + | 2024-12-24 00:00 | Colonoscopy with biopsy of | [facility] | | | colon | [facility] | + + + + | 2025-01-01 00:00 | Right carpal tunnel | [facility] | | | release | [facility] | + + + + Results/Labs +--------+--------+ +---------+--------+---------+ | test | date | facility | value | unit | notes | +--------+--------+ +---------+--------+---------+ + + | Result panel 1 | + + + + + +--------+ + + | Blood | 2024-12-20 | | 5.91 | (missing) | (missing) | | leukocytes | 11:03 | [facility] | | | | | automated [facility] | | | | | (number/volu | | Hospital | | | | | me) | | | | | | + + + +--------+ + + + + | Result panel 2 | + + + + + +--------+ + + | Automated | 2024-12-20 | | 36.7 | (missing) | (missing) | | blood | 11:03 | [facility] | | | | | lymphocyte | [facility] | count as | [facility] | | | | | percentage | | Hospital | | | | | ot total | | | | | | | leukocytes | | | | | | + + + +--------+ + + + + | Result panel 3 | + + + + + +--------+ + + | Automated | 2024-12-20 | | 10.0 | (missing) | (missing) | | blood | 11:03 | [facility] | | | | | monocyte | [facility] - [facility] | count as | [facility] | | | | | percentage | | Hospital | | | | | of total | | | | | | | leukocytes | | | | | | + + + +--------+ + + + + | Result panel 4 | + + + + + +-------+ + + | Automated | 2024-12-20 | | 5.4 | (missing) | (missing) | | blood | 11:03 | [facility] | | | | | eosinophil | [facility] - [facility] | count as | [facility] | | | | | percentage | | Hospital | | | | | of total | | | | | | | leukocytes | | | | | | + + + +-------+ + + + + | Result panel 5 | + + + + + +-------+ + + | Automated | 2024-12-20 | | 0.8 | (missing) | (missing) | | blood | 11:03 | [facility] | | | | | basophil | [facility] - [facility] | count as | [facility] | | | | | percentage | | Hospital | | | | | of total | | | | | | | leukocytes | | | | | | + + + +-------+ + + + + | Result panel 6 | + + + + + +-------+ + + | Serum or | 2024-12-20 | | 101 | (missing) | (missing) | | plasma | 11:03 | [facility] | | | | | glucose | | - [facility] | measurement | [facility] | | | | | (mass/volume | | Hospital | | | | | ) | | | | | | + + + +-------+ + + + + | Result panel 7 | + + + + + +------+ + + | Serum or | 2024-12-20 | | 19 | (missing) | (missing) | | plasma urea | 11:03 | [facility] | | | | | nitrogen | | - [facility] | measurement | [facility] | | | | | (mass/volume | | Hospital | | | | | ) | | | | | | + + + +------+ + + + + | Result panel 8 | + + + + + +--------+ + + | Serum or | 2024-12-20 | | 0.73 | (missing) | (missing) | | plasma | 11:03 | [facility] | | | | | creatinine | [facility] - [facility] | [facility] | | | | | (mass/volume | | Hospital | | | | | ) | | | | | | + + + +--------+ + + + + | Result panel 9 | + + + + + +------+ + + | Glomerular | 2024-12-20 | | 91 | (missing) | (missing) | | filtration | 11:03 | [facility] | | | | | rate/1.73 sq | | - [facility] | | | | M.predicted | [facility] | | | | | [Volume | | Hospital | | | | | Rate/Area] | | | | | | | inSerum, | | | | | | | Plasma or | | | | | | | Blood by | | | | | | | Creatinine-b | | | | | | | ased formula | | | | | | | (CKD-EPI | | | | | | | 2020) | | | | | | + + + +------+ + + + + | Result panel 10 | + + + + + +---------+ + + | Serum or | 2024-12-20 | | 26.02 | (missing) | (missing) | | plasma urea | 11:03 | [facility] | | | | | nitrogen/cre | | - [facility] | | | | | atinine mass | | [facility] | | | | | ratio | | Hospital | | | | + + + +---------+ + + + + | Result panel 11 | + + + + + +-------+ + + | Serum or | 2024-12-20 | | 140 | (missing) | (missing) | | plasma | 11:03 | [facility] | | | | | sodium | | - [facility] | measurement | [facility] | | | | | (moles/volum | | Hospital | | | | | e) | | | | | | + + + +-------+ + + + + | Result panel 12 | + + + + + +--------+ + + | Blood | 2024-12-20 | | 4.09 | (missing) | (missing) | | erythrocytes | 11:03 | [facility] | | | | | automated | [facility] - [facility] | count | [facility] | | | | | (number/volu | | Hospital | | | | | me) | | | | | | + + + +--------+ + + + + | Result panel 13 | + + + + + +-------+ + + | Serum or | 2024-12-20 | | 4.3 | (missing) | (missing) | | plasma | 11:03 | [facility] | | | | | potassium | | - [facility] | measurement | [facility] | | | | | (moles/volum | | Hospital | | | | | e) | | | | | | + + + +-------+ + + + + | Result panel 14 | + + + + + +-------+ + + | Serum or | 2024-12-20 | | 104 | (missing) | (missing) | | plasma | 11:03 | [facility] | | | | | chloride | | - [facility] | measurement | [facility] | | | | | (moles/volum | | Hospital | | | | | e) | | | | | | + + + +-------+ + + + + | Result panel 15 | + + + + + +------+ + + | Serum or | 2024-12-20 | | 30 | (missing) | (missing) | | plasma | 11:03 | [facility] | | | | | carbon | | - [facility] | | | | | dioxide, | | [facility] | | | | | total | | Hospital | | | | | measurement | | | | | | | (moles/volum | | | | | | | e) | | | | | | + + + +------+ + + + + | Result panel 16 | + + + + + +--------+ + + | Serum or | 2024-12-20 | | 10.3 | (missing) | (missing) | | plasma anion | 11:03 | [facility] | | | | | gap 4 | [facility] | | [facility] | | [facility] | | | | + + + +--------+ + + + + | Result panel 17 | + + + + + +-------+ + + | Serum or | 2024-12-20 | | 8.6 | (missing) | (missing) | | plasma | 11:03 | [facility] | | | | | calcium | | - [facility] | measurement | | [facility] | | | | | (mass/volume | | Hospital | | | | | ) | | | | | | + + + +-------+ + + + + | Result panel 18 | + + + + + +-------+ + + | Serum or | 2024-12-20 | | 6.8 | (missing) | (missing) | | plasma | 11:03 | [facility] | | | | | protein | | - [facility] | measurement | | [facility] | | | | | (mass/volume | | Hospital | | | | | ) | | | | | | + + + +-------+ + + + + | Result panel 19 | + + + + + +-------+ + + | Serum or | 2024-12-20 | | 3.5 | (missing) | (missing) | | plasma | 11:03 | [facility] | | | | | albumin | | - [facility] | measurement | | [facility] | | | | | (mass/volume | | Hospital | | | | | ) | | | | | | + + + +-------+ + + + + | Result panel 20 | + + + + + +-------+ + + | Serum | 2024-12-20 | | 3.3 | (missing) | (missing) | | globulin | 11:03 | [facility] | | | | | measurement | | - [facility] | [facility] | (mass/volume | | [facility] | | | | ) | | Hospital | | | | + + + +-------+ + + + + | Result panel 21 | + + + + + +--------+ + + | Serum or | 2024-12-20 | | 1.06 | (missing) | (missing) | | plasma | 11:03 | [facility] | | | | | albumin/glob | | - [facility] | | | | | ulin mass | | [facility] | | | | | ratio | | Hospital | | | | + + + +--------+ + + + + | Result panel 22 | + + + + + +-------+ + + | Serum or | 2024-12-20 | | 0.3 | (missing) | (missing) | | plasma total | 11:03 | [facility] | | | | | bilirubin | | - [facility] | measurement | [facility] | | | | | (mass/volume | | Hospital | | | | | ) | | | | | | + + + +-------+ + + + + | Result panel 23 | + + + + + +--------+ + + | Blood | 2024-12-20 | | 12.6 | (missing) | (missing) | | hemoglobin | 11:03 | [facility] | | | | | measurement | | - [facility] | [facility] | (mass/volume | | [facility] | | | | ) | | [facility] | | | | + + + +--------+ + + + + | Result panel 24 | + + + + + +------+ + + | Serum or | 2024-12-20 | | 16 | (missing) | (missing) | | plasma | 11:03 | [facility] | | | | | aspartate | | - [facility] | | | | | aminotransfe | | [facility] | | | | | rase | | Hospital | | | | | measurement | | | | | | | (enzymatic | | | | | | | activity/vol | | | | | | | ume) | | | | | | + + + +------+ + + + + | Result panel 25 | + + + + + +------+ + + | Serum or | 2024-12-20 | | 20 | (missing) | (missing) | | plasma | 11:03 | [facility] | | | | | alanine | | - [facility] | | | | | aminotransfe | | [facility] | | | | | rase | | Hospital | | | | | measurement | | | | | | | (enzymatic | | | | | | | activity/vol | | | | | | | ume) | | | | | | + + + +------+ + + + + | Result panel 26 | + + + + + +------+ + + | Serum or | 2024-12-20 | | 76 | (missing) | (missing) | | plasma | 11:03 | [facility] | | | | | alkaline | | - [facility] | | [facility] | | phosphatase | | [facility] | | | | | measurement | | Hospital | | | | | (enzymatic | | | | | | | activity/vol | | | | | | | ume) | | | | | | + + + +------+ + + + + | Result panel 27 | + + + + + +--------+ + + | Automated | 2024-12-20 | | 38.8 | (missing) | (missing) | | blood | 11:03 | [facility] | | | | | hematocrit | [facility] | | | | + + + +--------+ + + + + | Result panel 28 | + + + + + +--------+ + + | Automated | 2024-12-20 | | 94.9 | (missing) | (missing) | | erythrocyte | 11:03 | [facility] | | | | | mean | | - [facility] | | | | | corpuscular | | [facility] | | | | | volume | | Hospital | | | | + + + +--------+ + + + + | Result panel 29 | + + + + + +--------+ + + | Automated | 2024-12-20 | | 30.8 | (missing) | (missing) | | erythrocyte | 11:03 | [facility] | | | | | mean | | - [facility] | | | | | corpuscular | | [facility] | | | | | hemoglobin | | Hospital | | | | | (mass per | | | | | | | erythrocyte) | | | | | | | | | | | | | + + + +--------+ + + + + | Result panel 30 | + + + + + +--------+ + + | Automated | 2024-12-20 | | 32.5 | (missing) | (missing) | | erythrocyte | 11:03 | [facility] | | | | | mean | | - [facility] | | | | | corpuscular | | [facility] | | | | | hemoglobin | | Hospital | | | | | concentratio | | | | | | | n | | | | | | | measurement | | | | | | | (mass/volume | | | | | | | ) | | | | | | + + + +--------+ + + + + | Result panel 31 | + + + + + +-------+ + + | Automated | 2024-12-20 | | 228 | (missing) | (missing) | | blood | 11:03 | [facility] | | | | | platelet | | - [facility] | | [facility] | count | | [facility] | | | | | (count/volum | | Hospital | | | | | e) | | | | | | + + + +-------+ + + + + | Result panel 32 | + + + + + +--------+ + + | Automated | 2024-12-20 | | 46.9 | (missing) | (missing) | | blood | 11:03 | [facility] | | | | | neutrophil | | - [facility] | | [facility] | | count as | | [facility] | | | | | percentage | | Hospital | | | | | of total | | | | | | | leukocytes | | | | | | + + + +--------+ + + + + | Result panel 33 | + + + + + +--------+ + + | Hct VFr.DF | 2024-12-20 | | 38.8 | (missing) | (missing) | | Bld Auto | 11:03:07 | [facility] | | | [facility] | | | | + + + +--------+ + + + + | Result panel 34 | + + + + + +--------+ + + | RBC Auto | 2024-12-20 | | 94.9 | (missing) | (missing) | | | 11:03:07 | [facility] | | | [facility] | | [facility] | | | | + + + +--------+ + + + + | Result panel 35 | + + + + + +--------+ + + | MCH RBC Qn | 2024-12-20 | | 30.8 | (missing) | (missing) | | Auto | 11:03:07 | [facility] | | | | | | | - | | | | | | | [facility] | | | | | [facility] | | | | + + + +--------+ + + + + | Result panel 36 | + + + + + +--------+ + + | MCHC RBC | 2024-12-20 | | 32.5 | (missing) | (missing) | | Auto-EntMCnc | 11:03:07 | [facility] | | | | + + + +--------+ + + + + | Result panel 37 | + + + + + +-------+ + + | Platelet # | 2024-12-20 | | 228 | (missing) | (missing) | | Bld Auto | 11:03:07 | [facility] | | | [facility] | [facility] | | | | + + + +-------+ + + + + | Result panel 38 | + + + + + +--------+ + + | Neutrophils | 2024-12-20 | | 46.9 | (missing) | (missing) | | NFr Bld | 11:03:07 | [facility] | | | | | Auto | | [facility] | | | | + + + +--------+ + + + + | Result panel 39 | + + + + + +--------+ + + | Lymphocytes | 2024-12-20 | | 36.7 | (missing) | (missing) | | NFr Bld | 11:03:07 | [facility] | | | | | Auto | | [facility] | | | | + + + +--------+ + + + + | Result panel 40 | + + + + + +--------+ + + | Monocytes | 2024-12-20 | | 10.0 | (missing) | (missing) | | NFr Bld Auto | 11:03:07 | [facility] | | | | | | [facility] | | | | + + + +--------+ + + + + | Result panel 41 | + + + + + +-------+ + + | Eosinophil | 2024-12-20 | | 5.4 | (missing) | (missing) | | NFr Bld Auto | 11:03:07 | [facility] | | | | | | [facility] | | | | + + + +-------+ + + + + | Result panel 42 | + + + + + +-------+ + + | Basophils | 2024-12-20 | | 0.8 | (missing) | (missing) | | NFr Bld Auto | 11:03:07 | [facility] | | | [facility] | | [facility] | | | | + + + +-------+ + + + + | Result panel 43 | + + + + + +-------+---------+ + | Glucose | 2024-12-20 | | 101 | mg/dL | (missing) | | SerPl-mCnc | 11:03:07 | [facility] | | | | | | [facility] | | | | + + + +-------+---------+ + + + | Result panel 44 | + + + + + +------+---------+ + | BUN | 2024-12-20 | | 19 | mg/dL | (missing) | | [facility] | 11:03:07 | [facility] | | | | | [facility] | | | | + + + +------+---------+ + + + | Result panel 45 | + + + + + +--------+---------+ + | Creat | 2024-12-20 | | 0.73 | mg/dL | (missing) | | [facility] | 11:03:07 | [facility] | | | | | | [facility] | | | | + + + +--------+---------+ + + + | Result panel 46 | + + + + + +------+ + + | eGFRcr | 2024-12-20 | | 91 | (missing) | (missing) | | SerPlBld | 11:03:07 | [facility] | | | | | CKD-EPI 2020 | [facility] | [facility] | | | | + + + +------+ + + + + | Result panel 47 | + + + + + +---------+ + + | BUN/Creat | 2024-12-20 | | 26.02 | (missing) | (missing) | | SerPl | 11:03:07 | [facility] | | | | + + + +---------+ + + + + | Result panel 48 | + + + + + +-------+ + + | Sodium | 2024-12-20 | | 140 | (missing) | (missing) | | SerPl-sCnc | 11:03:07 | [facility] | | | | + + + +-------+ + + + + | Result panel 49 | + + + + + +-------+ + + | Potassium | 2024-12-20 | | 4.3 | (missing) | (missing) | | SerPl-sCnc | 11:03:07 | [facility] | | | | + + + +-------+ + + + + | Result panel 50 | + + + + + +-------+ + + | Chloride | 2024-12-20 | | 104 | (missing) | (missing) | | [facility] | 11:03:07 | [facility] | | | | + + + +-------+ + + + + | Result panel 51 | + + + + + +------+ + + | CO2 | 2024-12-20 | | 30 | (missing) | (missing) | | SerPl-sCnc | 11:03:07 | [facility] | | | | + + + +------+ + + + + | Result panel 52 | + + + + + +--------+ + + | Anion Gap | 2024-12-20 | | 10.3 | (missing) | (missing) | | SerPl | 11:03:07 | [facility] | | | | | Calculated.4 [facility] | | | | + + + +--------+ + + + + | Result panel 53 | + + + + + +-------+---------+ + | Calcium | 2024-12-20 | | 8.6 | mg/dL | (missing) | | SerPl-mCnc | 11:03:07 | [facility] | | | | + + + +-------+---------+ + + + | Result panel 54 | + + + + + +-------+ + + | Prot | 2024-12-20 | | 6.8 | (missing) | (missing) | | [facility] | 11:03:07 | [facility] | | | | + + + +-------+ + + + + | Result panel 55 | + + + + + +-------+ + + | Albumin | 2024-12-20 | | 3.5 | (missing) | (missing) | | SerPl-mCnc | 11:03:07 | [facility] | | | | + + + +-------+ + + + + | Result panel 56 | + + + + + +-------+ + + | Globulin | 2024-12-20 | | 3.3 | (missing) | (missing) | | Ser-mCnc | 11:03:07 | [facility] | | | | + + + +-------+ + + + + | Result panel 57 | + + + + + +--------+ + + | | 2024-12-20 | | 1.06 | (missing) | (missing) | | Albumin/Glob | 11:03:07 | [facility] | | [facility] | | | | + + + +--------+ + + + + | Result panel 58 | + + + + + +-------+---------+ + | Bilirub | 2024-12-20 | | 0.3 | mg/dL | (missing) | | SerPl-mCnc | 11:03:07 | [facility] | | | | + + + +-------+---------+ + + + | Result panel 59 | + + + + + +------+ + + | AST | 2024-12-20 | | 16 | (missing) | (missing) | | [facility] | 11:03:07 | [facility] | | | | + + + +------+ + + + + | Result panel 60 | + + + + + +------+ + + | ALT | 2024-12-20 | | 20 | (missing) | (missing) | | SerPl-cCnc | 11:03:07 | [facility] | | | | + + + +------+ + + + + | Result panel 61 | + + + + + +------+ + + | ALP | 2024-12-20 | | 76 | (missing) | (missing) | | SerPl-cCnc | 11:03:07 | [facility] | | | | + + + +------+ + + + + | Result panel 62 | + + + + + +--------+ + + | WBC # Bld | 2024-12-20 | | 5.91 | (missing) | (missing) | | Auto | 11:03:07 | [facility] | | | | + + + +--------+ + + + + | Result panel 63 | + + + + + +--------+ + + | RBC # Bld | 2024-12-20 | | 4.09 | (missing) | (missing) | | Auto | 11:03:07 | [facility] | | | | + + + +--------+ + + + + | Result panel 64 | + + + + + +--------+ + + | Hgb | 2024-12-20 | | 12.6 | (missing) | (missing) | | Bld-mCnc | 11:03:07 | [facility] | | | | + + + +--------+ + + + + | Result panel 65 | + + + + + +--------+ + + | Hct VFr.DF | 2024-12-20 | | 38.8 | (missing) | (missing) | | Bld Auto | 11:03:07 | [facility] | | | | + + + +--------+ + + + + | Result panel 66 | + + + + + +--------+ + + | RBC Auto | 2024-12-20 | | 94.9 | (missing) | (missing) | | | :: | [facility] | | | | + + + +--------+ + + + + | Result panel 67 | + + + + + +--------+ + + | MCH RBC Qn | 2024-12-20 | | 30.8 | (missing) | (missing) | | Auto | 11:03:07 | [facility] | | | | + + + +--------+ + + + + | Result panel 68 | + + + + + +--------+ + + | MCHC RBC | 2024-12-20 | | 32.5 | (missing) | (missing) | | Auto-EntMCnc | 11:03:07 | [facility] | | | | + + + +--------+ + + + + | Result panel 69 | + + + + + +-------+ + + | Platelet # | 2024-12-20 | | 228 | (missing) | (missing) | | Bld Auto | 11:03:07 | [facility] | | | | + + + +-------+ + + + + | Result panel 70 | + + + + + +--------+ + + | Neutrophils | 2024-12-20 | | 46.9 | (missing) | (missing) | | NFr Bld | 11:03:07 | [facility] | | | | | Auto | [facility] | | | | + + + +--------+ + + + + | Result panel 71 | + + + + + +--------+ + + | Lymphocytes | 2024-12-20 | | 36.7 | (missing) | (missing) | | NFr Bld | 11:03:07 | [facility] | | | | | Auto | [facility] | | | | + + + +--------+ + + + + | Result panel 72 | + + + + + +--------+ + + | Monocytes | 2024-12-20 | | 10.0 | (missing) | (missing) | | NFr Bld Auto | 11:03:07 | [facility] | | | | + + + +--------+ + + + + | Result panel 73 | + + + + + +-------+ + + | Eosinophil | 2024-12-20 | | 5.4 | (missing) | (missing) | | NFr Bld Auto | 11:03:07 | [facility] | | | | + + + +-------+ + + + + | Result panel 74 | + + + + + +-------+ + + | Basophils | 2024-12-20 | | 0.8 | (missing) | (missing) | | NFr Bld Auto | 11:03:07 | [facility] | | | | + + + +-------+ + + + + | Result panel 75 | + + + + + +-------+---------+ + | Glucose | 2024-12-20 | | 101 | mg/dL | (missing) | | Jatin[facility] | 11:03:07 | [facility] | | | | + + + +-------+---------+ + + + | Result panel 76 | + + + + + +------+---------+ + | BUN | 2024-12-20 | | 19 | mg/dL | (missing) | | [facility] | 11:03:07 | [facility] | | | | + + + +------+---------+ + + + | Result panel 77 | + + + + + +--------+---------+ + | Creat | 2024-12-20 | | 0.73 | mg/dL | (missing) | | [facility] | 11:03:07 | [facility] | | | | + + + +--------+---------+ + + + | Result panel 78 | + + + + + +------+ + + | eGFRcr | 2024-12-20 | | 91 | (missing) | (missing) | | SerPlBld | 11:03:07 | [facility] | | | | | CKD-EPI 2020 | [facility] | | | | + + + +------+ + + + + | Result panel 79 | + + + + + +---------+ + + | BUN/Creat | 2024-12-20 | | 26.02 | (missing) | (missing) | | SerPl | 11:03:07 | [facility] | | | | + + + +---------+ + + + + | Result panel 80 | + + + + + +-------+ + + | Sodium | 2024-12-20 | | 140 | (missing) | (missing) | | SerPl-sCnc | 11:03:07 | [facility] | | | | + + + +-------+ + + + + | Result panel 81 | + + + + + +-------+ + + | Potassium | 2024-12-20 | | 4.3 | (missing) | (missing) | | SerPl-sCnc | 11:03:07 | [facility] | | | | + + + +-------+ + + + + | Result panel 82 | + + + + + +-------+ + + | Chloride | 2024-12-20 | | 104 | (missing) | (missing) | | SerPl-s[facility]nc | 11:03:07 | [facility] | | | | + + + +-------+ + + + + | Result panel 83 | + + + + + +------+ + + | CO2 | 2024-12-20 | | 30 | (missing) | (missing) | | SerPl-sCnc | 11:03:07 | [facility] | | | | + + + +------+ + + + + | Result panel 84 | + + + + + +--------+ + + | Anion Gap | 2024-12-20 | | 10.3 | (missing) | (missing) | | SerPl | 11:03:07 | [facility] | | | | | Calculated.4 [facility] | | | | + + + +--------+ + + + + | Result panel 85 | + + + + + +-------+---------+ + | Calcium | 2024-12-20 | | 8.6 | mg/dL | (missing) | | SerPl-mCnc | 11:03:07 | [facility] | | | | + + + +-------+---------+ + + + | Result panel 86 | + + + + + +-------+ + + | Prot | 2024-12-20 | | 6.8 | (missing) | (missing) | | [facility] | 11:03:07 [facility] | | [facility] | | | | + + + +-------+ + + + + | Result panel 87 | + + + + + +-------+ + + | Albumin | 2024-12-20 | | 3.5 | (missing) | (missing) | | SerPl-mCnc | 11:03:07 | [facility] | | | | + + + +-------+ + + + + | Result panel 88 | + + + + + +-------+ + + | Globulin | 2024-12-20 | | 3.3 | (missing) | (missing) | | Ser-mCnc | 11:03:07 | [facility] | | | | + + + +-------+ + + + + | Result panel 89 | + + + + + +--------+ + + | | 2024-12-20 | | 1.06 | (missing) | (missing) | | Albumin/Glob | 11:03:07 | [facility] | | | | | SerPl [facility] | | | | + + + +--------+ + + + + | Result panel 90 | + + + + + +-------+---------+ + | Bilirub | 2024-12-20 | | 0.3 | mg/dL | (missing) | | SerPl-m[facility]nc | 11:03:07 | [facility] | | | | + + + +-------+---------+ + + + | Result panel 91 | + + + + + +------+ + + | AST | 2024-12-20 | | 16 | (missing) | (missing) | | SerPl-cCnc | 11:03:07 | [facility] | | | | + + + +------+ + + + + | Result panel 92 | + + + + + +------+ + + | ALT | 2024-12-20 | | 20 | (missing) | (missing) | | SerPl-cCnc | 11:03:07 | [facility] | | | | + + + +------+ + + + + | Result panel 93 | + + + + + +------+ + + | ALP | 2024-12-20 | | 76 | (missing) | (missing) | | SerPl-cCnc | 11:03:07 | [facility] | | | | + + + +------+ + + + + | Result panel 94 | + + + + + +--------+ + + | WBC # Bld | 2024-12-20 | | 5.91 | (missing) | (missing) | | Auto | 11:03:07 | [facility] | | | | + + + +--------+ + + + + | Result panel 95 | + + + + + +--------+ + + | RBC # Bld | 2024-12-20 | | 4.09 | (missing) | (missing) | | Auto | 11:03:07 | [facility] | | | | + + + +--------+ + + + + | Result panel 96 | + + + + + +--------+ + + | Hgb | 2024-12-20 | | 12.6 | (missing) | (missing) | | Bld-mCnc | 11:03:07 | [facility] | | | | + + + +--------+ + + + + | Result panel 97 | + + + + + +--------+ + + | WBC # Bld | 2024-12-20 | | 5.91 | (missing) | (missing) | | Auto | 11:03:08 | [facility] | | | | + + + +--------+ + + + + | Result panel 98 | + + + + + +--------+ + + | RBC # Bld | 2024-12-20 | | 4.09 | (missing) | (missing) | | Auto | 11:03:08 | [facility] | | | | + + + +--------+ + + + + | Result panel 99 | + + + + + +--------+ + + | Hgb | 2024-12-20 | | 12.6 | (missing) | (missing) | | Bld-mCnc | 11:03:08 | [facility] | | | | + + + +--------+ + + + + | Result panel 100 | + + + + + +--------+ + + | Hct VFr.DF | 2024-12-20 | | 38.8 | (missing) | (missing) | | Bld Auto | 11:03:08 | [facility] | | | | + + + +--------+ + + + + | Result panel 101 | + + + + + +--------+ + + | RBC Auto | 2024-12-20 | | 94.9 | (missing) | (missing) | | | 11:03:08 | [facility] | | | | + + + +--------+ + + + + | Result panel 102 | + + + + + +--------+ + + | MCH RBC Qn | 2024-12-20 | | 30.8 | (missing) | (missing) | | Auto | 11:03:08 | [facility] | | | | + + + +--------+ + + + + | Result panel 103 | + + + + + +--------+ + + | MCHC RBC | 2024-12-20 | | 32.5 | (missing) | (missing) | | Auto-EntMCnc | 11:03:08 | [facility] | | | | + + + +--------+ + + + + | Result panel 104 | + + + + + +-------+ + + | Platelet # | 2024-12-20 | | 228 | (missing) | (missing) | | Bld Auto | 11:03:08 | [facility] | | | | + + + +-------+ + + + + | Result panel 105 | + + + + + +--------+ + + | Neutrophils | 2024-12-20 | | 46.9 | (missing) | (missing) | | NFr Bld | 11::08 | [facility] | | | | | Auto | [facility] | | | | + + + +--------+ + + + + | Result panel 106 | + + + + + +--------+ + + | Lymphocytes | 2024-12-20 | | 36.7 | (missing) | (missing) | | NFr Bld | 11::08 | [facility] | | | | | Auto | [facility] | | | | + + + +--------+ + + + + | Result panel 107 | + + + + + +--------+ + + | Monocytes | 2024-12-20 | | 10.0 | (missing) | (missing) | | NFr Bld Auto | 11:03:08 | [facility] | | | | + + + +--------+ + + + + | Result panel 108 | + + + + + +-------+ + + | Eosinophil | 2024-12-20 | | 5.4 | (missing) | (missing) | | NFr Bld Auto | 11:03:08 | [facility] | | | | + + + +-------+ + + + + | Result panel 109 | + + + + + +-------+ + + | Basophils | 2024-12-20 | | 0.8 | (missing) | (missing) | | NFr Bld Auto | 11:03:08 | [facility] | | | | + + + +-------+ + + + + | Result panel 110 | + + + + + +-------+---------+ + | Glucose | 2024-12-20 | | 101 | mg/dL | (missing) | | SerPl-mCnc | 11:03:08 | [facility] | | | | + + + +-------+---------+ + + + | Result panel 111 | + + + + + +------+---------+ + | BUN | 2024-12-20 | | 19 | mg/dL | (missing) | | [facility] | 11:03:08 | [facility] | | | | + + + +------+---------+ + + + | Result panel 112 | + + + + + +--------+---------+ + | Creat | 2024-12-20 | | 0.73 | mg/dL | (missing) | | SerPl-mCnc | 11:03:08 | [facility] | | | | + + + +--------+---------+ + + + | Result panel 113 | + + + + + +------+ + + | eGFRcr | 2024-12-20 | | 91 | (missing) | (missing) | | SerPlBld | 11:03:08 | [facility] | | | | | CKD-EPI 2020 [facility] | | | | + + + +------+ + + + + | Result panel 114 | + + + + + +---------+ + + | BUN/Creat | 2024-12-20 | | 26.02 | (missing) | (missing) | | SerPl | 11:03:08 | [facility] | | | | + + + +---------+ + + + + | Result panel 115 | + + + + + +-------+ + + | Sodium | 2024-12-20 | | 140 | (missing) | (missing) | | SerPl-sCnc | 11:03:08 | [facility] | | | | + + + +-------+ + + + + | Result panel 116 | + + + + + +-------+ + + | Potassium | 2024-12-20 | | 4.3 | (missing) | (missing) | | SerPl-sCnc | 11:03:08 | [facility] | | | | + + + +-------+ + + + + | Result panel 117 | + + + + + +-------+ + + | Chloride | 2024-12-20 | | 104 | (missing) | (missing) | | SerPl-sCnc | 11:03:08 | [facility] | | | | + + + +-------+ + + + + | Result panel 118 | + + + + + +------+ + + | CO2 | 2024-12-20 | | 30 | (missing) | (missing) | | SerPl-sCnc | 11:03:08 | [facility] | | | | + + + +------+ + + + + | Result panel 119 | + + + + + +--------+ + + | Anion Gap | 2024-12-20 | | 10.3 | (missing) | (missing) | | SerPl | 11:03:08 | [facility] | | | | | Calculated.4 | [facility] | | | | + + + +--------+ + + + + | Result panel 120 | + + + + + +-------+---------+ + | Calcium | 2024-12-20 | | 8.6 | mg/dL | (missing) | | SerPl-mCnc | 11:03:08 | [facility] | | | | + + + +-------+---------+ + + + | Result panel 121 | + + + + + +-------+ + + | Prot | 2024-12-20 | | 6.8 | (missing) | (missing) | | SerPl-mCnc | 11:03:08 | [facility] | | | | + + + +-------+ + + + + | Result panel 122 | + + + + + +-------+ + + | Albumin | 2024-12-20 | | 3.5 | (missing) | (missing) | | SerPl-mCnc | 11:03:08 | [facility] | | | | + + + +-------+ + + + + | Result panel 123 | + + + + + +-------+ + + | Globulin | 2024-12-20 | | 3.3 | (missing) | (missing) | | Ser-mCnc | 11:03:08 | [facility] | | | | + + + +-------+ + + + + | Result panel 124 | + + + + + +--------+ + + | | 2024-12-20 | | 1.06 | (missing) | (missing) | | Albumin/Glob | 11:03:08 | [facility] | | | | | [facility]Pl [facility] | | | | + + + +--------+ + + + + | Result panel 125 | + + + + + +-------+---------+ + | Bilirub | 2024-12-20 | | 0.3 | mg/dL | (missing) | | SerPl-mCnc | 11:03:08 | [facility] | | | | + + + +-------+---------+ + + + | Result panel 126 | + + + + + +------+ + + | AST | 2024-12-20 | | 16 | (missing) | (missing) | | SerPl-cCnc | 11:03:08 | [facility] | | | | + + + +------+ + + + + | Result panel 127 | + + + + + +------+ + + | ALT | 2024-12-20 | | 20 | (missing) | (missing) | | SerPl-cCnc | 11:03:08 | [facility] | | | | + + + +------+ + + + + | Result panel 128 | + + + + + +------+ + + | ALP | 2024-12-20 | | 76 | (missing) | (missing) | | SerPl-cCnc | 11:03:08 | [facility] | | | | + + + +------+ + + Social History + + + + | date | description | facility | + + + + | (no date) | Never smoker | [facility] | + + + + Vital Signs + + + +---------+ | date | measurement | value | units | + + + +---------+ | 2024-12-20 00:00 | BMI | 24.2 | kg/m2 | + + + +---------+ | 2024-12-20 00:00 | height_metric | 154.94 | cm | + + + +---------+ | 2024-12-20 00:00 | height_standard | 61 | in | + + + +---------+ | 2024-12-20 00:00 | weight_metric | 58 | kg | + + + +---------+ | 2024-12-20 00:00 | weight_standard | 127.868 | lb | + + + +---------+ | 2024-12-24 00:00 | BP_diastolic | 58 | mmHg | + + + +---------+ | 2024-12-24 00:00 | BP_systolic | 96 | mmHg | + + + +---------+ | 2024-12-24 00:00 | heart_rate | 75 | /min | + + + +---------+ | 2024-12-24 00:00 | o2_saturation | 97 | % | + + + +---------+ | 2024-12-24 00:00 | respiration_rate | 18 | /min | + + + +---------+ | 2024-12-24 00:00 | | 97.6 | F | | | temperature_standar | | | | | d | | | + + + +---------+ | 2025-01-01 00:00 | BP_diastolic | 87 | mmHg | + + + +---------+ | 2025-01-01 00:00 | BP_systolic | 119 | mmHg | + + + +---------+ | 2025-01-01 00:00 | heart_rate | 52 | /min | + + + +---------+ | 2025-01-01 00:00 | o2_saturation | 97 | % | + + + +---------+ | 2025-01-01 00:00 | respiration_rate | 17 | /min | + + + +---------+ | 2025-01-01 00:00 | | 97 | F | | | temperature_standar | | | | | d | | | + + + +---------+"
[~2025-01-30 06:22] MED LIST changes: -CEFAZOLIN SODIUM 2 GM in SODIUM CHLORIDE 0.9% 100 ML IV SCH; -IBLOOD GLUCOSE TEST STRIP 1 EA TEST VI PRN; -LACTATED RINGER'S 1,000 ML IV SCH; -LIDOCAINE HCL 1% 5 ML SDV INJ ONE; +NAPROXEN500 MG PO
[2025-01-30 06:42] LABS: BASOPHILS 0.2 % (0.1-1.2); EOSINOPHILS 0 % (0.7-5.8); LYMPHOCYTES 16.7 % (19.3-51.7); MCH 30.6 PG (25.6-32.2); MCHC 33.7 g/dL (32.2-35.5); MCV 90.9 fL (79.4-94.8); MONOCYTES 5.5 % (4.7-12.5); NEUTROPHILS 77.4 % (34.0-71.1); RBC 4.70 M/uL (3.93-5.22)
[2025-01-30] MEDS ORDERED: HYDROmorphone HCL 1 MG/ML SYR IV PRN (06:45)
[2025-01-30] MEDS ORDERED: LACTATED RINGER'S 1,000 ML IV ONE (06:45)
[2025-01-30 06:59] LABS: ALCOHOL, MEDICAL <3 ng/dL (<3); ALT (SGPT) 19 U/L (14-59); AST (SGOT) 16 U/L (15-37); CORONAVIRUS COVID-19 AG NEGATIVE (NEGATIVE); GLOMERULAR FILTRATION RATE,EST 78 mL/min (>60); PROTEIN, TOTAL 7.8 g/dL (6.4-8.2); UREA NITROGEN 14 mg/dL (7-18)
[2025-01-30] MEDS ORDERED: FAMOTIDINE 20 MG/ 2 ML VIAL IV ONE (07:00)
[2025-01-30] MEDS ORDERED: PROCHLORPERAZINE EDISYLATE 10 MG/2 ML VIAL IV ONE (08:00)
[2025-01-30] MEDS ORDERED: REGLAN10 MG PO (08:11)
[2025-01-30] MEDS ORDERED: ONDANSETRON ODT8 MG PO (08:11)
[2025-01-30 08:25] VITALS: BP 122/73
== END 2025-01-30 08:22 | disposition home or self-care (01) ==
LOC: ED 06:22
PROVIDERS: Internal Medicine
DX: R11.2 Nausea with vomiting, unspecified (principal); R10.9 Unspecified abdominal pain; G43.909 Migraine, unspecified, not intractable, without status migrainosus; Z79.899 Other long term (current) drug therapy; Z88.5 Allergy status to narcotic agent; Z88.6 Allergy status to analgesic agent; Z88.2 Allergy status to sulfonamides; Z88.7 Allergy status to serum and vaccine; Z88.8 Allergy status to other drugs, medicaments and biological substances
CPT/HCPCS: 36415; 71045; 74177; 80053; 80307; 83690; 84484; 85025; 96361; 96374; 96375; 96376; 99284-25; G0480; J0780; J1171; J2405; J7121